=== PATIENT | male | born 1945 | race Caucasian/White ===

== ENCOUNTER 2023-04-23 08:56 | Outpatient (OUT) | payer OTHER, SELFPAY ==
--- NOTE | 2023-04-23 09:57 | CA_ITS ---
[facility] Test Date: 2023-05-08 Pat Name: Basil Mac Department: Room: - Gender: Male Director Of Clinical Applications: : 1945 Requested By: DEE YAP Order Number: [id number] Reading MD: DEE YAP Interpretive Statements Predominant rhythm is sinus with average rate of 62 bpm Tachycardia - max rate of 127 bpm - longest episode of 10min 37sec with rates between 115-127 bpm Bradycardia (42% total) - min rate of 44 bpm - longest episode of 1h 18min 10sec with rates between 48-56 bpm Ventricular ectopy - 49 PVC Patient triggered events: none Impression: Predominant rhythm is sinus with average rate of 62 bpm Fastest rate of 127 bpm and slowest rate of 44 bpm No atrial fibrillation No blocks or pauses Electronically Signed On 05-10-2023 11:52:25 EST by DEE YAP
--- NOTE | 2023-04-23 09:57 | CA_ITS ---
Patient Name: PRUDENCIO PATRICK MR#: [id number] : 1945 Exam Date: 04/23/2023 Ordering Doctor: DR Jose Smith D.O. ECHOCARDIOGRAM REPORT PROCEDURE: CA ECHO DOPPLER COMPLETE INDICATIONS: Syncope, Hypertension, Murmur COMPARISON: None. DESCRIPTION: COMPLETE ECHOCARDIOGRAM Real-time transthoracic echocardiography with 2D, M-mode, spectral and color flow Doppler performed. QUALITY: Technical quality was adequate. LEFT VENTRICLE: Normal chamber size. Thickened septal wall. LV EF: Global left ventricular systolic function is normal; visually estimated ejection fraction is 55 to 60%. Difficult to assess segmental wall motion abnormalities; no obvious abnormalities seen. DIASTOLIC: Normal diastolic function. ATRIAL SEPTUM: Visually appears intact. LEFT ATRIUM: Normal chamber size. RIGHT ATRIUM: Normal chamber size. RIGHT VENTRICLE: Normal chamber size. Normal right ventricular systolic function. TRICUSPID VALVE: Normal mobility and thickness. No stenosis with trivial regurgitation. MITRAL VALVE: Normal mobility and thickness. No evidence of mitral valve stenosis. There is no mitral annular calcification. Trivial mitral regurgitation. AORTIC VALVE: Normal trileaflet appearance. Thickened aortic valve. Normal leaflet mobility. No evidence of aortic valve stenosis. No aortic regurgitation. AORTIC ROOT: Normal diameter and appearance. PULMONIC VALVE: Not well visualized. No stenosis. No regurgitation. PERICARDIUM: No evidence of pericardial effusion. IVC: Collapses with inspirations. CONCLUSION: 1. Global left ventricular systolic function is normal; visually estimated ejection fraction is 55 to 60% 2. The right ventricle is normal in size and systolic function 3. Normal diastolic function 4. No significant valvular abnormalities Adult Echocardiography Procedure Report Left Ventricle LVEDD (3.7 - 5.6 cm): 4.20 cm LVESD (2.2 - 4.0 cm): 2.59 cm LVIVS thickness (0.6 - 1.2 cm): 1.20 cm LVPW thickness (0.5 - 1.0 cm): 0.99 cm e': 0.10 m/s E - e': 5.22 LVOT Max Gradient: 4.28 mm[Hg] LVOT Area (cm2): 1.03 m/s Peak Velocity (LVOT): 1.03 m/s Left Atrium LA Volume Index (2D A2C): 25.43 ml/m2 Left Atrium Systolic Dimension: 4.22 cm Mitral Valve MV E to A Ratio: 0.75 Mitral Valve A-Wave Peak Velocity: 0.68 m/s Mitral Valve E-Wave Peak Velocity: 0.51 m/s Right Ventricle Aorta Aortic Valve Peak Velocity(Antegrade Flow): 1.24 m/s Peak Gradient(Antegrade Flow): 6.14 mm[Hg] Tricuspid Valve Pulmonic Valve Peak Velocity: 0.91 m/s Peak Gradient: 3.43 mm[Hg], 3.27 mm[Hg] Right Atrium Right Atrium Systolic Pressure: 46.41 ml, 46.41 ml Dictated by: Jose Porter M.D. on 04/23/2023 at 14:30 Approved by: Jose Porter M.D. on 04/23/2023 at 14:33
== END 2023-04-23 08:57 | disposition home or self-care (01) ==
LOC: CARD 08:56
PROVIDERS: PCP Internal Medicine; Visit Provider Internal Medicine
DX: R55 Syncope and collapse (principal); I10 Essential (primary) hypertension; R01.1 Cardiac murmur, unspecified
CPT/HCPCS: 93242; 93306

== ENCOUNTER 2023-08-07 12:05 | Outpatient (OUT) | payer OTHER, SELFPAY ==
--- OUTSIDE RECORDS SUMMARY | 2023-08-07 12:16 | XMS_ITS | CCD ---
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 Name Role Phone Jose Smith DO Primary Care Provider JOSE SMITH Primary Care Physician [phone] Christophe MCLAUGHLIN Attending Unavailable MCLAUGHLIN, Christophe Stoddard Attending Unavailable Jose Smith Unavailable MCLAUGHLIN ., DR SAEED Attending Unavailable BALL, DR PRICE Primary Care Unavailable MCLAUGHLIN ., DR SAEED Admitting Unavailable MCLAUGHLIN ., DR SAEED Consulting Unavailable BALL, DR PRICE Admitting Unavailable BALL, DR PRICE Primary Care Unavailable BALL, DR PRICE Consulting Unavailable FRACISCO, DR PRICE Attending Unavailable Fracisco SILVER Jose Kevin Primary Care Provider ABHYANKAR, MAYCOL Referring Unavailable BALL, JOSE E Primary Care Unavailable ABHYANKAR, MAYCOL Referring Unavailable BALL, JOSE E Primary Care Unavailable WISAM LONG Attending Unavailable ABHYANKAR, MAYCOL Referring Unavailable FRACISCO, JOSE E Primary Care Unavailable ABHYANKAR, MAYCOL Attending Unavailable ABHYANKAR, MAYCOL Referring Unavailable BALL, JOSE E Primary Care Unavailable ABHYANKAR, MAYCOL Referring Unavailable BALL, JOSE E Primary Care Unavailable ABHYANKAR, MAYCOL Referring Unavailable BALL, JOSE E Primary Care Unavailable ABHYANKAR, MAYCOL Referring Unavailable BALL, JOSE E Primary Care Unavailable ABHYANKAR, MAYCOL Referring Unavailable BALL, JOSE E Primary Care Unavailable ABHYANKAR, MAYCOL Referring Unavailable BALL, JOSE E Primary Care Unavailable WISAM LONG Attending Unavailable ABHYANKAR, MAYCOL Referring Unavailable BALL, JOSE E Primary Care Unavailable ABHYANKAR, MAYCOL Referring Unavailable ABHYANKAR, MAYCOL Attending Unavailable BALL, JOSE E Primary Care Unavailable ABHYANKAR, MAYCOL Referring Unavailable BALL, JOSE E Primary Care Unavailable ABHYANKAR, MAYCOL Referring Unavailable ABHYANKAR, MAYCOL Attending Unavailable JOSE SMITH Primary Care Unavailable MAYCOL NOVAK Referring Unavailable JOSE SMITH Primary Care Unavailable Unavailable Primary Care Provider UnavailJose Morales MD Primary Care Provider NAKUL GARCIA Attending Unavailable Allergies Allergy Classification Reported Allergen(s) Allergy Type Date of Onset Reaction(s) Facility (20 sources) Clindamycin; Translations: [CLINDAMYCIN] Drug Allergy 5 Anaphylaxis [facility] (13 sources) Penicillins; Translations: [PENICILLINS] Drug Allergy 2 Hives [facility] (15 sources) Penicillins Drug Allergy 2 [facility] (12 sources) Penicillin; Translations: [penicillin] Drug Allergy Mild (qualifier value) [facility] (1 source) Penicillins Drug allergy (disorder) 5 [facility] (5 sources) Penicillin G Drug Allergy 3 Unknown [facility] Other (5 sources) Penicillin V Drug Allergy 3 Unknown [facility] Other (1 source) patient allergy list reviewed by nurse or physicia Propensity to adverse reactions 8 Comment:Done [facility] Other (2 sources) Penicillins Drug Allergy 2 [facility] Medications Current Medications Medication Drug Class(es) Dates Sig (Normalized) Sig (Original) Acyclovir (20 sources) Herpesvirus Nucleoside Analog DNA Polymerase Inhibitor, Herpes Simplex Virus Nucleoside Analog DNA Polymerase Inhibitor, Herpes Zoster Virus Nucleoside Analog DNA Polymerase Inhibitor Start: 08-03-2019 acyclovir 800 mg, Refills(s) 0 Start Date: 08/03/19 Status: Ordered take 1 tablet by mouth in the mo rning acyclovir (Zovirax) 800 MG tablet Take 800 mg by mouth in the morning and 800 mg in the evening. 0 Active Comment on above: Take 800 mg by mouth twice daily. amLODIPine 5 mg oral tablet (20 sources) Dihydropyridine Calcium Channel Chris Start: 0 take 5 mg by mouth once daily amlodipine 5 mg, Oral, Daily, Refills(s) 0 Start Date: 08/03/19 Status: Ordered take 1 tablet by mouth twice nii ly amLODIPine Besylate 5 MG 1 tablet Orally twice daily for 90 days Active Comment on above: Take 5 mg by mouth o nce daily. Take 5 mg by mouth t wice daily. Aspirin (13 sources) Platelet Aggregation Inhibitor, Nonsteroidal Anti-inflammatory Drug Aspirin 81 Active atorvastatin 10 mg oral tablet (20 sources) HMG-CoA Reductase Inhibitor Start: 06-06-20 23 take 1 tablet by mouth in the morning atorvastatin (Lipitor) 10 MG tablet Take 10 mg by mouth in the morning. 0 06/06/2023 Active Start: 08-10-2013 take 1 tablet by megha th once daily ATORVASTATIN 10 mg tablet Take 10 mg by mouth once daily. 0 08/10/2013 Active Comment on above: Take 10 mg by mouth once daily. citalopram 10 mg oral tablet (20 sources) Serotonin Reuptake Inhibitor take 1 tablet by mouth in the morning citalopram (CeleXA) 10 MG tablet Take 10 mg by mouth in the morning. 0 Active Comment on above: Take 10 mg by mouth once daily. finasteride 5 mg oral tablet (20 sources) 5-alpha Reductase Inhibitor Start: 022 take 1 tablet by mouth once daily finasteride 5 mg Tab 5 mg = 1 tab(s), Oral, Daily, # 90 tab(s), Refills(s) 3, Pharmacy: [facility] [id number], 183, cm, 08/05/21 9:11:00 EST, Height/Length Dosing, 119, kg, 08/05/21 9:11:00 EST, Weight Dosing Start Date: 08/27/21 Status: Ordered Comment on above: Take 5 mg by mouth o nce daily. hydroCHLOROthiazide 12.5 mg / losartan potassium 50 mg oral tablet (10 sources) Thiazide Diuretic, Angiotensin 2 Receptor Chris Start: 023 losartan-hydroCHLO ROthiazide (Hyzaar) 50-12.5 MG tablet Refill(s) 0 0 08/08/2022 Active Start: 10-14-2021 End: 12-26-2021 losartan-hydroCHLOROthiazide (HYZAAR) 50-12.5 mg per tablet hydroxyurea 500 mg oral capsule (20 sources) Antimetabolite Start: 05-09-2023 take 1 capsule by mouth once daily hydroxyurea (HYDREA) 500 mg capsule take 1 capsule by mouth once daily 90 capsule 1 05/09/2023 Active Start: 08-08-2022 End: 05-09-2023 take 1 capsule by mouth once daily hydroxyurea (HYDREA) 500 mg capsule TAKE 1 CAPSULE BY MOUTH ONCE DAILY 90 capsule 1 11/11/2022 05/09/2023 Discontinued Start: 02-14-2022 End: 05-19-2022 hydroxyurea 500 mg Cap Refil ls(s) 0 Start Date: 08/08/22 Status: Ordered Start: 10-27-2021 End: 01-20-2022 take 1 capsule by mouth once daily hydroxyurea (HYDREA) 500 mg capsule Take 1 capsule by mouth once daily. 30 capsule 3 01/20/2022 Active Comment on above: Take 1 capsule by mo uth once daily. TAKE 1 CAPSULE BY MO UTH ONCE DAILY triamcinolone acetonide 0.25 mg/ml topical cream (8 sources) Corticosteroid Start: 09-12-2022 Triamcinolone Acetonide 0.025 % 1 application Externally twice daily as needed for 30 days Aug, Active Start: 09-12-2022 Triamcinolone Acetonide 0.025 % 1 application Externally twice daily as needed for 30 days Aug, Active Completed/Discontinued Medications Medication Drug Class(es) Dates Sig (Normalized) Sig (Original) doxycycline hyclate 100 mg oral capsule (20 sources) Tetracycline-clas s Drug Start: 06-19-2022 take 1 capsule by mouth twice daily as needed Doxycycline Hyclate 100 MG 1 capsule Orally twice daily for 7 days Jun, Not-Taking/PRN 150 ml glucose 50 mg/ml injection (1 source) Start: 11-14-2021 End: 11-14-2021 dextrose 5% in water iv infusion Start: 11-14-2021 End: 11-14-2021 dextrose 5% in water iv infu lanre hydroCHLOROthiazide 25 mg oral tablet (20 sources) Thiazide Diuretic take 1 tablet by mouth once daily hydrochlorothiazide 25 mg tablet Take 25 mg by mouth once daily. 0 Active Comment on above: Take 25 mg by mouth once daily. losartan potassium 50 mg oral tablet (20 sources) Angiotensin 2 Receptor Chris Start: 2021 take 1 tablet by mouth once daily losartan (COZAAR) 50 mg tablet Take 50 mg by mouth once daily. 0 12/12/2021 Active take 1 tablet by mouth twice nii ly Losartan Potassium 50 MG 1 tablet Orally twice daily Active Comment on above: Take 50 mg by mouth once daily. 1000 ml sodium chloride 9 mg/ml injection (1 source) Start: 11-14-2021 End: 11-14-2021 NaCl 0.9% 1,000 mL iv bolus Start: 11-14-2021 End: 11-14-2021 NaCl 0.9% 1,000 mL iv bolus Problems Active Problems Problem Classification Problem Date Documented Da te Episodic/Chronic Allergic reactions (9 sources) Flexural eczema; Translations: [Flexural eczema] Chronic Blindness and vision defects (1 source) Blindness AND/OR vision impairment level 08-03-2019 Chronic Cardiac dysrhythmias (1 source) Bradycardia, unspecified Episodic Chronic kidney disease (11 sources) Chronic kidney disease stage 3A ; Translations: [Stage 3a chronic kidney disease] Onset: 01-15-2023 Chronic Chronic ulcer of skin (2 sources) Chronic ulcer of skin; Translations: [Non-pressure chronic ulcer of skin of other sites with unspecified severity] Onset: 03-26-2015 Chronic Disorders of lipid metabolism (20 sources) Pure hypercholesterolemi a; Translations: [Pure hypercholesterolemi a, unspecified] Onset: 07-21-2014 Chronic Essential hypertension (20 sources) Hypertensive disorder; Translations: [Essential (primary) hypertension] 05-31-2012 Chronic Genitourinary symptoms and ill-defined conditions (2 sources) Blood in urine; Translations: [Nocturia] 08-03-2019 Episodic Heart valve disorders (1 source) Cardiac murmur, unspecified Episodic Hyperplasia of prostate (20 sources) Lower urinary tract symptoms due to benign prostatic hypertrophy; Translations: [Benign prostatic hyperplasia with lower urinary tract symptoms] Onset: 06-15-1959 Chronic Immunizations and screening for infectious disease (2 sources) Vaccination given; Translations: [Encounter for immunization] Episodic Inflammatory conditions of male genital organs (1 source) Prostatitis 08-03-2019 Episodic Malaise and fatigue (4 sources) Malaise; Translations: [Other malaise] Onset: 08-09-2015 Episodic Mood disorders (7 sources) Depressive disorder; 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] Onset: 03-26-2015 08-03-2019 Chronic Mycoses (2 sources) Onychomycosis; Translations: [Tinea unguium] 07-30-2023 Episodic Neoplasms of unspecified nature or uncertain behavior (20 sources) Monoclonal gammopathy of uncertain significance; Translations: [Monoclonal gammopathy] Onset: 06-15-1959 Chronic Neoplasms of unspecified nature or uncertain behavior (2 sources) Neoplasm of uncertain behavior of skin; Translations: [Neoplasm of uncertain behavior of skin] 07-30-2023 Episodic Nutritional deficiencies (2 sources) Deficiency of macronutrients; Translations: [Unspecified protein-calorie malnutrition] Onset: 11-02-2014 Chronic Osteoarthritis (20 sources) Osteoarthritis; Translations: [Unspecified osteoarthritis, unspecified site] 05-31-2012 Chronic Other aftercare (1 source) 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 middle 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 Episodic Other aftercare (2 sources) Long-term current use of drug therapy; Translations: [Other middle 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] Episodic Other connective tissue disease (1 source) Trigger finger, left middle finger Episodic Other connective tissue disease (2 sources) Pain in right foot; Translations: [Pain in right foot] 07-30-2023 Episodic Other connective tissue disease (2 sources) Pain of toes of bilateral feet; Translations: [Pain in right toe(s)] 07-30-2023 Episodic Other gastrointestinal disorders (15 sources) Ileostomy present; Translations: [Ileostomy status] Chronic Other hematologic conditions (14 sources) Erythrocytosis; Translations: [Secondary polycythemia] Episodic Other hematologic conditions (2 sources) Secondary polycythemia; Translations: [Secondary polycythemia] Episodic Other injuries and conditions due to external causes (2 sources) History of fall; Translations: [History of falling] Episodic Other nutritional; endocrine; and metabolic disorders (15 sources) Obesity; Translations: [Obesity, unspecified] Chronic Other nutritional; endocrine; and metabolic disorders (4 sources) Obese class I; Translations: [Body mass index (BMI) 33.0-33.9, adult] Onset: 06-15-1959 Chronic Other nutritional; endocrine; and metabolic disorders (2 sources) Simple obesity ; Translations: [Other obesity due to excess calories] Onset: 06-15-1959 Chronic Other nutritional; endocrine; and metabolic disorders (3 sources) Morbid obesity; Translations: [Morbid (severe) obesity due to excess calories] Onset: 06-15-1959 04-09-2023 Chronic Other nutritional; endocrine; and metabolic disorders (2 sources) Obese class II; Translations: [Body mass index 35.0-35.9, adult] Onset: 06-15-1959 Chronic Other nutritional; endocrine; and metabolic disorders (3 sources) Severe obesity; Translations: [Morbid (severe) obesity due to excess calories] Chronic Other nutritional; endocrine; and metabolic disorders (3 sources) Body mass index 30+ - obesity; Translations: [Body mass index (BMI) 35.0-35.9, adult] Chronic Other nutritional; endocrine; and metabolic disorders (1 source) Morbid (severe) obesity due to excess calories Chronic Other nutritional; endocrine; and metabolic disorders (1 source) Body mass index (BMI) 35.0-35.9, adult Chronic Other screening for suspected conditions (not mental disorders or infectious disease) (6 sources) Raised prostate specific antigen; Translations: [Elevated prostate specific antigen [PSA]] Onset: 07-28-2022 Episodic Other skin disorders (16 sources) Sebaceous cyst; Translations: [Sebaceous cyst] Episodic Residual codes; unclassified (1 source) Family history of cancer; Translations: [Family history of malignant neoplasm of prostate] Onset: 08-08-2022 Episodic Residual codes; unclassified (1 source) Family history of prostate cancer 08-05-2021 Episodic Residual codes; unclassified (1 source) Family history of malignant neoplasm of prostate; Translations: [FAMILY HX MALIG NEOPLASM PROSTATE] Onset: 08-01-2022 Episodic Skin and subcutaneous tissue infections (3 sources) Local infection of the skin and subcutaneous tissue, unspecified Episodic Substance-related disorders (13 sources) Tobacco user; Translations: [Nicotine dependence, cigarettes, in remission] Chronic Syncope (16 sources) Syncope and collapse; Translations: [Syncope and collapse] Episodic Viral infection (17 sources) Herpesviral vesicular dermatitis; Translations: [Herpesviral vesicular dermatitis] Onset: 10-03-2013 07-30-2023 Episodic Past or Other Problems Problem Classification Problem Date Documented Date Episodic/Chronic Allergic reactions (2 sources) Contact dermatitis due to plants; Translations: [Contact dermatitis and other eczema due to plants (except food)] Onset: 03-16-2014 Episodic Bacterial infection; unspecified site (2 sources) Bacterial infectious disease; Translations: [Bacterial infection, unspecified, in conditions classified elsewhere and of unspecified site] Onset: 09-07-2015 Episodic Chronic kidney disease (2 sources) Chronic kidney disease Disorders of teeth and jaw (2 sources) Localized slight aggressive periodontitis; Translations: [Aggressive periodontitis, localized] Onset: 09-07-2015 Episodic Intestinal infection (6 sources) Infectious colitis, enteritis and gastroenteritis; Translations: [Infectious gastroenteritis and colitis, unspecified] Onset: 11-02-2014 Episodic Residual codes; unclassified (2 sources) Postoperative state; Translations: [Other postprocedural status] Onset: 08-12-2016 Episodic Residual codes; unclassified (2 sources) Requires influenza virus vaccination; Translations: [Need for prophylactic vaccination and inoculation, Influenza] Onset: 02-21-2019 Episodic Screening and history of mental health and substance abuse codes (2 sources) History of tobacco use; Translations: [Personal history of tobacco use, presenting hazards to health] Onset: 05-11-2017 Episodic Unclassified (2 sources) Long-term current use of drug therapy; Translations: [Long-term (current) use of other medications] Onset: 08-12-2016 Unclassified (2 sources) Non-healing surgical wound; Translations: [Non-healing surgical wound] Onset: 11-02-2014 Results Test Name Value Interpretation Reference Range Facility B2 Microglob SerPl-mCncon Nlmv-3-Urjkxnpqvtiz n [Mass/Vol] 2.5 ug/mL Normal <3.1 [facility] Comment on above: Order Comment: Speci men Type: BLOOD SPECIMEN Ordering Facility: [facility] Address: [address] [place] [address] Result Comment: Beta -2 Microglobulin test is performed using the [employer] immunoturbidimetric method. Results obtained with different methods or kits cannot be used interchangeably. Performed By: #### 3 084-1, 2777-1, 2532-0, 04316-7 #### [facility] CLIA [id number] [address] [place] [address] 67190 CBC W Auto Differential pane l (Bld)on 07-02-2023 Basophils (Bld) [#/Vol] 0.04 10*3/uL Normal <0.11 [facility] Comment on above: Order Comment: Speci men Type: BLOOD SPECIMEN Ordering Facility: [facility] Address: [address] [place] [address] Performed By: #### 3 084-1, 7-1, 0, #### [facility] CLIA [id number] [address] [place] [address] 94155 Basophils/100 WBC (Bld) 0.9 % Normal [facility] Comment on above: Order Comment: Speci men Type: BLOOD SPECIMEN Ordering Facility: [facility] Address: [address] [place] [address] Performed By: #### 3 084-1, 2777-1, 2531-0, #### [facility] CLIA [id number] [address] [place] [address] 63516 Differential cell count method Nom (Bld) Auto Normal [facility] Comment on above: Order Comment: Speci men Type: BLOOD SPECIMEN Ordering Facility: [facility] Address: [address] [place] [address] Performed By: #### 3 084-1, 2776-06, 0, #### [facility] CLIA [id number] [address] [place] [address] 97168 Eosinophils (Bld) [#/Vol] 0.14 10*3/uL Normal <0.46 [facility] Comment on above: Order Comment: Speci men Type: BLOOD SPECIMEN Ordering Facility: [facility] Address: [address] [place] [address] Performed By: #### 3 084-1, 27712-13, 0, #### [facility] CLIA [id number] [address] [place] [address] 90529 Eosinophils/100 WBC (Bld) 3.1 % Normal [facility] Comment on above: Order Comment: Speci men Type: BLOOD SPECIMEN Ordering Facility: [facility] Address: [address] [place] [address] Performed By: #### 3 084-1, 2777-1, 2532-0, 22289-0 #### [facility] CLIA [id number] [address] [place] [address] 45977 Erythrocyte distribution width (RBC) [Ratio] 13.6 % Normal 11.5-15.0 [facility] Comment on above: Order Comment: Speci men Type: BLOOD SPECIMEN Ordering Facility: [facility] Address: [address] [place] [id number] Performed By: #### 3 084-1, 2777-1, 2532-0, 02242-0 #### [facility] CLIA [id number] [address] [place] [address] 10735 Hematocrit (Bld) [Volume fraction] 47.2 % Normal 39.0-51.0 [facility] Comment on above: Order Comment: Speci men Type: BLOOD SPECIMEN Ordering Facility: [facility] Address: [address] [place] [id number] Performed By: #### 3 084-1, 2777-1, 2532-0, 28328-4 #### [facility] CLIA [id number] [address] [place] [address] 49509 Hemoglobin (Bld) [Mass/Vol] 16.1 g/dL Normal 13.0-17.0 [facility] Comment on above: Order Comment: Speci men Type: BLOOD SPECIMEN Ordering Facility: [facility] Address: [address] [place] [id number] Performed By: #### 3 084-1, 2777-1, 2532-0, 28777-5 #### [facility] CLIA [id number] [address] [place] [address] 69019 Immature granulocytes (Bld) [#/Vol] 10*3/uL Normal <0.10 [facility] Comment on above: Order Comment: Speci men Type: BLOOD SPECIMEN Ordering Facility: [facility] Address: [address] [place] [address] Performed By: #### 3 084-1, 2777-1, 2531-0, #### [facility] CLIA [id number] [address] [place] [address] 11713 Immature granulocytes/100 WBC (Bld) 0.2 % Normal [facility] Comment on above: Order Comment: Speci men Type: BLOOD SPECIMEN Ordering Facility: [facility] Address: [address] [place] [address] Performed By: #### 3 084-1, 2777-1, 2531-0, #### [facility] CLIA [id number] [address] [place] [address] 22455 Lymphocytes (Bld) [#/Vol] 0.83 10*3/uL Low 1.00-4.00 [facility] Comment on above: Order Comment: Speci men Type: BLOOD SPECIMEN Ordering Facility: [facility] Address: [address] [place] [address] Performed By: #### 3 084-1, 27712-13, 0, #### [facility] CLIA [id number] [address] [place] [address] 39506 Lymphocytes/100 WBC (Bld) 18.3 % Normal [facility] Comment on above: Order Comment: Speci men Type: BLOOD SPECIMEN Ordering Facility: [facility] Address: [address] [place] [address] Performed By: #### 3 084-1, 2771, 0, #### [facility] CLIA [id number] [address] [place] [address] 36659 MCH (RBC) [Entitic mass] 35.5 pg High 26.0-34.0 [facility] Comment on above: Order Comment: Speci men Type: BLOOD SPECIMEN Ordering Facility: [facility] Address: [address] [place] [address] Performed By: #### 3 084-1, 2777-1, 2531-0, 03609-8 #### [facility] CLIA [id number] [address] [place] [address] MCHC (RBC) [Mass/Vol] 34.1 g/dL Normal 30.5-36.0 [facility] Comment on above: Order Comment: Speci men Type: BLOOD SPECIMEN Ordering Facility: [facility] Address: [address] [place] [address] Performed By: #### 3 084-1, 2777-1, 2531-0, 23459-9 #### [facility] CLIA [id number] [address] [place] [address] MCV (RBC) [Entitic vol] 104.0 fL High 80.0-100.0 [facility] Comment on above: Order Comment: Speci men Type: BLOOD SPECIMEN Ordering Facility: [facility] Address: [address] [place] [address] Performed By: #### 3 084-1, 2777-1, 2531-0, 85081-3 #### [facility] CLIA [id number] [address] [place] [address] 10822 Monocytes (Bld) [#/Vol] 0.47 10*3/uL Normal <0.87 [facility] Comment on above: Order Comment: Speci men Type: BLOOD SPECIMEN Ordering Facility: [facility] Address: [address] [place] [address] Performed By: #### 3 084-1, 2777-1, 2531-0, #### [facility] CLIA [id number] [address] [place] [address] Monocytes/100 WBC (Bld) 10.4 % Normal [facility] Comment on above: Order Comment: Speci men Type: BLOOD SPECIMEN Ordering Facility: [facility] Address: [address] [place] [address] Performed By: #### 3 084-1, 2777-1, 2531-0, 15937-2 #### [facility] CLIA [id number] [address] [place] [address] Neutrophils (Bld) [#/Vol] 3.04 10*3/uL Normal 1.45-7.50 [facility] Comment on above: Order Comment: Speci men Type: BLOOD SPECIMEN Ordering Facility: [facility] Address: [address] [place] [address] Performed By: #### 3 084-1, 2777-1, 2532-0, 93614-0 #### [facility] CLIA [id number] [address] [place] [address] 54117 Neutrophils/100 WBC (Bld) 67.1 % Normal [facility] Comment on above: Order Comment: Speci men Type: BLOOD SPECIMEN Ordering Facility: [facility] Address: [address] [place] [address] Performed By: #### 3 084-1, 2777-1, 2532-0, 58313-9 #### [facility] CLIA [id number] [address] [place] [address] 99450 Nucleated RBC (Bld) [#/Vol] 10*3/uL Normal <0.01 [facility] Comment on above: Order Comment: Speci men Type: BLOOD SPECIMEN [facility] [facility] Address: [address] [place] [address] Performed By: #### 3 084-1, 2777-1, 2532-0, 02825-6 #### [facility] CLIA [id number] [address] [place] [address] 29890 Nucleated RBC/100 WBC (Bld) [Ratio] 0.0 /100 WBC Normal [facility] Comment on above: Order Comment: Speci men Type: BLOOD SPECIMEN Ordering Facility: [facility] Address: [address] [place] [address] Performed By: #### 3 084-1, 2777-1, 2532-0, 88715-8 #### [facility] CLIA [id number] [address] [place] [address] 85697 Platelet mean volume (Bld) [Entitic vol] 10.4 fL Normal 9.0-12.7 [facility] Comment on above: Order Comment: Speci men Type: BLOOD SPECIMEN Ordering Facility: [facility] Address: [address] [place], [place] [address] Performed By: #### 3 084-1, 2777-1, 2532-0, 93607-0 #### [facility] CLIA [id number] [address] [place] [address] 24494 Platelets (Bld) [#/Vol] 158 10*3/uL Normal 150-400 [facility] Comment on above: Order Comment: Speci men Type: BLOOD SPECIMEN Ordering Facility: [facility] Address: [address] [place] [address] Performed By: #### 3 084-1, 2777-1, 2532-0, 28059-5 #### [facility] CLIA [id number] [address] [place] [address] 95531 RBC (Bld) [#/Vol] 4.54 10*6/uL Normal 4.20-6.00 [facility] Comment on above: Order Comment: Speci men Type: BLOOD SPECIMEN Ordering Facility: [facility] Address: [address] [place], [place] [address] Performed By: #### 3 084-1, 2777-1, 2-0, 26534-6 #### [facility] CLIA [id number] [address] [place] [address] 67952 WBC (Bld) [#/Vol] 4.53 10*3/uL Normal 3.70-11.00 [facility] Comment on above: Order Comment: Speci men Type: BLOOD SPECIMEN Ordering Facility: [facility] Address: [address] [place] [address] Performed By: #### 3 084-1, 2777-1, 2532-0, 66210-7 #### [facility] CLIA [id number] [address] [place] [address] 31109 CNOVSPon 07-02-2023 CNOVSP Visit (SP) Office ([place]) PRUDENCIO PATRICK ([id number]) 1945 M Date Time Provider Department 07/02/23 9:00 AM WISAM LONG During your visit today, we recorded the following information about you: Temperature Pulse Respiration Blood pressure 97.1 degrees 62/minute 18/minute 153/71 Weight Height 113.7 kg 1.803 m Wisam Long APRN.GROUP WORKER 07/03/2023 10:13 AM Signed NAME: Prudencio Patrick CLINIC NO.: [id number] DATE OF SERVICE: July 02, 2023 (Mahesh) Some elements in this clinic note that are critical to medical decision making have been carefully reviewed and included from a prior clinic note dated: April 09, 2023. (Dr. Novak) Referring Provider: Dr. 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 His M protein levels have been stable over the last 13+ years, and his risk of progression remains very low. However, he is more notably polycythemic and so we ordered a MPN workup for PRV which came back positive. Now improving with hydrea. - labs for M-spike pending. PLAN: Phlebotomy for hematocrit > 47. At this time patient wishes to not have any further phlebotomies. Continue baby ASA. Continue Hydrea 500 mg daily. Follow up in 12 weeks labs same day. Possible phlebotomy. - HPI: CASE HISTORY: 01/15/2023 - H/H 15.3/45.3 WBC 4.73, PLTs 155 04/17/2022 - H/H 16.3/47.9 - phlebotomy 500 ml 02/20/2022 - H/H 16.5/48.7 - phlebotomy 250 ml x 3 weeks in a row 11/28/2021 Hydrea started 500 mg 11/14/2021 - phlebotomy caused severe hypotensive episode - possibly due to fasting/dehydration 10/18/2021 - Jak2+ PRV diagnosed 2006 - IgA [place] and IgM lambda biclonal M-spike Updated Visit, July 02, 2023: Prudencio Patrick returns for scheduled follow-up. At this point in time patient clearly states that he does not want any further phlebotomies. With past phlebotomies his blood pressures dropped. He ended up having to go through a full cardiac workup which was negative. Today he is feeling good. He denies any signs of stroke like symptoms or blood clots. He denies any bleeding or abnormal bruising. He remains on Hydrea 500 mg daily which she is tolerating well. Since his last visit there has been no significant medical changes. Updated Visit, April 09, 2023: Doing well overall. Just meets criteria for phlebotomy. Martha accompanies him as usual. Updated Visit, January 15, 2023: Doing well and is back with Martha. Labs reviewed and no need for phlebotomy today. Updated Visit, October 17, 2022: Prudencio Patrick returns for follow-up and possible phlebotomy. Since his last visit there has been no significant medical changes. He remains on Hydrea 500 mg daily and is tolerating it well without any side effects. He denies bleeding and abnormal bruising. No signs of blood clots. No cough, shortness of breath, chest pain or other pulmonary complaints. No leg pain. No lower extremity edema. He denies fevers, chills, night sweats and signs/symptoms of infection. Updated Visit, August 07, 2022: Doing well and here with his Martha. He has been doing well and hasn't need a phlebotomy for 16 weeks - now he does. Updated Visit, June 12, 2022: Rafa returns with his Martha and labs are stable. Hgb is at 15.4 and he'd like to defer phlebotomy today. I think that is reasonable. He feels good and has no issues with hydrea. Will see if he needs additional phlebotomy if Hgb >16 next visit - then we can estimate a pattern for planning visits and phlebotomies on a routine basis. Updated Visit, April 17, 2022: Prudencio Patrick returns for follow-up. He remains on Hydrea 500 mg once daily and is tolerating it well. He states that he is doing well. There has been no significant medical changes since his last visit. He denies shortness of breath, chest pain and leg pain. He follows with his PCP, Dr. Smith, who has been changing his blood pressure medications. Patient states the first time he had a phlebotomy his blood pressure dropped. The second time he had a phlebotomy he had no problems. He denies bleeding and abnormal bruising. He offers no new complaints today. No new issues, problems or concerns. Updated Visit, December 26, 2021: Is doing well labs are improved. BP meds adjusted. No need for for phlebotomy today. Will monitor platelets levels. Updated Visit, November 28, 2021: Didn't tolerate phlebotomy due to hypotension but he's on amlodipine, HCTZ 25 in addition to Hyzaar (100/25). Will hold phlebotomy for now and reconsider once his flid status and BP meds are clarified. It's possible that he had a vagal reaction in additi (more content not included)... Normal [facility] Calcium.ionized [Moles/Vol]o n 07-02-2023 Calcium.ionized (Bld) [Mass/Vol] 1.30 mmol/L Normal 1.08-1.30 [facility] Comment on above: Order Comment: Rene witt Type: BLOOD SPECIMEN Ordering Facility: [facility] Address: [address] [place] [address]58 Performed By: #### 3 084-1, 2777-1, 2532-0, 44644-6 #### [facility] CLIA [id number] [address] [place] [address] 73753 Calcium.ionized adjusted to pH 7.4 (Bld) [Moles/Vol] 1.27 mmol/L Normal 1.08-1.30 [facility] Comment on above: Order Comment: Speci men Type: BLOOD SPECIMEN Ordering Facility: [facility] Address: [address] [place] [address] Performed By: #### 3 084-1, 2777-1, 2531-0, 95246-0 #### [facility] CLIA [id number] [address] [place] [address] 73314 Comprehensive metabolic 2000 panelon 07-02-2023 Albumin [Mass/Vol] 4.2 g/dL Normal 3.9-4.9 [facility] Comment on above: Order Comment: Speci men Type: BLOOD SPECIMEN Ordering Facility: [facility] Address: [address] [place] [id number] Performed By: #### 3 084-1, 2777-1, 2531-0, 64371-5 #### [facility] CLIA [id number] [address] [place] [address] 66233 ALP [Catalytic activity/Vol] 103 U/L Normal 38-113 [facility] Comment on above: Order Comment: Speci men Type: BLOOD SPECIMEN Ordering Facility: [facility] Address: [address] [place] [address] Performed By: #### 3 084-1, 2777-1, 2531-0, 03136-5 #### [facility] CLIA [id number] [address] [place] [address] 19468 ALT [Catalytic activity/Vol] 24 U/L Normal 10-54 [facility] Comment on above: Order Comment: Speci men Type: BLOOD SPECIMEN Ordering Facility: [facility] Address: [address] [place] [address] Performed By: #### 3 084-1, 2777-1, 2531-0, 83566-1 #### [facility] CLIA [id number] [address] [place] [address] 46795 Anion gap [Moles/Vol] 10 mmol/L Normal 9-18 [facility] Comment on above: Order Comment: Speci men Type: BLOOD SPECIMEN Ordering Facility: [facility] Address: [address] [place] [address] Performed By: #### 3 084-1, 2777-1, 2532-0, 05351-0 #### [facility] CLIA [id number] [address] [place] [address] 07486 AST [Catalytic activity/Vol] 25 U/L Normal 14-40 [facility] Comment on above: Order Comment: Speci men Type: BLOOD SPECIMEN Ordering Facility: [facility] Address: [address] [id number] Performed By: #### 3 084-1, 2777-1, 2532-0, 71681-8 #### [facility] CLIA [id number] [address] [place] [address] 52576 Bilirubin [Mass/Vol] 0.5 mg/dL Normal 0.2-1.3 [facility] Comment on above: Order Comment: Speci men Type: BLOOD SPECIMEN Ordering Facility: [facility] Address: [address] [place] [address] Performed By: #### 3 084-1, 2777-1, 2532-0, 17928-4 #### [facility] CLIA [id number] [address] [place] [address] 68780 Calcium [Mass/Vol] 9.9 mg/dL Normal 8.5-10.2 [facility] Comment on above: Order Comment: Speci men Type: BLOOD SPECIMEN Ordering Facility: [facility] Address: [address] [id number] Performed By: #### 3 084-1, 2777-1, 2532-0, 72333-8 #### [facility] CLIA [id number] [address] [place] [address] 96280 Chloride [Moles/Vol] 106 mmol/L High 97-105 [facility] Comment on above: Order Comment: Speci men Type: BLOOD SPECIMEN Ordering Facility: [facility] Address: [address] [place] [address] Performed By: #### 3 084-1, 2777-1, 2532-0, 04131-3 #### [facility] CLIA [id number] [address] [place] [address] CO2 [Moles/Vol] 24 mmol/L Normal 22-30 [facility] Comment on above: Order Comment: Speci men Type: BLOOD SPECIMEN Ordering Facility: [facility] Address: [address] [place] [address] Performed By: #### 3 084-1, 277-1, 0, #### [facility] CLIA [id number] [address] [place] [address] 40428 Creatinine [Mass/Vol] 1.10 mg/dL Normal 0.73-1.22 [facility] Comment on above: Order Comment: Speci men Type: BLOOD SPECIMEN Ordering Facility: [facility] Address: [address] [place] [address] Performed By: #### 3 084-1, 27712-13, 0, #### [facility] CLIA [id number] [address] [place] [address] 35258 Creatinine and Glomerular filtration rate.predicted panel (S/P/Bld) 69 mL/min/1.73m??? Normal >=60 [facility] Comment on above: Order Comment: Jose Rauli men Type: BLOOD SPECIMEN Ordering Facility: [facility] Address: [address] [place] [address] Result Comment: Tawanna mated Glomerular Filtration Rate (eGFR) is calculated using the 2020 CKD-EPI creatinine equation. This equation utilizes serum creatinine, sex, and age as parameters. The creatinine assay has traceable calibration to isotope dilution-mass spectrometry. Refer to KDIGO guidelines for clinical interpretation. In patients with unstable renal function, e.g. those with acute kidney injury, the eGFR may not accurately reflect actual GFR. Performed By: #### 3 084-1, 277-1, 0, #### [facility] CLIA [id number] [address] [place] [address] 32643 Glucose [Mass/Vol] 106 mg/dL High 74-99 [facility] Comment on above: Order Comment: Rene witt Type: BLOOD SPECIMEN Ordering Facility: [facility] Address: [address] [place] [address] Result Comment: The [place] [employer] (ADA) provides guidance for cutoff values for fasting glucose and random glucose. The ADA defines fasting as no caloric intake for at least 8 hours. Fasting plasma glucose results between 100 to 125 mg/dL indicate increased risk for diabetes (prediabetes). Fasting plasma glucose results greater than or equal to 126 mg/dL meet the criteria for diagnosis of diabetes. In the absence of unequivocal hyperglycemia, results should be confirmed by repeat testing. In a patient with classic symptoms of hyperglycemia or hyperglycemic crisis, random plasma glucose results greater than or equal to 200 mg/dL meet the criteria for diagnosis of diabetes. Reference: Standards of Medical Care in Diabetes 2016, [place] [employer]. Diabetes Care. 2016.39(Suppl 1). Performed By: #### 3 084-1, 2777-1, 2532-0, 69560-2 #### [facility] CLIA [id number] [address] [place] [address] 58414 Potassium [Moles/Vol] 4.5 mmol/L Normal 3.7-5.1 [facility] Comment on above: Order Comment: Rene witt Type: BLOOD SPECIMEN Ordering Facility: [facility] Address: [address] [place] [address] Performed By: #### 3 084-1, 2777-1, 2532-0, 56407-1 #### [facility] CLIA [id number] [address] [place] [address] 77819 Protein [Mass/Vol] 7.7 g/dL Normal 6.3-8.0 [facility] Comment on above: Order Comment: Rene witt Type: BLOOD SPECIMEN Ordering Facility: [facility] Address: [address] [place], [place] [address] Performed By: #### 3 084-1, 2777-1, 2532-0, 97274-0 #### [facility] CLIA [id number] [address] [place] [address] 10916 Sodium [Moles/Vol] 140 mmol/L Normal 136-144 [facility] Comment on above: Order Comment: Speci men Type: BLOOD SPECIMEN Ordering Facility: [facility] Address: [address] [place] [address] Performed By: #### 3 084-1, 2777-1, 2532-0, 40727-4 #### [facility] CLIA [id number] [address] [place], [place] [phone] Urea nitrogen [Mass/Vol] 22 mg/dL Normal 9-24 [facility] Comment on above: Order Comment: Speci men Type: BLOOD SPECIMEN Ordering Facility: [facility] Address: [address] [place] [address] Performed By: #### 3 084-1, 2777-1, 2531-0, 75114-7 #### [facility] CLIA [id number] [address] [place], [place] [address] IMMUNOFIXATION SCREEN, SERUM on 07-02-2023 INTERPRETATION (MPA) Two sets of atypical restricted bands are present in the specimen, one in the IgA and kappa lanes, and the other in the IgM and lambda lanes. 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 Normal [facility] Comment on above: Order Comment: Speci men Type: BLOOD SPECIMEN Ordering Facility: [facility] Address: [address] [place] [address] Performed By: #### 3 084-1, 2777-1, 2531-0, 05359-6 #### [facility] CLIA [id number] [address] [place] [address] 51819 MPA RESULT M protein is present. Abnormal No M p rotein is identified. [facility] Comment on above: Order Comment: Speci men Type: BLOOD SPECIMEN Ordering Facility: [facility] Address: [address] [place] [address] Performed By: #### 3 084-1, 2777-1, 2532-0, 64172-7 #### [facility] CLIA [id number] [address] [place] [address] 75734 STAFF REVIEW ([facility]) Reviewed by Rosalva Alicia M.D. Normal [facility] Comment on above: Order Comment: Speci men Type: BLOOD SPECIMEN Ordering Facility: [facility] Address: [address] [place] [address] Performed By: #### 3 084-1, 2777-1, 2532-0, 78212-7 #### [facility] CLIA [id number] [address] [place] [address] 39070 IMMUNOGLOBULINS GAMon 2023 IgA [Mass/Vol] 568 mg/dL High 70-400 [facility] Comment on above: Order Comment: Speci men Type: BLOOD SPECIMEN Ordering Facility: [facility] Address: [address] [place] [address] Performed By: #### 3 084-1, 2777-1, 2532-0, 91731-3 #### [facility] CLIA [id number] [address] [place] [address] 72131 IgG [Mass/Vol] 789 mg/dL Normal 700-1600 [facility] Comment on above: Order Comment: Speci men Type: BLOOD SPECIMEN Ordering Facility: [facility] Address: [address] [place] [address] Performed By: #### 3 084-1, 2777-1, 2532-0, 44404-9 #### [facility] CLIA [id number] [address] [place] [address] 68965 IgM [Mass/Vol] 860 mg/dL High 40-230 [facility] Comment on above: Order Comment: Speci men Type: BLOOD SPECIMEN Ordering Facility: [facility] Address: [address] [place] [address] Performed By: #### 3 084-1, 2777-1, 2532-0, 35180-5 #### [facility] CLIA [id number] [address] [place] [address] 99049 KAPPA/BURT,FREE,SERon 2023 Immunoglobulin light chains.kappa.free (S) [Mass/Vol] 30.8 mg/L High 3.3-19.4 [facility] Comment on above: Order Comment: Speci men Type: BLOOD SPECIMEN Ordering Facility: [facility] Address: [address] [place] [address] Result Comment: Rare ly, increased serum free light chains levels may not be detected or accurately quantified due to prozone phenomenon or in high viscosity samples using this immunoturbidimetric assay. Correlation with other laboratory results and clinical findings is recommended. The [place] Free Light Chain was performed using the Binding Site Optilite immunoturbidimetric method. Result obtained with different assay methods or kits cannot be used interchangeably. Performed By: #### 3 084-1, 2777-1, 2532-0, 87955-1 #### [facility] CLIA [id number] [address] [place] [address] 86218 Immunoglobulin light chains.kappa/Immuno globulin light chains.lambda (S) [Mass ratio] 0.70 Normal 0.26-1.65 [facility] Comment on above: Order Comment: Rene witt Type: BLOOD SPECIMEN Ordering Facility: [facility] Address: [address] [place] [address] Performed By: #### 3 084-1, 2777-1, 2532-0, 30954-1 #### [facility] CLIA [id number] [address] [place] [address] 04704 Immunoglobulin light chains.lambda.free [Mass/Vol] 43.7 mg/L High 5.7-26.3 [facility] Comment on above: Order Comment: Rene eduar Type: BLOOD SPECIMEN Ordering Facility: [facility] Address: [address] [place] [address] Result Comment: Rare ly, increased serum free light chains levels may not be detected or accurately quantified due to prozone phenomenon or in high viscosity samples using this immunoturbidimetric assay. Correlation with other laboratory results and clinical findings is recommended. The Lambda Free Light Chain was performed using the Binding Site Optilite immunoturbidimetric method. Result obtained with different assay methods or kits cannot be used interchangeably. Performed By: #### 3 084-1, 2777-1, 2531-0, #### [facility] CLIA [id number] [address] [place] [address] 91533 LDH SerPl-cCncon 07-02-2023 LDH [Catalytic activity/Vol] 178 U/L Normal 135-225 [facility] Comment on above: Order Comment: Speci men Type: BLOOD SPECIMEN Ordering Facility: [facility] Address: [address] [place] [address] Result Comment: Hemo lysis present. The origin of the hemolysis, in vitro versus an in vivo hemolytic process, cannot be distinguished via this assay alone. In vitro hemolysis may lead to non-physiological (spurious) elevation in lactate dehydrogenase (LDH) results. The result should be interpreted in context of the clinical setting and other test results. Suggest reorder as clinically indicated. Performed By: #### 3 084-1, 2777-1, 2531-0, #### [facility] CLIA [id number] [address] [place] [address] 07823 PROTEIN ELECTROPHORESIS SERU M (P)on 07-02-2023 Albumin [Mass/Vol] 4.05 g/dL Normal 3.43-5.41 [facility] Comment on above: Order Comment: Speci men Type: BLOOD SPECIMEN Ordering Facility: [facility] Address: [address] [place] [id number] Performed By: #### 3 084-1, 2777-1, 2531-0, 45092-9 #### [facility] CLIA [id number] [address] [place] [address] 05900 Alpha 1 globulin Elph [Mass/Vol] 0.29 g/dL Normal 0.18-0.43 [facility] Comment on above: Order Comment: Speci men Type: BLOOD SPECIMEN Ordering Facility: [facility] Address: [address] [place] [address] Performed By: #### 3 084-1, 2777-1, 2531-0, 26063-5 #### [facility] CLIA [id number] [address] [place] [address] 43977 Alpha 2 globulin Elph [Mass/Vol] 0.67 g/dL Normal 0.42-0.98 [facility] Comment on above: Order Comment: Speci men Type: BLOOD SPECIMEN Ordering Facility: [facility] Address: [address] [place] [address] Performed By: #### 3 084-1, 2777-1, 2531-0, 81875-6 #### [facility] CLIA [id number] [address] [place] [address] 80593 Beta globulin Elph [Mass/Vol] 0.98 g/dL Normal 0.61-1.17 [facility] Comment on above: Order Comment: Speci men Type: BLOOD SPECIMEN Ordering Facility: [facility] Address: [address] [place] [address] Performed By: #### 3 084-1, 2777-1, 2531-0, 52058-9 #### [facility] CLIA [id number] [address] [place] [address] 03508 Gamma globulin Elph [Mass/Vol] 1.52 g/dL High 0.53-1.51 [facility] Comment on above: Order Comment: Speci men Type: BLOOD SPECIMEN Ordering Facility: [facility] Address: [address] [place] [address] Performed By: #### 3 084-1, 2777-1, 2531-0, 24925-2 #### [facility] CLIA [id number] [address] [place] [address] 14593 INTERPRETATION COMMENT FOR PROTEIN ELECTROPHORESIS See separate immunofixation report for characterization of monoclonal gammopathy. Normal [facility] Comment on above: Order Comment: Speci men Type: BLOOD SPECIMEN Ordering Facility: [facility] Address: [address] [place] [address] Performed By: #### 3 084-1, 2777-1, 2-0, 32915-4 #### [facility] CLIA [id number] [address] [place] [address] M SPIKE CONCENTRATION 2 0.42 g/dL High <=0.00 [facility] Comment on above: Order Comment: Speci men Type: BLOOD SPECIMEN Ordering Facility: [facility] Address: [address] [place] [address] Performed By: #### 3 084-1, 2777-1, 2532-0, 31332-2 #### [facility] CLIA [id number] [address] [place] [address] 09151 M-PROTEIN LOCATION Gamma Fraction 1 Normal [facility] Comment on above: Order Comment: Speci men Type: BLOOD SPECIMEN Ordering Facility: [facility] Address: [address] [place] [address] Performed By: #### 3 084-1, 2777-1, 2-0, 74220-6 #### [facility] CLIA [id number] [address] [place] [address] 35450 M-PROTEIN LOCATION 2 Gamma Fraction 2 Normal [facility] Comment on above: Order Comment: Speci men Type: BLOOD SPECIMEN Ordering Facility: [facility] Address: [address] [place] [address] Performed By: #### 3 084-1, 2777-1, 2531-0, 29770-3 #### [facility] CLIA [id number] [address] [place] [address] 20806 Protein Fractions [Interp] An M protein is identified on protein electrophoresis. Abnormal No definitive M protein is identified on protein electrophoresi s. [facility] Comment on above: Order Comment: Speci men Type: BLOOD SPECIMEN Ordering Facility: [facility] Address: [address] [place], [place] [address] Performed By: #### 3 084-1, 2777-1, 2532-0, 57241-8 #### [facility] CLIA [id number] [address] [place] [address] 94439 Protein.monoclonal Elph [Mass/Vol] 0.36 g/dL High <=0.00 [facility] Comment on above: Order Comment: Speci men Type: BLOOD SPECIMEN Ordering Facility: [facility] Address: [address] [place] [address] Performed By: #### 3 084-1, 2777-1, 0, #### [facility] CLIA [id number] [address] [place] [address] 15780 SPE STAFF REVIEW Reviewed by Rosalva Alicia M.D. [facility] Comment on above: Order Comment: Speci men Type: BLOOD SPECIMEN Ordering Facility: [facility] Address: [address] [place] [address] Performed By: #### 3 084-1, 277-1, 0, #### [facility] CLIA [id number] [address] [place] [address] 80954 Phosphate SerPl-mCncon 07-02 Phosphate [Mass/Vol] 3.6 mg/dL Normal 2.7-4.8 [facility] Comment on above: Order Comment: Speci men Type: BLOOD SPECIMEN Ordering Facility: [facility] Address: [address] [place] [address] Performed By: #### 3 084-1, 2771, 0, #### [facility] CLIA [id number] [address] [place] [address] 07584 Prot SerPl-mCncon 07-02-2023 Protein [Mass/Vol] 7.5 g/dL Normal 6.3-8.0 [facility] Comment on above: Order Comment: Speci men Type: BLOOD SPECIMEN Ordering Facility: [facility] Address: [address] [place] [address] Performed By: #### 3 084-1, 27771, 0, #### [facility] CLIA [id number] [address] [place] [address] 82105 Urate SerPl-mCncon Urate [Mass/Vol] 6.0 mg/dL Normal 4.0-8.1 [facility] Comment on above: Order Comment: Speci men Type: BLOOD SPECIMEN Ordering Facility: [facility] Address: [place] [address] Performed By: #### 3 084-1, 2777-1, 2531-0, #### [facility] CLIA [id number] [address] [place] [address] 97669 B2 Microglob SerPl-mCncon Qvib-0-Jfempnyvcask n [Mass/Vol] 2.6 ug/mL Normal <3.1 [facility] Comment on above: Order Comment: Speci men Type: BLOOD SPECIMEN Ordering Facility: [facility] Address: [place] [address] Result Comment: Beta -2 Microglobulin test is performed using the [employer] immunoturbidimetric method. Results obtained with different methods or kits cannot be used interchangeably. Performed By: #### 3 084-1, 277-1, 2531-0, #### [facility] CLIA [id number] [address] [place] [address] 17386 CBC W Auto Differential pane l (Bld)on 04-09-2023 Basophils (Bld) [#/Vol] 0.03 10*3/uL Normal <0.11 [facility] Comment on above: Order Comment: Speci men Type: BLOOD SPECIMEN Ordering Facility: [facility] Address: [address] [place] [address] Performed By: #### 3 084-1, 2777-1, 2531-0, #### [facility] CLIA [id number] [address] [place] [address] 29026 Basophils/100 WBC (Bld) 0.7 % Normal [facility] Comment on above: Order Comment: Speci men Type: BLOOD SPECIMEN Ordering Facility: [facility] Address: [place] [address] Performed By: #### 3 084-1, 2777-1, 2531-0, #### [facility] CLIA [id number] [address] [place] [address] 70185 Differential cell count method Nom (Bld) Auto Normal [facility] Comment on above: Order Comment: Speci men Type: BLOOD SPECIMEN Ordering Facility: [facility] Address: [address] [place] [address] Performed By: #### 3 084-1, 277-, 2531-0, #### [facility] CLIA [id number] [address] [place] [address] 44278 Eosinophils (Bld) [#/Vol] 0.10 10*3/uL Normal <0.46 [facility] Comment on above: Order Comment: Speci men Type: BLOOD SPECIMEN Ordering Facility: [facility] Address: [address] [place] [address] Performed By: #### 3 084-1, 2776-06, 0, #### [facility] CLIA [id number] [address] [place] [address] 34852 Eosinophils/100 WBC (Bld) 2.2 % Normal [facility] Comment on above: Order Comment: Speci men Type: BLOOD SPECIMEN Ordering Facility: [facility] Address: [address] [place] [address] Performed By: #### 3 084-1, 27712-13, 0, #### [facility] CLIA [id number] [address] [place] [address] 22163 Erythrocyte distribution width (RBC) [Ratio] 13.8 % Normal 11.5-15.0 [facility] Comment on above: Order Comment: Speci men Type: BLOOD SPECIMEN Ordering Facility: [facility] Address: [address] [place] [address] Performed By: #### 3 084-1, 277-, 2531-0, 23649-0 #### [facility] CLIA [id number] [address] [place] [address] 34803 Hematocrit (Bld) [Volume fraction] 47.4 % Normal 39.0-51.0 [facility] Comment on above: Order Comment: Speci men Type: BLOOD SPECIMEN Ordering Facility: [facility] Address: [address] [place] [id number] Performed By: #### 3 084-1, 2777-1, 2532-0, 89027-1 #### [facility] CLIA [id number] [address] [place] [address] 16692 Hemoglobin (Bld) [Mass/Vol] 15.8 g/dL Normal 13.0-17.0 [facility] Comment on above: Order Comment: Speci men Type: BLOOD SPECIMEN Ordering Facility: [facility] Address: [address] [place] [address] Performed By: #### 3 084-1, 2777-1, 2532-0, 78041-6 #### [facility] CLIA [id number] [address] [place] [address] 51885 Immature granulocytes (Bld) [#/Vol] 10*3/uL Normal <0.10 [facility] Comment on above: Order Comment: Speci men Type: BLOOD SPECIMEN Ordering Facility: [facility] Address: [address] [place] [address] Performed By: #### 3 084-1, 2777-1, 2532-0, 08565-9 #### [facility] CLIA [id number] [address] [place] [address] 85919 Immature granulocytes/100 WBC (Bld) 0.4 % Normal [facility] Comment on above: Order Comment: Speci men Type: BLOOD SPECIMEN Ordering Facility: [facility] Address: [address] [place] [address] Performed By: #### 3 084-1, 2777-1, 2532-0, 30057-5 #### [facility] CLIA [id number] [address] [place] [address] 34165 Lymphocytes (Bld) [#/Vol] 0.79 10*3/uL Low 1.00-4.00 [facility] Comment on above: Order Comment: Speci men Type: BLOOD SPECIMEN Ordering Facility: [facility] Address: [address] [place] [id number] Performed By: #### 3 084-1, 2777-1, 2531-0, #### [facility] CLIA [id number] [address] [place] [address] 81036 Lymphocytes/100 WBC (Bld) 17.2 % Normal [facility] Comment on above: Order Comment: Speci men Type: BLOOD SPECIMEN Ordering Facility: [facility] Address: [address] [place] [address] Performed By: #### 3 084-1, 2776-06, 0, #### [facility] CLIA [id number] [address] [place] [address] 10073 MCH (RBC) [Entitic mass] 34.7 pg High 26.0-34.0 [facility] Comment on above: Order Comment: Speci men Type: BLOOD SPECIMEN Ordering Facility: [facility] Address: [address] [place] [address] Performed By: #### 3 084-1, 2776-06, 0, #### [facility] CLIA [id number] [address] [place] [address] 94005 MCHC (RBC) [Mass/Vol] 33.3 g/dL Normal 30.5-36.0 [facility] Comment on above: Order Comment: Speci men Type: BLOOD SPECIMEN Ordering Facility: [facility] Address: [address] [place] [address] Performed By: #### 3 084-1, 2776-06, 0, #### [facility] CLIA [id number] [address] [place] [address] 12634 MCV (RBC) [Entitic vol] 104.2 fL High 80.0-100.0 [facility] Comment on above: Order Comment: Speci men Type: BLOOD SPECIMEN Ordering Facility: [facility] Address: [address] [place] [address] Performed By: #### 3 084-1, 2777-1, 2531-0, #### [facility] CLIA [id number] [address] [place] [address] 94544 Monocytes (Bld) [#/Vol] 0.34 10*3/uL Normal <0.87 [facility] Comment on above: Order Comment: Speci men Type: BLOOD SPECIMEN Ordering Facility: [facility] Address: [address] [place] [address] Performed By: #### 3 084-1, 27771, 2531-0, #### [facility] CLIA [id number] [address] [place] [address] 60175 Monocytes/100 WBC (Bld) 7.4 % Normal [facility] Comment on above: Order Comment: Speci men Type: BLOOD SPECIMEN Ordering Facility: [facility] Address: [address] [place] [address] Performed By: #### 3 084-1, 2771, 0, #### [facility] CLIA [id number] [address] [place] [address] 85894 Neutrophils (Bld) [#/Vol] 3.31 10*3/uL Normal 1.45-7.50 [facility] Comment on above: Order Comment: Speci men Type: BLOOD SPECIMEN Ordering Facility: [facility] Address: [address] [place] [id number] Performed By: #### 3 084-1, 2771, 0, #### [facility] CLIA [id number] [address] [place] [address] 87892 Neutrophils/100 WBC (Bld) 72.1 % Normal [facility] Comment on above: Order Comment: Speci men Type: BLOOD SPECIMEN Ordering Facility: [facility] Address: [address] [place] [id number] Performed By: #### 3 084-1, 2777-1, 2532-0, 68147-6 #### [facility] CLIA [id number] [address] [place] [address] 50850 Nucleated RBC (Bld) [#/Vol] 10*3/uL Normal <0.01 [facility] Comment on above: Order Comment: Speci men Type: BLOOD SPECIMEN Ordering Facility: [facility] Address: [address] [place] [id number] Performed By: #### 3 084-1, 2777-1, 2532-0, 47153-6 #### [facility] CLIA [id number] [address] [place] [address] 37679 Nucleated RBC/100 WBC (Bld) [Ratio] 0.0 /100 WBC Normal [facility] Comment on above: Order Comment: Speci men Type: BLOOD SPECIMEN Ordering Facility: [facility] Address: [address] [place] [id number] Performed By: #### 3 084-1, 2777-1, 2532-0, 98071-8 #### [facility] CLIA [id number] [address] [place] [address] 76044 Platelet mean volume (Bld) [Entitic vol] 10.3 fL Normal 9.0-12.7 [facility] Comment on above: Order Comment: Speci men Type: BLOOD SPECIMEN Ordering Facility: [facility] Address: [address] [place] [place] [id number] Performed By: #### 3 084-1, 2777-1, 2532-0, 64830-3 #### [facility] CLIA [id number] [address] [place] [address] 60719 Platelets (Bld) [#/Vol] 162 10*3/uL Normal 150-400 [facility] Comment on above: Order Comment: Speci men Type: BLOOD SPECIMEN Ordering Facility: [facility] Address: [address] [place] [address] Performed By: #### 3 084-1, 2777-1, 2532-0, 06755-3 #### [facility] CLIA [id number] [address] [place] [address] 60909 RBC (Bld) [#/Vol] 4.55 10*6/uL Normal 4.20-6.00 [facility] Comment on above: Order Comment: Speci men Type: BLOOD SPECIMEN Ordering Facility: [facility] Address: [address] [place] [phone] Performed By: #### 3 084-1, 2777-1, 2532-0, 90409-3 #### [facility] CLIA [id number] [address] [place] [address] 40846 WBC (Bld) [#/Vol] 4.59 10*3/uL Normal 3.70-11.00 [facility] Comment on above: Order Comment: Speci men Type: BLOOD SPECIMEN Ordering Facility: [facility] Address: [address] [place] [phone] Performed By: #### 3 084-1, 2777-1, 2532-0, 98323-2 #### [facility] IA [id number] [address] [place] [address] 30749 CNOVSPon 04-09-2023 CNOVSP Visit (SP) Office ([place]) PRUDENCIO PATRICK ([id number]) 1945 M Date Time Provider Department 04/09/23 9:00 AM MAYCOL NOVAK During your visit today, we recorded the following information about you: Temperature Pulse Respiration Blood pressure 97.5 degrees 60/minute 18/minute 166/88 Weight Height 111.9 kg 1.803 m Maycol Novak MD 04/09/2023 9:28 AM Signed NAME: Prudencio Patrick CLINIC NO.: [id number] DATE OF SERVICE: April 09, 2023 ([facility]) Some elements in this clinic note that are critical to medical decision making have been carefully reviewed and included from a prior clinic note dated: January 15, 2023 ([facility]) Referring Provider: Dr. 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 His M protein levels have been stable over the last 13+ years, and his risk of progression remains very low. However, he is more notably polycythemic and so we ordered a MPN workup for PRV which came back positive. Now improving with hydrea. - labs for M-spike pending. PLAN: Today - phlebotomy for hematocrit > 47. Continue baby ASA. Continue Hydrea 500 mg daily. Follow up in 12 weeks labs same day. Possible phlebotomy. Orders for labs entered in 12 weeks x 1 April 09, 2023 - HPI: CASE HISTORY: 01/15/2023 - H/H 15.3/45.3 WBC 4.73, PLTs 155 04/17/2022 - H/H 16.3/47.9 - phlebotomy 500 ml 02/20/2022 - H/H 16.5/48.7 - phlebotomy 250 ml x 3 weeks in a row 11/28/2021 Hydrea started 500 mg 11/14/2021 - phlebotomy caused severe hypotensive episode - possibly due to fasting/dehydration 10/18/2021 - Jak2+ PRV diagnosed 2006 - IgA [place] and IgM lambda biclonal M-spike Updated Visit, April 09, 2023: Doing well overall. Just meets criteria for phlebotomy. Martha accompanies him as usual. Updated Visit, January 15, 2023: Doing well and is back with Martha. Labs reviewed and no need for phlebotomy today. Updated Visit, October 17, 2022: Prudencio Patrick returns for follow-up and possible phlebotomy. Since his last visit there has been no significant medical changes. He remains on Hydrea 500 mg daily and is tolerating it well without any side effects. He denies bleeding and abnormal bruising. No signs of blood clots. No cough, shortness of breath, chest pain or other pulmonary complaints. No leg pain. No lower extremity edema. He denies fevers, chills, night sweats and signs/symptoms of infection. Updated Visit, August 07, 2022: Doing well and here with his Martha. He has been doing well and hasn't need a phlebotomy for 16 weeks - now he does. Updated Visit, June 12, 2022: Rafa returns with his Martha and labs are stable. Hgb is at 15.4 and he'd like to defer phlebotomy today. I think that is reasonable. He feels good and has no issues with hydrea. Will see if he needs additional phlebotomy if Hgb >16 next visit - then we can estimate a pattern for planning visits and phlebotomies on a routine basis. Updated Visit, April 17, 2022: Prudencio Patrick returns for follow-up. He remains on Hydrea 500 mg once daily and is tolerating it well. He states that he is doing well. There has been no significant medical changes since his last visit. He denies shortness of breath, chest pain and leg pain. He follows with his PCP, Dr. Smith, who has been changing his blood pressure medications. Patient states the first time he had a phlebotomy his blood pressure dropped. The second time he had a phlebotomy he had no problems. He denies bleeding and abnormal bruising. He offers no new complaints today. No new issues, problems or concerns. Updated Visit, December 26, 2021: Is doing well labs are improved. BP meds adjusted. No need for for phlebotomy today. Will monitor platelets levels. Updated Visit, November 28, 2021: Didn't tolerate phlebotomy due to hypotension but he's on amlodipine, HCTZ 25 in addition to Hyzaar (100/25). Will hold phlebotomy for now and reconsider once his flid status and BP meds are clarified. It's possible that he had a vagal reaction in addition. I discussed his situation with Dr. Smith today and he will clarify meds for him. 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 Updated Visit, October 18, 2021: Noted to have polycythemia today and has lost weight since last being seen - also has increased total protein. Kidney function remains stable. 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 No evidence of sleep apnea. Updated Visit, October 18, 2020: This is a 75 year old (more content not included)... Normal [facility] Calcium.ionized [Moles/Vol]o n 04-09-2023 Calcium.ionized (Bld) [Mass/Vol] 1.22 mmol/L Normal 1.08-1.30 [facility] Comment on above: Order Comment: Rene witt Type: BLOOD SPECIMEN Ordering Facility: [facility] Address: [address] [place] [address] Performed By: #### 3 084-1, 2777-1, 2532-0, 44146-2 #### [facility] CLIA [id number] [address] [place], [place] [id number] Calcium.ionized adjusted to pH 7.4 (Bld) [Moles/Vol] 1.27 mmol/L Normal 1.08-1.30 [facility] Comment on above: Order Comment: Rene witt Type: BLOOD SPECIMEN Ordering Facility: [facility] Address: [address] [place] [address] Performed By: #### 3 084-1, 2777-1, 2532-0, 17704-5 #### [facility] CLIA [id number] [address] [place] [address] 95790 Comprehensive metabolic 2000 panelon 04-09-2023 Albumin [Mass/Vol] 4.5 g/dL Normal 3.9-4.9 [facility] Comment on above: Order Comment: Rene witt Type: BLOOD SPECIMEN Ordering Facility: [facility] Address: [address] [place] [address] Performed By: #### 2 885-2, 2132-02, 2284-01 #### [facility] CLIA [id number] [address] [place] [address] [place] ALP [Catalytic activity/Vol] 98 U/L Normal 38-113 [facility] Comment on above: Order Comment: Speci men Type: BLOOD SPECIMEN Ordering Facility: [facility] Address: [address] [place] [address] Performed By: #### 2 885-2, 2132-02, 2284-01 #### [facility] CLIA [id number] [address] [place] [address] [place] ALT [Catalytic activity/Vol] 24 U/L Normal 10-54 [facility] Comment on above: Order Comment: Speci men Type: BLOOD SPECIMEN Ordering Facility: [facility] Address: [address] [place] [address] Performed By: #### 2 885-2, 2132-02, 2284-01 #### [facility] CLIA [id number] [address] [place] [address] [place] Anion gap [Moles/Vol] 8 mmol/L Low 9-18 [facility] Comment on above: Order Comment: Speci men Type: BLOOD SPECIMEN Ordering Facility: [facility] Address: [address] [place] [address] Performed By: #### 2 885-2, 2132-02, 2284-01 #### [facility] CLIA [id number] [address] [place] [id number] [place] AST [Catalytic activity/Vol] 24 U/L Normal 14-40 [facility] Comment on above: Order Comment: Speci men Type: BLOOD SPECIMEN Ordering Facility: [facility] Address: [address] [place] [address] Performed By: #### 2 885-2, 2132-02, 2284-01 #### [facility] CLIA [id number] [address] [address] [place] Bilirubin [Mass/Vol] 0.7 mg/dL Normal 0.2-1.3 [facility] Comment on above: Order Comment: Speci men Type: BLOOD SPECIMEN Ordering Facility: [facility] Address: [address] [place] [address] Performed By: #### 2 885-2, 2132-02, 2284-01 #### [facility] CLIA [id number] [address] [place] [address] [place] Calcium [Mass/Vol] 9.2 mg/dL Normal 8.5-10.2 [facility] Comment on above: Order Comment: Speci men Type: BLOOD SPECIMEN Ordering Facility: [facility] Address: [address] [place] [address] Performed By: #### 2 885-2, 2132-02, 2284-01 #### [facility] CLIA [id number] [address] [place] [address] [place] Chloride [Moles/Vol] 104 mmol/L Normal 97-105 [facility] Comment on above: Order Comment: Speci men Type: BLOOD SPECIMEN Ordering Facility: [facility] Address: [address] [place] [address] Performed By: #### 2 885-2, 2132-02, 2284-01 #### [facility] CLIA [id number] [address] [place] [id number] [place] CO2 [Moles/Vol] 24 mmol/L Normal 22-30 [facility] Comment on above: Order Comment: Speci men Type: BLOOD SPECIMEN Ordering Facility: [facility] Address: [address] [place] [address] Performed By: #### 2 885-2, 2132-02, 2284-01 #### [facility] CLIA [id number] [address] [address] [place] Creatinine [Mass/Vol] 1.13 mg/dL Normal 0.73-1.22 [facility] Comment on above: Order Comment: Rene witt Type: BLOOD SPECIMEN Ordering Facility: [facility] Address: [address] [place] [address] Performed By: #### 2 885-2, 2132-02, 2284-01 #### [facility] CLIA [id number] [address] [place] [address] [facility] Creatinine and Glomerular filtration rate.predicted panel (S/P/Bld) 67 mL/min/1.73m??? Normal >=60 [facility] Comment on above: Order Comment: Rene witt Type: BLOOD SPECIMEN Ordering Facility: [facility] Address: [address] [place] [address] Result Comment: Tawanna mated Glomerular Filtration Rate (eGFR) is calculated using the 2020 CKD-EPI creatinine equation. This equation utilizes serum creatinine, sex, and age as parameters. The creatinine assay has traceable calibration to isotope dilution-mass spectrometry. Refer to KDIGO guidelines for clinical interpretation. In patients with unstable renal function, e.g. those with acute kidney injury, the eGFR may not accurately reflect actual GFR. Performed By: #### 2 885-2, 2132-02, 2284-01 #### [facility] CLIA [id number] [facility] [place] [address] [place] Glucose [Mass/Vol] 116 mg/dL High 74-99 [facility] Comment on above: Order Comment: Rene witt Type: BLOOD SPECIMEN Ordering Facility: [facility] Address: [address] [place] [address] Result Comment: The [place] Diabetes [employer] (ADA) provides guidance for cutoff values for fasting glucose and random glucose. The ADA defines fasting as no caloric intake for at least 8 hours. Fasting plasma glucose results between 100 to 125 mg/dL indicate increased risk for diabetes (prediabetes). Fasting plasma glucose results greater than or equal to 126 mg/dL meet the criteria for diagnosis of diabetes. In the absence of unequivocal hyperglycemia, results should be confirmed by repeat testing. In a patient with classic symptoms of hyperglycemia or hyperglycemic crisis, random plasma glucose results greater than or equal to 200 mg/dL meet the criteria for diagnosis of diabetes. Reference: Standards of Medical Care in Diabetes 2016, [place] [employer]. Diabetes Care. 2016.39(Suppl 1). Performed By: #### 2 885-2, 2132-02, 2284-01 #### [facility] CLIA [id number] [address] [place] [address] [place] Potassium [Moles/Vol] 3.6 mmol/L Low 3.7-5.1 [facility] Comment on above: Order Comment: Speci men Type: BLOOD SPECIMEN Ordering Facility: [facility] Address: [address] [place] [address] Performed By: #### 2 885-2, 2132-02, 2284-01 #### [facility] CLIA [id number] [address] [place] [address] [place] Protein [Mass/Vol] 7.8 g/dL Normal 6.3-8.0 [facility] Comment on above: Order Comment: Speci men Type: BLOOD SPECIMEN Ordering Facility: [facility] Address: [address] [place] [address] Performed By: #### 2 885-2, 2132-02, 2284-01 #### [facility] CLIA [id number] [address] [place] [id number] [place] Sodium [Moles/Vol] 136 mmol/L Normal 136-144 [facility] Comment on above: Order Comment: Speci men Type: BLOOD SPECIMEN Ordering Facility: [facility] Address: [address] [place] [address] Performed By: #### 2 885-2, 2132-02, 2284-01 #### [facility] CLIA [id number] [address] [address] [place] Urea nitrogen [Mass/Vol] 19 mg/dL Normal 9-24 [facility] Comment on above: Order Comment: Speci men Type: BLOOD SPECIMEN Ordering Facility: [facility] Address: [address] [place] [address] Performed By: #### 2 885-2, 2132-9, 2284-8 #### [facility] CLIA [id number] [address] [facility] [id number] [place] [address] [place] [id number] 04-09-2023 ECG01 Ventricular Rate : 4 0 BPM Atrial Rate : 40 BPM P-R Interval : 212 ms QRS Duration : 150 ms Q-T Interval : 534 ms QTC Calculation(Bazett) : 435 ms Calculated P [place] : 43 degrees Calculated R [place] : -64 degrees Calculated T [place] : -38 degrees MARKED SINUS BRADYCARDIA WITH 1ST DEGREE AV BLOCK LEFT AXIS DEVIATION COMPLETE RIGHT BUNDLE BRANCH BLOCK ABNORMAL ECG Confirmed by MD LADD HEBA ([id number]) on 04/20/2023 9:21:41 AM NAME : PRUDENCIO PATRICK PID : [id number] : 1945 Gender : Male Race : ORD : Procedure Date : Apr 09 2023 11:05:47 Edit Date : Apr 20 2023 09:21:43 Diagnosis: MARKED SINUS BRADYCARDIA WITH 1ST DEGREE AV BLOCK LEFT AXIS DEVIATION COMPLETE RIGHT BUNDLE BRANCH BLOCK ABNORMAL ECG Confirmed by MD LADD HEBA ([id number]) on 04/20/2023 9:21:41 AM Test Reason : Location : 539 : [facility] [place] Overread By : MD LADD HEBA Edited By : MD LADD HEBA Referred By : MAYCOL NOVAK Acquired by : Tex BRODERICK [facility] ECG01 Ventricular Rate : 4 6 BPM Atrial Rate : 46 BPM P-R Interval : 200 ms QRS Duration : 152 ms Q-T Interval : 508 ms QTC Calculation(Bazett) : 444 ms Calculated P [place] : 53 degrees Calculated R [place] : -64 degrees Calculated T [place] : -38 degrees SINUS BRADYCARDIA WITH SINUS ARRHYTHMIA LEFT AXIS DEVIATION COMPLETE RIGHT BUNDLE BRANCH BLOCK ABNORMAL ECG Confirmed by MD LADD HEBA ([id number]) on 04/20/2023 9:21:30 AM NAME : PRUDENCIO PATRICK PID : [id number] : 1945 Gender : Male Race : ORD : Procedure Date : Apr 09 2023 10:33:50 Edit Date : Apr 20 2023 09:21:32 Diagnosis: SINUS BRADYCARDIA WITH SINUS ARRHYTHMIA LEFT AXIS DEVIATION COMPLETE RIGHT BUNDLE BRANCH BLOCK ABNORMAL ECG Confirmed by MD LADD HEBA ([id number]) on 04/20/2023 9:21:30 AM Test Reason : Location : 539 : [facility] [place] Overread By : MD LADD HEBA Edited By : MD LADD HEBA Referred By : MAYCOL NOVAK Acquired by : , Normal [facility] Ferritin SerPl-mCncon 2022 Ferritin [Mass/Vol] 95.4 ng/mL Normal 30.3-565.7 [facility] Comment on above: Order Comment: Rene witt Type: BLOOD SPECIMEN Ordering Facility: [facility] Address: [address] [place] [address] Performed By: #### 3 084-1, 2777-1, 2532-0, 62722-4 #### [facility] CLIA [id number] [address] [place] [address] Folate SerPl-mCncon 04-09-20 Folate [Mass/Vol] ng/mL Normal >4.7 [facility] Comment on above: Order Comment: Rene witt Type: BLOOD SPECIMEN Ordering Facility: [facility] Address: [address] [place] [address] Result Comment: A re sult of > 20 ng/mL is not necessarily indicative of a pathologic or treatable condition: it reflects a limitation of the test methodology. Assay reference range: 4.8 to 24.2 ng/mL. Suitable for detection of folate deficiency. Reference: Folate III (Folate III) [package insert V 1.0 Danish]. [facility], [place], [place]: April 2015. Performed By: #### 2 885-2, 2132-9, 2284-8 #### [facility] CLIA [id number] [address] [facility] [place] [address] [place] IMMUNOFIXATION SCREEN, SERUM on 04-09-2023 INTERPRETATION (MPA) Two sets of atypical restricted bands are present in the specimen, one in the IgA and kappa lanes, and the other in the IgM and lambda lanes. 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 Normal [facility] Comment on above: Order Comment: Speci men Type: BLOOD SPECIMEN Ordering Facility: [facility] Address: [address] [place] [address] Performed By: #### 3 084-1, 2777-1, 2532-0, 58778-6 #### [facility] CLIA [id number] [address] [place] [address]30[address] MPA RESULT M protein is present. Abnormal No M p rotein is identified. [facility] Comment on above: Order Comment: Speci men Type: BLOOD SPECIMEN Ordering Facility: [facility] Address: [address] [place] [address] Performed By: #### 3 084-1, 2777-1, 2532-0, 85344-6 #### [facility] CLIA [id number] [address] [place] [address]1941 STAFF REVIEW (MPA) Reviewed by Rosalva Alicia M.D. Normal [facility] Comment on above: Order Comment: Speci men Type: BLOOD SPECIMEN Ordering Facility: [facility] Address: [address] [place] [address] Performed By: #### 3 084-1, 2777-1, 2532-0, 26034-0 #### [facility] CLIA [id number] [address] [place] [address] 19501 IMMUNOGLOBULINS GAMon 2022 IgA [Mass/Vol] 547 mg/dL High 70-400 [facility] Comment on above: Order Comment: Speci men Type: BLOOD SPECIMEN Ordering Facility: [facility] Address: [address] [place] [address] Performed By: #### 3 084-1, 2777-1, 2532-0, 81564-2 #### [facility] CLIA [id number] [address] [place] [address] 05993 IgG [Mass/Vol] 768 mg/dL Normal 700-1600 [facility] Comment on above: Order Comment: Speci men Type: BLOOD SPECIMEN Ordering Facility: [facility] Address: [address] [place] [address] Performed By: #### 3 084-1, 2777-1, 2531-0, 54274-1 #### [facility] CLIA [id number] [address] [place] [address] 12401 IgM [Mass/Vol] 791 mg/dL High 40-230 [facility] Comment on above: Order Comment: Speci men Type: BLOOD SPECIMEN Ordering Facility: [facility] Address: [address] [place] [address] Performed By: #### 3 084-1, 2777-1, 2531-0, 86010-7 #### [facility] CLIA [id number] [address] [place] [address] Iron and Iron binding capaci ty panelon 04-09-2023 Iron [Mass/Vol] 189 ug/dL High 41-186 [facility] Comment on above: Order Comment: Speci men Type: BLOOD SPECIMEN Ordering Facility: [facility] Address: [address] [place] [address] Performed By: #### 3 084-1, 2777-1, 2531-0, 11818-9 #### [facility] CLIA [id number] [address] [place] [address] 07923 Iron binding capacity [Mass/Vol] 479 ug/dL High 232-386 [facility] Comment on above: Order Comment: Speci men Type: BLOOD SPECIMEN Ordering Facility: [facility] Address: [address] [place] [address] Performed By: #### 3 084-1, 2777-1, 2531-0, 14347-8 #### [facility] CLIA [id number] [address] [place] [address] 01550 Iron/TIBC [Molar ratio] 39.5 % Normal 15.0-57.0 [facility] Comment on above: Order Comment: Speci men Type: BLOOD SPECIMEN Ordering Facility: [facility] Address: [address] [place] [id number] Performed By: #### 3 084-1, 2777-1, 2531-0, #### [facility] CLIA [id number] [address] [place] [address] 50711 KAPPA/BURT,FREE,SERon 2022 Immunoglobulin light chains.kappa.free (S) [Mass/Vol] 28.4 mg/L High 3.3-19.4 [facility] Comment on above: Order Comment: Speci men Type: BLOOD SPECIMEN Ordering Facility: [facility] Address: [address] [place] [address] Result Comment: Rare ly, increased serum free light chains levels may not be detected or accurately quantified due to prozone phenomenon or in high viscosity samples using this immunoturbidimetric assay. Correlation with other laboratory results and clinical findings is recommended. The [place] Free Light Chain was performed using the Binding Site Optilite immunoturbidimetric method. Result obtained with different assay methods or kits cannot be used interchangeably. Performed By: #### 3 084-1, 2777-1, 2531-0, #### [facility] CLIA [id number] [address] [place] [address]372 Immunoglobulin light chains.kappa/Immuno globulin light chains.lambda (S) [Mass ratio] 0.44 Normal 0.26-1.65 [facility] Comment on above: Order Comment: Speci men Type: BLOOD SPECIMEN Ordering Facility: [facility] Address: [address] [place] [address] Performed By: #### 3 084-1, 2777-1, 2531-0, #### [facility] CLIA [id number] [address] [place] [address] 60022 Immunoglobulin light chains.lambda.free [Mass/Vol] 64.1 mg/L High 5.7-26.3 [facility] Comment on above: Order Comment: Speci men Type: BLOOD SPECIMEN Ordering Facility: [facility] Address: [address] [place] [id number] Result Comment: Rare ly, increased serum free light chains levels may not be detected or accurately quantified due to prozone phenomenon or in high viscosity samples using this immunoturbidimetric assay. Correlation with other laboratory results and clinical findings is recommended. The Lambda Free Light Chain was performed using the Binding Site Optilite immunoturbidimetric method. Result obtained with different assay methods or kits cannot be used interchangeably. Performed By: #### 3 084-1, 2777-1, 2532-0, 36686-5 #### [facility] CLIA [id number] [address] [place] [address] 32174 LDH SerPl-cCncon 04-09-2023 LDH [Catalytic activity/Vol] 169 U/L Normal 135-225 [facility] Comment on above: Order Comment: Speci men Type: BLOOD SPECIMEN Ordering Facility: [facility] Address: [address] [place] [address] Performed By: #### 2 885-2, 2132-9, 2284-8 #### [facility] CLIA [id number] [address] [facility] [id number] [place] [address] [place] PROTEIN ELECTROPHORESIS SERU M (P)on 04-09-2023 Albumin [Mass/Vol] 4.00 g/dL Normal 3.43-5.41 [facility] Comment on above: Order Comment: Speci men Type: BLOOD SPECIMEN Ordering Facility: [facility] Address: [address] [place] [address] Performed By: #### 3 084-1, 2777-1, 2532-0, 32699-0 #### [facility] CLIA [id number] [address] [place] [address] 53528 Alpha 1 globulin Elph [Mass/Vol] 0.27 g/dL Normal 0.18-0.43 [facility] Comment on above: Order Comment: Speci men Type: BLOOD SPECIMEN Ordering Facility: [facility] Address: [address] [place] [address] Performed By: #### 3 084-1, 2777-1, 2-0, 38755-5 #### [facility] CLIA [id number] [address] [place] [address] 77212 Alpha 2 globulin Elph [Mass/Vol] 0.57 g/dL Normal 0.42-0.98 [facility] Comment on above: Order Comment: Speci men Type: BLOOD SPECIMEN Ordering Facility: [facility] Address: [address] [place] [id number] Performed By: #### 3 084-1, 2777-1, 2532-0, 19412-3 #### [facility] CLIA [id number] [address] [place] [address] 60952 Beta globulin Elph [Mass/Vol] 0.91 g/dL Normal 0.61-1.17 [facility] Comment on above: Order Comment: Speci men Type: BLOOD SPECIMEN Ordering Facility: [facility] Address: [address] [place] [id number] Performed By: #### 3 084-1, 2777-1, 2531-0, 07471-2 #### [facility] CLIA [id number] [address] [place] [address] 36287 Gamma globulin Elph [Mass/Vol] 1.45 g/dL Normal 0.53-1.51 [facility] Comment on above: Order Comment: Speci men Type: BLOOD SPECIMEN Ordering Facility: [facility] Address: [address] [place] [address] Performed By: #### 3 084-1, 2777-1, 2-0, 60700-7 #### [facility] CLIA [id number] [address] [place] [address] 77806 INTERPRETATION COMMENT FOR PROTEIN ELECTROPHORESIS See separate immunofixation report for characterization of monoclonal gammopathy. Normal [facility] Comment on above: Order Comment: Speci men Type: BLOOD SPECIMEN Ordering Facility: [facility] Address: [address] [place] [address] Performed By: #### 3 084-1, 2777-1, 2532-0, 32668-5 #### [facility] CLIA [id number] [address] [place] [address] M SPIKE CONCENTRATION 2 0.49 g/dL High <=0.00 [facility] Comment on above: Order Comment: Speci men Type: BLOOD SPECIMEN Ordering Facility: [facility] Address: [address] [place] [address] Performed By: #### 3 084-1, 2777-1, 2532-0, 48566-2 #### [facility] CLIA [id number] [address] [place] [address] M-PROTEIN LOCATION Gamma Fraction 1 Normal [facility] Comment on above: Order Comment: Speci men Type: BLOOD SPECIMEN Ordering Facility: [facility] Address: [address] [place] [address] Performed By: #### 3 084-1, 2777-1, 2532-0, 18274-7 #### [facility] CLIA [id number] [address] [place] [address] 26767 M-PROTEIN LOCATION 2 Gamma Fraction 2 Normal [facility] Comment on above: Order Comment: Speci men Type: BLOOD SPECIMEN Ordering Facility: [facility] Address: [address] [place] [address] Performed By: #### 3 084-1, 2777-1, 2532-0, 25252-4 #### [facility] CLIA [id number] [address] [place] [address] 35173 Protein Fractions [Interp] An M protein is identified on protein electrophoresis. Abnormal No definitive M protein is identified on protein electrophoresi s. [facility] Comment on above: Order Comment: Speci men Type: BLOOD SPECIMEN Ordering Facility: [facility] Address: [address] [place] [address] Performed By: #### 3 084-1, 2777-1, 2532-0, 35733-6 #### [facility] CLIA [id number] [address] [place] [address] 30589 Protein.monoclonal Elph [Mass/Vol] 0.34 g/dL High <=0.00 [facility] Comment on above: Order Comment: Speci men Type: BLOOD SPECIMEN Ordering Facility: [facility] Address: [address] [place] [address] Performed By: #### 3 084-1, 2777-1, 2532-0, 03308-4 #### [facility] CLIA [id number] [address] [place] [address] 66486 SPE STAFF REVIEW Reviewed by Rosalva Alicia M.D. Normal [facility] Comment on above: Order Comment: Speci men Type: BLOOD SPECIMEN Ordering Facility: [facility] Address: [address] [place] [address] Performed By: #### 3 084-1, 2777-1, 2532-0, 25702-1 #### [facility] CLIA [id number] [address] [place] [address] 42646 Phosphate SerPl-mCncon 04-09 Phosphate [Mass/Vol] 3.2 mg/dL Normal 2.7-4.8 [facility] Comment on above: Order Comment: Speci men Type: BLOOD SPECIMEN Ordering Facility: [facility] Address: [address] [place] [address] Performed By: #### 2 885-2, 2131-9, 8 #### [facility] CLIA [id number] [address] [place] [address] [place] Prot SerPl-mCncon 04-09-2023 Protein [Mass/Vol] 7.2 g/dL Normal 6.3-8.0 [facility] Comment on above: Order Comment: Speci men Type: BLOOD SPECIMEN Ordering Facility: [facility] Address: [address] [place] [address] Performed By: #### 2 885-2, 2131-9, 8 #### [facility] CLIA [id number] [address] [place] [address] [place] [facility] Urate [Mass/Vol] 5.4 mg/dL Normal 4.0-8.1 [facility] Comment on above: Order Comment: Speci men Type: BLOOD SPECIMEN Ordering Facility: [facility] Address: [address] [place] [address] Performed By: #### 2 885-2, 2132-02, 2284-01 #### [facility] CLIA [id number] [address] [place] [id number] [place] Vit B12 SerPl-mCncon 023 Cobalamin (Vitamin B12) [Mass/Vol] 850 pg/mL Normal 232-1245 [facility] Comment on above: Order Comment: Speci men Type: BLOOD SPECIMEN Ordering Facility: [facility] Address: [address] [place] [address] Performed By: #### 2 885-2, 2132-02, 2284-01 #### [facility] CLIA [id number] [address] [place], [place] [address] [place] CBC W Auto Differential pane l (Bld)on 01-15-2023 Basophils (Bld) [#/Vol] 0.03 10*3/uL Normal <0.11 [facility] Comment on above: Order Comment: Speci men Type: BLOOD SPECIMEN Ordering Facility: [facility] Address: [address] [place] [address] Performed By: #### 3 084-1, 2777-1, 2532-0, 53047-4 #### [facility] CLIA [id number] [address] [place] [address] 56100 Basophils/100 WBC (Bld) 0.6 % Normal [facility] Comment on above: Order Comment: Speci men Type: BLOOD SPECIMEN Ordering Facility: [facility] Address: [address] [place] [address] Performed By: #### 3 084-1, 2777-1, 2532-0, 10090-6 #### [facility] CLIA [id number] [address] [place] [address] Differential cell count method Nom (Bld) Auto Normal [facility] Comment on above: Order Comment: Speci men Type: BLOOD SPECIMEN Ordering Facility: [facility] Address: [address] [place] [address] Performed By: #### 3 084-1, 2777-1, 2531-0, #### [facility] CLIA [id number] [address] [place] [address] 62886 Eosinophils (Bld) [#/Vol] 0.13 10*3/uL Normal <0.46 [facility] Comment on above: Order Comment: Speci men Type: BLOOD SPECIMEN Ordering Facility: [facility] Address: [address] [place] [address] Performed By: #### 3 084-1, 2776-06, 2531-0, #### [facility] CLIA [id number] [address] [place] [address] 59516 Eosinophils/100 WBC (Bld) 2.7 % Normal [facility] Comment on above: Order Comment: Speci men Type: BLOOD SPECIMEN Ordering Facility: [facility] Address: [address] [place] [address] Performed By: #### 3 084-1, 2777-1, 0, #### [facility] CLIA [id number] [address] [place] [address] 18623 Erythrocyte distribution width (RBC) [Ratio] 13.6 % Normal 11.5-15.0 [facility] Comment on above: Order Comment: Speci men Type: BLOOD SPECIMEN Ordering Facility: [facility] Address: [address] [place] [address] Performed By: #### 3 084-1, 2777-1, 2531-0, 93554-1 #### [facility] CLIA [id number] [address] [place] [address] 34364 Hematocrit (Bld) [Volume fraction] 45.3 % Normal 39.0-51.0 [facility] Comment on above: Order Comment: Speci men Type: BLOOD SPECIMEN Ordering Facility: [facility] Address: [address] [place] [address] Performed By: #### 3 084-1, 2777-1, 2532-0, 54255-7 #### [facility] CLIA [id number] [address] [place] [address] 35502 Hemoglobin (Bld) [Mass/Vol] 15.3 g/dL Normal 13.0-17.0 [facility] Comment on above: Order Comment: Speci men Type: BLOOD SPECIMEN Ordering Facility: [facility] Address: [address] [place] [address] Performed By: #### 3 084-1, 2777-1, 2532-0, 44003-6 #### [facility] CLIA [id number] [address] [place] [address] 74380 Immature granulocytes (Bld) [#/Vol] 10*3/uL Normal <0.10 [facility] Comment on above: Order Comment: Speci men Type: BLOOD SPECIMEN Ordering Facility: [facility] Address: [address] [place] [address] Performed By: #### 3 084-1, 2777-1, 2532-0, 58038-6 #### [facility] CLIA [id number] [address] [place] [address] 18591 Immature granulocytes/100 WBC (Bld) 0.4 % Normal [facility] Comment on above: Order Comment: Speci men Type: BLOOD SPECIMEN Ordering Facility: [facility] Address: [address] [place] [address] Performed By: #### 3 084-1, 2777-1, 2532-0, 42211-6 #### [facility] CLIA [id number] [address] [place] [address] 61087 Lymphocytes (Bld) [#/Vol] 0.87 10*3/uL Low 1.00-4.00 [facility] Comment on above: Order Comment: Speci men Type: BLOOD SPECIMEN Ordering Facility: [facility] Address: [address] [place] [address] Performed By: #### 3 084-1, 2777-1, 0, #### [facility] CLIA [id number] [address] [place] [address] 87849 Lymphocytes/100 WBC (Bld) 18.4 % Normal [facility] Comment on above: Order Comment: Speci men Type: BLOOD SPECIMEN Ordering Facility: [facility] Address: [address] [place] [address] Performed By: #### 3 084-1, 2771, 0, #### [facility] CLIA [id number] [address] [place] [address] 33312 MCH (RBC) [Entitic mass] 35.3 pg High 26.0-34.0 [facility] Comment on above: Order Comment: Speci men Type: BLOOD SPECIMEN Ordering Facility: [facility] Address: [address] [place] [address] Performed By: #### 3 084-1, 27712-13, 0, #### [facility] CLIA [id number] [address] [place] [address] 67067 MCHC (RBC) [Mass/Vol] 33.8 g/dL Normal 30.5-36.0 [facility] Comment on above: Order Comment: Speci men Type: BLOOD SPECIMEN Ordering Facility: [facility] Address: [address] [place] [address] Performed By: #### 3 084-1, 2776-06, 0, #### [facility] CLIA [id number] [address] [place] [address] 84447 MCV (RBC) [Entitic vol] 104.4 fL High 80.0-100.0 [facility] Comment on above: Order Comment: Speci men Type: BLOOD SPECIMEN Ordering Facility: [facility] Address: [address] [place] [address] Performed By: #### 3 084-1, 2777-1, 2531-0, 95227-0 #### [facility] CLIA [id number] [address] [place] [address] 20445 Monocytes (Bld) [#/Vol] 0.46 10*3/uL Normal <0.87 [facility] Comment on above: Order Comment: Speci men Type: BLOOD SPECIMEN Ordering Facility: [facility] Address: [address] [place] [address] Performed By: #### 3 084-1, 2777-1, 2531-0, #### [facility] CLIA [id number] [address] [place] [address] 77305 Monocytes/100 WBC (Bld) 9.7 % Normal [facility] Comment on above: Order Comment: Speci men Type: BLOOD SPECIMEN Ordering Facility: [facility] Address: [address] [place] [address] Performed By: #### 3 084-1, 2777-1, 2531-0, #### [facility] CLIA [id number] [address] [place] [address] 31196 Neutrophils (Bld) [#/Vol] 3.23 10*3/uL Normal 1.45-7.50 [facility] Comment on above: Order Comment: Speci men Type: BLOOD SPECIMEN Ordering Facility: [facility] Address: [address] [place] [address] Performed By: #### 3 084-1, 2777-1, 2531-0, 26818-6 #### [facility] CLIA [id number] [address] [place] [address] 33941 Neutrophils/100 WBC (Bld) 68.2 % Normal [facility] Comment on above: Order Comment: Speci men Type: BLOOD SPECIMEN Ordering Facility: [facility] Address: [address] [place] [address] Performed By: #### 3 084-1, 2777-1, 2532-0, 98619-8 #### [facility] CLIA [id number] [address] [place] [address] 83195 Nucleated RBC (Bld) [#/Vol] 10*3/uL Normal <0.01 [facility] Comment on above: Order Comment: Speci men Type: BLOOD SPECIMEN Ordering Facility: [facility] Address: [address] [place] [address] Performed By: #### 3 084-1, 2777-1, 2532-0, 47187-2 #### [facility] CLIA [id number] [address] [place] [address] 91423 Nucleated RBC/100 WBC (Bld) [Ratio] 0.0 /100 WBC Normal [facility] Comment on above: Order Comment: Speci men Type: BLOOD SPECIMEN Ordering Facility: [facility] Address: [address] [place] [address] Performed By: #### 3 084-1, 2777-1, 2532-0, 71646-8 #### [facility] CLIA [id number] [address] [place] [address] 46623 Platelet mean volume (Bld) [Entitic vol] 10.4 fL Normal 9.0-12.7 [facility] Comment on above: Order Comment: Speci men Type: BLOOD SPECIMEN Ordering Facility: [facility] Address: [address] [place] [id number] Performed By: #### 3 084-1, 2777-1, 2532-0, 53006-5 #### [facility] CLIA [id number] [address] [place] [address] 95863 Platelets (Bld) [#/Vol] 155 10*3/uL Normal 150-400 [facility] Comment on above: Order Comment: Speci men Type: BLOOD SPECIMEN Ordering Facility: [facility] Address: [address] [place] [address] Performed By: #### 3 084-1, 2777-1, 2532-0, 25688-3 #### [facility] CLIA [id number] [address] [place] [address] 06009 RBC (Bld) [#/Vol] 4.34 10*6/uL Normal 4.20-6.00 [facility] Comment on above: Order Comment: Speci men Type: BLOOD SPECIMEN Ordering Facility: [facility] Address: [address] [place], [place] [address] Performed By: #### 3 084-1, 2777-1, 2532-0, 27927-6 #### [facility] CLIA [id number] [address] [place] [address] 64470 WBC (Bld) [#/Vol] 4.74 10*3/uL Normal 3.70-11.00 [facility] Comment on above: Order Comment: Speci men Type: BLOOD SPECIMEN Ordering Facility: [facility] Address: [address] [place] [address] Performed By: #### 3 084-1, 2777-1, 2532-0, 42877-6 #### [facility] [place] [id number] [address] [place] [address] 96249 CNOVSPon 01-15-2023 CNOVSP Visit (SP) Office ([place]) PRUDENCIO PATRICK ([id number]) 1945 M Date Time Provider Department 01/15/23 8:45 AM MAYCOL NOVAK During your visit today, we recorded the following information about you: Temperature Pulse Respiration Blood pressure 97.1 degrees 58/minute 18/minute 165/79 Weight Height 113.2 kg 1.803 m Maycol Novak MD 01/15/2023 8:56 AM Signed NAME: Prudencio Patrick CLINIC NO.: [id number] DATE OF SERVICE: January 15, 2023 (Dipak) Some elements in this clinic note that are critical to medical decision making have been carefully reviewed and included from a prior clinic note dated: October 17, 2022 (Mahesh) Referring Provider: Dr. 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 His M protein levels have been stable over the last 13+ years, and his risk of progression remains very low. However, he is more notably polycythemic and so we ordered a MPN workup for PRV which came back positive. Now improving with hydrea. PLAN: Plan for phlebotomy for hematocrit > 47. Continue baby ASA. Continue Hydrea 500 mg daily. Follow up in 12 weeks labs same day. Possible phlebotomy. - HPI: CASE HISTORY: 01/15/2023 - H/H 15.3/45.3 WBC 4.73, PLTs 155 04/17/2022 - H/H 16.3/47.9 - phlebotomy 500 ml 02/20/2022 - H/H 16.5/48.7 - phlebotomy 250 ml x 3 weeks in a row 11/28/2021 Hydrea started 500 mg 11/14/2021 - phlebotomy caused severe hypotensive episode - possibly due to fasting/dehydration 10/18/2021 - Jak2+ PRV diagnosed 2006 - IgA [place] and IgM lambda biclonal M-spike Updated Visit, January 15, 2023: Doing well and is back with Martha. Labs reviewed and no need for phlebotomy today. Updated Visit, October 17, 2022: Prudencio Patrick returns for follow-up and possible phlebotomy. Since his last visit there has been no significant medical changes. He remains on Hydrea 500 mg daily and is tolerating it well without any side effects. He denies bleeding and abnormal bruising. No signs of blood clots. No cough, shortness of breath, chest pain or other pulmonary complaints. No leg pain. No lower extremity edema. He denies fevers, chills, night sweats and signs/symptoms of infection. Updated Visit, August 07, 2022: Doing well and here with his Martha. He has been doing well and hasn't need a phlebotomy for 16 weeks - now he does. Updated Visit, June 12, 2022: Rafa returns with his Martha and labs are stable. Hgb is at 15.4 and he'd like to defer phlebotomy today. I think that is reasonable. He feels good and has no issues with hydrea. Will see if he needs additional phlebotomy if Hgb >16 next visit - then we can estimate a pattern for planning visits and phlebotomies on a routine basis. Updated Visit, April 17, 2022: Prudencio Patrick returns for follow-up. He remains on Hydrea 500 mg once daily and is tolerating it well. He states that he is doing well. There has been no significant medical changes since his last visit. He denies shortness of breath, chest pain and leg pain. He follows with his PCP, Dr. Smith, who has been changing his blood pressure medications. Patient states the first time he had a phlebotomy his blood pressure dropped. The second time he had a phlebotomy he had no problems. He denies bleeding and abnormal bruising. He offers no new complaints today. No new issues, problems or concerns. Updated Visit, December 26, 2021: Is doing well labs are improved. BP meds adjusted. No need for for phlebotomy today. Will monitor platelets levels. Updated Visit, November 28, 2021: Didn't tolerate phlebotomy due to hypotension but he's on amlodipine, HCTZ 25 in addition to Hyzaar (100/25). Will hold phlebotomy for now and reconsider once his flid status and BP meds are clarified. It's possible that he had a vagal reaction in addition. I discussed his situation with Dr. Smith today and he will clarify meds for him. Updated Visit, October 25, 2021: Telephone 12 mins Discussed findings of Clemente 2 Mutation - c/w Polycythemia - [id number] mut + B-asa Phlebotomy Consider hydrea for high risk disease. Updated Visit, October 18, 2021: Noted to have polycythemia today and has lost weight since last being seen - also has increased total protein. Kidney function remains stable. 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 No evidence of sleep apnea. 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 Has been in observation and followed by Dr. Murphy. He had a bone marrow biopsy in September [address] Cardenas which showed a <5% (more content not included)... Normal [facility] Comprehensive metabolic 2000 panelon 01-15-2023 Albumin [Mass/Vol] 4.2 g/dL Normal 3.9-4.9 [facility] Comment on above: Order Comment: Rene witt Type: BLOOD SPECIMEN Ordering Facility: [facility] Address: [address] [place] [address] Performed By: #### 2 885-2, 2132-02, 2284-01 #### [facility] CLIA [id number] [address] [place] [address] [place] ALP [Catalytic activity/Vol] 101 U/L Normal 38-113 [facility] Comment on above: Order Comment: Rene witt Type: BLOOD SPECIMEN Ordering Facility: [facility] Address: [address] [place] [address] Performed By: #### 2 885-2, 2132-02, 2284-01 #### [facility] CLIA [id number] [address] [place] [id number] [place] ALT [Catalytic activity/Vol] 22 U/L Normal 10-54 [facility] Comment on above: Order Comment: Rene witt Type: BLOOD SPECIMEN Ordering Facility: [facility] Address: [address] [place] [address] Performed By: #### 2 885-2, 2132-02, 2284-01 #### [facility] CLIA [id number] [address] [place] [address] [place] Anion gap [Moles/Vol] 9 mmol/L Normal 9-18 [facility] Comment on above: Order Comment: Speci men Type: BLOOD SPECIMEN Ordering Facility: [facility] Address: [address] [place] [address] Performed By: #### 2 885-2, 2132-02, 2284-01 #### [facility] CLIA [id number] [address] [place] [address] [place] AST [Catalytic activity/Vol] 23 U/L Normal 14-40 [facility] Comment on above: Order Comment: Speci men Type: BLOOD SPECIMEN Ordering Facility: [facility] Address: [address] [place] [address] Performed By: #### 2 885-2, 2132-02, 2284-01 #### [facility] CLIA [id number] [address] [place] [address] [place] Bilirubin [Mass/Vol] 0.7 mg/dL Normal 0.2-1.3 [facility] Comment on above: Order Comment: Speci men Type: BLOOD SPECIMEN Ordering Facility: [facility] Address: [address] [place] [address] Performed By: #### 2 885-2, 2132-02, 2284-01 #### [facility] CLIA [id number] [facility] [place] [address] [place] Calcium [Mass/Vol] 9.7 mg/dL Normal 8.5-10.2 [facility] Comment on above: Order Comment: Speci men Type: BLOOD SPECIMEN Ordering Facility: [facility] Address: [address] [place] [address] Performed By: #### 2 885-2, 2132-02, 2284-01 #### [facility] CLIA [id number] [address] [place] [address] [place] Chloride [Moles/Vol] 105 mmol/L Normal 97-105 [facility] Comment on above: Order Comment: Speci men Type: BLOOD SPECIMEN Ordering Facility: [facility] Address: [address] [place] [address] Performed By: #### 2 885-2, 2132-02, 2284-01 #### [facility] CLIA [id number] [address] [place] [id number] [place] CO2 [Moles/Vol] 27 mmol/L Normal 22-30 [facility] Comment on above: Order Comment: Speci men Type: BLOOD SPECIMEN Ordering Facility: [facility] Address: [address] [place] [address] Performed By: #### 2 885-2, 2132-02, 2284-01 #### [facility] CLIA [id number] [facility] [place] [address] [place] Creatinine [Mass/Vol] 1.14 mg/dL Normal 0.73-1.22 [facility] Comment on above: Order Comment: Speci men Type: BLOOD SPECIMEN Ordering Facility: [facility] Address: [address] [place] [address] Performed By: #### 2 885-2, 2132-02, 2284-01 #### [facility] CLIA [id number] [address] [place] [address] [place] ESTIMATED GLOMERULAR FILTRATION RATE 66 mL/min/1.73m??? Normal >=60 [facility] Comment on above: Order Comment: Speci men Type: BLOOD SPECIMEN Ordering Facility: [facility] Address: [address] [place], [place] [address] Result Comment: Tawanna mated Glomerular Filtration Rate (eGFR) is calculated using the 2020 CKD-EPI creatinine equation. This equation utilizes serum creatinine, sex, and age as parameters. The creatinine assay has traceable calibration to isotope dilution-mass spectrometry. Refer to KDIGO guidelines for clinical interpretation. In patients with unstable renal function, e.g. those with acute kidney injury, the eGFR may not accurately reflect actual GFR. Performed By: #### 2 885-2, 2132-02, 2284-01 #### [facility] CLIA [id number] [address] [address] [place] Glucose [Mass/Vol] 101 mg/dL High 74-99 [facility] Comment on above: Order Comment: Rene witt Type: BLOOD SPECIMEN Ordering Facility: [facility] Address: [address] [place] [address] Result Comment: The [place] [employer] (ADA) provides guidance for cutoff values for fasting glucose and random glucose. The ADA defines fasting as no caloric intake for at least 8 hours. Fasting plasma glucose results between 100 to 125 mg/dL indicate increased risk for diabetes (prediabetes). Fasting plasma glucose results greater than or equal to 126 mg/dL meet the criteria for diagnosis of diabetes. In the absence of unequivocal hyperglycemia, results should be confirmed by repeat testing. In a patient with classic symptoms of hyperglycemia or hyperglycemic crisis, random plasma glucose results greater than or equal to 200 mg/dL meet the criteria for diagnosis of diabetes. Reference: Standards of Medical Care in Diabetes 2016, [place] [employer]. Diabetes Care. 2016.39(Suppl 1). Performed By: #### 2 885-2, 2132-02, 2284-01 #### [facility] CLIA [id number] [address] [place] [address] [place] Potassium [Moles/Vol] 3.9 mmol/L Normal 3.7-5.1 [facility] Comment on above: Order Comment: Rene witt Type: BLOOD SPECIMEN Ordering Facility: [facility] Address: [address] [place] [address] Performed By: #### 2 885-2, 2132-02, 2284-01 #### [facility] CLIA [id number] [address] [address] [place] Protein [Mass/Vol] 7.4 g/dL Normal 6.3-8.0 [facility] Comment on above: Order Comment: Rene witt Type: BLOOD SPECIMEN Ordering Facility: [facility] Address: [address] [place] [address] Performed By: #### 2 885-2, 2132-02, 2284-01 #### [facility] CLIA [id number] [address] [place], [place] [address] [place] Sodium [Moles/Vol] 141 mmol/L Normal 136-144 [facility] Comment on above: Order Comment: Speci men Type: BLOOD SPECIMEN Ordering Facility: [facility] Address: [address] [place] [id number] Performed By: #### 2 885-2, 2132-02, 2284-01 #### [facility] CLIA [id number] [address] [place] [address] [place] Urea nitrogen [Mass/Vol] 18 mg/dL Normal 9-24 [facility] Comment on above: Order Comment: Speci men Type: BLOOD SPECIMEN Ordering Facility: [facility] Address: [address] [place] [address] Performed By: #### 2 885-2, 2132-02, 2284-01 #### [facility] CLIA [id number] [address] [place] [address] [place] CBC W Auto Differential pane l (Bld)on 10-17-2022 Basophils (Bld) [#/Vol] 0.03 10*3/uL Normal <0.11 [facility] Comment on above: Order Comment: Speci men Type: BLOOD SPECIMEN Ordering Facility: [facility] Address: [address] [place] [place] [id number] Performed By: #### 3 084-1, 2777-1, 2532-0, 09386-7 #### [facility] CLIA [id number] [address] [place] [address] 97584 Basophils/100 WBC (Bld) 0.6 % Normal [facility] Comment on above: Order Comment: Speci men Type: BLOOD SPECIMEN Ordering Facility: [facility] Address: [address] [place] [address] Performed By: #### 3 084-1, 2777-1, 2531-0, #### [facility] CLIA [id number] [address] [place] [address] 15903 Differential cell count method Nom (Bld) Auto Normal [facility] Comment on above: Order Comment: Speci men Type: BLOOD SPECIMEN Ordering Facility: [facility] Address: [address] [place] [address] Performed By: #### 3 084-1, 2777-1, 2531-0, #### [facility] CLIA [id number] [address] [place] [address] 03566 Eosinophils (Bld) [#/Vol] 0.14 10*3/uL Normal <0.46 [facility] Comment on above: Order Comment: Speci men Type: BLOOD SPECIMEN Ordering Facility: [facility] Address: [address] [place] [address] Performed By: #### 3 084-1, 2771, 2531-0, #### [facility] CLIA [id number] [address] [place] [address] 92559 Eosinophils/100 WBC (Bld) 2.9 % Normal [facility] Comment on above: Order Comment: Speci men Type: BLOOD SPECIMEN Ordering Facility: [facility] Address: [address] [place] [address] Performed By: #### 3 084-1, 2771, 0, #### [facility] CLIA [id number] [address] [place] [address] 09803 Erythrocyte distribution width (RBC) [Ratio] 14.3 % Normal 11.5-15.0 [facility] Comment on above: Order Comment: Speci men Type: BLOOD SPECIMEN Ordering Facility: [facility] Address: [address] [place] [address] Performed By: #### 3 084-1, 2777-1, 2531-0, 70523-4 #### [facility] CLIA [id number] [address] [place] [address] 20090 Hematocrit (Bld) [Volume fraction] 46.2 % Normal 39.0-51.0 [facility] Comment on above: Order Comment: Speci men Type: BLOOD SPECIMEN Ordering Facility: [facility] Address: [address] [place] [id number] Performed By: #### 3 084-1, 2777-1, 2532-0, 96860-1 #### [facility] CLIA [id number] [address] [place] [address] 93787 Hemoglobin (Bld) [Mass/Vol] 15.7 g/dL Normal 13.0-17.0 [facility] Comment on above: Order Comment: Speci men Type: BLOOD SPECIMEN Ordering Facility: [facility] Address: [address] [place] [address] Performed By: #### 3 084-1, 2777-1, 2531-0, 36011-3 #### [facility] CLIA [id number] [address] [place] [address] 96102 Immature granulocytes (Bld) [#/Vol] 10*3/uL Normal <0.10 [facility] Comment on above: Order Comment: Speci men Type: BLOOD SPECIMEN Ordering Facility: [facility] Address: [address] [place] [address] Performed By: #### 3 084-1, 2777-1, 253-0, 24798-8 #### [facility] CLIA [id number] [address] [place] [address] 04756 Immature granulocytes/100 WBC (Bld) 0.2 % Normal [facility] Comment on above: Order Comment: Speci men Type: BLOOD SPECIMEN Ordering Facility: [facility] Address: [address] [place] [address] Performed By: #### 3 084-1, 2777-1, 2532-0, 37062-8 #### [facility] CLIA [id number] [address] [place] [address] 35540 Lymphocytes (Bld) [#/Vol] 0.87 10*3/uL Low 1.00-4.00 [facility] Comment on above: Order Comment: Speci men Type: BLOOD SPECIMEN Ordering Facility: [facility] Address: [address] [place] [address] Performed By: #### 3 084-1, 2777-1, 2531-0, 47155-2 #### [facility] CLIA [id number] [address] [place] [address] 76990 Lymphocytes/100 WBC (Bld) 18.0 % Normal [facility] Comment on above: Order Comment: Speci men Type: BLOOD SPECIMEN Ordering Facility: [facility] Address: [address] [place] [address] Performed By: #### 3 084-1, 2777-1, 2531-0, 55343-9 #### [facility] CLIA [id number] [address] [place] [address] 53652 MCH (RBC) [Entitic mass] 35.2 pg High 26.0-34.0 [facility] Comment on above: Order Comment: Speci men Type: BLOOD SPECIMEN Ordering Facility: [facility] Address: [address] [place] [address] Performed By: #### 3 084-1, 2777-1, 2531-0, 65288-8 #### [facility] CLIA [id number] [address] [place] [address] 75257 MCHC (RBC) [Mass/Vol] 34.0 g/dL Normal 30.5-36.0 [facility] Comment on above: Order Comment: Speci men Type: BLOOD SPECIMEN Ordering Facility: [facility] Address: [address] [place] [address] Performed By: #### 3 084-1, 2777-1, 2531-0, 97094-8 #### [facility] CLIA [id number] [address] [place] [address] 88686 MCV (RBC) [Entitic vol] 103.6 fL High 80.0-100.0 [facility] Comment on above: Order Comment: Speci men Type: BLOOD SPECIMEN Ordering Facility: [facility] Address: [address] [place] [address] Performed By: #### 3 084-1, 2777-1, 2531-0, #### [facility] CLIA [id number] [address] [place] [address] 90734 Monocytes (Bld) [#/Vol] 0.47 10*3/uL Normal <0.87 [facility] Comment on above: Order Comment: Speci men Type: BLOOD SPECIMEN Ordering Facility: [facility] Address: [address] [place] [address] Performed By: #### 3 084-1, 2771, 0, #### [facility] CLIA [id number] [address] [place] [address] 76204 Monocytes/100 WBC (Bld) 9.7 % Normal [facility] Comment on above: Order Comment: Speci men Type: BLOOD SPECIMEN Ordering Facility: [facility] Address: [address] [place] [address] Performed By: #### 3 084-1, 2771, 0, #### [facility] CLIA [id number] [address] [place] [address] 06920 Neutrophils (Bld) [#/Vol] 3.31 10*3/uL Normal 1.45-7.50 [facility] Comment on above: Order Comment: Speci men Type: BLOOD SPECIMEN Ordering Facility: [facility] Address: [address] [place] [address] Performed By: #### 3 084-1, 2771, 0, #### [facility] CLIA [id number] [address] [place] [address] 27993 Neutrophils/100 WBC (Bld) 68.6 % Normal [facility] Comment on above: Order Comment: Speci men Type: BLOOD SPECIMEN Ordering Facility: [facility] Address: [address] [place] [address] Performed By: #### 3 084-1, 2777-1, 2531-0, #### [facility] CLIA [id number] [address] [place] [address] 01474 Nucleated RBC (Bld) [#/Vol] 10*3/uL Normal <0.01 [facility] Comment on above: Order Comment: Speci men Type: BLOOD SPECIMEN Ordering Facility: [facility] Address: [address] [id number] Performed By: #### 3 084-1, 2777-1, 2531-0, #### [facility] CLIA [id number] [address] [place] [address] 88828 Nucleated RBC/100 WBC (Bld) [Ratio] 0.0 /100 WBC Normal [facility] Comment on above: Order Comment: Speci men Type: BLOOD SPECIMEN Ordering Facility: [facility] Address: [address] [id number] Performed By: #### 3 084-1, 2777-1, 2531-0, #### [facility] CLIA [id number] [address] [place] [address] 27695 Platelet mean volume (Bld) [Entitic vol] 10.1 fL Normal 9.0-12.7 [facility] Comment on above: Order Comment: Speci men Type: BLOOD SPECIMEN Ordering Facility: [facility] Address: [address] [place] [address] Performed By: #### 3 084-1, 2777-1, 2531-0, 01624-9 #### [facility] CLIA [id number] [address] [place] [address] 98457 Platelets (Bld) [#/Vol] 169 10*3/uL Normal 150-400 [facility] Comment on above: Order Comment: Speci men Type: BLOOD SPECIMEN Ordering Facility: [facility] Address: [address] [place] [address] Performed By: #### 3 084-1, 2777-1, 2532-0, 00932-1 #### [facility] CLIA [id number] [address] [place] [address] 00349 RBC (Bld) [#/Vol] 4.46 10*6/uL Normal 4.20-6.00 [facility] Comment on above: Order Comment: Speci men Type: BLOOD SPECIMEN Ordering Facility: [facility] Address: [address] [place] [address] Performed By: #### 3 084-1, 2777-1, 2532-0, 32965-6 #### [facility] CLIA [id number] [address] [place] [address] 76141 WBC (Bld) [#/Vol] 4.83 10*3/uL Normal 3.70-11.00 [facility] Comment on above: Order Comment: Speci men Type: BLOOD SPECIMEN Ordering Facility: [facility] Address: [address] [place], [place] [address] Performed By: #### 3 084-1, 2777-1, 2532-0, 30569-7 #### [facility] CLIA [id number] [address] [place] [address] 93594 CNOVSPon 10-17-2022 CNOVS Visit (SP) Office ([place]) PRUDENCIO PATRICK ([id number]) 1945 M Date Time Provider Department 10/17/22 9:00 AM WISAM LONG During your visit today, we recorded the following information about you: Temperature Pulse Respiration Blood pressure 97.8 degrees 62/minute 16/minute 163/82 Weight Height 112 kg 1.803 m Wisam Long APRN.GROUP WORKER 10/17/2022 1:28 PM Signed NAME: Prudencio Patrick CLINIC NO.: [id number] DATE OF SERVICE: October 17, 2022 (Mahesh) Some elements in this clinic note that are critical to medical decision making have been carefully reviewed and included from a prior clinic note dated: August 07, 2022. (Dr. Novak) Referring Provider: Dr. 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 His M protein levels have been stable over the last 13+ years, and his risk of progression remains very low. However, he is more notably polycythemic and so we ordered a MPN workup for PRV which came back positive. Now improving with hydrea. PLAN: Plan for phlebotomy for hematocrit > 47. Continue baby ASA. Continue Hydrea 500 mg daily. Follow up in 12 weeks labs same day. Possible phlebotomy. - HPI: CASE HISTORY: 04/17/2022 - H/H 16.3/47.9 - phlebotomy 500 ml 02/20/2022 - H/H 16.5/48.7 - phlebotomy 250 ml x 3 weeks in a row 11/28/2021 Hydrea started 500 mg 11/14/2021 - phlebotomy caused severe hypotensive episode - possibly due to fasting/dehydration 10/18/2021 - Jak2+ PRV diagnosed 2006 - IgA [place] and IgM lambda biclonal M-spike Updated Visit, October 17, 2022: Prudencio Patrick returns for follow-up and possible phlebotomy. Since his last visit there has been no significant medical changes. He remains on Hydrea 500 mg daily and is tolerating it well without any side effects. He denies bleeding and abnormal bruising. No signs of blood clots. No cough, shortness of breath, chest pain or other pulmonary complaints. No leg pain. No lower extremity edema. He denies fevers, chills, night sweats and signs/symptoms of infection. Updated Visit, August 07, 2022: Doing well and here with his Martha. He has been doing well and hasn't need a phlebotomy for 16 weeks - now he does. Updated Visit, June 12, 2022: Rafa returns with his Martha and labs are stable. Hgb is at 15.4 and he'd like to defer phlebotomy today. I think that is reasonable. He feels good and has no issues with hydrea. Will see if he needs additional phlebotomy if Hgb >16 next visit - then we can estimate a pattern for planning visits and phlebotomies on a routine basis. Updated Visit, April 17, 2022: Prudencio Patrick returns for follow-up. He remains on Hydrea 500 mg once daily and is tolerating it well. He states that he is doing well. There has been no significant medical changes since his last visit. He denies shortness of breath, chest pain and leg pain. He follows with his PCP, Dr. Smith, who has been changing his blood pressure medications. Patient states the first time he had a phlebotomy his blood pressure dropped. The second time he had a phlebotomy he had no problems. He denies bleeding and abnormal bruising. He offers no new complaints today. No new issues, problems or concerns. Updated Visit, December 26, 2021: Is doing well labs are improved. BP meds adjusted. No need for for phlebotomy today. Will monitor platelets levels. Updated Visit, November 28, 2021: Didn't tolerate phlebotomy due to hypotension but he's on amlodipine, HCTZ 25 in addition to Hyzaar (100/25). Will hold phlebotomy for now and reconsider once his flid status and BP meds are clarified. It's possible that he had a vagal reaction in addition. I discussed his situation with Dr. Smith today and he will clarify meds for him. 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 Updated Visit, October 18, 2021: Noted to have polycythemia today and has lost weight since last being seen - also has increased total protein. Kidney function remains stable. 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 No evidence of sleep apnea. 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 Has been in observation and followed by Dr. Murphy. He had a bone marrow biopsy in September [address] Cardenas which showed a <5% lambda monoclonal plasma cells. The patient has been in observation since that time. He denies new complaints at this time. Past History: Osteoarthr (more content not included)... Normal [facility] Comprehensive metabolic 2000 panelon 10-17-2022 Albumin [Mass/Vol] 4.2 g/dL Normal 3.9-4.9 [facility] Comment on above: Order Comment: Speci eduar Type: BLOOD SPECIMEN Ordering Facility: [facility] Address: [address] [place] [address] Performed By: #### 3 084-1, 2777-1, 2532-0, 66421-7 #### [facility] CLIA [id number] [address] [place] [address] 24224 ALP [Catalytic activity/Vol] 101 U/L Normal 38-113 [facility] Comment on above: Order Comment: Rene witt Type: BLOOD SPECIMEN Ordering Facility: [facility] Address: [address] [place] [address] Performed By: #### 3 084-1, 2777-1, 2532-0, 24143-7 #### [facility] CLIA [id number] [address] [place] [address] 18137 ALT [Catalytic activity/Vol] 23 U/L Normal 10-54 [facility] Comment on above: Order Comment: Jose Rauli eduar Type: BLOOD SPECIMEN Ordering Facility: [facility] Address: [address] [place] [address] Performed By: #### 3 084-1, 2777-1, 2532-0, 42805-5 #### [facility] CLIA [id number] [address] [place] [address] 33450 Anion gap [Moles/Vol] 9 mmol/L Normal 9-18 [facility] Comment on above: Order Comment: Speci men Type: BLOOD SPECIMEN Ordering Facility: [facility] Address: [address] [place] [address] Performed By: #### 3 084-1, 2777-1, 2531-0, #### [facility] CLIA [id number] [address] [place] [address] 23874 AST [Catalytic activity/Vol] 24 U/L Normal 14-40 [facility] Comment on above: Order Comment: Speci men Type: BLOOD SPECIMEN Ordering Facility: [facility] Address: [address] [place] [address] Performed By: #### 3 084-1, 2777-1, 2531-0, #### [facility] CLIA [id number] [address] [place] [address] 07852 Bilirubin [Mass/Vol] 0.7 mg/dL Normal 0.2-1.3 [facility] Comment on above: Order Comment: Speci men Type: BLOOD SPECIMEN Ordering Facility: [facility] Address: [address] [place] [address] Performed By: #### 3 084-1, 2777-1, 0, #### [facility] CLIA [id number] [address] [place] [address] 04108 Calcium [Mass/Vol] 9.9 mg/dL Normal 8.5-10.2 [facility] Comment on above: Order Comment: Speci men Type: BLOOD SPECIMEN Ordering Facility: [facility] Address: [address] [place] [address] Performed By: #### 3 084-1, 277-1, 0, #### [facility] CLIA [id number] [address] [place] [address] 35919 Chloride [Moles/Vol] 102 mmol/L Normal 97-105 [facility] Comment on above: Order Comment: Speci men Type: BLOOD SPECIMEN Ordering Facility: [facility] Address: [address] [id number] Performed By: #### 3 084-1, 2777-1, 2531-0, #### [facility] CLIA [id number] [address] [place] [address] 68372 CO2 [Moles/Vol] 26 mmol/L Normal 22-30 [facility] Comment on above: Order Comment: Speci men Type: BLOOD SPECIMEN Ordering Facility: [facility] Address: [address] [place] [phone] Performed By: #### 3 084-1, 2777-1, 2531-0, #### [facility] CLIA [id number] [address] [place] [address] 49216 Creatinine [Mass/Vol] 1.26 mg/dL High 0.73-1.22 [facility] Comment on above: Order Comment: Speci men Type: BLOOD SPECIMEN Ordering Facility: [facility] Address: [address] [place], [place] [address] Performed By: #### 3 084-1, 2777-1, 2531-0, #### [facility] CLIA [id number] [address] [place], [place] [id number] ESTIMATED GLOMERULAR FILTRATION RATE 59 mL/min/1.73m??? Low >=60 [facility] Comment on above: Order Comment: Speci men Type: BLOOD SPECIMEN Ordering Facility: [facility] Address: [address] [place], [place] [address] Result Comment: Tawanna mated Glomerular Filtration Rate (eGFR) is calculated using the 2020 CKD-EPI creatinine equation. This equation utilizes serum creatinine, sex, and age as parameters. The creatinine assay has traceable calibration to isotope dilution-mass spectrometry. Refer to KDIGO guidelines for clinical interpretation. In patients with unstable renal function, e.g. those with acute kidney injury, the eGFR may not accurately reflect actual GFR. Performed By: #### 3 084-1, 2777-1, 2532-0, 95252-6 #### [facility] CLIA [id number] [address] [place] [address] Glucose [Mass/Vol] 107 mg/dL High 74-99 [facility] Comment on above: Order Comment: Speci eduar Type: BLOOD SPECIMEN Ordering Facility: [facility] Address: [address] [place] [address] 39849 Result Comment: The [place] [employer] (ADA) provides guidance for cutoff values for fasting glucose and random glucose. The ADA defines fasting as no caloric intake for at least 8 hours. Fasting plasma glucose results between 100 to 125 mg/dL indicate increased risk for diabetes (prediabetes). Fasting plasma glucose results greater than or equal to 126 mg/dL meet the criteria for diagnosis of diabetes. In the absence of unequivocal hyperglycemia, results should be confirmed by repeat testing. In a patient with classic symptoms of hyperglycemia or hyperglycemic crisis, random plasma glucose results greater than or equal to 200 mg/dL meet the criteria for diagnosis of diabetes. Reference: Standards of Medical Care in Diabetes 2016, [place] [employer]. Diabetes Care. 2016.39(Suppl 1). Performed By: #### 3 084-1, 2777-1, 2531-0, 46737-2 #### [facility] CLIA [id number] [address] [place] [address] Potassium [Moles/Vol] 3.9 mmol/L Normal 3.7-5.1 [facility] Comment on above: Order Comment: Rene witt Type: BLOOD SPECIMEN Ordering Facility: [facility] Address: [address] [place] [address] 26622 Performed By: #### 3 084-1, 2777-1, 2532-0, 27751-2 #### [facility] CLIA [id number] [address] [place] [address] Protein [Mass/Vol] 7.7 g/dL Normal 6.3-8.0 [facility] Comment on above: Order Comment: Rene witt Type: BLOOD SPECIMEN Ordering Facility: [facility] Address: [address] [place] [address]27 Performed By: #### 3 084-1, 2777-1, 2532-0, 83641-4 #### [facility] CLIA [id number] [address] [place] [address] Sodium [Moles/Vol] 137 mmol/L Normal 136-144 [facility] Comment on above: Order Comment: Speci men Type: BLOOD SPECIMEN Ordering Facility: [facility] Address: [address] [place] [address] Performed By: #### 3 084-1, 2777-1, 2531-0, #### [facility] CLIA [id number] [address] [place] [address] Urea nitrogen [Mass/Vol] 18 mg/dL Normal 9-24 [facility] Comment on above: Order Comment: Speci men Type: BLOOD SPECIMEN Ordering Facility: [facility] Address: [address] [place] [address] Performed By: #### 3 084-1, 2777-1, 2531-0, #### [facility] CLIA [id number] [address] [place], [place] [address] LDH SerPl-cCncon 10-17-2022 LDH [Catalytic activity/Vol] 173 U/L Normal 135-225 [facility] Comment on above: Order Comment: Speci men Type: BLOOD SPECIMEN Ordering Facility: [facility] Address: [address] [place] [address] Result Comment: Hemo lysis present. The origin of the hemolysis, in vitro versus an in vivo hemolytic process, cannot be distinguished via this assay alone. In vitro hemolysis may lead to non-physiological (spurious) elevation in lactate dehydrogenase (LDH) results. The result should be interpreted in context of the clinical setting and other test results. Suggest reorder as clinically indicated. Performed By: #### 3 084-1, 2777-1, 2531-0, #### [facility] CLIA [id number] [address] [place] [address] 92086 LIPID PROFILEon 09-25-2022 CHOL-HDL RATIO NORM SEE BELOW Normal [facility] Comment on above: Result Comment: 3.3 - 4.4 LOW RISK 4.4 - 7.1 AVERAGE RISK 7.1 - 11.0 MODERATE RISK >11.0 HIGH RISK Performed By: #### B MP, ALT, LIPID #### [facility] [address] [address] [address] Deandre Turner Cholesterol [Mass/Vol] 146 mg/dL Normal <=200 [facility] Comment on above: Performed By: #### B MP, ALT, LIPID #### [facility] [address] [address] [address] Deandre Turner Cholesterol in HDL [Mass/Vol] 56 mg/dL Normal 40-60 [facility] Comment on above: Performed By: #### B MP, ALT, LIPID #### [facility] [address] [address] [address] Deandre Turner Cholesterol in LDL [Mass/Vol] 72.2 mg/dL Normal [facility] Comment on above: Performed By: #### B MP, ALT, LIPID #### [facility] [address] [address] [address] Deandre Turner Cholesterol.total/C holesterol in HDL [Mass ratio] 2.6 {ratio} Normal [facility] Comment on above: Performed By: #### B MP, ALT, LIPID #### [facility] [address] [address] [address] Deandre Turner HDL NORMAL > or = 60 mg/dl - LO W CARDIOVASCULAR RISK <40 mg/dl - HIGH CARDIOVASCULAR RISK Normal [facility] Comment on above: Performed By: #### B MP, ALT, LIPID #### [facility] [address] [address] [address] Deandre Turner LDL CALC NORMAL SEE BELOW Normal [facility] Comment on above: Result Comment: <100 mg/dl OPTIMAL 100 - 129 mg/dl NEAR OR ABOVE OPTIMAL 130 - 159 mg/dl BORDERLINE HIGH 160 - 189 mg/dl HIGH >190 mg/dl VERY HIGH Performed By: #### B MP, ALT, LIPID #### [facility] [address] [address] [address] Deandre Turner Triglyceride [Mass/Vol] 89 mg/dL Normal <=150 [facility] Comment on above: Performed By: #### B MP, ALT, LIPID #### [facility] [address] [address] [address] Deandre Turner VLDL CALC 17.8 mg/dL Normal [facility] Comment on above: Performed By: #### B MP, ALT, LIPID #### [facility] [address] [place] [address] Dr. Deandre Turner PROF CHEM 8 (BAS METB)on Anion gap [Moles/Vol] 9.6 mmol/L Normal [facility] Comment on above: Performed By: #### B MP, ALT, LIPID #### [facility] [address] [place] [address] Dr. Deandre Turner Calcium [Mass/Vol] 9.6 mg/dL Normal 8.5-10.1 [facility] Comment on above: Performed By: #### B MP, ALT, LIPID #### [facility] [address] [place] [address] Dr. Deandre Turner Chloride [Moles/Vol] 105 mmol/L Normal 98-107 [facility] Comment on above: Performed By: #### B MP, ALT, LIPID #### [facility] [address] [place] [address] Dr. Deandre Turner CO2 [Moles/Vol] 28.7 mmol/L Normal 21.0-32.0 [facility] Comment on above: Performed By: #### B MP, ALT, LIPID #### [facility] [address] [place] [address] Dr. Deandre Turner Creatinine [Mass/Vol] 1.26 mg/dL Normal 0.70-1.30 [facility] Comment on above: Performed By: #### B MP, ALT, LIPID #### [facility] [address] [place] [address] Dr. Deandre Turner EGFR-AF CAMEROONIAN >60 Normal >=60 [facility] Comment on above: Performed By: #### B MP, ALT, LIPID #### [facility] [address] [place] [address] Dr. Deandre Turner EGFR-NON AF CAMEROONIAN 55 mL/min/1.73m2 Critically low >=60 [facility] Comment on above: Performed By: #### B MP, ALT, LIPID #### [facility] [address] [address] [address] Deandre Turner Glucose [Mass/Vol] 102 mg/dL Normal 74-106 [facility] Comment on above: Performed By: #### B MP, ALT, LIPID #### [facility] [address] [address] [address] eDandre Turner Potassium [Moles/Vol] 4.3 mmol/L Normal 3.5-5.1 [facility] Comment on above: Performed By: #### B MP, ALT, LIPID #### [facility] [address] [place] [address] Dr. Deandre Turner Sodium [Moles/Vol] 139 mmol/L Normal 136-145 [facility] Comment on above: Performed By: #### B MP, ALT, LIPID #### [facility] [address] [place] [address] Dr. Deandre Turner Urea nitrogen [Mass/Vol] 20.0 mg/dL Critically high 7.0-18.0 [facility] Comment on above: Performed By: #### B MP, ALT, LIPID #### [facility] [address] [place] [address] Dr. Deandre Turner Urea nitrogen/Creatinine [Mass ratio] 15.9 mg/mg Normal [facility] Comment on above: Performed By: #### B MP, ALT, LIPID #### [facility] [address] [place] [address] Dr. Deandre Turner SGPTon 09-25-2022 ALT [Catalytic activity/Vol] 33 U/L Normal 16-63 [facility] Comment on above: Performed By: #### B MP, ALT, LIPID #### [facility] [address] [place] [address] Dr. Deandre Turner CBC W Auto Differential pane l (Bld)on 08-18-2022 Basophils (Bld) [#/Vol] 0.04 10*3/uL Normal <0.11 [facility] Comment on above: Order Comment: Speci men Type: BLOOD SPECIMEN Ordering Facility: [facility] Address: [address] [place] [address] Performed By: #### 2 885-2, 2132-02, 2284-01 #### [facility] CLIA [id number] [address] [place] [address] [place] Basophils/100 WBC (Bld) 0.8 % Normal [facility] Comment on above: Order Comment: Speci men Type: BLOOD SPECIMEN Ordering Facility: [facility] Address: [address] [place] [address] Performed By: #### 2 885-2, 2132-02, 2284-01 #### [facility] CLIA [id number] [address] [place] [address] [place] Differential cell count method Nom (Bld) Auto Normal [facility] Comment on above: Order Comment: Speci men Type: BLOOD SPECIMEN Ordering Facility: [facility] Address: [address] [place] [address] Performed By: #### 2 885-2, 2132-02, 2284-01 #### [facility] CLIA [id number] [address] [place] [address] [place] Eosinophils (Bld) [#/Vol] 0.15 10*3/uL Normal <0.46 [facility] Comment on above: Order Comment: Speci men Type: BLOOD SPECIMEN Ordering Facility: [facility] Address: [address] [place] [address] Performed By: #### 2 885-2, 2132-02, 2284-01 #### [facility] CLIA [id number] [address] [place] [address] [place] Eosinophils/100 WBC (Bld) 2.8 % Normal [facility] Comment on above: Order Comment: Speci men Type: BLOOD SPECIMEN Ordering Facility: [facility] Address: [address] [place] [address] Performed By: #### 2 885-2, 9, 8 #### [facility] CLIA [id number] [address] [place] [address] [place] Erythrocyte distribution width (RBC) [Ratio] 14.6 % Normal 11.5-15.0 [facility] Comment on above: Order Comment: Speci men Type: BLOOD SPECIMEN Ordering Facility: [facility] Address: [address] [place] [address] Performed By: #### 2 885-2, 9, 2284-01 #### [facility] CLIA [id number] [address] [place] [address] [place] Hematocrit (Bld) [Volume fraction] 44.1 % Normal 39.0-51.0 [facility] Comment on above: Order Comment: Speci men Type: BLOOD SPECIMEN Ordering Facility: [facility] Address: [address] [place] [address] Performed By: #### 2 885-2, 9, 2284-01 #### [facility] CLIA [id number] [address] [place] [address] [place] Hemoglobin (Bld) [Mass/Vol] 15.1 g/dL Normal 13.0-17.0 [facility] Comment on above: Order Comment: Speci men Type: BLOOD SPECIMEN Ordering Facility: [facility] Address: [address] [place] [address] Performed By: #### 2 885-2, 9, 2284-01 #### [facility] CLIA [id number] [address] [place] [address] [place] Immature granulocytes (Bld) [#/Vol] 0.03 10*3/uL Normal <0.10 [facility] Comment on above: Order Comment: Speci men Type: BLOOD SPECIMEN Ordering Facility: [facility] Address: [address] [place] [address] Performed By: #### 2 885-2, 2132-02, 2284-01 #### [facility] CLIA [id number] [address] [place] [address] [place] Immature granulocytes/100 WBC (Bld) 0.6 % Normal [facility] Comment on above: Order Comment: Speci men Type: BLOOD SPECIMEN Ordering Facility: [facility] Address: [address] [place] [address] Performed By: #### 2 885-2, 2132-02, 2284-01 #### [facility] CLIA [id number] [address] [place] [address] [place] Lymphocytes (Bld) [#/Vol] 0.70 10*3/uL Low 1.00-4.00 [facility] Comment on above: Order Comment: Speci men Type: BLOOD SPECIMEN Ordering Facility: [facility] Address: [address] [place] [address] Performed By: #### 2 885-2, 2132-02, 2284-01 #### [facility] CLIA [id number] [address] [place] [address] [place] Lymphocytes/100 WBC (Bld) 13.2 % Normal [facility] Comment on above: Order Comment: Speci men Type: BLOOD SPECIMEN Ordering Facility: [facility] Address: [address] [place] [address] Performed By: #### 2 885-2, 2132-02, 2284-01 #### [facility] CLIA [id number] [address] [place], [place] [address] [place] MCH (RBC) [Entitic mass] 35.5 pg High 26.0-34.0 [facility] Comment on above: Order Comment: Speci men Type: BLOOD SPECIMEN Ordering Facility: [facility] Address: [address] [place] [address] Performed By: #### 2 885-2, 2132-02, 2284-01 #### [facility] CLIA [id number] [address] [address] [place] MCHC (RBC) [Mass/Vol] 34.2 g/dL Normal 30.5-36.0 [facility] Comment on above: Order Comment: Speci men Type: BLOOD SPECIMEN Ordering Facility: [facility] Address: [address] [place] [address] Performed By: #### 2 885-2, 2132-02, 2284-01 #### [facility] CLIA [id number] [address] [address] [place] MCV (RBC) [Entitic vol] 103.8 fL High 80.0-100.0 [facility] Comment on above: Order Comment: Speci men Type: BLOOD SPECIMEN Ordering Facility: [facility] Address: [address] [place] [address] Performed By: #### 2 885-2, 2132-02, 2284-01 #### [facility] CLIA [id number] [address] [address] [place] Monocytes (Bld) [#/Vol] 0.45 10*3/uL Normal <0.87 [facility] Comment on above: Order Comment: Speci men Type: BLOOD SPECIMEN Ordering Facility: [facility] Address: [address] [place] [address] Performed By: #### 2 885-2, 2132-02, 2284-01 #### [facility] CLIA [id number] [address] [address] [place] Monocytes/100 WBC (Bld) 8.5 % Normal [facility] Comment on above: Order Comment: Speci men Type: BLOOD SPECIMEN Ordering Facility: [facility] Address: [address] [place] [address] Performed By: #### 2 885-2, 2132-02, 2284-01 #### [facility] CLIA [id number] [address] [place] [address] [place] Neutrophils (Bld) [#/Vol] 3.95 10*3/uL Normal 1.45-7.50 [facility] Comment on above: Order Comment: Speci men Type: BLOOD SPECIMEN Ordering Facility: [facility] Address: [address] [place] [address] Performed By: #### 2 885-2, 2132-02, 2284-01 #### [facility] CLIA [id number] [address] [place] [address] [place] Neutrophils/100 WBC (Bld) 74.1 % Normal [facility] Comment on above: Order Comment: Speci men Type: BLOOD SPECIMEN Ordering Facility: [facility] Address: [address] [place] [address] Performed By: #### 2 885-2, 2132-02, 2284-01 #### [facility] CLIA [id number] [address] [place] [address] [place] Nucleated RBC (Bld) [#/Vol] 10*3/uL Normal <0.01 [facility] Comment on above: Order Comment: Speci men Type: BLOOD SPECIMEN Ordering Facility: [facility] Address: [address] [place] [address] Performed By: #### 2 885-2, 2132-02, 2284-01 #### [facility] CLIA [id number] [address] [place] [address] [place] Nucleated RBC/100 WBC (Bld) [Ratio] 0.0 /100 WBC Normal [facility] Comment on above: Order Comment: Speci men Type: BLOOD SPECIMEN Ordering Facility: [facility] Address: [address] [place] [address] Performed By: #### 2 885-2, 2132-02, 2284-01 #### [facility] CLIA [id number] [address] [place] [address] [place] Platelet mean volume (Bld) [Entitic vol] 10.6 fL Normal 9.0-12.7 [facility] Comment on above: Order Comment: Speci men Type: BLOOD SPECIMEN Ordering Facility: [facility] Address: [address] [place] [address] Performed By: #### 2 885-2, 9, 8 #### [facility] CLIA [id number] [address] [place] [address] [place] Platelets (Bld) [#/Vol] 149 10*3/uL Low 150-400 [facility] Comment on above: Order Comment: Speci men Type: BLOOD SPECIMEN Ordering Facility: [facility] Address: [address] [place] [address] Performed By: #### 2 885-2, 9, 8 #### [facility] CLIA [id number] [address] [place] [address] [place] RBC (Bld) [#/Vol] 4.25 10*6/uL Normal 4.20-6.00 [facility] Comment on above: Order Comment: Speci men Type: BLOOD SPECIMEN Ordering Facility: [facility] Address: [address] [place] [address] Performed By: #### 2 885-2, 9, 8 #### [facility] CLIA [id number] [address] [place] [address] [place] WBC (Bld) [#/Vol] 5.32 10*3/uL Normal 3.70-11.00 [facility] Comment on above: Order Comment: Speci men Type: BLOOD SPECIMEN Ordering Facility: [facility] Address: [address] [place] [address] Performed By: #### 2 885-2, 2131-9, 8 #### [facility] CLIA [id number] [address] [place], [place] [address] [place] Ambulatory Visit Summaryon 0 08-08-2022 Ambulatory Visit Summary PRUDENCIO PATRICK :1945 Visit Date:08/08/2022 Ambulatory Visit Instructions Your Diagnosis BPH with urinary obstruction Elevated PSA Family history of prostate cancer Tests Performed Urnls Dip Stick Auto w/o Microscopy POC [address] Your Care Team Attending Physician - Christophe MCLAUGHLIN MD Primary Care Physician - JOSE SMITH DO This Is Your Medications List finasteride (finasteride 5 mg Tab) Contact prescribing physician if questions or concerns acyclovir amlodipine atorvastatin hydrochlorothiazide-los gerardo (hydrochlorothiazide-lo sartan 12.5 mg-50 mg Tab) hydroxyurea (hydroxyurea 500 mg Cap) Procedures Performed Colonoscopy. Discharge Vitals Heart Rate (Peripheral) 76 Blood Pressure 134/79 Height 183 cm Height 72 in Weight 119 kg Weight 261.8 lb BMI 35.53 What to do next Scheduled Follow-Up Appointments Thursday 8:45 AM EST With: BARBRA BAILON, Christophe Stoddard Where: [facility] Patient Educationon 08-08-19 23 Patient Education Oncology Prostate Cancer Screening The prostate is a walnut-sized gland that is located below the bladder and in front of the rectum in males. The function of the prostate (prostate gland) is to add fluid to semen during ejaculation. Prostate cancer is the second most common type of cancer in men. A screening test for cancer is a test that is done before cancer symptoms start. Screening can help to identify cancer at an early stage, when the cancer can be treated more easily. The recommended prostate cancer screening test is a blood test called the prostate-specific antigen (PSA) test. PSA is a protein that is made in the prostate. As you age, your prostate naturally produces more PSA. Abnormally high PSA levels may be caused by: ? Prostate cancer. ? An enlarged prostate that is not caused by cancer (benign prostatic hyperplasia, BPH). This condition is very common in older men. ? A prostate gland infection (prostatitis). ? Medicines to assist with hair growth, such as finasteride. Depending on the PSA results, you may need more tests, such as: ? A physical exam to check the size of your prostate gland. ? Blood and imaging tests. ? A procedure to remove tissue samples from your prostate gland for testing (biopsy). Who should have screening? Screening recommendations vary based on age. ? If you are younger than age 40, screening is not recommended. ? If you are age 40?54 and you have no risk factors, screening is not recommended. ? If you are younger than age 55, ask your health care provider if you need screening if you have one of these risk factors: ? Being of -[place] descent. ? Having a family history of prostate cancer. ? If you are age 55?69, talk with your health care provider about your need for screening and how often screening should be done. ? If you are older than age 70, screening is not recommended. This is because the risks that screening can cause are greater than the benefits that it may provide (risks outweigh the benefits). If you are at high risk for prostate cancer, your health care provider may recommend that you have screenings more often or start screening at a younger age. You may be at high risk if you: ? Are older than age 55. ? Are -[place]. ? Have a father, brother, or uncle who has been diagnosed with prostate cancer. The risk may be higher if your family member's cancer occurred at an early age. What are the benefits of screening? There is a small chance that screening may lower your risk of dying from prostate cancer. The chance is small because prostate cancer is typically a slow-growing cancer, and most men with prostate cancer from a different cause. What are the risks of screening? The main risk of prostate cancer screening is diagnosing and treating prostate cancer that would never have caused any symptoms or problems (overdiagnosis and overtreatment). PSA screening cannot tell you if your PSA is high due to cancer or a different cause. A prostate biopsy is the only procedure to diagnose prostate cancer. Even the results of a biopsy may not tell you if your cancer needs to be treated. Slow-growing prostate cancer may not need any treatment other than monitoring, so diagnosing and treating it may cause unnecessary stress or other side effects. A prostate biopsy may also cause: ? Infection or fever. ? A false negative. This is a result that shows that you do not have prostate cancer when you actually do have prostate cancer. Questions to ask your health care provider ? When should I start prostate cancer screening? ? What is my risk for prostate cancer? ? How often do I need screening? ? What type of screening tests do I need? ? How do I get my test results? ? What do my results mean? ? Do I need treatment? Contact a health care provider if: ? You have difficulty urinating. ? You have pain when you urinate or ejaculate. ? You have blood in your urine or semen. ? You have pain in your back or in the area of your prostate. ? You have trouble getting or maintaining an erection (erectile dysfunction, ED). Summary ? Prostate cancer is a common type of cancer in men. The prostate (prostate gland) is located below the bladder and in front of the rectum. This gland adds fluid to semen during ejaculation. ? Prostate cancer screening may identify cancer at an early stage, when the cancer can be treated more easily. ? The prostate-specific antigen (PSA) test is the recommended screening test for prostate cancer. ? Discuss the risks and benefits of prostate cancer screening with your health care provider. If you are age 70 or older, screening is likely to lead to more risks than benefits (risks outweigh the benefits). This information is not intended to replace advice given to you by your health care provider. Make sure you discuss any questions you have with your health care provider. Document Released: 03/12/2018 Document R (more content not included)... Normal [facility] Urology Office/Clinic Noteon 08-08-2022 Urology Office/Clinic Note Chief Complaint One year PSA HPI Staff 1 year PSA. Due to elevated PSA and family history of prostate cancer. Currently taking Finasteride 5mg. PSA done on 07-28-2022 = PSA 2.06 Patient states urination is well and stream is good. Patient states he only gets up one time during the night to urinate. History of Present Illness Tests reviewed: reviewed UA & PSA. I have reviewed the previous health record information and history for this patient from Dr. Mclaughlin. I have reviewed and verified the staff HPI to be accurate for this encounter. There have been no associated fever, chills, flank pain, or blood in the urine. Denies any urinary infections since last encounter. Review of Systems ROS - Provider Constitutional: denies weight loss, denies hot flashes. Eyes: denies eye problems. Gastrointestinal: denies nausea, denies vomiting. Cardiovascular: denies chest pain or angina. Integumentary: no dryness Musculoskeletal: denies musculoskeletal symptoms. ENMT: denies otolaryngeal symptoms. Respiratory: no shortness of breath. Heme/Lymph: denies easy bleeding tendency, denies easy bruising tendency. Psychiatric: no confusion, no anxiety. Genitourinary: denies dysuria, denies hematuria, denies discharge, denies urinary frequency, denies urinary hesitancy, denies nocturia, denies incontinence, denies genital sores, denies decreased libido, and denies erectile dysfunction. Physical Exam Vitals & Measurements HR: 76(Peripheral) BP: 134/79 HT: 72 in HT: 183 cm WT: 119 kg WT: 261.8 lb BMI: 35.53 General Appearance: alert, no distress, well nourished, well developed male. Genitourinary: normal scrotum, normal testes, normal urethra, normal epididymis, normal vas deferens/spermatic cord. Flank Pain: none. Bladder: nonpalpable. Prostate: normal prostate, estimated weight 35 gms, no hard nodule observed. Assessment/Plan 1. BPH with urinary obstruction (N40.1: Benign prostatic hyperplasia with lower urinary tract symptoms) Patient continues Finasteride 5mg daily. UA today shows trace KATIA. Mentioned to pt. that his UA is showing a possible low-grade subclinical infection. Denies symptoms of infection at this time. Shares that he was recently prescribed an abx by primary care, but did not notice a change in urination when taking the medication, unsure of the name. Pt. states he gets up once during the night and he feels he is fully emptying. No issues w/ stream. Pt. to continue medication and to call for refills when needed. 2. Elevated PSA (R97.20: Elevated prostate specific antigen [PSA]) PSA: 07/30/20 - 3.04 = 6.0 07/29/21 - 2.49 = 4.98 07/28/22 - 2.06 = 4.1 S/p neg bx 2001. PSA continues to fluctuate. JOSE today 35gms, clinically benign. Will continue to closely monitor. Follow up in 1 year w/ PSA. All questions/concerns were discussed. Pt. to call the office if heencounters any issues prior. Pt. acknowledges understanding. 3. Family history of prostate cancer (Z80.42: Family history of malignant neoplasm of prostate) Grandfather. Follow-up With When Contact Information BARBRA BAILON, Christophe Stoddard, [address] [place] [address]- Additional Instructions: 1 year w/ PSA Patient Education Prostate Cancer Screening I, Carmyn Wood, personally scribed for Dr. Mclaughlin on 08/08/2022 09:01:55. . Documentation recorded by the scribe, Camryn Wood, accurately reflects the services(s) I performed and decisions made by me. Authenticated by Dr. Mclaughlin on 08/08/2022 09:04:14. Problem List/Past Medical History Ongoing Blindness BPH with urinary obstruction Depression Elevated PSA Family history of prostate cancer Hematuria Hypertension Prostatitis Historical No qualifying data Procedure/Surgical History Colonoscopy. Medications acyclovir, 800 mg amlodipine, 5 mg, Oral, Daily atorvastatin, 10 mg, Oral, Daily finasteride 5 mg Tab, 5 mg= 1 tab(s), Oral, Daily, 3 refills hydrochlorothiazide-los gerardo 12.5 mg-50 mg Tab hydroxyurea 500 mg Cap Allergies penicillin (Mild) Social History Alcohol - Low Risk, 08/08/2019 Tobacco Former smoker, quit more than 30 days ago Tobacco Use:., 08/08/2022 Former smoker, quit more than 30 days ago Tobacco Use:., 08/06/2020 Family History Hypertension: Father. Immunizations Vaccine Date Status influenza virus vaccine, inactivated 02/21/2021 Recorded SARS-CoV-2 (COVID-19) Ad26 vaccine 08/30/2020 Recorded SARS-CoV-2 (COVID-19) Ad26 vaccine 07/25/2020 Recorded influenza virus vaccine, live, trivalent 03/21/2019 Recorded Lab Results Ambulatory Point of Care Results Bilirubin Urine Dipstick: Negative (08/08/22 08:24:00) Blood Urine Dipstick: Trace-intact (08/08/22 08:24:00) Glucose Urine Dipstick: Negative (08/08/22 08:24:00) Ketones Urine Dipstick: Negative (08/08/22 08:24:00) Leukocytes Urine Dipstick: Trace (08/08/22 08:24:00) Nitrite Uri (more content not included)... Normal [facility] Comment on above: Result Comment: Elec tronically Signed By: Christophe MCLAUGHLIN MD\.br\Date and Time Signed: 08/08/22 09:04 EST\.br\Electronically Co-Signed By: Camryn Wood.br\Date and Time Co-Signed: 08/08/22 09:02 EST CBC W Auto Differential pane l (Bld)on 08-07-2022 Basophils (Bld) [#/Vol] 0.03 10*3/uL Normal <0.11 [facility] Comment on above: Order Comment: Speci men Type: BLOOD SPECIMEN Ordering Facility: [facility] Address: [address] [place] [address] Performed By: #### 2 885-2, 2132-02, 2284-01 #### [facility] CLIA [id number] [address] [place] [address] [place] Basophils/100 WBC (Bld) 0.7 % Normal [facility] Comment on above: Order Comment: Speci men Type: BLOOD SPECIMEN Ordering Facility: [facility] Address: [address] [place] [address] Performed By: #### 2 885-2, 2132-02, 2284-01 #### [facility] CLIA [id number] [address] [place] [address] [place] Differential cell count method Nom (Bld) Auto Normal [facility] Comment on above: Order Comment: Speci men Type: BLOOD SPECIMEN Ordering Facility: [facility] Address: [address] [place] [address] Performed By: #### 2 885-2, 2132-02, 2284-01 #### [facility] CLIA [id number] [address] [place] [address] [place] Eosinophils (Bld) [#/Vol] 0.10 10*3/uL Normal <0.46 [facility] Comment on above: Order Comment: Speci men Type: BLOOD SPECIMEN Ordering Facility: [facility] Address: [address] [place] [address] Performed By: #### 2 885-2, 2132-02, 2284-01 #### [facility] CLIA [id number] [address] [place] [address] [place] Eosinophils/100 WBC (Bld) 2.2 % Normal [facility] Comment on above: Order Comment: Speci men Type: BLOOD SPECIMEN Ordering Facility: [facility] Address: [address] [place] [address] Performed By: #### 2 885-2, 2132-02, 2284-01 #### [facility] CLIA [id number] [address] [place] [address] [place] Erythrocyte distribution width (RBC) [Ratio] 14.4 % Normal 11.5-15.0 [facility] Comment on above: Order Comment: Speci men Type: BLOOD SPECIMEN Ordering Facility: [facility] Address: [address] [place] [address] Performed By: #### 2 885-2, 2132-02, 2284-01 #### [facility] CLIA [id number] [address] [place] [address] [place] Hematocrit (Bld) [Volume fraction] 47.6 % Normal 39.0-51.0 [facility] Comment on above: Order Comment: Speci men Type: BLOOD SPECIMEN Ordering Facility: [facility] Address: [address] [place] [address] Performed By: #### 2 885-2, 2132-02, 2284-01 #### [facility] CLIA [id number] [address] [place] [address] [place] Hemoglobin (Bld) [Mass/Vol] 16.4 g/dL Normal 13.0-17.0 [facility] Comment on above: Order Comment: Speci men Type: BLOOD SPECIMEN Ordering Facility: [facility] Address: [address] [place] [address] Performed By: #### 2 885-2, 2132-02, 2284-01 #### [facility] CLIA [id number] [address] [place] [address] [place] Immature granulocytes (Bld) [#/Vol] 10*3/uL Normal <0.10 [facility] Comment on above: Order Comment: Speci men Type: BLOOD SPECIMEN Ordering Facility: [facility] Address: [address] [place] [address] Performed By: #### 2 885-2, 2132-02, 2284-01 #### [facility] CLIA [id number] [address] [place] [address] [place] Immature granulocytes/100 WBC (Bld) 0.2 % Normal [facility] Comment on above: Order Comment: Speci men Type: BLOOD SPECIMEN Ordering Facility: [facility] Address: [address] [place] [address] Performed By: #### 2 885-2, 2132-02, 2284-01 #### [facility] CLIA [id number] [address] [place] [address] [place] Lymphocytes (Bld) [#/Vol] 0.77 10*3/uL Low 1.00-4.00 [facility] Comment on above: Order Comment: Speci men Type: BLOOD SPECIMEN Ordering Facility: [facility] Address: [address] [place] [address] Performed By: #### 2 885-2, 2132-02, 2284-01 #### [facility] CLIA [id number] [address] [place] [address] [place] Lymphocytes/100 WBC (Bld) 17.3 % Normal [facility] Comment on above: Order Comment: Speci men Type: BLOOD SPECIMEN Ordering Facility: [facility] Address: [address] [place] [address] Performed By: #### 2 885-2, 2132-02, 2284-01 #### [facility] CLIA [id number] [address] [place] [address] [place] MCH (RBC) [Entitic mass] 35.2 pg High 26.0-34.0 [facility] Comment on above: Order Comment: Speci men Type: BLOOD SPECIMEN Ordering Facility: [facility] Address: [address] [place] [address] Performed By: #### 2 885-2, 2132-02, 2284-01 #### [facility] CLIA [id number] [address] [place] [address] [place] MCHC (RBC) [Mass/Vol] 34.5 g/dL Normal 30.5-36.0 [facility] Comment on above: Order Comment: Speci men Type: BLOOD SPECIMEN Ordering Facility: [facility] Address: [address] [place] [address] Performed By: #### 2 885-2, 2132-02, 2284-01 #### [facility] CLIA [id number] [address] [place] [address] [place] MCV (RBC) [Entitic vol] 102.1 fL High 80.0-100.0 [facility] Comment on above: Order Comment: Speci men Type: BLOOD SPECIMEN Ordering Facility: [facility] Address: [address] [place] [address] Performed By: #### 2 885-2, 2132-02, 2284-01 #### [facility] CLIA [id number] [address] [place] [address] [place] Monocytes (Bld) [#/Vol] 0.34 10*3/uL Normal <0.87 [facility] Comment on above: Order Comment: Speci men Type: BLOOD SPECIMEN Ordering Facility: [facility] Address: [address] [place] [address] Performed By: #### 2 885-2, 2132-02, 2284-01 #### [facility] CLIA [id number] [address] [address] [place] Monocytes/100 WBC (Bld) 7.6 % Normal [facility] Comment on above: Order Comment: Speci men Type: BLOOD SPECIMEN Ordering Facility: [facility] Address: [address] [place] [address] Performed By: #### 2 885-2, 2132-02, 2284-01 #### [facility] CLIA [id number] [address] [place] [address] [place] Neutrophils (Bld) [#/Vol] 3.21 10*3/uL Normal 1.45-7.50 [facility] Comment on above: Order Comment: Speci men Type: BLOOD SPECIMEN Ordering Facility: [facility] Address: [address] [place] [address] Performed By: #### 2 885-2, 2132-02, 2284-01 #### [facility] CLIA [id number] [address] [place] [address] [place] Neutrophils/100 WBC (Bld) 72.0 % Normal [facility] Comment on above: Order Comment: Speci men Type: BLOOD SPECIMEN Ordering Facility: [facility] Address: [address] [place] [address] Performed By: #### 2 885-2, 2132-02, 2284-01 #### [facility] CLIA [id number] [address] [place] [id number] [place] Nucleated RBC (Bld) [#/Vol] 10*3/uL Normal <0.01 [facility] Comment on above: Order Comment: Speci men Type: BLOOD SPECIMEN Ordering Facility: [facility] Address: [address] [place] [address] Performed By: #### 2 885-2, 2132-02, 2284-01 #### [facility] CLIA [id number] [address] [address] [place] Nucleated RBC/100 WBC (Bld) [Ratio] 0.0 /100 WBC Normal [facility] Comment on above: Order Comment: Speci men Type: BLOOD SPECIMEN Ordering Facility: [facility] Address: [address] [place] [address] Performed By: #### 2 885-2, 2132-02, 2284-01 #### [facility] CLIA [id number] [address] [place] [id number] [place] Platelet mean volume (Bld) [Entitic vol] 9.9 fL Normal 9.0-12.7 [facility] Comment on above: Order Comment: Speci men Type: BLOOD SPECIMEN Ordering Facility: [facility] Address: [address] [place] [address] Performed By: #### 2 885-2, 2132-02, 2284-01 #### [facility] CLIA [id number] [address] [place] [id number] [place] Platelets (Bld) [#/Vol] 163 10*3/uL Normal 150-400 [facility] Comment on above: Order Comment: Speci men Type: BLOOD SPECIMEN Ordering Facility: [facility] Address: [address] [place] [address] Performed By: #### 2 885-2, 2132-02, 2284-01 #### [facility] CLIA [id number] [address] [address] [place] RBC (Bld) [#/Vol] 4.66 10*6/uL Normal 4.20-6.00 [facility] Comment on above: Order Comment: Speci men Type: BLOOD SPECIMEN Ordering Facility: [facility] Address: [address] [place] [address] Performed By: #### 2 885-2, 2132-02, 2284-01 #### [facility] CLIA [id number] [address] [place] [id number] [place] WBC (Bld) [#/Vol] 4.46 10*3/uL Normal 3.70-11.00 [facility] Comment on above: Order Comment: Speci men Type: BLOOD SPECIMEN Ordering Facility: [facility] Address: [address] [place] [address] Performed By: #### 2 885-2, 2132-9, 2284-8 #### [facility] CLIA [id number] [address] [place], [place] [address] [place] CNOVSPon 08-07-2022 CNOVSP Visit (SP) Office ([place]) PRUDENCIO PATRICK ([id number]) 1945 M Date Time Provider Department 08/07/22 8:30 AM MAYCOL NOVAK During your visit today, we recorded the following information about you: Temperature Pulse Respiration Blood pressure 97.5 degrees 66/minute 16/minute 169/83 Weight Height 112.9 kg 1.803 m Maycol Novak MD 08/07/2022 8:38 AM Signed NAME: Prudencio Patrick CLINIC NO.: [id number] DATE OF SERVICE: August 07, 2022 (Dipak) Some elements in this clinic note that are critical to medical decision making have been carefully reviewed and included from a prior clinic note dated: June 12, 2022 ([place]ipak) Referring Provider: Dr. 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 His M protein levels have been stable over the last 13+ years, and his risk of progression remains very low. However, he is more notably polycythemic and so we ordered a MPN workup for PRV which came back positive. Now improving with hydrea. PLAN: Phlebotomy today - 500 CC Continue baby ASA. Continue Hydrea 500 mg daily. Follow up in 12 weeks labs same day. Possible phlebotomy. - HPI: CASE HISTORY: 04/17/2022 - H/H 16.3/47.9 - phlebotomy 500 ml 02/20/2022 - H/H 16.5/48.7 - phlebotomy 250 ml x 3 weeks in a row 11/28/2021 Hydrea started 500 mg 11/14/2021 - phlebotomy caused severe hypotensive episode - possibly due to fasting/dehydration 10/18/2021 - Jak2+ PRV diagnosed 2006 - IgA [place] and IgM lambda biclonal M-spike Updated Visit, August 07, 2022: Doing well and here with his Martha. He has been doing well and hasn't need a phlebotomy for 16 weeks - now he does. Updated Visit, June 12, 2022: Rafa returns with his Martha and labs are stable. Hgb is at 15.4 and he'd like to defer phlebotomy today. I think that is reasonable. He feels good and has no issues with hydrea. Will see if he needs additional phlebotomy if Hgb >16 next visit - then we can estimate a pattern for planning visits and phlebotomies on a routine basis. Updated Visit, April 17, 2022: Prudencio Patrick returns for follow-up. He remains on Hydrea 500 mg once daily and is tolerating it well. He states that he is doing well. There has been no significant medical changes since his last visit. He denies shortness of breath, chest pain and leg pain. He follows with his PCP, Dr. Smith, who has been changing his blood pressure medications. Patient states the first time he had a phlebotomy his blood pressure dropped. The second time he had a phlebotomy he had no problems. He denies bleeding and abnormal bruising. He offers no new complaints today. No new issues, problems or concerns. Updated Visit, December 26, 2021: Is doing well labs are improved. BP meds adjusted. No need for for phlebotomy today. Will monitor platelets levels. Updated Visit, November 28, 2021: Didn't tolerate phlebotomy due to hypotension but he's on amlodipine, HCTZ 25 in addition to Hyzaar (100/25). Will hold phlebotomy for now and reconsider once his flid status and BP meds are clarified. It's possible that he had a vagal reaction in addition. I discussed his situation with Dr. Smith today and he will clarify meds for him. Updated Visit, October 25, 2021: Telephone 12 mins Discussed findings of Clemente 2 Mutation - c/w Polycythemia - [id number] mut + B-asa Phlebotomy Consider hydrea for high risk disease. Updated Visit, October 18, 2021: Noted to have polycythemia today and has lost weight since last being seen - also has increased total protein. Kidney function remains stable. 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 No evidence of sleep apnea. 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 Has been in observation and followed by Dr. Murphy. He had a bone marrow biopsy in September [address] Cardenas which showed a <5% lambda monoclonal plasma cells. The patient has been in observation since that time. He denies new complaints at this time. 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 - REVIEW OF SYSTEMS Per HPI and otherwise negative by full review of organ systems. - ECOG PERFORMANCE STATUS: 0 PHYSICAL EXAMINATION: Vitals: BP 169/83 Pulse 66 Temp (Src) 97 (more content not included)... Normal [facility] CNPNon 08-07-2022 CNPN Telephone ([place]) PRUDENCIO PATRICK ([id number]) 1945 M Date Time Provider Department 08/07/22 ORESTES KHOURY During your visit today, we recorded the following information about you: Orestes Khoury RN 08/07/2022 10:41 AM Signed Patient was unable to give more than 100 ml blood today and after attempting again following fluids (without success) pt decided he wanted to go home. Pt/spouse question if he needs to come in sooner for his next phleb since we were unsuccessful this visit. Please advise. FLORENCE Vyas 08/07/2022 1:21 PM Signed Call placed to patient. He preferred to go on 08/18. Patient has been scheduled for lab and phleb this day. Yi Leonardo [12:22 PM] Orestes Khoury just said he wants Rafa Patrick, our phlebotomy pt, to return in 1-2 weeks to attempt the phleb again. There is a telephone encounter about this...Thank you Allergies As of Date: 08/07/2022 Noted Allergy Reaction CLINDAMYCIN 01/01/2015 10 - Anaphylaxis PENICILLINS 05/31/2012 4 - Hives Date Reviewed: 08/07/2022 Reviewed by: Viki Barry Ma - Fully Assessed Reason for Visit: Appointment [186] Prescriptions as of 08/07/2022 - hydroxyurea (HYDREA) 500 mg capsule TAKE 1 CAPSULE BY MOUTH ONCE DAILY - losartan (COZAAR) 50 mg tablet Take 50 mg by mouth once daily. - citalopram hydrobromide (CELEXA) 10 mg tablet Take 10 mg by mouth once daily. - acyclovir (ZOVIRAX) 800 mg tablet Take 800 mg by mouth twice daily. - ATORVASTATIN 10 mg tablet Take 10 mg by mouth once daily. - amLODIPine 5 mg tablet Take 5 mg by mouth twice daily. - hydrochlorothiazide 25 mg tablet Take 25 mg by mouth once daily. - finasteride (PROSCAR) 5 mg tablet Take 5 mg by mouth once daily. 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 Comment on above: Order Comment: Speci men Type: BLOOD SPECIMEN Ordering Facility: [facility] Address: [address] [id number] Performed By: #### 3 084-1, 2777-1, 2532-0, 39935-6 #### [facility] CLIA [id number] [address] [place] [address] ALP [Catalytic activity/Vol] 99 U/L Normal 38-113 [facility] Comment on above: Order Comment: Speci men Type: BLOOD SPECIMEN Ordering Facility: [facility] Address: [address] [place] [address] Performed By: #### 3 084-1, 2777-1, 2532-0, 61282-3 #### [facility] CLIA [id number] [address] [place] [address] ALT [Catalytic activity/Vol] 23 U/L Normal 10-54 [facility] Comment on above: Order Comment: Speci men Type: BLOOD SPECIMEN Ordering Facility: [facility] Address: [address] [place] [id number] Performed By: #### 3 084-1, 2777-1, 2532-0, 81655-3 #### [facility] CLIA [id number] [address] [place] [address] Anion gap [Moles/Vol] 11 mmol/L Normal 9-18 [facility] Comment on above: Order Comment: Speci men Type: BLOOD SPECIMEN Ordering Facility: [facility] Address: [address] [place] [address] Performed By: #### 3 084-1, 2777-1, 2531-0, 49470-2 #### [facility] CLIA [id number] [address] [place] [address] AST [Catalytic activity/Vol] 25 U/L Normal 14-40 [facility] Comment on above: Order Comment: Speci men Type: BLOOD SPECIMEN Ordering Facility: [facility] Address: [address] [place] [address] Performed By: #### 3 084-1, 2777-1, 2532-0, 17214-9 #### [facility] CLIA [id number] [address] [place] [address] Bilirubin [Mass/Vol] 0.7 mg/dL Normal 0.2-1.3 [facility] Comment on above: Order Comment: Speci men Type: BLOOD SPECIMEN Ordering Facility: [facility] Address: [address] [place] [address] Performed By: #### 3 084-1, 2777-1, 2532-0, 76632-6 #### [facility] CLIA [id number] [address] [place] [address] Calcium [Mass/Vol] 10.2 mg/dL Normal 8.5-10.2 [facility] Comment on above: Order Comment: Speci men Type: BLOOD SPECIMEN Ordering Facility: [facility] Address: [address] [place] [address] Performed By: #### 3 084-1, 2777-1, 2531-0, 37961-1 #### [facility] CLIA [id number] [address] [place] [address] Chloride [Moles/Vol] 101 mmol/L Normal 97-105 [facility] Comment on above: Order Comment: Speci men Type: BLOOD SPECIMEN Ordering Facility: [facility] Address: [address] [place] [id number] Performed By: #### 3 084-1, 2777-1, 2531-0, 81679-7 #### [facility] CLIA [id number] [address] [place] [address]462 CO2 [Moles/Vol] 27 mmol/L Normal 22-30 [facility] Comment on above: Order Comment: Speci men Type: BLOOD SPECIMEN Ordering Facility: [facility] Address: [address] [place] [address] Performed By: #### 3 084-1, 2777-1, 2531-0, 48577-8 #### [facility] CLIA [id number] [address] [place] [address] Creatinine [Mass/Vol] 1.01 mg/dL Normal 0.73-1.22 [facility] Comment on above: Order Comment: Speci men Type: BLOOD SPECIMEN Ordering Facility: [facility] Address: [address] [id number] Performed By: #### 3 084-1, 2777-1, 2531-0, 48280-0 #### [facility] CLIA [id number] [address] [place] [address] ESTIMATED GLOMERULAR FILTRATION RATE 77 mL/min/1.73m??? Normal >=60 [facility] Comment on above: Order Comment: Speci men Type: BLOOD SPECIMEN Ordering Facility: [facility] Address: [address] [place], [place] [address] Result Comment: Tawanna mated Glomerular Filtration Rate (eGFR) is calculated using the 2020 CKD-EPI creatinine equation. This equation utilizes serum creatinine, sex, and age as parameters. The creatinine assay has traceable calibration to isotope dilution-mass spectrometry. Refer to KDIGO guidelines for clinical interpretation. In patients with unstable renal function, e.g. those with acute kidney injury, the eGFR may not accurately reflect actual GFR. Performed By: #### 3 084-1, 2777-1, 2532-0, 33779-0 #### [facility] CLIA [id number] [address] [place] [address] Glucose [Mass/Vol] 121 mg/dL High 74-99 [facility] Comment on above: Order Comment: Rene witt Type: BLOOD SPECIMEN Ordering Facility: [facility] Address: [address] [place] [address] Result Comment: The [place] [employer] (ADA) provides guidance for cutoff values for fasting glucose and random glucose. The ADA defines fasting as no caloric intake for at least 8 hours. Fasting plasma glucose results between 100 to 125 mg/dL indicate increased risk for diabetes (prediabetes). Fasting plasma glucose results greater than or equal to 126 mg/dL meet the criteria for diagnosis of diabetes. In the absence of unequivocal hyperglycemia, results should be confirmed by repeat testing. In a patient with classic symptoms of hyperglycemia or hyperglycemic crisis, random plasma glucose results greater than or equal to 200 mg/dL meet the criteria for diagnosis of diabetes. Reference: Standards of Medical Care in Diabetes 2016, [place] [employer]. Diabetes Care. 2016.39(Suppl 1). Performed By: #### 3 084-1, 2777-1, 2531-0, 52949-5 #### [facility] CLIA [id number] [address] [place] [address] Potassium [Moles/Vol] 3.8 mmol/L Normal 3.7-5.1 [facility] Comment on above: Order Comment: Rene witt Type: BLOOD SPECIMEN Ordering Facility: [facility] Address: [address] [id number] Performed By: #### 3 084-1, 2777-1, 2532-0, #### [facility] CLIA [id number] [address] [place] [address]308 Protein [Mass/Vol] 7.7 g/dL Normal 6.3-8.0 [facility] Comment on above: Order Comment: Speci men Type: BLOOD SPECIMEN Ordering Facility: [facility] Address: [address] [place] [address] Performed By: #### 3 084-1, 2777-1, 0, #### [facility] CLIA [id number] [address] [place] [address] Sodium [Moles/Vol] 139 mmol/L Normal 136-144 [facility] Comment on above: Order Comment: Speci men Type: BLOOD SPECIMEN Ordering Facility: [facility] Address: [address] [place] [address] Performed By: #### 3 084-1, 2777-1, 0, #### [facility] CLIA [id number] [address] [place] [address]20[address] Urea nitrogen [Mass/Vol] 13 mg/dL Normal 9-24 [facility] Comment on above: Order Comment: Speci men Type: BLOOD SPECIMEN Ordering Facility: [facility] Address: [address] [place] [address] Performed By: #### 3 084-1, 2777-1, 0, #### [facility] CLIA [id number] [address] [place] [address] Lab Reportson 07-29-2022 Lab Reports [id number] D:127 Normal [facility] CBC W Auto Differential pane l (Bld)on 02-27-2022 Abs Immature Gran <0.10 k/uL [facility] Basophils (Bld) [#/Vol] 0.03 10*3/uL <0.11 k/uL [facility] Basophils/100 WBC (Bld) 0.6 % [facility] Differential cell count method Nom (Bld) Auto [facility] Eosinophils (Bld) [#/Vol] 0.20 10*3/uL <0.46 k/uL [facility] Eosinophils/100 WBC (Bld) 4.0 % [facility] Erythrocyte distribution width (RBC) [Ratio] 15.6 % High 11.5 - 15.0 % [facility] Hematocrit (Bld) [Volume fraction] 44.9 % 39.0 - 51.0 % [facility] Hemoglobin (Bld) [Mass/Vol] 15.0 g/dL 13.0 - 17.0 g/dL [facility] Immature Gran % 0.2 % [facility] Lymphocytes (Bld) [#/Vol] 0.87 10*3/uL Low 1.00 - 4.00 k/uL [facility] Lymphocytes/100 WBC (Bld) 17.4 % [facility] MCH (RBC) [Entitic mass] 33.9 pg 26.0 - 34.0 pg [facility] MCHC (RBC) [Mass/Vol] 33.4 g/dL 30.5 - 36.0 g/dL [facility] MCV (RBC) [Entitic vol] 101.6 fL High 80.0 - 100.0 fL [facility] Monocytes (Bld) [#/Vol] 0.39 10*3/uL <0.87 k/uL [facility] Monocytes/100 WBC (Bld) 7.8 % [facility] Neutrophils (Bld) [#/Vol] 3.49 10*3/uL 1.45 - 7.50 k/uL [facility] Neutrophils/100 WBC (Bld) 70.0 % [facility] Nucleated RBC (Bld) [#/Vol] <0.01 k/uL [facility] Nucleated RBC/100 WBC (Bld) [Ratio] 0.0 /100 WBC [facility] Platelet mean volume (Bld) [Entitic vol] 10.7 fL 9.0 - 12.7 fL [facility] Platelets (Bld) [#/Vol] 159 10*3/uL 150 - 400 k/uL [facility] RBC (Bld) [#/Vol] 4.42 10*6/uL 4.20 - 6.0 0 m/uL [facility] WBC (Bld) [#/Vol] 4.99 10*3/uL 3.70 - 11. 00 k/uL [facility] CBC W Auto Differential pane l (Bld)on 11-14-2021 Abs Immature Gran <0.03 <0.10 k/uL [facility] Basophils (Bld) [#/Vol] 0.04 10*3/uL <0.11 k/uL [facility] Basophils/100 WBC (Bld) 0.7 % [facility] Differential cell count method Nom (Bld) Auto [facility] Eosinophils (Bld) [#/Vol] 0.16 10*3/uL <0.46 k/uL [facility] Eosinophils/100 WBC (Bld) 3.0 % [facility] Erythrocyte distribution width (RBC) [Ratio] 14.2 % 11.5 - 15.0 % [facility] Hematocrit (Bld) [Volume fraction] 49.5 % 39.0 - 51.0 % [facility] Hemoglobin (Bld) [Mass/Vol] 16.4 g/dL 13.0 - 17.0 g/dL [facility] Immature Gran % 0.2 % [facility] Lymphocytes (Bld) [#/Vol] 0.93 10*3/uL Low 1.00 - 4.00 k/uL [facility] Lymphocytes/100 WBC (Bld) 17.3 % [facility] MCH (RBC) [Entitic mass] 32.0 pg 26.0 - 34.0 pg [facility] MCHC (RBC) [Mass/Vol] 33.1 g/dL 30.5 - 36.0 g/dL [facility] MCV (RBC) [Entitic vol] 96.5 fL 80.0 - 100.0 fL [facility] Monocytes (Bld) [#/Vol] 0.65 10*3/uL <0.87 k/uL [facility] Monocytes/100 WBC (Bld) 12.1 % [facility] [facility] Neut[facility] (Bld) [#/Vol] 3.58 10*3/uL 1.45 - 7.50 k/uL [facility] Neutrophils/100 WBC (Bld) 66.7 % [facility] Nucleated RBC (Bld) [#/Vol] 10*3/uL <0.01 k/uL [facility] Nucleated RBC/100 WBC (Bld) [Ratio] 0.0 /100 WBC [facility] Platelet mean volume (Bld) [Entitic vol] 11.1 fL 9.0 - 12.7 fL [facility] Platelets (Bld) [#/Vol] 158 10*3/uL 150 - 400 k/uL [facility] RBC (Bld) [#/Vol] 5.13 10*6/uL 4.20 - 6.0 0 m/uL [facility] WBC (Bld) [#/Vol] 5.37 10*3/uL 3.70 - 11. 00 k/uL [facility] Vital Signs Date Time Vital Sign Value Performing Clinician Facility 07-30-2023 10:08-0500 Body height 182.9 cm Nakul Garcia DPM Work Phone: [facility] 07-30-2023 10:08-0500 Body mass index (BMI) [Ratio] 33.91 kg/m2 Nakul Garcia DPM Work Phone: [facility] 07-30-2023 10:08-0500 Body weight 113.4 kg Nakul Garcia DPM Work Phone: [facility] 07-30-2023 10:08-0500 Diastolic blood pressure 80 mm[Hg] Nakul Garcia DPM Work Phone: [facility] 07-30-2023 10:08-0500 Heart rate 88 /min Nakul Garcia DPM Work Phone: [facility] 07-30-2023 10:08-0500 Systolic blood pressure 130 mm[Hg] Nakul Garcia DPM Work Phone: [facility] 04-10-2023 14:45-0400 Body height 177.8 cm Jose Qwaya Other [facility] Other 04-10-2023 14:45-0400 Body mass index (BMI) [Ratio] 35.72 kg/m2 Jose Ball Other [facility] Other 04-10-2023 14:45-0400 Body weight 112.95 kg Ojse Ball Other [facility] Other 04-10-2023 14:45-0400 Diastolic blood pressure 79 mm[Hg] Jose Ball Other [facility] Other 04-10-2023 14:45-0400 Systolic blood pressure 147 mm[Hg] Jose Ball Other [facility] Other 03-17-2023 09:00-0400 Body height 177.8 cm Jose Ball Other [facility] Other 03-17-2023 09:00-0400 Body mass index (BMI) [Ratio] 35.01 kg/m2 Jose Ball Other [facility] Other 03-17-2023 09:00-0400 Body weight 110.68 kg Jose Ball Other [facility] Other 03-17-2023 09:00-0400 Diastolic blood pressure 90 mm[Hg] Jose Ball Other [facility] Other 03-17-2023 09:00-0400 Respiratory rate 12 /min Jose Ball Other [facility] Other 03-17-2023 09:00-0400 Systolic blood pressure 157 mm[Hg] Jose Ball Other [facility] Other 01-15-2023 08:19-0400 Body height 180.3 cm Maycol Novak MD Work Phone: [facility] 01-15-2023 08:19-0400 Body temperature 97.11 [degF] Maycol Novak MD Work Phone: [facility] 01-15-2023 08:19-0400 Body weight 113.22 kg Maycol Novak MD Work Phone: [facility] 01-15-2023 08:19-0400 Diastolic blood pressure 79 mm[Hg] Maycol Novak MD Work Phone: [facility] 01-15-2023 08:19-0400 Heart rate 58 /min Maycol Novak MD Work Phone: [facility] 01-15-2023 08:19-0400 Respiratory rate 18 /min Maycol Novak MD Work Phone: [facility] 01-15-2023 08:19-0400 SaO2% (BldA) [Mass fraction] 97 % Maycol Novak MD Work Phone: [facility] 01-15-2023 08:19-0400 Systolic blood pressure 165 mm[Hg] Maycol Novak MD Work Phone: [facility] 10-17-2022 08:47-0400 Body height 180.3 cm Wisam Long APRN.GROUP WORKER Work Phone: [facility] 10-17-2022 08:47-0400 Body temperature 97.81 [degF] Wisam Long APRN.GROUP WORKER Work Phone: [facility] 10-17-2022 08:47-0400 Body weight 112.04 kg Wisam Long APRN.GROUP WORKER Work Phone: [facility] 10-17-2022 08:47-0400 Diastolic blood pressure 82 mm[Hg] Wisam Long APRN.GROUP WORKER Work Phone: [facility] 10-17-2022 08:47-0400 Heart rate 62 /min Wisam Long APRN.GROUP WORKER Work Phone: [facility] 10-17-2022 08:47-0400 Respiratory rate 16 /min Wisam Long APRN.GROUP WORKER Work Phone: [facility] 10-17-2022 08:47-0400 SaO2% (BldA) [Mass fraction] 95 % Wisam Long APRN.GROUP WORKER Work Phone: [facility] 10-17-2022 08:47-0400 Systolic blood pressure 163 mm[Hg] Wisam Long APRN.CNP Work Phone: [facility] 09-12-2022 10:00-0400 Body height 177.8 cm Ojse Ball Other [facility] Other 09-12-2022 10:00-0400 Body mass index (BMI) [Ratio] 35.52 kg/m2 Jose Ball Other [facility] Other 09-12-2022 10:00-0400 Body weight 112.31 kg Jose Ball Other [facility] Other 09-12-2022 10:00-0400 Diastolic blood pressure 84 mm[Hg] Jose Ball Other [facility] Other 09-12-2022 10:00-0400 Respiratory rate 12 /min Jose Ball Other [facility] Other 09-12-2022 10:00-0400 Systolic blood pressure 132 mm[Hg] Jose Ball Other [facility] [employer] Other 08-08-2022 08:46-0500 Blood Pressure Location Christophe MCLAUGHLIN [facility] 08-08-2022 08:46-0500 Diastolic blood pressure 79 mm[Hg] Christophe MCLAUGHLIN [facility] 08-08-2022 08:46-0500 Heart rate 76 /min Christophe MCLAUGHLIN [facility] 08-08-2022 08:46-0500 Systolic blood pressure 134 mm[Hg] Christophe MCLAUGHLIN [facility] 08-07-2022 10:30-0500 Diastolic blood pressure 67 mm[Hg] Chair [place] Work Phone: [facility] 08-07-2022 10:30-0500 Heart rate 45 /min Chair Beverley Work Phone: [facility] 08-07-2022 10:30-0500 Respiratory rate 18 /min Chair Beverley Work Phone: [facility] 08-07-2022 10:30-0500 SaO2% (BldA) [Mass fraction] 97 % Chair Beverley Work Phone: [facility] 08-07-2022 10:30-0500 Systolic blood pressure 105 mm[Hg] Chair Beverley Work Phone: [facility] 08-07-2022 09:00-0500 Body temperature 97.39 [degF] Chair Beverley Work Phone: [facility] 08-07-2022 08:20-0500 Body height 180.3 cm Maycol Novak MD Work Phone: [facility] 08-07-2022 08:20-0500 Body temperature 97.5 [degF] Maycol Novak MD Work Phone: [facility] 08-07-2022 08:20-0500 Body weight 112.86 kg Maycol Novak MD Work Phone: [facility] 08-07-2022 08:20-0500 Diastolic blood pressure 83 mm[Hg] Maycol Novak MD Work Phone: [facility] 08-07-2022 08:20-0500 Heart rate 66 /min Maycol Novak MD Work Phone: [facility] 08-07-2022 08:20-0500 Respiratory rate 16 /min Maycol Novak MD Work Phone: [facility] 08-07-2022 08:20-0500 SaO2% (BldA) [Mass fraction] 97 % Maycol Novak MD Work Phone: [facility] 08-07-2022 08:20-0500 Systolic blood pressure 169 mm[Hg] Maycol Novak MD Work Phone: [facility] 07-24-2022 10:30-0500 Body height 177.8 cm Jose Ball Other [facility] Other 07-24-2022 10:30-0500 Body mass index (BMI) [Ratio] 35.35 kg/m2 Jose Ball Other [facility] Other 07-24-2022 10:30-0500 Body weight 111.77 kg Jose Ball Other [facility] Other 07-24-2022 10:30-0500 Diastolic blood pressure 82 mm[Hg] Jose Ball Other [facility] Other 07-24-2022 10:30-0500 Respiratory rate 12 /min Jose Ball Other [facility] Other 07-24-2022 10:30-0500 Systolic blood pressure 128 mm[Hg] Jose Ball Other [facility] Other 07-03-2022 10:30-0500 Body height 177.8 cm Jose Ball Other [facility] Other 07-03-2022 10:30-0500 Body mass index (BMI) [Ratio] 35.12 kg/m2 Jose Ball Other [facility] Other 07-03-2022 10:30-0500 Body weight 111.04 kg Jose Ball Other [facility] Other 01-19-2023 10:30-0500 Diastolic blood pressure 80 mm[Hg] Ojse Ball Other [facility] Other 07-03-2022 10:30-0500 Respiratory rate 12 /min Jose Ball Other [facility] Other 07-03-2022 10:30-0500 Systolic blood pressure 122 mm[Hg] Jose Ball Other [facility] Other 06-19-2022 14:30-0500 Body height 177.8 cm Jose Ball Other [facility] Other 06-19-2022 14:30-0500 Body mass index (BMI) [Ratio] 35.84 kg/m2 Jose Ball Other [facility] Other 06-19-2022 14:30-0500 Body weight 113.31 kg Jose Ball Other [facility] Other 06-19-2022 14:30-0500 Diastolic blood pressure 80 mm[Hg] Jose Ball Other [facility] Other 06-19-2022 14:30-0500 Respiratory rate 12 /min Jose Ball Other [facility] [facility] Other 06-19-2022 14:30-0500 Systolic blood pressure 130 mm[Hg] Jose Ball Other [facility] Other 04-17-2022 10:14-0400 Body temperature 97.81 [degF] Chair Centre Work Phone: [facility] 04-17-2022 10:14-0400 Diastolic blood pressure 81 mm[Hg] Chair [place] Work Phone: [facility] 04-17-2022 10:14-0400 Heart rate 54 /min Chair Centre Work Phone: [facility] 04-17-2022 10:14-0400 Respiratory rate 16 /min Chair Centre Work Phone: [facility] 04-17-2022 10:14-0400 Systolic blood pressure 133 mm[Hg] Chair Centre Work Phone: [facility] 04-17-2022 08:51-0400 Diastolic blood pressure 90 mm[Hg] Wisam Long APRN.GROUP WORKER Work Phone: [facility] 04-17-2022 08:51-0400 Systolic blood pressure 168 mm[Hg] Wisam Long APRN.GROUP WORKER Work Phone: [facility] 04-17-2022 08:50-0400 Body height 180.3 cm Wisam Long APRN.GROUP WORKER Work Phone: [facility] 04-17-2022 08:50-0400 Body temperature 97.7 [degF] Wisam Long APRN.GROUP WORKER Work Phone: [facility] 04-17-2022 08:50-0400 Body weight 112.76 kg Wisam Long APRN.GROUP WORKER Work Phone: [facility] 04-17-2022 08:50-0400 Heart rate 55 /min Wisam Long APRN.GROUP WORKER Work Phone: [facility] 04-17-2022 08:50-0400 Respiratory rate 18 /min Wisam Long APRN.GROUP WORKER Work Phone: [facility] 04-17-2022 08:50-0400 SaO2% (BldA) [Mass fraction] 99 % Wisam Long APRN.GROUP WORKER Work Phone: [facility] 02-20-2022 09:34-0400 Diastolic blood pressure 81 mm[Hg] Chair Centre Work Phone: [facility] 02-20-2022 09:34-0400 Heart rate 70 /min Chair [place] Work Phone: [facility] 02-20-2022 09:34-0400 Respiratory rate 18 /min Chair Beverley Work Phone: [facility] 02-20-2022 09:34-0400 Systolic blood pressure 134 mm[Hg] Chair Beverley Work Phone: [facility] 02-20-2022 08:19-0400 Diastolic blood pressure 81 mm[Hg] Maycol Novak MD Work Phone: [facility] 02-20-2022 08:19-0400 Heart rate 59 /min Maycol Novak MD Work Phone: [facility] 02-20-2022 08:19-0400 Systolic blood pressure 179 mm[Hg] Maycol Novak MD Work Phone: [facility] 02-20-2022 08:15-0400 Body height 180.3 cm Maycol Novak MD Work Phone: [facility] 02-20-2022 08:15-0400 Body temperature 97.59 [degF] Maycol Novak MD Work Phone: [facility] 02-20-2022 08:15-0400 Body weight 113.58 kg Maycol Novak MD Work Phone: [facility] 02-20-2022 08:15-0400 Respiratory rate 16 /min Maycol Novak MD Work Phone: [facility] 02-20-2022 08:15-0400 SaO2% (BldA) [Mass fraction] 97 % Maycol Novak MD Work Phone: [facility] 12-26-2021 08:21-0400 Diastolic blood pressure 87 mm[Hg] Maycol Novak MD Work Phone: [facility] 12-26-2021 08:21-0400 Systolic blood pressure 161 mm[Hg] Mayclo Novak MD Work Phone: [facility] 12-26-2021 08:16-0400 Body height 180.3 cm Maycol Novak MD Work Phone: [facility] 12-26-2021 08:16-0400 Body temperature 97.5 [degF] Maycol Novak MD Work Phone: [facility] 12-26-2021 08:16-0400 Body weight 113.67 kg Maycol Novak MD Work Phone: [facility] 12-26-2021 08:16-0400 Heart rate 65 /min Maycol Novak MD Work Phone: [facility] 12-26-2021 08:16-0400 Respiratory rate 16 /min Maycol Novak MD Work Phone: [facility] 12-26-2021 08:16-0400 SaO2% (BldA) [Mass fraction] 98 % Maycol Novak MD Work Phone: [facility] 11-28-2021 08:36-0400 Body height 180.3 cm Maycol Novak MD Work Phone: [facility] 11-28-2021 08:36-0400 Body temperature 97.7 [degF] Maycol Novak MD Work Phone: [facility] 11-28-2021 08:36-0400 Body weight 111.4 kg Maycol Novak MD Work Phone: [facility] 11-28-2021 08:36-0400 Diastolic blood pressure 76 mm[Hg] Maycol Novak MD Work Phone: [facility] 11-28-2021 08:36-0400 Heart rate 57 /min Maycol Novak MD Work Phone: [facility] 11-28-2021 08:36-0400 Respiratory rate 18 /min Maycol Novak MD Work Phone: [facility] 11-28-2021 08:36-0400 SaO2% (BldA) [Mass fraction] 97 % Maycol Novak MD Work Phone: [facility] 11-28-2021 08:36-0400 Systolic blood pressure 148 mm[Hg] Maycol Novak MD Work Phone: [facility] 11-14-2021 08:27-0400 Body temperature 97.39 [degF] Chair Centre Work Phone: [facility] 11-14-2021 08:27-0400 Diastolic blood pressure 75 mm[Hg] Chair Beverley Work Phone: [facility] 11-14-2021 08:27-0400 Heart rate 56 /min Chair Centre Work Phone: [facility] 11-14-2021 08:27-0400 Respiratory rate 16 /min Chair Centre Work Phone: [facility] 11-14-2021 08:27-0400 SaO2% (BldA) [Mass fraction] 98 % Chair Centre Work Phone: [facility] 11-14-2021 08:27-0400 Systolic blood pressure 123 mm[Hg] Chair Beverley Work Phone: [facility] 10-18-2021 08:19-0400 Body height 180.3 cm Maycol Novak MD Work Phone: [facility] 10-18-2021 08:19-0400 Body temperature 96.91 [degF] Maycol Novak MD Work Phone: [facility] 10-18-2021 08:19-0400 Body weight 111.4 kg Maycol Novak MD Work Phone: [facility] 10-18-2021 08:19-0400 Diastolic blood pressure 85 mm[Hg] Maycol Novak MD Work Phone: [facility] 10-18-2021 08:19-0400 Heart rate 61 /min Maycol Novak MD Work Phone: [facility] 10-18-2021 08:19-0400 Respiratory rate 16 /min Maycol Novak MD Work Phone: [facility] 10-18-2021 08:19-0400 SaO2% (BldA) [Mass fraction] 98 % Maycol Novak MD Work Phone: [facility] 10-18-2021 08:19-0400 Systolic blood pressure 159 mm[Hg] Maycol Novak MD Work Phone: [facility] Encounters Encounter Date Encounter Type Care Provider Facility Start: 08-10-2023 ambulatory Christophe Bradyi ty:DINORA Almanzar Start: 07-30-2023 Chart abstracting Nakul hollingsworth DPM Work Phone: [facility] Start: 07-30-2023 End: 07-30-2023 ambulatory NAKUL GARCIA Not Available Start: 07-30-2023 End: 07-30-2023 Office outpatient new 30 minutes Nakul Garcia DPM Work Phone: [facility] Comment on above: Neoplasm of uncertai n behavior of skin (Primary Dx); Verruca plantaris; Foot pain, right; Onychomycosis; Toe pain, bilateral Start: 07-13-2023 End: 07-13-2023 ambulatory Jose Smith Other [facility] Other Start: 07-13-2023 Telephone encounter Jose NUGENT [facility] Start: 07-02-2023 End: 07-02-2023 ambulatory MAYCOL ABPAUL Facility:[facility] Start: 05-08-2023 Refill Maycol stoddard MD Work Phone: Hematology/Oncology Comment on above: Refill Request Start: 04-23-2023 End: 04-23-2023 ambulatory Jose Smith Other [facility] Other Start: 04-23-2023 Telephone encounter Jose Ball FP [facility] Start: 04-10-2023 End: 04-10-2023 ambulatory Jose Smith Other [facility] Other Start: 04-10-2023 Office outpatient vi sit [address] [facility] Start: 04-09-2023 End: 04-09-2023 ambulatory MAYCOL ABHYANKAR Facility:[facility] Start: 03-17-2023 End: 03-17-2023 ambulatory Jose Smith Other [facility] Other Start: 03-17-2023 Office outpatient vi sit [address] [facility] Start: 02-02-2023 End: 02-02-2023 ambulatory Jose Smith Other [facility] Other Start: 02-02-2023 Telephone encounter Jose NUGENT [facility] Start: 01-15-2023 End: 01-15-2023 ambulatory MAYCOL ABHYANKAR Facility:[facility] Start: 01-15-2023 End: 01-15-2023 Office outpatient visit 15 minutes Maycol Novak MD Work Phone: Hematology/Oncology Comment on above: PRV (polycythemia ru bra vera) (HCC) (Primary Dx); MGUS (monoclonal gammopathy of unknown significance); Stage 3a chronic kidney disease (HCC) Start: 10-17-2022 End: 10-17-2022 ambulatory Wisam Long APRN.CNP Work Phone: Hematology/Oncology Comment on above: PRV (polycythemia ru bra vera) (HCC) (Primary Dx); MGUS (monoclonal gammopathy of unknown significance); Stage 3a chronic kidney disease (HCC) Start: 10-17-2022 End: 10-17-2022 Patient encounter procedure Wisam Long APRN.CNP Work Phone: [facility] Start: 09-25-2022 Telephone encounter Jose NUGENT [facility] Start: 09-25-2022 End: 09-26-[address] JOSE SMITH [facility] Other Start: 09-12-2022 End: 09-12-2022 ambulatory Jose Smith Other [facility] Other Start: 09-12-2022 Patient encounter procedure Jose Smith [facility] Start: 08-18-2022 End: 08-18-2022 ambulatory MAYCOL NOVAK Facility:[facility] Start: 08-08-2022 End: 08-09-2022 ambulatory Christophe MCLAUGHLIN Facility:[facility] Start: 08-08-2022 End: 08-08-2022 Patient encounter procedure Christophe MCLAUGHLIN [facility] Start: 08-07-2022 Telephone encounter Orestes Khoury RN H ematology/Oncology Comment on above: Appointment Start: 08-07-2022 End: 08-07-2022 ambulatory MAYCOL JACLYNJAMAL Facility:[facility] Start: 08-07-2022 End: 08-07-2022 ambulatory Chair Maxi Hilton Work Phone: Hematology/Oncology Comment on above: PRV (polycythemia ru bra vera) (HCC) (Primary Dx) Start: 08-07-2022 End: 08-07-2022 Office outpatient visit 15 minutes Maycol Novak MD Work Phone: Hematology/Oncology Comment on above: PRV (polycythemia ru bra vera) (HCC) (Primary Dx) Start: 07-28-2022 End: 07-29-[address] CHRISTOPHE MCLAUGHLIN . Facility: Start: 07-24-2022 End: 07-24-2022 ambulatory Jose Smith Other [facility] Other Start: 07-24-2022 Office outpatient vi sit [address] [facility] Start: 07-03-2022 End: 07-03-2022 ambulatory Jose Smith Other [facility] Other Start: 07-03-2022 Office outpatient vi sit [address] [facility] Start: 06-27-2022 End: 06-27-2022 ambulatory Jose Smith Other [facility] Other Start: 06-27-2022 Telephone encounter Jose Smith FP [facility] Start: 06-19-2022 End: 06-19-2022 ambulatory Jose Smith Other [facility] Other Start: 06-19-2022 Office outpatient vi sit [address] [facility] Start: 05-17-2022 Refill Maycol stoddard MD Work Phone: Hematology/Oncology Comment on above: Refill Request Start: 04-17-2022 End: 04-17-2022 ambulatory Chair 21 [place] Work Phone: Hematology/Oncology Comment on above: PRV (polycythemia ru bra vera) (HCC) (Primary Dx) PRV (polycythemia ru bra vera) (HCC) (Primary Dx); MGUS (monoclonal gammopathy of unknown significance) Start: 04-17-2022 End: 04-17-2022 Patient encounter procedure Wisam Long APRN.CNP Work Phone: [facility] Start: 02-28-2022 Telephone encounter Neetu Ochoa Hematology/Oncology Comment on above: Lab Orders Start: 02-27-2022 End: 02-27-2022 ambulatory Chair 21 [place] Work Phone: Hematology/Oncology Comment on above: PRV (polycythemia ru bra vera) (HCC) (Primary Dx) Start: 02-20-2022 End: 02-20-2022 ambulatory Maycol Novak MD Work Phone: Hematology/Oncology Comment on above: PRV (polycythemia ru bra vera) (HCC) (Primary Dx); MGUS (monoclonal gammopathy of unknown significance) PRV (polycythemia ru bra vera) (HCC) (Primary Dx) Start: 02-20-2022 End: 02-20-2022 Patient encounter procedure Maycol Novak MD Work Phone: [facility] Start: 01-20-2022 Refill [facility] Work Phone: [facility] Comment on above: Refill Request Start: 12-26-2021 End: 12-26-2021 ambulatory Maycol Novak MD Work Phone: Hematology/Oncology Comment on above: PRV (polycythemia ru bra vera) (HCC) (Primary Dx); MGUS (monoclonal gammopathy of unknown significance) Start: 12-26-2021 End: 12-26-2021 Patient encounter procedure Maycol Novak MD Work Phone: [facility] Start: 11-28-2021 End: 11-28-2021 ambulatory Maycol Novak MD Work Phone: Hematology/Oncology Comment on above: PRV (polycythemia ru bra vera) (HCC) (Primary Dx); MGUS (monoclonal gammopathy of unknown significance) Start: 11-28-2021 End: 11-28-2021 Patient encounter procedure Maycol Novak MD Work Phone: [facility] Start: 11-22-2021 Telephone encounter Maycol daigle MD Work Phone: Hematology/Oncology Comment on above: Lab Orders Start: 11-14-2021 End: 11-14-2021 ambulatory Chair 21 [place] Work Phone: Hematology/Oncology Comment on above: PRV (polycythemia ru bra vera) (HCC) (Primary Dx) Start: 10-28-2021 Telephone encounter Maycol daigle MD Work Phone: [facility] Comment on above: Future Appointment Start: 10-25-2021 End: 10-25-2021 ambulatory Maycol Novak MD Work Phone: Hematology/Oncology Comment on above: PRV (polycythemia ru bra vera) (HCC) Start: 10-25-2021 End: 10-25-2021 Telemedicine consultation with patient Maycol Novak MD Work Phone: [facility] Start: 10-18-2021 End: 10-18-2021 ambulatory Maycol Novak MD Work Phone: Hematology/Oncology Comment on above: MGUS (monoclonal marlene mopathy of unknown significance) (Primary Dx); Polycythemia Start: 10-18-2021 End: 10-18-2021 Patient encounter procedure Maycol Novak MD Work Phone: [facility] Start: 10-10-2021 Telephone encounter Maycol daigle MD Work Phone: Hematology/Oncology Comment on above: Lab Orders Start: 09-09-2021 Adult health examination Jason Smith Other [employer] Other Procedures Date Procedure Procedure Detail Performing Clinician Start: 07-28-[address] ALEYDA MCLAUGHLIN . Comment on above: Performed By: #### P SAD #### [facility] [address] [place] [address] Dr. Deandre Turner Start: 01-18-2018 Adult depression scr eening assessment Maycol Novak MD Work Phone: Start: 05-19-2016 Viral screening Frantz feliciano Smith Other Start: 02-07-2016 Attention to ileostomy Jose Smith Other Start: 08-09-2015 Screening for malign ant neoplasm of colon Jose Smith Other Colonoscopy Christophe MCLAUGHLIN Depression screening Basiliaami n Fracisco Other Depression screening Basiliaami n Fracisco Other Plan of Treatment Date Care Activity Detail Author Start: 04-09-2026 Diabetes Screening Diabetes Screenin [facility] Start: 01-15-2026 DIABETES SCREEN DIABETES SCREEN [facility] Start: 10-17-2025 DIABETES SCREEN DIABETES SCREEN [facility] Start: 08-07-2025 DIABETES SCREEN DIABETES SCREEN [facility] Start: 02-20-2025 DIABETES SCREEN DIABETES SCREEN [facility] Start: 12-26-2024 DIABETES SCREEN DIABETES SCREEN [facility] Start: 11-28-2024 DIABETES SCREEN DIABETES SCREEN [facility] Start: 10-18-2024 DIABETES SCREEN DIABETES SCREEN [facility] Start: 04-09-2024 Serum Creatinine Serum Creatinine [facility] Start: 01-16-2024 SERUM CREATININE SERUM CREATININE [facility] Start: 10-08-2023 End: 10-08-2023 Patient encounter procedure 10/08/2023 10:40 AM EDT Procedure Visit [facility] [address] [place] [address] Nakul Garcia, JUAN ANTONIOM [address] [address] [facility] Start: 07-30-2023 End: 07-30-2023 Patient encounter procedure 07/30/2023 10:00 AM EST Office Visit [facility] [address] [place] [address] Nakul Garcia DPSandra [address] [address] [facility] Start: 04-09-2023 End: 01-16-2024 [id number] [Mass/volume] in Serum or Plasma B2 MICROGLOBULIN B Lab Routine PRV (polycythemia rubra vera) ([facility]) MGUS (monoclonal gammopathy of unknown significance) Expected: 04/09/2023 (Approximate), Expires: 01/16/2024 [facility] Work Phone: Comment on above: Expected: 04/09/2023 (Approximate), Expires: 01/16/2024 Start: 04-09-2023 End: 01-16-2024 Calcium.ionized [Moles/volume] in Blood CALCIUM IONIZED BLOOD Lab Routine PRV (polycythemia rubra vera) ([facility]) MGUS (monoclonal gammopathy of unknown significance) Expected: 04/09/2023 (Approximate), Expires: 01/16/2024 [facility] Work Phone: Comment on above: Expected: 04/09/2023 (Approximate), Expires: 01/16/2024 Start: 04-09-2023 End: 01-16-2024 CBC W Auto Differential panel - Blood CBC + DIFF Lab Routine PRV (polycythemia rubra vera) ([facility]) MGUS (monoclonal gammopathy of unknown significance) Expected: 04/09/2023 (Approximate), Expires: 01/16/2024 [facility] Work Phone: Comment on above: Expected: 04/09/2023 (Approximate), Expires: 01/16/2024 Start: 04-09-2023 End: 01-16-2024 Cobalamin (Vitamin B12) [Mass/volume] in Serum or Plasma VITAMIN B12 BLOOD Lab Routine PRV (polycythemia rubra vera) (HCC) MGUS (monoclonal gammopathy of unknown significance) Expected: 04/09/2023 (Approximate), Expires: 01/16/2024 [facility] Work Phone: Comment on above: Expected: 04/09/2023 (Approximate), Expires: 01/16/2024 Start: 04-09-2023 End: 01-16-2024 Comprehensive metabolic 2000 panel - Serum or Plasma COMP METABOLIC PANEL Lab Routine PRV (polycythemia rubra vera) (HCC) MGUS (monoclonal gammopathy of unknown significance) Expected: 04/09/2023 (Approximate), Expires: 01/16/2024 [facility] Work Phone: Comment on above: Expected: 04/09/2023 (Approximate), Expires: 01/16/2024 Start: 04-09-2023 End: 01-16-2024 Ferritin [Mass/volume] in Serum or Plasma FERRITIN BLD Lab Routine PRV (polycythemia rubra vera) (HCC) MGUS (monoclonal gammopathy of unknown significance) Expected: 04/09/2023 (Approximate), Expires: 01/16/2024 [facility] Work Phone: Comment on above: Expected: 04/09/2023 (Approximate), Expires: 01/16/2024 Start: 04-09-2023 End: 01-16-2024 Folate [Mass/volume] in Serum or Plasma FOLATE SERUM Lab Routine PRV (polycythemia rubra vera) (HCC) MGUS (monoclonal gammopathy of unknown significance) Expected: 04/09/2023 (Approximate), Expires: 01/16/2024 [facility] Work Phone: Comment on above: Expected: 04/09/2023 (Approximate), Expires: 01/16/2024 Start: 04-09-2023 End: 01-16-2024 Iron and Iron binding capacity panel - Serum or Plasma IRON + TIBC Lab Routine PRV (polycythemia rubra vera) (HCC) MGUS (monoclonal gammopathy of unknown significance) Expected: 04/09/2023 (Approximate), Expires: 01/16/2024 [facility] Work Phone: Comment on above: Expected: 04/09/2023 (Approximate), Expires: 01/16/2024 Start: 04-09-2023 End: 01-16-2024 Lactate dehydrogenase [Enzymatic activity/volume] in Serum or Plasma LD LACTATE DEHYDRO Lab Routine PRV (polycythemia rubra vera) (HCC) MGUS (monoclonal gammopathy of unknown significance) Expected: 04/09/2023 (Approximate), Expires: 01/16/2024 [facility] Work Phone: Comment on above: Expected: 04/09/2023 (Approximate), Expires: 01/16/2024 Start: 04-09-2023 End: 01-16-2024 MONOCLONAL PROTEIN, SERUM (BLOOD) MONOCLONAL PROTEIN, SERUM (BLOOD) Lab Routine PRV (polycythemia rubra vera) (HCC) MGUS (monoclonal gammopathy of unknown significance) Expected: 04/09/2023 (Approximate), Expires: 01/16/2024 [facility] Work Phone: Comment on above: Expected: 04/09/2023 (Approximate), Expires: 01/16/2024 Start: 04-09-2023 End: 01-16-2024 Phosphate [Mass/volume] in Serum or Plasma PHOSPHORUS INORGANIC Lab Routine PRV (polycythemia rubra vera) (HCC) MGUS (monoclonal gammopathy of unknown significance) Expected: 04/09/2023 (Approximate), Expires: 01/16/2024 [facility] Work Phone: Comment on above: Expected: 04/09/2023 (Approximate), Expires: 01/16/2024 Start: 04-09-2023 End: 01-16-2024 PROTEIN ELECTROPHORESIS SERUM W/INTERP PROTEIN ELECTROPHORESIS SERUM W/INTERP Lab Routine PRV (polycythemia rubra vera) ([facility]) MGUS (monoclonal gammopathy of unknown significance) Expected: 04/09/2023 (Approximate), Expires: 01/16/2024 [facility] Work Phone: Comment on above: Expected: 04/09/2023 (Approximate), Expires: 01/16/2024 Start: 04-09-2023 End: 01-16-2024 Urate [Mass/volume] in Serum or Plasma URIC ACID BLOOD Lab Routine PRV (polycythemia rubra vera) ([facility]) MGUS (monoclonal gammopathy of unknown significance) Expected: 04/09/2023 (Approximate), Expires: 01/16/2024 [facility] Work Phone: Comment on above: Expected: 04/09/2023 (Approximate), Expires: 01/16/2024 Start: 02-13-2023 Influenza vaccination [facility] Start: 01-09-2023 End: 03-11-2023 CBC W Auto Differential panel - Blood CBC + DIFF Lab Routine PRV (polycythemia rubra vera) ([facility]) MGUS (monoclonal gammopathy of unknown significance) Expected: 01/09/2023, Expires: 03/11/2023 [facility] Work Phone: Comment on above: Expected: 01/09/2023 , Expires: 03/11/2023 Start: 01-09-2023 End: 03-11-2023 Comprehensive metabolic 2000 panel - Serum or Plasma COMP METABOLIC PANEL Lab Routine PRV (polycythemia rubra vera) ([facility]) MGUS (monoclonal gammopathy of unknown significance) Expected: 01/09/2023, Expires: 03/11/2023 [facility] Work Phone: Comment on above: Expected: 01/09/2023 , Expires: 03/11/2023 Start: 10-30-2022 End: 08-07-2023 CBC W Auto Differential panel - Blood CBC + DIFF Lab Routine PRV (polycythemia rubra vera) (HCC) Expected: 10/30/2022 (Approximate), Expires: 08/07/2023 [facility] Work Phone: Comment on above: Expected: 10/30/2022 (Approximate), Expires: 08/07/2023 Start: 10-30-2022 End: 08-07-2023 Comprehensive metabolic 2000 panel - Serum or Plasma COMP METABOLIC PANEL Lab Routine PRV (polycythemia rubra vera) ([facility]) Expected: 10/30/2022 (Approximate), Expires: 08/07/2023 [facility] Work Phone: Comment on above: Expected: 10/30/2022 (Approximate), Expires: 08/07/2023 Start: 10-30-2022 End: 08-07-2023 Lactate dehydrogenase [Enzymatic activity/volume] in Serum or Plasma LD LACTATE DEHYDRO Lab Routine PRV (polycythemia rubra vera) ([facility]) Expected: 10/30/2022 (Approximate), Expires: 08/07/2023 [facility] Work Phone: Comment on above: Expected: 10/30/2022 (Approximate), Expires: 08/07/2023 Start: 08-10-2022 DIABETES SCREEN DIABETES SCREEN [facility] Start: 07-27-2022 COVID-19 VACCINE (6 - Pfizer series) COVID-19 VACCINE (6 - Pfizer series) [facility] Start: 06-15-2022 ADVANCE DIRECTIVE DISCUSSION ADVANCE DIRECTIVE DISCUSSION [facility] Start: 06-15-2022 DEPRESSION ASSESSMENT DEPRESSION ASS ESSMENT [facility] Start: 04-18-2022 End: 06-18-2022 CBC W Auto Differential panel - Blood CBC + DIFF Lab Routine PRV (polycythemia rubra vera) ([facility]) MGUS (monoclonal gammopathy of unknown significance) Expected: 04/18/2022, Expires: 06/18/2022 [facility] Work Phone: Comment on above: Expected: 04/18/2022 , Expires: 06/18/2022 Start: 04-18-2022 End: 06-18-2022 Comprehensive metabolic 2000 panel - Serum or Plasma COMP METABOLIC PANEL Lab Routine PRV (polycythemia rubra vera) (HCC) MGUS (monoclonal gammopathy of unknown significance) Expected: 04/18/2022, Expires: 06/18/2022 [facility] Work Phone: Comment on above: Expected: 04/18/2022 , Expires: 06/18/2022 Start: 04-18-2022 End: 06-18-2022 MONOCLONAL PROTEIN, SERUM (BLOOD) MONOCLONAL PROTEIN, SERUM (BLOOD) Lab Routine PRV (polycythemia rubra vera) (HCC) MGUS (monoclonal gammopathy of unknown significance) Expected: 04/18/2022, Expires: 06/18/2022 [facility] Work Phone: Comment on above: Expected: 04/18/2022 , Expires: 06/18/2022 Start: 04-18-2022 End: 06-18-2022 PROT ELECT SERUM WITH YULIYA AND INTERP PROT ELECT SERUM WITH YULIYA AND INTERP Lab Routine PRV (polycythemia rubra vera) (HCC) MGUS (monoclonal gammopathy of unknown significance) Expected: 04/18/2022, Expires: 06/18/2022 [facility] Work Phone: Comment on above: Expected: 04/18/2022 , Expires: 06/18/2022 Start: 02-20-2022 End: 12-26-2022 CBC W Auto Differential panel - Blood CBC + DIFF Lab Routine PRV (polycythemia rubra vera) (HCC) MGUS (monoclonal gammopathy of unknown significance) Expected: 02/20/2022 (Approximate), Expires: 12/26/2022 [facility] Work Phone: Comment on above: Expected: 02/20/2022 (Approximate), Expires: 12/26/2022 Start: 02-20-2022 End: 12-26-2022 Comprehensive metabolic 2000 panel - Serum or Plasma COMP METABOLIC PANEL Lab Routine PRV (polycythemia rubra vera) (HCC) MGUS (monoclonal gammopathy of unknown significance) Expected: 02/20/2022 (Approximate), Expires: 12/26/2022 [facility] Work Phone: Comment on above: Expected: 02/20/2022 (Approximate), Expires: 12/26/2022 Start: 02-13-2022 Influenza vaccination [facility] Start: 12-26-2021 End: 11-28-2022 CBC W Auto Differential panel - Blood CBC + DIFF Lab Routine PRV (polycythemia rubra vera) (HCC) MGUS (monoclonal gammopathy of unknown significance) Expected: 12/26/2021 (Approximate), Expires: 11/28/2022 [facility] Work Phone: Comment on above: Expected: 12/26/2021 (Approximate), Expires: 11/28/2022 Start: 12-26-2021 End: 11-28-2022 Comprehensive metabolic 2000 panel - Serum or Plasma COMP METABOLIC PANEL Lab Routine PRV (polycythemia rubra vera) (HCC) MGUS (monoclonal gammopathy of unknown significance) Expected: 12/26/2021 (Approximate), Expires: 11/28/2022 [facility] Work Phone: Comment on above: Expected: 12/26/2021 (Approximate), Expires: 11/28/2022 Start: 11-25-2021 End: 11-25-2022 [id number] [Mass/volume] in Serum or Plasma B2 MICROGLOBULIN B Lab Routine PRV (polycythemia rubra vera) (HCC) MGUS (monoclonal gammopathy of unknown significance) Expected: 11/25/2021, Expires: 11/25/2022 [facility] Work Phone: Comment on above: Expected: 11/25/2021 , Expires: 11/25/2022 Start: 11-25-2021 End: 11-25-2022 Calcium.ionized [Moles/volume] in Blood CALCIUM IONIZED BLOOD Lab Routine PRV (polycythemia rubra vera) (HCC) MGUS (monoclonal gammopathy of unknown significance) Expected: 11/25/2021, Expires: 11/25/2022 [facility] Work Phone: Comment on above: Expected: 11/25/2021 , Expires: 11/25/2022 Start: 11-25-2021 End: 11-25-2022 CBC W Auto Differential panel - Blood CBC + DIFF Lab Routine PRV (polycythemia rubra vera) (HCC) MGUS (monoclonal gammopathy of unknown significance) Expected: 11/25/2021, Expires: 11/25/2022 [facility] Work Phone: Comment on above: Expected: 11/25/2021 , Expires: 11/25/2022 Start: 11-25-2021 End: 11-25-2022 Comprehensive metabolic 2000 panel - Serum or Plasma COMP METABOLIC PANEL Lab Routine PRV (polycythemia rubra vera) (HCC) MGUS (monoclonal gammopathy of unknown significance) Expected: 11/25/2021, Expires: 11/25/2022 [facility] Work Phone: Comment on above: Expected: 11/25/2021 , Expires: 11/25/2022 Start: 11-25-2021 End: 01-25-2022 KAPPA/BURT,FREE,SER KAPPA/BURT,FREE,SER Lab Routine PRV (polycythemia rubra vera) (HCC) MGUS (monoclonal gammopathy of unknown significance) Expected: 11/25/2021, Expires: 01/25/2022 [facility] Work Phone: Comment on above: Expected: 11/25/2021 , Expires: 01/25/2022 Start: 11-25-2021 End: 11-25-2022 Lactate dehydrogenase [Enzymatic activity/volume] in Serum or Plasma [facility] Work Phone: Comment on above: Expected: 11/25/2021 , Expires: 11/25/2022 Expected: 11/25/2021 , Expires: 01/25/2022 Start: 11-25-2021 End: 06-13-2023 MONOCLONAL PROTEIN, SERUM (BLOOD) MONOCLONAL PROTEIN, SERUM (BLOOD) Lab Routine PRV (polycythemia rubra vera) (HCC) MGUS (monoclonal gammopathy of unknown significance) Expected: 11/25/2021, Expires: 11/25/2022 [facility] Work Phone: Comment on above: Expected: 11/25/2021 , Expires: 11/25/2022 Start: 11-25-2021 End: 11-25-2022 Phosphate [Mass/volume] in Serum or Plasma PHOSPHORUS INORGANIC Lab Routine PRV (polycythemia rubra vera) ([facility]) MGUS (monoclonal gammopathy of unknown significance) Expected: 11/25/2021, Expires: 11/25/2022 [facility] Work Phone: Comment on above: Expected: 11/25/2021 , Expires: 11/25/2022 Start: 11-25-2021 End: 11-25-2022 PROTEIN ELECTROPHORESIS SERUM W/INTERP PROTEIN ELECTROPHORESIS SERUM W/INTERP Lab Routine PRV (polycythemia rubra vera) ([facility]) MGUS (monoclonal gammopathy of unknown significance) Expected: 11/25/2021, Expires: 11/25/2022 [facility] Work Phone: Comment on above: Expected: 11/25/2021 , Expires: 11/25/2022 Start: 11-25-2021 End: 11-25-2022 Urate [Mass/volume] in Serum or Plasma URIC ACID BLOOD Lab Routine PRV (polycythemia rubra vera) ([facility]) MGUS (monoclonal gammopathy of unknown significance) Expected: 11/25/2021, Expires: 11/25/2022 [facility] Work Phone: Comment on above: Expected: 11/25/2021 , Expires: 11/25/2022 Start: 10-18-2021 End: 12-18-2021 Erythropoietin (EPO) [Units/volume] in Serum or Plasma [facility] Work Phone: Comment on above: Expected: 10/18/2021 , Expires: 12/18/2021 Start: 10-18-2021 End: 12-18-2021 JAK2 gene targeted mutation analysis in Blood or Tissue by Molecular genetics method [facility] Work Phone: Comment on above: Expected: 10/18/2021 , Expires: 12/18/2021 Start: 10-10-2021 End: 12-10-2021 CBC W Auto Differential panel - Blood CBC + DIFF Lab Routine MGUS (monoclonal gammopathy of unknown significance) Expected: 10/10/2021, Expires: 12/10/2021 [facility] Work Phone: Comment on above: Expected: 10/10/2021 , Expires: 12/10/2021 Start: 10-10-2021 End: 12-10-2021 Comprehensive metabolic 2000 panel - Serum or Plasma COMP METABOLIC PANEL Lab Routine MGUS (monoclonal gammopathy of unknown significance) Expected: 10/10/2021, Expires: 12/10/2021 [facility] Work Phone: Comment on above: Expected: 10/10/2021 , Expires: 12/10/2021 Start: 10-10-2021 End: 12-10-2021 KAPPA/BURT,FREE,SER KAPPA/BURT,FREE,SER Lab Routine MGUS (monoclonal gammopathy of unknown significance) Expected: 10/10/2021, Expires: 12/10/2021 [facility] Work Phone: Comment on above: Expected: 10/10/2021 , Expires: 12/10/2021 Start: 10-10-2021 End: 12-10-2021 MONOCLONAL PROTEIN, SERUM (BLOOD) MONOCLONAL PROTEIN, SERUM (BLOOD) Lab Routine MGUS (monoclonal gammopathy of unknown significance) Expected: 10/10/2021, Expires: 12/10/2021 [facility] Work Phone: Comment on above: Expected: 10/10/2021 , Expires: 12/10/2021 Start: 10-10-2021 End: 12-10-2021 PROTEIN ELECTROPHORESIS SERUM W/INTERP PROTEIN ELECTROPHORESIS SERUM W/INTERP Lab Routine MGUS (monoclonal gammopathy of unknown significance) Expected: 10/10/2021, Expires: 12/10/2021 [facility] Work Phone: Comment on above: Expected: 10/10/2021 , Expires: 12/10/2021 Start: 06-15-2021 ADVANCE DIRECTIVE DISCUSSION ADVANCE DIRECTIVE DISCUSSION [facility] Start: 06-15-2021 DEPRESSION ASSESSMENT DEPRESSION ASS ESSMENT [facility] Start: 01-06-2021 COVID-19 VACCINE (3 - Booster for Pfizer series) COVID-19 VACCINE (3 - Booster for Pfizer series) [facility] Start: 01-18-2019 Adult depression screening assessment DEPRESSION SCREENING [facility] Start: 03-28-2014 Urine microalbumin profile DTaP,Tdap,Td Vaccine (1 - Tdap) [facility] Start: 2010 Pneumococcal Vaccine : 65+ Years (1 of 1 - PCV) Pneumococcal Vaccine: 65+ Years (1 of 1 - PCV) [facility] Start: 2010 PNEUMOCOCCAL: 65+ (1 - PCV) PNEUMOCOCCAL: 65+ (1 - PCV) [facility] Start: 2010 PNEUMOVAX AGE 65 AND OVER WITH 5YR LOOKBACK (#1) PNEUMOVAX AGE 65 AND OVER WITH 5YR LOOKBACK (#1) [facility] Start: 2005 RSV Vaccine (1 - 1-d ose 60+ series) RSV Vaccine (1 - 1-dose 60+ series) [facility] Start: 08-29-1995 SHINGRIX VACCINE (1 of 2) CAMILO GRIX VACCINE (1 of 2) [facility] Start: 1964 SHINGRIX VACCINE (1 of 2) CAMILO GRIX VACCINE (1 of 2) [facility] Start: 1964 Urine microalbumin profile DTAP,TDAP,TD (1 - Tdap) [facility] Start: 08-29-1963 ANNUAL PCP TEAM LABORATORY PHLEBOTOMIST [place] DISEASE VISIT ANNUAL PCP TEAM CHRONIC DISEASE VISIT [facility] Start: 08-29-1963 BP CONTROLLED (<130/80) BP CONTROLLE D (<130/80) [facility] Start: 08-29-1963 HEPATITIS C SCREENING HEPATITIS C SC SOWMYA [facility] Start: [birth year]29-1951 PNEUMOCOCCAL: 65+ (1 - PCV) PNEUMOCOCCAL: 65+ (1 - PCV) [facility] End: 02-28-2023 CBC W Auto Differential panel - Blood CBC + DIFF Lab Routine PRV (polycythemia rubra vera) (HCC) Once per week for 10 Occurrences starting 02/28/2022 until 02/28/2023 [facility] Work Phone: Comment on above: Once per week for 10 Occurrences starting 02/28/2022 until 02/28/2023 [facility] Immunizations Immunization Date Immunization Notes Care Provider Fa [facility] 03-17-2023 influenza, high dose seasonal, preservative-free Jose Smith Other [employer] Other 03-17-2023 influenza virus vaccine, unspecified formulation Nakul Garcia DPM Work Phone: [facility] 03-26-2022 COVID-19 booster vaccine, age 12+ yr, bivalent (PFIZER-BIONTECH) Maycol Novak MD Work Phone: [facility] 03-26-2022 COVID-19 Vaccine Pfi zer - Documentation Purposes Only Jose Smith Other [employer] Other 03-14-2022 influenza (aIIV4) vaccine, age 65+ yr, quadrivalent, PF (FLUAD QUADRIVALENT) Chair Hilton Work Phone: [facility] 03-14-2022 influenza virus vaccine, split virus (incl. purified surface antigen) Jose Smith Other [employer] Other 03-14-2022 influenza, high dose seasonal, preservative-free Jose Smith Other [employer] Other 03-18-2021 COVID-19 vaccine, ag e 12+ yr (PFIZER-BIONTECH - PURPLE TOP) Maycol Novak MD Work Phone: [facility] 03-12-2021 influenza virus vaccine, split virus (incl. purified surface antigen) Jose Smith Other [employer] Other 02-21-2021 influenza nasal, unspecified formulation Maycol Novak MD Work Phone: [facility] 02-21-2021 influenza virus vaccine, unspecified formulation Christophe MCLAUGHLIN [facility] 08-30-2020 COVID-19 vaccine (ED) Maycol Novak MD Work Phone: [facility] 08-09-2020 COVID-19 vaccine, ag e 12+ yr (PFIZER-BIONTECH - PURPLE TOP) Maycol Novak MD Work Phone: [facility] 07-25-2020 COVID-19 vaccine (ED) Maycol Novak MD Work Phone: [facility] 07-18-2020 COVID-19 vaccine, ag e 12+ yr (PFIZER-BIONTECH - PURPLE TOP) Maycol Novak MD Work Phone: [facility] 03-16-2020 influenza virus vaccine, split virus (incl. purified surface antigen) Jose Smith Other [employer] Other 03-21-2019 influenza virus vaccine, live, attenuated, for intranasal use Maycol Novak MD Work Phone: [facility] 02-21-2019 influenza virus vaccine, split virus (incl. purified surface antigen) Jose Smith Other [employer] Other 02-21-2019 Seasonal trivalent influenza vaccine, adjuvanted, preservative free Maycol Novak MD Work Phone: [facility] 03-22-2018 influenza virus vaccine, split virus (incl. purified surface antigen) Jose Smith Other [employer] Other 03-22-2018 Seasonal trivalent influenza vaccine, adjuvanted, preservative free Maycol Novak MD Work Phone: [facility] 04-23-2017 influenza virus vaccine, split virus (incl. purified surface antigen) Jose Smith Other [facility] [employer] Other 04-23-2017 influenza, high dose seasonal, preservative-free Maycol Novak MD Work Phone: [facility] 03-21-2016 influenza virus vaccine, split virus (incl. purified surface antigen) Jose Smith Other [facility] [employer] Other 03-21-2016 influenza, high dose seasonal, preservative-free Maycol Novak MD Work Phone: [facility] 03-26-2015 influenza virus vaccine, split virus (incl. purified surface antigen) Jose Smith Other [employer] Other 03-26-2015 pneumococcal conjuga te vaccine, 13 valent Jose Smith Other [employer] Other 03-27-2014 tetanus and diphther ia toxoids, adsorbed, preservative free, for adult use (5 Lf of tetanus toxoid and 2 Lf of diphtheria toxoid) Jose Smith Other [employer] Other 03-18-2013 tetanus and diphther ia toxoids, adsorbed, preservative free, for adult use (5 Lf of tetanus toxoid and 2 Lf of diphtheria toxoid) Jose Smith Other [employer] Other 02-18-2012 tetanus and diphther ia toxoids, adsorbed, preservative free, for adult use (5 Lf of tetanus toxoid and 2 Lf of diphtheria toxoid) Jose Smith Other [employer] Other 01-14-2012 pneumococcal polysaccharide vaccine, 23 valent Jose Smith Other [employer] Other Payers Date Payer Category Payer Unknown [id number] 2020 Private Health Insurance [employer] A ETNA MEDICARE SUPPLEMENT [id number] 2020-Present [phone] [address] [address] [place] [address] Indemnity [id number] 2020 Private Health Insurance [employer] A ETNA MEDICARE SUPPLEMENT [id number] 2020-Present [phone] [address] [address] [place] [address] Indemnity [id number] 2011 Medicare MEDICARE MEDICAR E A AND B [id number] 2011-Present [phone] [address] [address] [place] [address] Medicare [id number] 2011 Medicare [id number] 1945 Unknown [id number] 1945 Unknown [id number] 1945 Unknown [id number] .[id number] 1945 Unknown [id number] .[id number] 1945 Unknown [id number] Medicare [id number] Unknown [facility] [employer] [facility] [id number] Effective for all dates [address] [place] [id number] Social History Date Type Detail Facility Start: 05-31-2012 End: 04-17-2022 Tobacco smoking status NHIS Ex-smoker [facility] End: 05-31-1980 History of tobacco use Current smoker [facility] End: 05-31-1980 History of tobacco use Cigarette Smoker [facility] Start: 05-31-2012 End: 04-17-2022 Tobacco use and exposure Smokeless tobacco non-user [facility] Start: 10-18-2020 End: 07-30-2023 Alcohol intake Not Asked [facility] Start: 1945 Sex Assigned At Not on file [facility] Start: 10-08-2021 End: 04-17-2022 Exposure to SARS-CoV-2 (event) Not sure [facility] Start: 10-15-2021 End: 10-25-2021 Exposure to SARS-CoV-2 (event) Unable to assess [facility] History of tobacco use Passive smoker [facility] Start: 04-17-2022 End: 04-09-2023 Alcohol intake Ex-drinker (finding) [facility] Start: 01-18-2018 End: 01-15-2023 Sex Assigned At [facility] Start: 01-18-2018 End: 01-15-2023 History of Social function [facility] Adult Depression Screening Assessment 0 [facility] Start: 07-30-2023 Tobacco smoking stat us MSIS Tobacco smoking consumption unknown [facility] Functional Status Date Assessment Result Facility 08-08-2022 Functional Status N/A [facility] Clinical Notes 10-10-2021 to 07-30-2023 Nakul Garcia, JONY - 07/30/2023 10:00 AM EST Note Date & Type Note Facility 07-30-2023 History of Presen t illness Narrative Patient: Prudencio Patrick : 1945 PCP: Jose Smith MD SUBJECTIVE This is a 77 y.o. male that presents today with a CC of elongated, thick nails. Pt states nails have been elongated and thick for many years and cause pain with ambulation in shoegear. Pt has tried previous treatment with minimal relief. Pt presents today for nail care and treatment. Patient also has complaints of right great toe lesion that has been present for the past 3 years and states treatment the past by other pier master and states pain is achy at times with prolonged standing and presents today for possible treatment Allergies: Allergies Allergen Reactions Clindamycin Anaphylaxis Penicillins Hives Other Reaction(s): Mild Past Medical History: History reviewed. No pertinent past medical history. Medications: Current Outpatient Medications: acyclovir (Zovirax) 800 MG tablet, Take 800 mg by mouth in the morning and 800 mg in the evening., Disp: , Rfl: amLODIPine (Norvasc) 5 MG tablet, Take 5 mg by mouth in the morning and 5 mg before bedtime., Disp: , Rfl: atorvastatin (Lipitor) 10 MG tablet, Take 10 mg by mouth in the morning., Disp: , Rfl: citalopram (CeleXA) 10 MG tablet, Take 10 mg by mouth in the morning., Disp: , Rfl: finasteride (Proscar) 5 MG tablet, Take 5 mg by mouth in the morning., Disp: , Rfl: hydroxyurea (Hydrea) 500 MG capsule, Take 500 mg by mouth Daily., Disp: , Rfl: losartan-hydroCHLOROthiazide (Hyzaar) 50-12.5 MG tablet, Refill(s) 0, Disp: , Rfl: Social History: Social History Socioeconomic History Marital status: Spouse name: Not on file Number of children: Not on file Years of education: Not on file Highest education level: Not on file Occupational History Not on file Tobacco Use Smoking status: Unknown Smokeless tobacco: Not on file Vaping Use Vaping Use: Unknown Substance and Sexual Activity Alcohol use: Defer Drug use: Defer Sexual activity: Defer Other Topics Concern Not on file Social History Narrative Not on file Social Determinants of Health Financial Resource Strain: Not on file Food Insecurity: Not on file Transportation Needs: Not on file Physical Activity: Not on file Stress: Not on file Social Connections: Not on file Intimate Partner Violence: Not on file Housing Stability: Not on file ROS: Gastrointestinal: denies abdominal pain, ulcers, or changes in appetite or bowel habits Musculoskeletal: Positive generalized arthritis to joints and denies loss of strength. Cardiovascular: denies CP, palpitations, irregular rhythms OBJECTIVE LE EXAM: DERM: Elongated thick yellow crumbly nails digits 1 through 10. Positive hair growth b/l feet. Distal right plantar hallux region has a 0.8 cm x 1.0 cm round nummular lesion VASC: Positive palpable pedal pulses bilaterally NEURO: Gross sensation intact to bilateral feet ORTHO: Positive pain on palpation to nails 1 through 10 Minimal pain on palpation of right great toe lesion ASSESSMENT 1. Neoplasm of uncertain behavior of skin 2. Verruca plantaris 3. Foot pain, right 4. Onychomycosis 5. Toe pain, bilateral PLAN Discussed proper foot care with patient today. Debride nails in length and thickness digits 1 through 10 Discussed condition in detail with patient today and discussed conservative treatments and possible excisional biopsy of lesion in the future for pathological diagnosis of specimen. Patient may take [id number] NSAID p.r.n. for pain Application of salinocaine acid medication to lesion/lesions located at right foot Informed pt of risks and benefits of procedure including high reoccurence rate, infection, pain and consent given. Application of DSD post procedure. Nakul Garcia DPM documented in this encounter [facility] 07-13-2023 Evaluation note Encounter Date Diagnosis Assessment Notes Jun, Primary hypertension (ICD-10 - I10) [employer] Other 01-18-2024 NoteHNO ID: [id number] Author: WISAM LONG APRN.GROUP WORKER Service: ? Author Type: Nurse Practitioner Type: Progress Notes Filed: 07/03/2023 10:13 Note Text: NAME: Prudencio Patrick CLINIC NO.: [id number] DATE OF SERVICE: July 02, 2023 (Mahesh) Some elements in this clinic note that are critical to medical decision making have been carefully reviewed and included from a prior clinic note dated: April 09, 2023. (Dr. Novak) Referring Provider: Dr. 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 His M protein levels have been stable over the last 13+ years, and his risk of progression remains very low. However, he is more notably polycythemic and so we ordered a MPN workup for PRV which came back positive. Now improving with hydrea. - labs for M-spike pending. PLAN: Phlebotomy for hematocrit > 47. At this time patient wishes to not have any further phlebotomies. Continue baby ASA. Continue Hydrea 500 mg daily. Follow up in 12 weeks labs same day. Possible phlebotomy. HPI: CASE HISTORY: 01/15/2023 - H/H 15.3/45.3 WBC 4.73, PLTs 155 04/17/2022 - H/H 16.3/47.9 - phlebotomy 500 ml 02/20/2022 - H/H 16.5/48.7 - phlebotomy 250 ml x 3 weeks in a row 11/28/2021 Hydrea started 500 mg 11/14/2021 - phlebotomy caused severe hypotensive episode - possibly due to fasting/dehydration 10/18/2021 - Jak2+ PRV diagnosed 2006 - IgA [place] and IgM lambda biclonal M-spike Updated Visit, July 02, 2023: Prudencio Patrick returns for scheduled follow-up. At this point in time patient clearly states that he does not want any further phlebotomies. With past phlebotomies his blood pressures dropped. He ended up having to go through a full cardiac workup which was negative. Today he is feeling good. He denies any signs of stroke like symptoms or blood clots. He denies any bleeding or abnormal bruising. He remains on Hydrea 500 mg daily which she is tolerating well. Since his last visit there has been no significant medical changes. Updated Visit, April 09, 2023: Doing well overall. Just meets criteria for phlebotomy. Martha accompanies him as usual. Updated Visit, January 15, 2023: Doing well and is back with Martha. Labs reviewed and no need for phlebotomy today. Updated Visit, October 17, 2022: Prudencio Patrick returns for follow-up and possible phlebotomy. Since his last visit there has been no significant medical changes. He remains on Hydrea 500 mg daily and is tolerating it well without any side effects. He denies bleeding and abnormal bruising. No signs of blood clots. No cough, shortness of breath, chest pain or other pulmonary complaints. No leg pain. No lower extremity edema. He denies fevers, chills, night sweats and signs/symptoms of infection. Updated Visit, August 07, 2022: Doing well and here with his Martha. He has been doing well and hasn't need a phlebotomy for 16 weeks - now he does. Updated Visit, June 12, 2022: Rafa returns with his Martha and labs are stable. Hgb is at 15.4 and he'd like to defer phlebotomy today. I think that is reasonable. He feels good and has no issues with hydrea. Will see if he needs additional phlebotomy if Hgb >16 next visit - then we can estimate a pattern for planning visits and phlebotomies on a routine basis. Updated Visit, April 17, 2022: Prudencio Patrick returns for follow-up. He remains on Hydrea 500 mg once daily and is tolerating it well. He states that he is doing well. There has been no significant medical changes since his last visit. He denies shortness of breath, chest pain and leg pain. He follows with his PCP, Dr. Smith, who has been changing his blood pressure medications. Patient states the first time he had a phlebotomy his blood pressure dropped. The second time he had a phlebotomy he had no problems. He denies bleeding and abnormal bruising. He offers no new complaints today. No new issues, problems or concerns. Updated Visit, December 26, 2021: Is doing well labs are improved. BP meds adjusted. No need for for phlebotomy today. Will monitor platelets levels. Updated Visit, November 28, 2021: Didn't tolerate phlebotomy due to hypotension but he's on amlodipine, HCTZ 25 in addition to Hyzaar (100/25). Will hold phlebotomy for now and reconsider once his flid status and BP meds are clarified. It's possible that he had a vagal reaction in addition. I discussed his situation with Dr. Smith today and he will clarify meds for him. Updated Visit, October 25, 2021: Telephone 12 mins Discussed findings of Clemente 2 Mutation - c/w Polycythemia - [id number] mut + B-asa Phlebotomy Consider hydrea for high risk disease. Updated Visit, October 18, 2021: Noted to have (more content not included)...[facility]10-27-2023 Evaluation note* Encounter Date Diagnosis Assessment Notes Treatment Notes Treatment Clinical Notes Mar, Vasovagal syncope (ICD-10 - R55) He has experienced 3 separate episodes w/ one resulting in complete LOC. - 2 occurred while having phlebotomy performed for PCV - 1 occurred after having large skin cancer removed from his nose During the episodes of near syncope, he c/o diaphoresis and weakness. He was instructed to push fluids, avoid skipping meals and assume the sitting or supine position when experiencing symptoms. Mar, Primary hypertension (ICD-10 - I10) This patient is instructed to consume a healthy, low-fat, low-salt diet. They are also encouraged to continue exercise to achieve/maintain a normal BMI. Mar, Bradycardia (ICD-10 - R00.1) Secondary to vagal stimulation. Resolved spontaneously. RBBB of unknown duration of existence. 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 They are also educated on the associated risks of NSAIDs and PPI use with kidney disease. They were instructed on adequate fluid balance and to avoid dehydration. Mar, Polycythemia vera (ICD-10 - D45) f/u Oncology Aware that phlebotomy may trigger a vagal response and take precautions - sit or lie supine during phlebotomy - push fluids and rest after completion and avoid sudden change in position Mar, Hypercholesteremia (ICD-10 - E78.00) Instructed on diet and exercise with continued statin therapy.Discussed the beneficial effects of lowering cholesterol in reducing the risk for cerebrovascular and cardiovascular disease. Mar, Morbid (severe) obes ity due to excess calories (ICD-10 - E66.01) This patient has been instructed on a low-fat, high-fiber diet. They are instructed to reduce calories, portion sizes and snacks. It is recommended that they exercise for 30 minutes, 3-5 times weekly. Mar, Body mass index [BMI ] 35.0-35.9, adult (ICD-10 - Z68.35) Mar, Murmur (ICD-10 - R01.1) Echo cardiogram to determine if responsible for lightheadedness. r/o [employer] Other 10-26-2023 NoteHNO ID: [id number] Author: Shanice Alvarez, FLOR[place] Service: ? Author Type: Registered Nurse Type: Progress Notes Filed: 04/09/2023 2:05 PM Note Text: EKG's faxed to Dr. Smith's office. GA spoke with Dr. Smith and he is agreeable to see pt tomorrow for abnormal EKG. Pt notified and will call for appt time. Shanice Alvarez RN[facility]23 NoteHNO ID: [id number] Author: Marion Soriano RN Service: ? Author Type: Registered Nurse Type: Progress Notes Filed: 04/09/2023 2:05 PM Note Text: 1000-phlebotomy completed with 450 mls of blood removed. 1006-pt's rang emergency khan d/t pt c/o starting to get lightheaded. 1009-NS started running wide open. Pt noted to be pale and diaphoretic but responsive. Pt placed flat. HR 43 manual BP was 68/unheard. 1012-Dr. Begum at chairside to assess pt. NS continues. Pt remains pale but answers questions appropriately and talking. 1022-EKG completed per Dr. Begum's order. Shows sinus bradycardia and R BBB. Per Dr. Begum this will be repeated in 30 mins after pt recovers. 1025-HR 44 BP 94/60. Pt noted to have color back in his face and diaphoresis resolved. 1035- HR 44 BP 101/57 Pox 98% on RA Pt reports feeling much better. NS continues. 1045- HR 50 BP 107/64 Repeat EKG completed and reviewed with Dr. Novak. Pt does not currently follow a copra sampler. Pt's PCP Dr. Smith was updated via phone by Dr. Begum and was in agreement to see pt tomorrow. Pt given copies of his EKG. 1120-HR 44 BP 117/74 Pt feels back to baseline and ready for discharge.[facility]10-26-2023 NoteHNO ID: [id number] Author: Maycol Novak MD Service: ? Author Type: Physician Type: Progress Notes Filed: 04/09/2023 9:28 AM Note Text: NAME: Prudencio Patrick [facility] NO.: [id number] DATE OF SERVICE: April 09, 2023 (Dipak) Some elements in this clinic note that are critical to medical decision making have been carefully reviewed and included from a prior clinic note dated: January 15, 2023 (Dipak) Referring Provider: Dr. 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 His M protein levels have been stable over the last 13+ years, and his risk of progression remains very low. However, he is more notably polycythemic and so we ordered a MPN workup for PRV which came back positive. Now improving with hydrea. - labs for M-spike pending. PLAN: Today - phlebotomy for hematocrit > 47. Continue baby ASA. Continue Hydrea 500 mg daily. Follow up in 12 weeks labs same day. Possible phlebotomy. Orders for labs entered in 12 weeks x 1 April 09, 2023 HPI: CASE HISTORY: 01/15/2023 - H/H 15.3/45.3 WBC 4.73, PLTs 155 04/17/2022 - H/H 16.3/47.9 - phlebotomy 500 ml 02/20/2022 - H/H 16.5/48.7 - phlebotomy 250 ml x 3 weeks in a row 11/28/2021 Hydrea started 500 mg 11/14/2021 - phlebotomy caused severe hypotensive episode - possibly due to fasting/dehydration 10/18/2021 - Jak2+ PRV diagnosed 2006 - IgA [place] and IgM lambda biclonal M-spike Updated Visit, April 09, 2023: Doing well overall. Just meets criteria for phlebotomy. Martha accompanies him as usual. Updated Visit, January 15, 2023: Doing well and is back with Martha. Labs reviewed and no need for phlebotomy today. Updated Visit, October 17, 2022: Prudencio Patrick returns for follow-up and possible phlebotomy. Since his last visit there has been no significant medical changes. He remains on Hydrea 500 mg daily and is tolerating it well without any side effects. He denies bleeding and abnormal bruising. No signs of blood clots. No cough, shortness of breath, chest pain or other pulmonary complaints. No leg pain. No lower extremity edema. He denies fevers, chills, night sweats and signs/symptoms of infection. Updated Visit, August 07, 2022: Doing well and here with his Martha. He has been doing well and hasn't need a phlebotomy for 16 weeks - now he does. Updated Visit, June 12, 2022: Rafa returns with his Martha and labs are stable. Hgb is at 15.4 and he'd like to defer phlebotomy today. I think that is reasonable. He feels good and has no issues with hydrea. Will see if he needs additional phlebotomy if Hgb >16 next visit - then we can estimate a pattern for planning visits and phlebotomies on a routine basis. Updated Visit, April 17, 2022: Prudencio Patrick returns for follow-up. He remains on Hydrea 500 mg once daily and is tolerating it well. He states that he is doing well. There has been no significant medical changes since his last visit. He denies shortness of breath, chest pain and leg pain. He follows with his PCP, Dr. Smith, who has been changing his blood pressure medications. Patient states the first time he had a phlebotomy his blood pressure dropped. The second time he had a phlebotomy he had no problems. He denies bleeding and abnormal bruising. He offers no new complaints today. No new issues, problems or concerns. Updated Visit, December 26, 2021: Is doing well labs are improved. BP meds adjusted. No need for for phlebotomy today. Will monitor platelets levels. Updated Visit, November 28, 2021: Didn't tolerate phlebotomy due to hypotension but he's on amlodipine, HCTZ 25 in addition to Hyzaar (100/25). Will hold phlebotomy for now and reconsider once his flid status and BP meds are clarified. It's possible that he had a vagal reaction in addition. I discussed his situation with Dr. Smith today and he will clarify meds for him. Updated Visit, October 25, 2021: Telephone 12 mins Discussed findings of Clemente 2 Mutation - c/w Polycythemia - [id number] mut + B-asa Phlebotomy Consider hydrea for high risk disease. Updated Visit, October 18, 2021: Noted to have polycythemia today and has lost weight since last being seen - also has increased total protein. Kidney function remains stable. 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 No evidence of sleep apnea. 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 Has been in observation and followed by Dr. Murphy. He had a bone marrow biopsy in September [address] Cardenas which showed a <5% lambda monoclonal plasma cells. The patient has been in observation since that time. H (more content not included)...[facility]10-03-2023 Evaluation note* Encounter Date Diagnosis Assessment Notes Treatment Notes Treatment Clinical Notes Mar, Hypertension (ICD-10 - I10) This patient is instructed to consume a healthy, low-fat, low-salt diet. They are also encouraged to continue exercise to achieve/maintain a normal BMI. Patient is instructed on home BP measurements: - rest for 5 minutes w/o talking- positioned w/ feet on floor and arm supported- average best 2/3 readings w/ goal < 135/85 _update office in couple weeks Mar, Polycythemia vera (ICD-10 - D45) Stable w/ treatment Not requiring phlebotomy every visit. f/u Hematology for serial H/H Mar, Hypercholesteremia (ICD-10 - E78.00) Instructed on diet and exercise with continued statin therapy.Discussed the beneficial effects of lowering cholesterol in reducing the risk for cerebrovascular and cardiovascular disease. 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 Mar, Trigger middle finge r of left hand (ICD-10 - M65.332) Instructed to wear extension splint during sleep. He extends upon awakening then is good the rest of the day. - no treatment necessary at this time Refer to Ortho if symptoms worsen Mar, Benign prostatic hyperplasia with lower urinary tract symptoms (ICD-10 - N40.1) Symptoms tolerable, no change in treatment. Mar, Nocturia (ICD-10 - R35.1) [employer] Other 08-21-2023 Evaluation note* Encounter Date Diagnosis Assessment Notes Treatment Notes Treatment Clinical Notes Jan, Hypertension (ICD-10 - I10) [employer] Other 08-03-2023 NoteHNO ID: [id number] Author: Maycol Novak MD Service: ? Author Type: Physician Type: Progress Notes Filed: 01/15/2023 8:56 AM Note Text: NAME: Prudencio Patrick CLINIC NO.: [id number] DATE OF SERVICE: January 15, 2023 (Dipak) Some elements in this clinic note that are critical to medical decision making have been carefully reviewed and included from a prior clinic note dated: October 17, 2022 (Mahesh) Referring Provider: Dr. 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 His M protein levels have been stable over the last 13+ years, and his risk of progression remains very low. However, he is more notably polycythemic and so we ordered a MPN workup for PRV which came back positive. Now improving with hydrea. PLAN: Plan for phlebotomy for hematocrit > 47. Continue baby ASA. Continue Hydrea 500 mg daily. Follow up in 12 weeks labs same day. Possible phlebotomy. HPI: CASE HISTORY: 01/15/2023 - H/H 15.3/45.3 WBC 4.73, PLTs 155 04/17/2022 - H/H 16.3/47.9 - phlebotomy 500 ml 02/20/2022 - H/H 16.5/48.7 - phlebotomy 250 ml x 3 weeks in a row 11/28/2021 Hydrea started 500 mg 11/14/2021 - phlebotomy caused severe hypotensive episode - possibly due to fasting/dehydration 10/18/2021 - Jak2+ PRV diagnosed 2006 - IgA [place] and IgM lambda biclonal M-spike Updated Visit, January 15, 2023: Doing well and is back with Martha. Labs reviewed and no need for phlebotomy today. Updated Visit, October 17, 2022: Prudencio Patrick returns for follow-up and possible phlebotomy. Since his last visit there has been no significant medical changes. He remains on Hydrea 500 mg daily and is tolerating it well without any side effects. He denies bleeding and abnormal bruising. No signs of blood clots. No cough, shortness of breath, chest pain or other pulmonary complaints. No leg pain. No lower extremity edema. He denies fevers, chills, night sweats and signs/symptoms of infection. Updated Visit, August 07, 2022: Doing well and here with his Martha. He has been doing well and hasn't need a phlebotomy for 16 weeks - now he does. Updated Visit, June 12, 2022: Rafa returns with his Martha and labs are stable. Hgb is at 15.4 and he'd like to defer phlebotomy today. I think that is reasonable. He feels good and has no issues with hydrea. Will see if he needs additional phlebotomy if Hgb >16 next visit - then we can estimate a pattern for planning visits and phlebotomies on a routine basis. Updated Visit, April 17, 2022: Prudencio Patrick returns for follow-up. He remains on Hydrea 500 mg once daily and is tolerating it well. He states that he is doing well. There has been no significant medical changes since his last visit. He denies shortness of breath, chest pain and leg pain. He follows with his PCP, Dr. Smith, who has been changing his blood pressure medications. Patient states the first time he had a phlebotomy his blood pressure dropped. The second time he had a phlebotomy he had no problems. He denies bleeding and abnormal bruising. He offers no new complaints today. No new issues, problems or concerns. Updated Visit, December 26, 2021: Is doing well labs are improved. BP meds adjusted. No need for for phlebotomy today. Will monitor platelets levels. Updated Visit, November 28, 2021: Didn't tolerate phlebotomy due to hypotension but he's on amlodipine, HCTZ 25 in addition to Hyzaar (100/25). Will hold phlebotomy for now and reconsider once his flid status and BP meds are clarified. It's possible that he had a vagal reaction in addition. I discussed his situation with Dr. Smith today and he will clarify meds for him. Updated Visit, October 25, 2021: Telephone 12 mins Discussed findings of Clemente 2 Mutation - c/w Polycythemia - [id number] mut + B-asa Phlebotomy Consider hydrea for high risk disease. Updated Visit, October 18, 2021: Noted to have polycythemia today and has lost weight since last being seen - also has increased total protein. Kidney function remains stable. 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 No evidence of sleep apnea. 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 Has been in observation and followed by Dr. Murphy. He had a bone marrow biopsy in September [address] Cardenas which showed a <5% lambda monoclonal plasma cells. The patient has been in observation since that time. He denies new complaints at this time. 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 (more content not included)...[facility]08-03-2023 Instructions * Patient Instructions* Maycol Novak MD - 01/15/2023 8:53 AM EDT Plan for phlebotomy for hematocrit > 47. Continue baby ASA. Continue Hydrea 500 mg daily. Follow up in 12 weeks labs same day. Possible phlebotomy. [facility] History of Present illness Narrative* Maycol Novak MD - 01/15/2023 8:46 AM EDT Images from the original note were not included. NAME: Prudencio Patrick [facility] NO.: [id number] DATE OF SERVICE: January 15, 2023 (Dipak) Some elements in this clinic note that are critical to medical decision making have been carefully reviewed and included from a prior clinic note dated: October 17, 2022 (Mahesh) Referring Provider: Dr. 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 His M protein levels have been stable over the last 13+ years, and his risk of progression remainsvery low. However, he is more notably polycythemic and so we ordered a MPN workup for PRV which came back positive. Now improving with hydrea. PLAN: Plan for phlebotomy for hematocrit > 47. Continue baby ASA. Continue Hydrea 500 mg daily. Follow up in 12 weeks labs same day. Possible phlebotomy. HPI: CASE HISTORY: 01/15/2023 - H/H 15.3/45.3 WBC 4.73, PLTs 155 04/17/2022 - H/H 16.3/47.9 - phlebotomy 500 ml 02/20/2022 - H/H 16.5/48.7 - phlebotomy 250 ml x 3 weeks in a row 11/28/2021 Hydrea started 500 mg 11/14/2021 - phlebotomy caused severe hypotensive episode - possibly due to fasting/dehydration 10/18/2021 - Jak2+ PRV diagnosed 2006 - IgA [place] and IgM lambda biclonal M-spike Updated Visit, January 15, 2023: Doing well and is back with Martha. Labs reviewed and no need for phlebotomy today. Updated Visit, October 17, 2022: Prudencio Patrick returns for follow-up and possible phlebotomy. Since his last visit there has been no significant medical changes. He remains on Hydrea 500 mg daily and is tolerating it well without any side effects. He denies bleeding and abnormal bruising. No signs of blood clots. No cough, shortness of breath, chest pain or other pulmonary complaints. No leg pain. No lower extremity edema. He denies fevers, chills, night sweats and signs/symptoms of infection. Updated Visit, August 07, 2022: Doing well and here with his Martha. He has been doing well and hasn't need a phlebotomy for 16weeks - now he does. Updated Visit, June 12, 2022: Rafa returns with his Martha and labs are stable. Hgb is at 15.4 and he'd like to defer phlebotomy today. I think that is reasonable. He feels good and has no issues with hydrea. Will see if he needs additional phlebotomy if Hgb >16 next visit - then we can estimate a pattern for planning visits and phlebotomies on a routine basis. Updated Visit, April 17, 2022: Prudencio Patrick returns for follow-up. He remains on Hydrea 500 mg once daily and is tolerating it well. He states that he is doing well. There has been no significant medical changes since his last visit. He denies shortness of breath, chest pain and leg pain. He follows with his PCP, Dr. Smith, who has been changing his blood pressure medications. Patient states the first time he had a phlebotomy his blood pressure dropped. The second time he had a phlebotomy he had no problems. He denies bleeding and abnormal bruising. He offers no new complaints today. No new issues, problems or concerns. Updated Visit, December 26, 2021: Is doing well labs are improved. BP meds adjusted. No need for for phlebotomy today. Will monitor platelets levels. Updated Visit, November 28, 2021: Didn't tolerate phlebotomy due to hypotension but he's on amlodipine, HCTZ 25 in addition to Hyzaar(100/25). Will hold phlebotomy for now and reconsider once his flid status and BP meds are clarified. It's possible that he had a vagal reaction in addition. I discussed his situation with Dr. Smith today and he will clarify meds for him. Updated Visit, October 25, 2021: Telephone 12 mins Discussed findings of Clemente 2 Mutation - c/w Polycythemia - [id number] mut + B-asa Phlebotomy Consider hydrea for high risk disease. Updated Visit, October 18, 2021: Noted to have polycythemia today and has lost weight since last being seen - also has increased total protein. Kidney function remains stable. 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 No evidence of sleep apnea. 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 Has been in observation and followed by Dr. Murphy. He had a bone marrow biopsy in September [address] Cardenas which showed a <5% lambda monoclonal plasma cells. The patient has been in observation since that time. He denies new complaints at this time. 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 REVIEW OF SYSTEMS Per HPI and otherwise negative by full review of organ systems. ECOG PERFORMANCE STATUS: 0 PHYSICAL EXAMINATION: Vitals: BP 165/79 Pulse 58 Temp (Src) 97.1 (Temporal) Resp 18 Ht 5' 10.984 (1.80m) Wt 249 lb 9.6 oz (113.2kg) SpO2 97% BMI 34.83 kg/(m^2). Body surface area is 2.38 meters squared. Exam limited to gross visualization where appropriate. Gen.: This is an age-appropriate patient in no acute distress. Head: Appears atraumatic with no visible lesions. Eyes: Pupils equally round and reactive to light, extraocular muscles are intact. Neck: Supple. Respiratory: Appears to be respiring comfortably. Neurologic: Nonfocal to gross visualization. Alert and oriented 3. Psychiatric: No evidence of inappropriate anxiety or depression. Skin: Visible areas of skin without rash, lesions, wounds or petechiae. ALLERGIES: ALLERGIES Allergen Reactions Clindamycin Anaphylaxis Penicillins Hives MEDICATIONS: hydroxyurea (HYDREA) 500 mg capsule TAKE 1 CAPSULE BY MOUTH ONCE DAILY losartan (COZAAR) 50 mg tablet Take 50 mg by mouth once daily. citalopram hydrobromide (CELEXA) 10 mg tablet Take 10 mg by mouth once daily. acyclovir (ZOVIRAX) 800 mg tablet Take 800 mg by mouth twice daily. ATORVASTATIN 10 mg tablet Take 10 mg by mouth once daily. amLODIPine 5 mg tablet Take 5 mg by mouth twice daily. hydrochlorothiazide 25 mg tablet Take 25 mg by mouth once daily. finasteride (PROSCAR) 5 mg tablet Take 5 mg by mouth once daily. LABORATORY VALUES: WBC (k/uL) Date Value 01/15/2023 4.74 RBC (m/uL) Date Value 01/15/2023 4.34 Hemoglobin (g/dL) Date Value 01/15/2023 15.3 Hematocrit (%) Date Value 01/15/2023 45.3 MCV (fL) Date Value 01/15/2023 104.4 (H) MCH (pg) Date Value 01/15/2023 35.3 (H) MCHC (g/dL) Date Value 01/15/2023 33.8 RDW-CV (%) Date Value 01/15/2023 13.6 Platelet Count (k/uL) Date Value 01/15/2023 155 MPV (fL) Date Value 01/15/2023 10.4 Glucose (mg/dL) Date Value 01/15/2023 101 (H) BUN (mg/dL) Date Value 01/15/2023 18 Creatinine (mg/dL) Date Value 01/15/2023 1.14 Sodium (mmol/L) Date Value 01/15/2023 141 Potassium (mmol/L) Date Value 01/15/2023 3.9 Chloride (mmol/L) Date Value 01/15/2023 105 CO2 (mmol/L) Date Value 01/15/2023 27 Protein, Total (g/dL) Date Value 01/15/2023 7.4 Albumin (g/dL) Date Value 01/15/2023 4.2 Calcium, Total (mg/dL) Date Value 01/15/2023 9.7 Alkaline Phosphatase (U/L) Date Value 01/15/2023 101 Bilirubin, Total (mg/dL) Date Value 01/15/2023 0.7 AST (U/L) Date Value 01/15/2023 23 ALT (U/L) Date Value 01/15/2023 22 DIAGNOSIS: (D45) PRV (polycythemia rubra vera) ([facility]) (primary encounter diagnosis) Plan: IRON + TIBC, FERRITIN BLD, VITAMIN B12 BLOOD, FOLATE SERUM, B2 MICROGLOBULIN B, CBC + DIFF, COMP METABOLIC PANEL, LD LACTATE DEHYDRO, PHOSPHORUS INORGANIC, PROTEIN ELECTROPHORESIS SERUM W/INTERP, MONOCLONAL PROTEIN, SERUM (BLOOD), URIC ACID BLOOD, CALCIUM IONIZED BLOOD (D47.2) MGUS (monoclonal gammopathy of unknown significance) Plan: IRON + TIBC, FERRITIN BLD, VITAMIN B12 BLOOD, FOLATE SERUM, B2 MICROGLOBULIN B, CBC + DIFF, COMP METABOLIC PANEL, LD LACTATE DEHYDRO, PHOSPHORUS INORGANIC, PROTEIN ELECTROPHORESIS SERUM W/INTERP, MONOCLONAL PROTEIN, SERUM (BLOOD), URIC ACID BLOOD, CALCIUM IONIZED BLOOD PAST MEDICAL HISTORY Diagnosis Date Hypertension MGUS (monoclonal gammopathy of unknown significance) Osteoarthritis PRV (polycythemia rubra vera) ([facility]) 10/25/2021 History reviewed. No pertinent surgical history. Social History Tobacco Use Smoking status: Former Types: Cigarettes Quit date: 05/31/1980 Years since quittin.6 Passive exposure: Past Smokeless tobacco: Never Substance Use Topics Alcohol use: Not Currently Drug use: Never History reviewed. No pertinent family history. I spent a total of 20 minutes on the date of the service which included preparing to see the patient, [id number] patient care, completing clinical documentation, performing a medically appropriate examination, counseling and educating the patient/family/caregiver, ordering medications, tests, or p rocedures, and independently interpreting results (not separately reported). Maycol Novak MD, CPE Hematology and Oncology Services Provided at: [place], [place] CC: Dr. Jose Smith [address] [facility] [id number] documented in this [facility] NoteHNO ID: [id number] Author: Wisam Long APRN.GROUP WORKER Service: ? Author Type: Nurse Practitioner Type: Progress Notes Filed: 10/17/2022 1:28 PM Note Text: NAME: Prudencio Patrick [facility] NO.: [id number] DATE OF SERVICE: October 17, 2022 (Mahesh) Some elements in this clinic note that are critical to medical decision making have been carefully reviewed and included from a prior clinic note dated: August 07, 2022. (Dr. Novak) Referring Provider: Dr. 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 His M protein levels have been stable over the last 13+ years, and his risk of progression remains very low. However, he is more notably polycythemic and so we ordered a MPN workup for PRV which came back positive. Now improving with hydrea. PLAN: Plan for phlebotomy for hematocrit > 47. Continue baby ASA. Continue Hydrea 500 mg daily. Follow up in 12 weeks labs same day. Possible phlebotomy. HPI: CASE HISTORY: 04/17/2022 - H/H 16.3/47.9 - phlebotomy 500 ml 02/20/2022 - H/H 16.5/48.7 - phlebotomy 250 ml x 3 weeks in a row 11/28/2021 Hydrea started 500 mg 11/14/2021 - phlebotomy caused severe hypotensive episode - possibly due to fasting/dehydration 10/18/2021 - Jak2+ PRV diagnosed 2006 - IgA [place] and IgM lambda biclonal M-spike Updated Visit, October 17, 2022: Prudencio Patrick returns for follow-up and possible phlebotomy. Since his last visit there has been no significant medical changes. He remains on Hydrea 500 mg daily and is tolerating it well without any side effects. He denies bleeding and abnormal bruising. No signs of blood clots. No cough, shortness of breath, chest pain or other pulmonary complaints. No leg pain. No lower extremity edema. He denies fevers, chills, night sweats and signs/symptoms of infection. Updated Visit, August 07, 2022: Doing well and here with his Martha. He has been doing well and hasn't need a phlebotomy for 16 weeks - now he does. Updated Visit, June 12, 2022: Rafa returns with his Martha and labs are stable. Hgb is at 15.4 and he'd like to defer phlebotomy today. I think that is reasonable. He feels good and has no issues with hydrea. Will see if he needs additional phlebotomy if Hgb >16 next visit - then we can estimate a pattern for planning visits and phlebotomies on a routine basis. Updated Visit, April 17, 2022: Prudencio Patrick returns for follow-up. He remains on Hydrea 500 mg once daily and is tolerating it well. He states that he is doing well. There has been no significant medical changes since his last visit. He denies shortness of breath, chest pain and leg pain. He follows with his PCP, Dr. Smith, who has been changing his blood pressure medications. Patient states the first time he had a phlebotomy his blood pressure dropped. The second time he had a phlebotomy he had no problems. He denies bleeding and abnormal bruising. He offers no new complaints today. No new issues, problems or concerns. Updated Visit, December 26, 2021: Is doing well labs are improved. BP meds adjusted. No need for for phlebotomy today. Will monitor platelets levels. Updated Visit, November 28, 2021: Didn't tolerate phlebotomy due to hypotension but he's on amlodipine, HCTZ 25 in addition to Hyzaar (100/25). Will hold phlebotomy for now and reconsider once his flid status and BP meds are clarified. It's possible that he had a vagal reaction in addition. I discussed his situation with Dr. Smith today and he will clarify meds for him. Updated Visit, October 25, 2021: Telephone 12 mins Discussed findings of Clemente 2 Mutation - c/w Polycythemia - [id number] mut + B-asa Phlebotomy Consider hydrea for high risk disease. Updated Visit, October 18, 2021: Noted to have polycythemia today and has lost weight since last being seen - also has increased total protein. Kidney function remains stable. 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 No evidence of sleep apnea. 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 Has been in observation and followed by Dr. Murphy. He had a bone marrow biopsy in September [address] Cardenas which showed a <5% lambda monoclonal plasma cells. The patient has been in observation since that time. He denies new complaints at this time. 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 REVIEW OF SYSTEMS Per HPI and otherwise negative by (more content not included)...[facility]05-[facility] History of Present illness Narrative* Wisam Long APRN.[facility] - 10/17/2022 8:48 AM EDT Images from the original note were not included. NAME: Prudencio Patrick [facility] NO.: [id number] DATE OF SERVICE: October 17, 2022 (Mahesh) Some elements in this clinic note that are critical to medical decision making have been carefully reviewed and included from a prior clinic note dated: August 07, 2022. (Dr. Novak) Referring Provider: Dr. 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 His M protein levels have been stable over the last 13+ years, and his risk of progression remainsvery low. However, he is more notably polycythemic and so we ordered a MPN workup for PRV which came back positive. Now improving with hydrea. PLAN: Plan for phlebotomy for hematocrit > 47. Continue baby ASA. Continue Hydrea 500 mg daily. Follow up in 12 weeks labs same day. Possible phlebotomy. HPI: CASE HISTORY: 04/17/2022 - H/H 16.3/47.9 - phlebotomy 500 ml 02/20/2022 - H/H 16.5/48.7 - phlebotomy 250 ml x 3 weeks in a row 11/28/2021 Hydrea started 500 mg 11/14/2021 - phlebotomy caused severe hypotensive episode - possibly due to fasting/dehydration 10/18/2021 - Jak2+ PRV diagnosed 2006 - IgA [place] and IgM lambda biclonal M-spike Updated Visit, October 17, 2022: Prudencio Patrick returns for follow-up and possible phlebotomy. Since his last visit there has been no significant medical changes. He remains on Hydrea 500 mg daily and is tolerating it well without any side effects. He denies bleeding and abnormal bruising. No signs of blood clots. No cough, shortness of breath, chest pain or other pulmonary complaints. No leg pain. No lower extremity edema. He denies fevers, chills, night sweats and signs/symptoms of infection. Updated Visit, August 07, 2022: Doing well and here with his Martha. He has been doing well and hasn't need a phlebotomy for 16weeks - now he does. Updated Visit, June 12, 2022: Rafa returns with his Martha and labs are stable. Hgb is at 15.4 and he'd like to defer phlebotomy today. I think that is reasonable. He feels good and has no issues with hydrea. Will see if he needs additional phlebotomy if Hgb >16 next visit - then we can estimate a pattern for planning visits and phlebotomies on a routine basis. Updated Visit, April 17, 2022: Prudencio Patrick returns for follow-up. He remains on Hydrea 500 mg once daily and is tolerating it well. He states that he is doing well. There has been no significant medical changes since his last visit. He denies shortness of breath, chest pain and leg pain. He follows with his PCP, Dr. Smith, who has been changing his blood pressure medications. Patient states the first time he had a phlebotomy his blood pressure dropped. The second time he had a phlebotomy he had no problems. He denies bleeding and abnormal bruising. He offers no new complaints today. No new issues, problems or concerns. Updated Visit, December 26, 2021: Is doing well labs are improved. BP meds adjusted. No need for for phlebotomy today. Will monitor platelets levels. Updated Visit, November 28, 2021: Didn't tolerate phlebotomy due to hypotension but he's on amlodipine, HCTZ 25 in addition to Hyzaar(100/25). Will hold phlebotomy for now and reconsider once his flid status and BP meds are clarified. It's possible that he had a vagal reaction in addition. I discussed his situation with Dr. Smith today and he will clarify meds for him. Updated Visit, October 25, 2021: Telephone 12 mins Discussed findings of Clemente 2 Mutation - c/w Polycythemia - [id number] mut + B-asa Phlebotomy Consider hydrea for high risk disease. Updated Visit, October 18, 2021: Noted to have polycythemia today and has lost weight since last being seen - also has increased total protein. Kidney function remains stable. 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 No evidence of sleep apnea. 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 Has been in observation and followed by Dr. Murphy. He had a bone marrow biopsy in September [address] Cardenas which showed a <5% lambda monoclonal plasma cells. The patient has been in observation since that time. He denies new complaints at this time. 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 REVIEW OF SYSTEMS Per HPI and otherwise negative by full review of organ systems. ECOG PERFORMANCE STATUS: 0 PHYSICAL EXAMINATION: Vitals: BP 163/82 Pulse 62 Temp (Src) 97.8 (Temporal) Resp 16 Ht 5' 10.984 (1.80m) Wt 247 lb (112.0kg) SpO2 95% BMI 34.46 kg/(m^2). Body surface area is 2.37 meters squared. Exam limited to gross visualization where appropriate due to COVID-19. Gen.: This is an age-appropriate patient in no acute distress. Head: Appears atraumatic with no visible lesions. Eyes: Pupils equally round and reactive to light, extraocular muscles are intact. Neck: Supple. Mouth: Masked. Respiratory: Appears to be respiring comfortably. Neurologic: Nonfocal to gross visualization. Alert and oriented 3. Psychiatric: No evidence of inappropriate anxiety or depression. Skin: Visible areas of skin without rash, lesions, wounds or petechiae. ALLERGIES: ALLERGIES Allergen Reactions Clindamycin Anaphylaxis Penicillins Hives MEDICATIONS: hydroxyurea (HYDREA) 500 mg capsule TAKE 1 CAPSULE BY MOUTH ONCE DAILY losartan (COZAAR) 50 mg tablet Take 50 mg by mouth once daily. citalopram hydrobromide (CELEXA) 10 mg tablet Take 10 mg by mouth once daily. acyclovir (ZOVIRAX) 800 mg tablet Take 800 mg by mouth twice daily. ATORVASTATIN 10 mg tablet Take 10 mg by mouth once daily. amLODIPine 5 mg tablet Take 5 mg by mouth twice daily. hydrochlorothiazide 25 mg tablet Take 25 mg by mouth once daily. finasteride (PROSCAR) 5 mg tablet Take 5 mg by mouth once daily. LABORATORY VALUES: Hemoglobin (g/dL) Date Value 10/17/2022 15.7 08/10/2019 16.7 Hematocrit (%) Date Value 10/17/2022 46.2 08/10/2019 48.9 WBC (k/uL) Date Value 10/17/2022 4.83 08/10/2019 4.76 Platelet Count (k/uL) Date Value 10/17/2022 169 08/10/2019 166 DIAGNOSIS: (D45) PRV (polycythemia rubra vera) ([facility]) (primary encounter diagnosis) (D47.2) MGUS (monoclonal gammopathy of unknown significance) PAST MEDICAL HISTORY Diagnosis Date Hypertension MGUS (monoclonal gammopathy of unknown significance) Osteoarthritis PRV (polycythemia rubra vera) ([facility]) 10/25/2021 No past surgical history on file. Social History Tobacco Use Smoking status: Former Types: Cigarettes Quit date: 05/31/1980 Years since quittin.4 Passive exposure: Past Smokeless tobacco: Never Substance Use Topics Alcohol use: Not Currently Drug use: Never No family history on file. Wisam Long APRN.[facility] Hematology and Oncology Services Provided at: [place], [place] CC: Dr. Jose Smith [address] [facility] [id number] I spent a total of 30 minutes on the date of the service which included preparing to see the patient, [id number] patient care, completing clinical documentation, obtaining and/or reviewing separately obtained history, performing a medically appropriate examination, counseling and educating the pat ient/family/caregiver, ordering medications, tests, or procedures, independently interpreting results (not separately reported), and communicating results to the patient/family/caregiver. documented in this [facility] Evaluation note* Encounter Date Diagnosis Assessment Notes Treatment Notes Treatment Clinical Notes Sep, Stage 3a chronic kidney disease (ICD-10 - N18.31) [employer] Other 03-31-2023 Evaluation note* Encounter Date Diagnosis Assessment Notes Treatment Notes Treatment Clinical Notes Aug, Medicare annual wellness visit, subsequent (ICD-10 - Z00.00) Personalized health advice was given to the beneficiary including a written plan for screenings discussed and provided. Advanced care planning reviewed and/or information given as requested. Additional counseling was provided here today in regards to, [ ]. The above visit was performed by [ ], under direct supervision of [ ]. Document reviewed and amended by provider signed below. Healthy diet and exercise. Reviewed age-appropriate preventive testing recommended. Aug, Hypertension (ICD-10 - I10) This patient is instructed to consume a healthy, low-fat, low-salt diet. They are also encouraged to continue exercise to achieve/maintain a normal BMI. Aug, Polycythemia vera (ICD-10 - D45) Dx 1-2 years ago Phlebotomy 2-3x and last time didn't require. Associated w/ lightheadedness. Continue Hydroxurea and f/u Hematology Aug, Hypercholesteremia (ICD-10 - E78.00) Diet and exercise with continued statin therapy. 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 The function of the prostate (prostate gland) is to add fluid to semen during ejaculation. Prostate cancer is the second most common type of cancer in men. A screening test for cancer is a test that is done before cancer symptoms start. Screening can helpto identify cancer at an early stage, when the cancer can be treated more easily. The recommended prostate cancer screening test is a blood test called the prostate-specific antigen (PSA) test. PSA is a protein that is made in the prostate. As you age, your prostate naturally produces more PSA. Abnormally high PSA levels may be caused by: Prostate cancer. An enlarged prostate that is not caused by cancer (benign prostatic hyperplasia, BPH). This condition is very common in older men. A prostate gland infection (prostatitis). Medicines to assist with hair growth, such as finasteride. Depending on the PSA results, you may need more tests, such as: A physical exam to check the size of your prostate gland. Blood and imaging tests. A procedure to remove tissue samples from your prostate gland for testing (biopsy). Who should have screening? Screening recommendations vary based on age. If you are younger than age 40, screening is not recommended. If you are age 40 54 and you have no risk factors, screening is not recommended. If you are younger than age 55, ask your health care provider if you need screening if you have oneof these risk factors: ?Being of -[place] descent. ?Having a family history of prostate cancer. If you are age 55 69, talk with your health care provider about your need for screening and how often screening should be done. If you are older than age 70, screening is not recommended. This is because the risks that screening can cause are greater than the benefits that it may provide (risks outweigh the benefits). If you are at high risk for prostate cancer, your health care provider may recommend that you have screenings more often or start screening at a younger age. You may be at high risk if you: Are older than age 55. Are -[place]. Have a father, brother, or uncle who has been diagnosed with prostate cancer. The risk may be higher if your family member's cancer occurred at an early age. What are the benefits of screening? There is a small chance that screening may lower your risk of dying from prostate cancer. The chance is small because prostate cancer is typically a slow-growing cancer, and most men with prostate cancer from a different cause. What are the risks of screening? The main risk of prostate cancer screening is diagnosing and treating prostate cancer that would never have caused any symptoms or problems (overdiagnosis and overtreatment). PSA screening cannot tell you if your PSA is high due to cancer or a different cause. A prostate biopsy is the only procedure to diagnose prostate cancer. Even the results of a biopsy may not tell you if your cancer needs mary jo treated. Slow-growing prostate cancer may not need any treatment other than monitoring, so diagnosing and treating it may cause unnecessary stress or other side effects. A prostate biopsy may also cause: Infection or fever. A false negative. This is a result that shows that you do not have prostate cancer when you actually do have prostate cancer. Questions to ask your health care provider When should I start prostate cancer screening? What is my risk for prostate cancer? How often do I need screening? What type of screening tests do I need? How do I get my test results? What do my results mean? Do I need treatment? Contact a health care provider if: You have difficulty urinating. You have pain when you urinate or ejaculate. You have blood in your urine or semen. You have pain in your back or in the area of your prostate. You have trouble getting or maintaining an erection (erectile dysfunction, ED). Summary Prostate cancer is a common type of cancer in men. The prostate (prostate gland) is located below the bladder and in front of the rectum. This gland adds fluid to semen during ejaculation. Prostate cancer screening may identify cancer at an early stage, when the cancer can be treated more easily. The prostate-specific antigen (PSA) test is the recommended screening test for prostate cancer. Discuss the risks and benefits of prostate cancer screening with your health care provider. If you are age 70 or older, screening is likely to lead to more risks than benefits (risks outweigh the benefits). This information is not intended to replace advice given to you by your health care provider. Make sure you discuss any questions you have with your health care provider. Document Released: 03/12/2018 Document Revised: 05/14/2018 Document Reviewed: 03/12/2018 [employer] Patient Education 2019 [employer]. Follow Up Care 08/05/2021 09:56:08 With:BARBRA BAILON, Christophe Stoddard, URL Address: [address] [place] [address] [place] [address]- When: Unknown [facility] [employer] 02-23-2023 Evaluation note* Encounter Date Diagnosis Assessment Notes Treatment Notes Treatment Clinical Notes Jul, Polycythemia rubra vera (ICD-10 - D45) [email or web address] Other 02-23-2023 Miscellaneous Notes* Telephone Encounter - Yi Leonardo - 08/07/2022 1:20 PM EST Call placed to patient. He preferred to go on 08/18. Patient has been scheduled for lab and phleb this day. Yi Leonardo [12:22 PM] Orestes Khoury just said he wants Rafa Patrick, our phlebotomy pt, to return in 1-2 weeks to attempt the phleb again. There is a telephone encounter about this...Thank you * Telephone Encounter - Orestes Khoury RN - 08/07/2022 10:38 AM EST Patient was unable to give more than 100 ml blood today and after attempting again following fluids(without success) pt decided he wanted to go home. Pt/spouse question if he needs to come in sooner for his next phleb since we were unsuccessful thisvisit. Please advise. Orestes Khoury RN documented in [facility] NoteHNO ID: [id number] Author: Carmen Oquendo RN Service: ? Author Type: Registered Nurse Type: Progress Notes Filed: 08/07/2022 11:34 AM Note Text: Phlebotomy started with at 20 gauge in pt's left antecubital at 0915, flow slow. Phlebotomy only successful in pulling 100cc of blood. IV removed intact, pt reports that he is feeling a little lightheaded at this time. Pt's feet placed up, and head leaned back. Blood pressure rechecked at this time and current pressure 81/52 @ 0920. Pt given cool rag for his head, offered oral fluids and patient declined. Rechecked on patient to see how he was feeling he stated not feeling much better blood pressure rechecked at this time, 64/48 @ 0930. Pt reclined back further and pillow placed under his legs. Sole Rougher notified Dr. Novak at this time instructed to start IV fluid bolus of 500cc. IV started in patients hand using a 22 gauge needle and fluids started. Pt offered oral fluids again and patient denied. Pt's vital obtained pt reports feeling better BP 95/58 @ 0945. Pt's symptoms recovered and patient requested that we attempt to perform the phlebotomy again vitals obtained @ 1005 BP 104/69. Second attempt at phlebotomy not successful. 20 gauge needle in left antecubital used for second attempt. Pt does not wish to try again, Dr Novak notified.[facility]02-23-2023 NoteHNO ID: [id number] Author: Maycol Novak MD Service: ? Author Type: Physician Type: Progress Notes Filed: 08/07/2022 8:38 AM Note Text: NAME: Prudencio Patrick [facility] NO.: [id number] DATE OF SERVICE: August 07, 2022 (Dipak) Some elements in this clinic note that are critical to medical decision making have been carefully reviewed and included from a prior clinic note dated: June 12, 2022 (Dipak) Referring Provider: Dr. 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 His M protein levels have been stable over the last 13+ years, and his risk of progression remains very low. However, he is more notably polycythemic and so we ordered a MPN workup for PRV which came back positive. Now improving with hydrea. PLAN: Phlebotomy today - 500 CC Continue baby ASA. Continue Hydrea 500 mg daily. Follow up in 12 weeks labs same day. Possible phlebotomy. HPI: CASE HISTORY: 04/17/2022 - H/H 16.3/47.9 - phlebotomy 500 ml 02/20/2022 - H/H 16.5/48.7 - phlebotomy 250 ml x 3 weeks in a row 11/28/2021 Hydrea started 500 mg 11/14/2021 - phlebotomy caused severe hypotensive episode - possibly due to fasting/dehydration 10/18/2021 - Jak2+ PRV diagnosed 2006 - IgA [place] and IgM lambda biclonal M-spike Updated Visit, August 07, 2022: Doing well and here with his Martha. He has been doing well and hasn't need a phlebotomy for 16 weeks - now he does. Updated Visit, June 12, 2022: Rafa returns with his Martha and labs are stable. Hgb is at 15.4 and he'd like to defer phlebotomy today. I think that is reasonable. He feels good and has no issues with hydrea. Will see if he needs additional phlebotomy if Hgb >16 next visit - then we can estimate a pattern for planning visits and phlebotomies on a routine basis. Updated Visit, April 17, 2022: Prudencio Patrick returns for follow-up. He remains on Hydrea 500 mg once daily and is tolerating it well. He states that he is doing well. There has been no significant medical changes since his last visit. He denies shortness of breath, chest pain and leg pain. He follows with his PCP, Dr. Smith, who has been changing his blood pressure medications. Patient states the first time he had a phlebotomy his blood pressure dropped. The second time he had a phlebotomy he had no problems. He denies bleeding and abnormal bruising. He offers no new complaints today. No new issues, problems or concerns. Updated Visit, December 26, 2021: Is doing well labs are improved. BP meds adjusted. No need for for phlebotomy today. Will monitor platelets levels. Updated Visit, November 28, 2021: Didn't tolerate phlebotomy due to hypotension but he's on amlodipine, HCTZ 25 in addition to Hyzaar (100/25). Will hold phlebotomy for now and reconsider once his flid status and BP meds are clarified. It's possible that he had a vagal reaction in addition. I discussed his situation with Dr. Smith today and he will clarify meds for him. Updated Visit, October 25, 2021: Telephone 12 mins Discussed findings of Clemente 2 Mutation - c/w Polycythemia - [id number] mut + B-asa Phlebotomy Consider hydrea for high risk disease. Updated Visit, October 18, 2021: Noted to have polycythemia today and has lost weight since last being seen - also has increased total protein. Kidney function remains stable. 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 No evidence of sleep apnea. 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 Has been in observation and followed by Dr. Murphy. He had a bone marrow biopsy in September [address] Cardenas which showed a <5% lambda monoclonal plasma cells. The patient has been in observation since that time. He denies new complaints at this time. 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 REVIEW OF SYSTEMS Per HPI and otherwise negative by full review of organ systems. ECOG PERFORMANCE STATUS: 0 PHYSICAL EXAMINATION: Vitals: BP 169/83 Pulse 66 Temp (Src) 97.5 (Temporal) Resp 16 Ht 5' 10.984 (1.80m) Wt 248 lb 12.8 oz (112.9kg) SpO2 97% BMI 34.72 kg/(m2). Body surface area is 2.38 meters squared. Exam limited to gross visualization where appropriate due to COVID-19. Gen.: This is an age-appropriate patient in no acute distress. Head: Appears atraum (more content not included)...[facility] 08-07-2022 History of Present illness Narrative* Carmen Oquendo RN - 08/07/2022 9:00 AM EST Phlebotomy started with at 20 gauge in pt's left antecubital at 0915, flow slow. Phlebotomy only successful in pulling 100cc of blood. IV removed intact, pt reports that he is feeling a little lightheaded at this time. Pt's feet placed up, and head leaned back. Blood pressure rechecked at this timeand current pressure 81/52 @ 0920. Pt given cool rag for his head, offered oral fluids and patient declined. Rechecked on patient to see how he was feeling he stated not feeling much better blood pressure rechecked at this time, 64/48 @ 0930. Pt reclined back further and pillow placed under his legs. Sole Rougher notified Dr. Novak at this time instructed to start IV fluid bolus of 500cc. IV started in patients hand using a 22 gauge needle and fluids started. Pt offered oral fluids again and patient denied. Pt's vital obtained pt reports feeling better BP 95/58 @ 0945. Pt's symptoms recovered and patient requested that we attempt to perform the phlebotomy again vitals obtained @ 1005 BP 104/69. Second attempt at phlebotomy not successful. 20 gauge needle in left antecubital used for second attempt. Pt does not wish to try again, Dr Novak notified. documented in this encounter[facility] Instructions* Patient Instructions* Maycol Novak MD - 08/07/2022 8:37 AM EST Phlebotomy today - 500 CC Continue baby ASA. Continue Hydrea 500 mg daily. Follow up in 12 weeks labs same day. Possible phlebotomy. documented in this encounterSub[facility] History of Present illness Narrative* Maycol Novak MD - 08/07/2022 8:30 AM EST Images from the original note were not included. NAME: Prudencio Patrick [facility] NO.: [id number] DATE OF SERVICE: August 07, 2022 (Dipak) Some elements in this clinic note that are critical to medical decision making have been carefully reviewed and included from a prior clinic note dated: June 12, 2022 (Dipak) Referring Provider: Dr. 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 His M protein levels have been stable over the last 13+ years, and his risk of progression remainsvery low. However, he is more notably polycythemic and so we ordered a MPN workup for PRV which came back positive. Now improving with hydrea. PLAN: Phlebotomy today - 500 CC Continue baby ASA. Continue Hydrea 500 mg daily. Follow up in 12 weeks labs same day. Possible phlebotomy. HPI: CASE HISTORY: 04/17/2022 - H/H 16.3/47.9 - phlebotomy 500 ml 02/20/2022 - H/H 16.5/48.7 - phlebotomy 250 ml x 3 weeks in a row 11/28/2021 Hydrea started 500 mg 11/14/2021 - phlebotomy caused severe hypotensive episode - possibly due to fasting/dehydration 10/18/2021 - Jak2+ PRV diagnosed 2006 - IgA [place] and IgM lambda biclonal M-spike Updated Visit, August 07, 2022: Doing well and here with his Martha. He has been doing well and hasn't need a phlebotomy for 16weeks - now he does. Updated Visit, June 12, 2022: Rafa returns with his Martha and labs are stable. Hgb is at 15.4 and he'd like to defer phlebotomy today. I think that is reasonable. He feels good and has no issues with hydrea. Will see if he needs additional phlebotomy if Hgb >16 next visit - then we can estimate a pattern for planning visits and phlebotomies on a routine basis. Updated Visit, April 17, 2022: Prudencio Patrick returns for follow-up. He remains on Hydrea 500 mg once daily and is tolerating it well. He states that he is doing well. There has been no significant medical changes since his last visit. He denies shortness of breath, chest pain and leg pain. He follows with his PCP, Dr. Smith, who has been changing his blood pressure medications. Patient states the first time he had a phlebotomy his blood pressure dropped. The second time he had a phlebotomy he had no problems. He denies bleeding and abnormal bruising. He offers no new complaints today. No new issues, problems or concerns. Updated Visit, December 26, 2021: Is doing well labs are improved. BP meds adjusted. No need for for phlebotomy today. Will monitor platelets levels. Updated Visit, November 28, 2021: Didn't tolerate phlebotomy due to hypotension but he's on amlodipine, HCTZ 25 in addition to Hyzaar(100/25). Will hold phlebotomy for now and reconsider once his flid status and BP meds are clarified. It's possible that he had a vagal reaction in addition. I discussed his situation with Dr. Smith today and he will clarify meds for him. Updated Visit, October 25, 2021: Telephone 12 mins Discussed findings of Clemente 2 Mutation - c/w Polycythemia - [id number] mut + B-asa Phlebotomy Consider hydrea for high risk disease. Updated Visit, October 18, 2021: Noted to have polycythemia today and has lost weight since last being seen - also has increased total protein. Kidney function remains stable. 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 No evidence of sleep apnea. 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 Has been in observation and followed by Dr. Murphy. He had a bone marrow biopsy in September [address] Cardenas which showed a <5% lambda monoclonal plasma cells. The patient has been in observation since that time. He denies new complaints at this time. 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 REVIEW OF SYSTEMS Per HPI and otherwise negative by full review of organ systems. ECOG PERFORMANCE STATUS: 0 PHYSICAL EXAMINATION: Vitals: BP 169/83 Pulse 66 Temp (Src) 97.5 (Temporal) Resp 16 Ht 5' 10.984 (1.80m) Wt 248 lb 12.8 oz (112.9kg) SpO2 97% BMI 34.72 kg/(m^2). Body surface area is 2.38 meters squared. Exam limited to gross visualization where appropriate due to COVID-19. Gen.: This is an age-appropriate patient in no acute distress. Head: Appears atraumatic with no visible lesions. Eyes: Pupils equally round and reactive to light, extraocular muscles are intact. Neck: Supple. Mouth: Masked. Respiratory: Appears to be respiring comfortably. Neurologic: Nonfocal to gross visualization. Alert and oriented 3. Psychiatric: No evidence of inappropriate anxiety or depression. Skin: Visible areas of skin without rash, lesions, wounds or petechiae. ALLERGIES: ALLERGIES Allergen Reactions Clindamycin Anaphylaxis Penicillins Hives MEDICATIONS: hydroxyurea (HYDREA) 500 mg capsule TAKE 1 CAPSULE BY MOUTH ONCE DAILY losartan (COZAAR) 50 mg tablet Take 50 mg by mouth once daily. citalopram hydrobromide (CELEXA) 10 mg tablet Take 10 mg by mouth once daily. acyclovir (ZOVIRAX) 800 mg tablet Take 800 mg by mouth twice daily. ATORVASTATIN 10 mg tablet Take 10 mg by mouth once daily. amLODIPine 5 mg tablet Take 5 mg by mouth twice daily. hydrochlorothiazide 25 mg tablet Take 25 mg by mouth once daily. finasteride (PROSCAR) 5 mg tablet Take 5 mg by mouth once daily. LABORATORY VALUES: WBC (k/uL) Date Value 08/07/2022 4.46 RBC (m/uL) Date Value 08/07/2022 4.66 Hemoglobin (g/dL) Date Value 08/07/2022 16.4 Hematocrit (%) Date Value 08/07/2022 47.6 MCV (fL) Date Value 08/07/2022 102.1 (H) MCH (pg) Date Value 08/07/2022 35.2 (H) MCHC (g/dL) Date Value 08/07/2022 34.5 RDW-CV (%) Date Value 08/07/2022 14.4 Platelet Count (k/uL) Date Value 08/07/2022 163 MPV (fL) Date Value 08/07/2022 9.9 Glucose (mg/dL) Date Value 08/07/2022 121 (H) BUN (mg/dL) Date Value 08/07/2022 13 Creatinine (mg/dL) Date Value 08/07/2022 1.01 Sodium (mmol/L) Date Value 08/07/2022 139 Potassium (mmol/L) Date Value 08/07/2022 3.8 Chloride (mmol/L) Date Value 08/07/2022 101 CO2 (mmol/L) Date Value 08/07/2022 27 Protein, Total (g/dL) Date Value 08/07/2022 7.7 Albumin (g/dL) Date Value 08/07/2022 4.5 Calcium, Total (mg/dL) Date Value 08/07/2022 10.2 Alkaline Phosphatase (U/L) Date Value 08/07/2022 99 Bilirubin, Total (mg/dL) Date Value 08/07/2022 0.7 AST (U/L) Date Value 08/07/2022 25 ALT (U/L) Date Value 08/07/2022 23 DIAGNOSIS: (D45) PRV (polycythemia rubra vera) (HCC) (primary encounter diagnosis) Plan: LD LACTATE DEHYDRO, CBC + DIFF, COMP METABOLIC PANEL PAST MEDICAL HISTORY Diagnosis Date Hypertension MGUS (monoclonal gammopathy of unknown significance) Osteoarthritis PRV (polycythemia rubra vera) (HCC) 10/25/2021 No past surgical history on file. Social History Tobacco Use Smoking status: Former Types: Cigarettes Quit date: 05/31/1980 Years since quittin.2 Passive exposure: Past Smokeless tobacco: Never Substance Use Topics Alcohol use: Not Currently Drug use: Never No family history on file. I spent a total of 20 minutes on the date of the service which included preparing to see the patient, [id number] patient care, completing clinical documentation, performing a medically appropriate examination, counseling and educating the patient/family/caregiver, ordering medications, tests, or p rocedures, and independently interpreting results (not separately reported). Maycol Novak MD, CPE Hematology and Oncology Services Provided at: [place], [place] CC: Dr. Jose Smith [id number] [facility] [id number] documented in this encounterSub[facility] Evaluation note* Encounter Date Diagnosis Assessment Notes Treatment Notes Treatment Clinical Notes Jul, Sebaceous cyst (ICD-10 - L72.3) Resolved, continue to monitor closely Jul, Hypertension (ICD-10 - I10) This patient is instructed to consume a healthy, low-fat, low-salt diet. They are also encouraged to continue exercise to achieve/maintain a normal BMI. Jul, Local infection of the skin and subcutaneous tissue, unspecified (ICD-10 - L08.9) Stop antibiotics and monitor site for recurrence [employer] Other 01-19-2023 Evaluation note* Encounter Date Diagnosis Assessment Notes Treatment Notes Treatment Clinical Notes Jun, Sebaceous cyst (ICD-10 - L72.3) Gently massage area as long as able to express fluid Jun, Hypertension (ICD-10 - I10) This patient is instructed to consume a healthy, low-fat, low-salt diet. They are also encouraged to continue exercise to achieve/maintain a normal BMI. Jun, Local infection of the skin and subcutaneous tissue, unspecified (ICD-10 - L08.9) Warm compresses and continue low dose Doryx. Call if area increases in size or tenderness. [employer] Other 01-05-2023 Evaluation note* Encounter Date Diagnosis Assessment Notes Treatment Notes Treatment Clinical Notes Jun, Sebaceous cyst (ICD-10 - L72.3) Gently massage to express fluid. Jun, Local infection of the skin and subcutaneous tissue, unspecified (ICD-10 - L08.9) Restart antibiotics and monitor for now. _update in week Jun, Hypertension (ICD-10 - I10) This patient is instructed to consume a healthy, low-fat, low-salt diet. They are also encouraged to continue exercise to achieve/maintain a normal BMI. Continue bid dosing of Amlodipine and Losartan, low salt diet and weight loss. 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 NAME: Prudencio Patrick CLINIC NO.: [id number] DATE OF SERVICE: April 17, 2022 (Mahesh) Some elements in this clinic note that are critical to medical decision making have been carefully reviewed and included from a prior clinic note dated: February 20, 2022. (Dr. Novak) Referring Provider: Dr. 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 His M protein levels have been stable over the last 13+ years, and his risk of progression remainsvery low. However, he is more notably polycythemic and so we ordered a MPN workup for PRV which came back positive. Now improving with hydrea. PLAN: 1. Phlebotomy 500 ml today. 2. Continue baby ASA. 3. Continue Hydrea 500 mg daily. 4. Follow up in 8 weeks labs same day. Possible phlebotomy. HPI: CASE HISTORY: 04/17/2022 - H/H 16.3/47.9 - phlebotomy 500 ml 02/20/2022 - H/H 16.5/48.7 - phlebotomy 250 ml x 3 weeks in a row 11/28/2021 Hydrea started 500 mg 11/14/2021 - phlebotomy caused severe hypotensive episode - possibly due to fasting/dehydration 10/18/2021 - Jak2+ PRV diagnosed 2006 - IgA [place] and IgM lambda biclonal M-spike Updated Visit, April 17, 2022: Prudencio Patrick returns for follow-up. He remains on Hydrea 500 mg once daily and is tolerating it well. He states that he is doing well. There has been no significant medical changes since his last visit. He denies shortness of breath, chest pain and leg pain. He follows with his PCP, Dr. Smith, who has been changing his blood pressure medications. Patient states the first time he had a phlebotomy his blood pressure dropped. The second time he had a phlebotomy he had no problems. He denies bleeding and abnormal bruising. He offers no new complaints today. No new issues, problems or concerns. Updated Visit, December 26, 2021: Is doing well labs are improved. BP meds adjusted. No need for for phlebotomy today. Will monitor platelets levels. Updated Visit, November 28, 2021: Didn't tolerate phlebotomy due to hypotension but he's on amlodipine, HCTZ 25 in addition to Hyzaar(100/25). Will hold phlebotomy for now and reconsider once his flid status and BP meds are clarified. It's possible that he had a vagal reaction in addition. I discussed his situation with Dr. Smith today and he will clarify meds for him. Updated Visit, October 25, 2021: Telephone 12 mins Discussed findings of Clemente 2 Mutation - c/w Polycythemia - [id number] mut + B-asa Phlebotomy Consider hydrea for high risk disease. Updated Visit, October 18, 2021: Noted to have polycythemia today and has lost weight since last being seen - also has increased total protein. Kidney function remains stable. 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 No evidence of sleep apnea. 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 Has been in observation and followed by Dr. Murphy. He had a bone marrow biopsy in September [address] Cardenas which showed a <5% lambda monoclonal plasma cells. The patient has been in observation since that time. He denies new complaints at this time. 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 RADIOGRAPHIC DATA: Reviewed on N/A 1. N/A PATHOLOGIC PROFILE/MOLECULAR DATA: Reviewed on N/A 1. N/A REVIEW OF SYSTEMS Per HPI and otherwise negative by full review of organ systems. ECOG PERFORMANCE STATUS: 0 PHYSICAL EXAMINATION: Vitals: BP 168/90[recheck Bp manuelly[ Pulse 55 Temp (Src) 97.7 (Temporal) Resp 18 Ht 5' 10.984 (1.80m) Wt 248 lb 9.6 oz (112.8kg) SpO2 99% BMI 34.69 kg/(m^2). Body surface area is 2.38 meters squared. Exam limited to gross visualization where appropriate due to COVID-19. Gen.: This is an age-appropriate patient in no acute distress. Head: Appears atraumatic with no visible lesions. Eyes: Pupils equally round and reactive to light, extraocular muscles are intact. Neck: Supple. Mouth: Masked. Respiratory: Appears to be respiring comfortably. Neurologic: Nonfocal to gross visualization. Alert and oriented 3. Psychiatric: No evidence of inappropriate anxiety or depression. Skin: Visible areas of skin without rash, lesions, wounds or petechiae. ALLERGIES: ALLERGIES Allergen Reactions Clindamycin Anaphylaxis Penicillins Hives MEDICATIONS: hydroxyurea (HYDREA) 500 mg capsule TAKE 1 CAPSULE BY MOUTH ONCE DAILY losartan (COZAAR) 50 mg tablet Take 50 mg by mouth once daily. citalopram hydrobromide (CELEXA) 10 mg tablet Take 10 mg by mouth once daily. acyclovir (ZOVIRAX) 800 mg tablet Take 800 mg by mouth twice daily. ATORVASTATIN 10 mg tablet Take 10 mg by mouth once daily. amLODIPine 5 mg tablet Take 5 mg by mouth twice daily. hydrochlorothiazide 25 mg tablet Take 25 mg by mouth once daily. finasteride (PROSCAR) 5 mg tablet Take 5 mg by mouth once daily. LABORATORY VALUES: Hemoglobin (g/dL) Date Value 04/17/2022 16.3 08/10/2019 16.7 Hematocrit (%) Date Value 04/17/2022 47.9 08/10/2019 48.9 WBC (k/uL) Date Value 04/17/2022 4.44 08/10/2019 4.76 Platelet Count (k/uL) Date Value 04/17/2022 165 08/10/2019 166 DIAGNOSIS: (D45) PRV (polycythemia rubra vera) ([facility]) (primary encounter diagnosis) (D47.2) MGUS (monoclonal gammopathy of unknown significance) PAST MEDICAL HISTORY Diagnosis Date Hypertension MGUS (monoclonal gammopathy of unknown significance) Osteoarthritis PRV (polycythemia rubra vera) ([facility]) 10/25/2021 No past surgical history on file. Social History Tobacco Use Smoking status: Former Types: Cigarettes Quit date: 05/31/1980 Years since quittin.9 Smokeless tobacco: Never No family history on file. Wisam Long APRN.[employer] [place], [place] CC: Dr. Jose Smith [facility] [place] [id number] documented in [facility] Miscellaneous Notes* Telephone Encounter - Neetu Avalos RN - 02/28/2022 7:50 AM EDT Pt is scheduled for labs and phlebotomy on 03/06. Please sign pended cbc to prevent delay in tx. Thank you, Neetu Avalos RN documented in this encounterSub[facility] History of Present illness Narrative* Shanice Alvarez RN - 02/27/2022 8:09 AM EDT Hct 44.9 today, does not meet phleb parameters. Pt notified and verbalizes understanding, states hefeels fine. Next appt reviewed with pt. Shanice Alvarez RN documented in this encounterSub[facility] Instructions* Patient Instructions* Maycol Novak MD - 02/20/2022 8:44 AM EDT 1. Phlebotomy today and weekly x 2 additional. 2. Continue B-ASA 3. Continue Hydrea 4. RTC in 8 weeks labs same day. 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 His M protein levels have been stable over the last 13+ years, and his risk of progression remainsvery low. However, he is more notably polycythemic and so I ordered a MPN workup for PRV which came back positive. Now improving with hydrea. PLAN: 1. Phlebotomy today and weekly x 2 additional. 2. Continue B-ASA 3. Continue Hydrea 4. RTC in 8 weeks labs same day. HPI: CASE HISTORY: 02/20/2022 - H/H 16.5/48.7 - phlebotomy 250 ml x 3 weeks in a row 11/28/2021 Hydrea started 500 mg 11/14/2021 - phlebotomy caused severe hypotensive episode - possibly due to fasting/dehydration 10/18/2021 - Jak2+ PRV diagnosed 2006 - IgA [place] and IgM lambda biclonal M-spike Updated Visit, December 26, 2021: Is doing well labs are improved. BP meds adjusted. No need for for phlebotomy today. Will monitor platelets levels. Updated Visit, November 28, 2021: Didn't tolerate phlebotomy due to hypotension but he's on amlodipine, HCTZ 25 in addition to Hyzaar(100/25). Will hold phlebotomy for now and reconsider once his flid status and BP meds are clarified. It's possible that he had a vagal reaction in addition. I discussed his situation with Dr. Smith today and he will clarify meds for him. Updated Visit, October 25, 2021: Telephone 12 mins Discussed findings of Clemente 2 Mutation - c/w Polycythemia - [id number] mut + B-asa Phlebotomy Consider hydrea for high risk disease. Updated Visit, October 18, 2021: Noted to have polycythemia today and has lost weight since last being seen - also has increased total protein. Kidney function remains stable. 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 No evidence of sleep apnea. 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 Has been in observation and followed by Dr. Murphy. He had a bone marrow biopsy in September [address] Cardenas which showed a <5% lambda monoclonal plasma cells. The patient has been in observation since that time. He denies new complaints at this time. 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 RADIOGRAPHIC DATA: Reviewed on N/A 1. N/A PATHOLOGIC PROFILE/MOLECULAR DATA: Reviewed on N/A 1. N/A REVIEW OF SYSTEMS Per HPI and otherwise negative by full review of organ systems. ECOG PERFORMANCE STATUS: 0 PHYSICAL EXAMINATION: Vitals: BP 179/81[recheck opposite arm[ Pulse 59 Temp (Src) 97.6 (Temporal) Resp 16 Ht 5' 10.984 (1.80m) Wt 250 lb 6.4 oz (113.6kg) SpO2 97% BMI 34.94 kg/(m^2). Body surface area is 2.39 meters squared. Exam limited to gross visualization where appropriate due to COVID-19. Gen.: This is an age-appropriate patient in no acute distress. Head: Appears atraumatic with no visible lesions. Eyes: Pupils equally round and reactive to light, extraocular muscles are intact. Neck: Supple. Mouth: Masked. Respiratory: Appears to be respiring comfortably. Neurologic: Nonfocal to gross visualization. Alert and oriented 3. Psychiatric: No evidence of inappropriate anxiety or depression. Skin: Visible areas of skin without rash, lesions, wounds or petechiae. ALLERGIES: ALLERGIES Allergen Reactions Clindamycin Anaphylaxis Penicillins Hives MEDICATIONS: hydroxyurea (HYDREA) 500 mg capsule TAKE 1 CAPSULE BY MOUTH ONCE DAILY losartan (COZAAR) 50 mg tablet Take 50 mg by mouth once daily. citalopram hydrobromide (CELEXA) 10 mg tablet Take 10 mg by mouth once daily. acyclovir (ZOVIRAX) 800 mg tablet Take 800 mg by mouth twice daily. ATORVASTATIN 10 mg tablet Take 10 mg by mouth once daily. amLODIPine 5 mg tablet Take 5 mg by mouth twice daily. hydrochlorothiazide 25 mg tablet Take 25 mg by mouth once daily. finasteride (PROSCAR) 5 mg tablet Take 5 mg by mouth once daily. LABORATORY VALUES: WBC (k/uL) Date Value 02/20/2022 5.31 RBC (m/uL) Date Value 02/20/2022 4.78 Hemoglobin (g/dL) Date Value 02/20/2022 16.5 Hematocrit (%) Date Value 02/20/2022 48.7 MCV (fL) Date Value 02/20/2022 101.9 (H) MCH (pg) Date Value 02/20/2022 34.5 (H) MCHC (g/dL) Date Value 02/20/2022 33.9 RDW-CV (%) Date Value 02/20/2022 15.8 (H) Platelet Count (k/uL) Date Value 02/20/2022 159 MPV (fL) Date Value 02/20/2022 10.6 Glucose (mg/dL) Date Value 12/26/2021 97 BUN (mg/dL) Date Value 12/26/2021 20 Creatinine (mg/dL) Date Value 12/26/2021 1.14 Sodium (mmol/L) Date Value 12/26/2021 143 Potassium (mmol/L) Date Value 12/26/2021 3.9 Chloride (mmol/L) Date Value 12/26/2021 107 (H) CO2 (mmol/L) Date Value 12/26/2021 26 Protein, Total (g/dL) Date Value 12/26/2021 6.9 Albumin (g/dL) Date Value 12/26/2021 3.9 Calcium, Total (mg/dL) Date Value 12/26/2021 9.4 Alkaline Phosphatase (U/L) Date Value 12/26/2021 73 Bilirubin, Total (mg/dL) Date Value 12/26/2021 0.5 AST (U/L) Date Value 12/26/2021 20 ALT (U/L) Date Value 12/26/2021 22 DIAGNOSIS: No diagnosis found. PAST MEDICAL HISTORY Diagnosis Date Hypertension MGUS (monoclonal gammopathy of unknown significance) Osteoarthritis PRV (polycythemia rubra vera) ([facility]) 10/25/2021 No past surgical history on file. Social History Tobacco Use Smoking status: Former Types: Cigarettes Quit date: 05/31/1980 Years since quittin.7 Smokeless tobacco: Never No family history on file. I spent a total of 25 minutes on the date of the service which included preparing to see the patient, [id number] patient care, completing clinical documentation, performing a medically appropriate examination, counseling and educating the patient/family/caregiver and ordering medications, tests, or procedures. Maycol Novak MD, CPE [place], [place] CC: Jose Smith, DO [address] [facility] [id number] documented in this encounterSub[facility]07-14-[facility] History of Present illness Narrative* Maycol Novak MD - 12/26/2021 8:43 AM EDT Images from the original note were not included. 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 His M protein levels have been stable over the last 13+ years, and his risk of progression remainsvery low. However, he is more notably polycythemic and so I ordered a MPN workup for PRV which came back positive. Now improving with hydrea. PLAN: 1. Phlebotomy on hold today until next visit 2. Continue B-ASA 3. Continue Hydrea 4. RTC in 8 weeks labs same day. 5. May need to clarify and adjust BP meds specifically in relation to HCTZ - Defer to Dr. Smith CURRENT TREATMENT: 1. Phlebotomy x 1 HPI: CASE HISTORY: 11/28/2021 Hydrea started 500 mg 11/14/2021 - phlebotomy caused severe hypotensive episode - possibly due to fasting/dehydration 10/18/2021 - Jak2+ PRV diagnosed 2006 - IgA [place] and IgM lambda biclonal M-spike Updated Visit, December 26, 2021: Is doing well labs are improved. BP meds adjusted. No need for for phlebotomy today. Will monitor platelets levels. Updated Visit, November 28, 2021: Didn't tolerate phlebotomy due to hypotension but he's on amlodipine, HCTZ 25 in addition to Hyzaar(100/25). Will hold phlebotomy for now and reconsider once his flid status and BP meds are clarified. It's possible that he had a vagal reaction in addition. I discussed his situation with Dr. Smith today and he will clarify meds for him. Updated Visit, October 25, 2021: Telephone 12 mins Discussed findings of Clemente 2 Mutation - c/w Polycythemia - [id number] mut + B-asa Phlebotomy Consider hydrea for high risk disease. Updated Visit, October 18, 2021: Noted to have polycythemia today and has lost weight since last being seen - also has increased total protein. Kidney function remains stable. 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 No evidence of sleep apnea. 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 Has been in observation and followed by Dr. Murphy. He had a bone marrow biopsy in September [address] Cardenas which showed a <5% lambda monoclonal plasma cells. The patient has been in observation since that time. He denies new complaints at this time. 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 RADIOGRAPHIC DATA: Reviewed on N/A 1. N/A PATHOLOGIC PROFILE/MOLECULAR DATA: Reviewed on N/A 1. N/A REVIEW OF SYSTEMS Per HPI and otherwise negative by full review of organ systems. ECOG PERFORMANCE STATUS: 0 PHYSICAL EXAMINATION: Vitals: BP 161/87[recheck[ Pulse 65 Temp (Src) 97.5 (Temporal) Resp 16 Ht 5' 10.984 (1.80m) Wt 250 lb 9.6 oz (113.7kg) SpO2 98% BMI 34.97 kg/(m^2). Body surface area is 2.39 meters squared. Exam limited to gross visualization where appropriate due to COVID-19. Gen.: This is an age-appropriate patient in no acute distress. Head: Appears atraumatic with no visible lesions. Eyes: Pupils equally round and reactive to light, extraocular muscles are intact. Neck: Supple. Mouth: Masked. Respiratory: Appears to be respiring comfortably. Neurologic: Nonfocal to gross visualization. Alert and oriented 3. Psychiatric: No evidence of inappropriate anxiety or depression. Skin: Visible areas of skin without rash, lesions, wounds or petechiae. ALLERGIES: ALLERGIES Allergen Reactions Clindamycin Anaphylaxis Penicillins Hives MEDICATIONS: losartan (COZAAR) 50 mg tablet Take 50 mg by mouth once daily. hydroxyurea (HYDREA) 500 mg capsule Take 1 capsule by mouth once daily. citalopram hydrobromide (CELEXA) 10 mg tablet Take 10 mg by mouth once daily. acyclovir (ZOVIRAX) 800 mg tablet Take 800 mg by mouth twice daily. ATORVASTATIN 10 mg tablet Take 10 mg by mouth once daily. amLODIPine 5 mg tablet Take 5 mg by mouth once daily. hydrochlorothiazide 25 mg tablet Take 25 mg by mouth once daily. finasteride (PROSCAR) 5 mg tablet Take 5 mg by mouth once daily. LABORATORY VALUES: WBC (k/uL) Date Value 12/26/2021 4.79 RBC (m/uL) Date Value 12/26/2021 4.68 Hemoglobin (g/dL) Date Value 12/26/2021 15.4 Hematocrit (%) Date Value 12/26/2021 45.9 MCV (fL) Date Value 12/26/2021 98.1 MCH (pg) Date Value 12/26/2021 32.9 MCHC (g/dL) Date Value 12/26/2021 33.6 RDW-CV (%) Date Value 12/26/2021 15.4 (H) Platelet Count (k/uL) Date Value 12/26/2021 159 MPV (fL) Date Value 12/26/2021 10.1 Glucose (mg/dL) Date Value 12/26/2021 97 BUN (mg/dL) Date Value 12/26/2021 20 Creatinine (mg/dL) Date Value 12/26/2021 1.14 Sodium (mmol/L) Date Value 12/26/2021 143 Potassium (mmol/L) Date Value 12/26/2021 3.9 Chloride (mmol/L) Date Value 12/26/2021 107 (H) CO2 (mmol/L) Date Value 12/26/2021 26 Protein, Total (g/dL) Date Value 12/26/2021 6.9 Albumin (g/dL) Date Value 12/26/2021 3.9 Calcium, Total (mg/dL) Date Value 12/26/2021 9.4 Alkaline Phosphatase (U/L) Date Value 12/26/2021 73 Bilirubin, Total (mg/dL) Date Value 12/26/2021 0.5 AST (U/L) Date Value 12/26/2021 20 ALT (U/L) Date Value 12/26/2021 22 DIAGNOSIS: (D45) PRV (polycythemia rubra vera) ([facility]) (primary encounter diagnosis) (D47.2) MGUS (monoclonal gammopathy of unknown significance) PAST MEDICAL HISTORY Diagnosis Date Hypertension MGUS (monoclonal gammopathy of unknown significance) Osteoarthritis PRV (polycythemia rubra vera) ([facility]) 10/25/2021 No past surgical history on file. Social History Tobacco Use Smoking status: Former Smoker Types: Cigarettes Quit date: 05/31/1980 Years since quittin.6 Smokeless tobacco: Never Used Substance Use Topics Alcohol use: Not on file Drug use: Not on file No family history on file. I spent a total of 25 minutes on the date of the service which included preparing to see the patient, [id number] patient care, completing clinical documentation, performing a medically appropriate examination, counseling and educating the patient/family/caregiver and ordering medications, tests, or procedures. Maycol Novak MD, CPE [place], [place] CC: Jose Smith, DO [address] [id number] documented in this encounterSuburban [facility]06-[facility] History of Present illness Narrative* Maycol Novak MD - 11/28/2021 8:41 AM EDT Images from the original note were not included. 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 His M protein levels have been stable over the last 13+ years, and his risk of progression remainsvery low. However, he is more notably polycythemic and so I ordered a MPN workup for PRV which came back positive. PLAN: 1. Phlebotomy x 1 on hold until next visit 2. Continue B-ASA 3. start Hydrea 4. RTC in 4 weeks 5. May need to clarify and adjust BP meds specifically in relation to HCTZ - Defer to Dr. Smith CURRENT TREATMENT: 1. Phlebotomy x 1 HPI: CASE HISTORY: 11/14/2021 - phlebotomy caused severe hypotensive episode - possibly due to fasting/dehydration 10/18/2021 - Jak2+ PRV diagnosed 2006 - IgA [place] and IgM lambda biclonal M-spike Updated Visit, November 28, 2021: Didn't tolerate phlebotomy due to hypotension but he's on amlodipine, HCTZ 25 in addition to Hyzaar(100/25). Will hold phlebotomy for now and reconsider once his flid status and BP meds are clarified. It's possible that he had a vagal reaction in addition. I discussed his situation with Dr. Smith today and he will clarify meds for him. Updated Visit, October 25, 2021: Telephone 12 mins Discussed findings of Clemente 2 Mutation - c/w Polycythemia - [id number] mut + B-asa Phlebotomy Consider hydrea for high risk disease. Updated Visit, October 18, 2021: Noted to have polycythemia today and has lost weight since last being seen - also has increased total protein. Kidney function remains stable. 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 No evidence of sleep apnea. 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 Has been in observation and followed by Dr. Murphy. He had a bone marrow biopsy in September [address] Cardenas which showed a <5% lambda monoclonal plasma cells. The patient has been in observation since that time. He denies new complaints at this time. 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 RADIOGRAPHIC DATA: Reviewed on N/A 1. N/A PATHOLOGIC PROFILE/MOLECULAR DATA: Reviewed on N/A 1. N/A REVIEW OF SYSTEMS Per HPI and otherwise negative by full review of organ systems. ECOG PERFORMANCE STATUS: 0 PHYSICAL EXAMINATION: Vitals: BP 148/76 Pulse 57 Temp (Src) 97.7 (Temporal) Resp 18 Ht 5' 10.984 (1.80m) Wt 245 lb 9.6 oz (111.4kg) SpO2 97% BMI 34.27 kg/(m^2). Body surface area is 2.36 meters squared. Exam limited to gross visualization where appropriate due to COVID-19. Gen.: This is an age-appropriate patient in no acute distress. Head: Appears atraumatic with no visible lesions. Eyes: Pupils equally round and reactive to light, extraocular muscles are intact. Neck: Supple. Mouth: Masked. Respiratory: Appears to be respiring comfortably. Neurologic: Nonfocal to gross visualization. Alert and oriented 3. Psychiatric: No evidence of inappropriate anxiety or depression. Skin: Visible areas of skin without rash, lesions, wounds or petechiae. ALLERGIES: ALLERGIES Allergen Reactions Clindamycin Anaphylaxis Penicillins Hives MEDICATIONS: hydroxyurea (HYDREA) 500 mg capsule Take 1 capsule by mouth once daily. losartan-hydroCHLOROthiazide (HYZAAR) 50-12.5 mg per tablet citalopram hydrobromide (CELEXA) 10 mg tablet Take 10 mg by mouth once daily. acyclovir (ZOVIRAX) 800 mg tablet Take 800 mg by mouth twice daily. ATORVASTATIN 10 mg tablet Take 10 mg by mouth once daily. amLODIPine 5 mg tablet Take 5 mg by mouth once daily. hydrochlorothiazide 25 mg tablet Take 25 mg by mouth once daily. finasteride (PROSCAR) 5 mg tablet Take 5 mg by mouth once daily. LABORATORY VALUES: WBC (k/uL) Date Value 11/28/2021 5.49 RBC (m/uL) Date Value 11/28/2021 5.01 Hemoglobin (g/dL) Date Value 11/28/2021 16.3 Hematocrit (%) Date Value 11/28/2021 48.7 MCV (fL) Date Value 11/28/2021 97.2 MCH (pg) Date Value 11/28/2021 32.5 MCHC (g/dL) Date Value 11/28/2021 33.5 RDW-CV (%) Date Value 11/28/2021 14.3 Platelet Count (k/uL) Date Value 11/28/2021 179 MPV (fL) Date Value 11/28/2021 10.5 Glucose (mg/dL) Date Value 11/28/2021 127 (H) BUN (mg/dL) Date Value 11/28/2021 19 Creatinine (mg/dL) Date Value 11/28/2021 1.26 (H) Sodium (mmol/L) Date Value 11/28/2021 143 Potassium (mmol/L) Date Value 11/28/2021 4.1 Chloride (mmol/L) Date Value 11/28/2021 103 CO2 (mmol/L) Date Value 11/28/2021 31 (H) Protein, Total (g/dL) Date Value 11/28/2021 8.0 Albumin (g/dL) Date Value 11/28/2021 4.6 Calcium, Total (mg/dL) Date Value 11/28/2021 10.7 (H) Alkaline Phosphatase (U/L) Date Value 11/28/2021 93 Bilirubin, Total (mg/dL) Date Value 11/28/2021 0.8 AST (U/L) Date Value 11/28/2021 25 ALT (U/L) Date Value 11/28/2021 25 DIAGNOSIS: (D45) PRV (polycythemia rubra vera) (HCC) (primary encounter diagnosis) Plan: CBC + DIFF, COMP METABOLIC PANEL (D47.2) MGUS (monoclonal gammopathy of unknown significance) Plan: CBC + DIFF, COMP METABOLIC PANEL PAST MEDICAL HISTORY Diagnosis Date Hypertension MGUS (monoclonal gammopathy of unknown significance) Osteoarthritis PRV (polycythemia rubra vera) ([facility]) 10/25/2021 History reviewed. No pertinent surgical history. Social History Tobacco Use Smoking status: Former Smoker Types: Cigarettes Quit date: 05/31/1980 Years since quittin.5 Smokeless tobacco: Never Used Substance Use Topics Alcohol use: Not on file Drug use: Not on file History reviewed. No pertinent family history. I spent a total of 35 minutes on the date of the service which included preparing to see the patient, [id number] patient care, completing clinical documentation, performing a medically appropriate examination, counseling and educating the patient/family/caregiver, ordering medications, tests, or p rocedures and communicating with other HCPs (not separately reported). Maycol Novak MD, CPE [facility] [place], [place] CC: Maycol Novak [address] [place] [address] [place] [address] Jose Smith, DO [address] [facility] [place] [address] documented in [facility] History of Present illness Narrative* Akanksha Grullon, [place] - 11/14/2021 9:49 AM EDT 0827 Patient accepted to the infusion room for phlebotomy today. Labs results reviewed. Procedure explained to patient and he is agreeable to proceed. His , Martha, is present. 0848 17G phlebotomy needle placed in left antecubital. Blood allowed to drain freely into collection bag. Patient is alert and oriented. 0858 500 mls of blood collected but patient is reporting feeling lightheaded. Alerted follow nursing staff to assist. Rhett Sheldon RN, Jared Alvarez RN, Amor Quinonez RN and Stanford Berkowitz RN arrive. Patient laid back, feet elevated. 0900 Patient is able to answer yes/no questions but struggles to stay conscious. remains present. Sandra Manzo PA-C informed of changes and comes to the treatment room. IV access established in right ventral arm per Jesica Quinonez RN. 2 failed attempts in right hand and right dorsal arm per this property underwriter. One failed attempt per Rebeca Sheldon RN left ventral arm. Phlebotomy needle dc'd for nonfunctioning status. VS pulse 46-POx 97%-unable to read or auscultate BP. Patient is pale and diaphoretic. Peripheral pulse are also not palpable. 0910 Dr. Levin has been notified and presents to the treatment room along with Sandra Manzo PA-C who has remained at chairside. No additional orders besides previous orders for IV NS at 999ml/hr and fingerstick BS check. FS 120. Patient arousable, answers orientation questions appropriately but closes eyes when done answering. Remians pale, clammy and diaphorectic. Still having trouble getting a BPor radial pulse reading. Brachial pulse is fleeting but can be felt. Dr. Levin listens to apical pulse and lungs. 0918 Per dynamap BP 54/32, possibly 70's over 40's with ausculation but is very faint. Patient is awake, alert and his color is pinking up. He is answering questions appropriately,ie how long they'vebeen , etc. Fluids continue to run. Patient remains awake and responsive. Remains in a supine position and this property underwriter remains at chairside. 0927 POx 99% RA-BP 80/44-pulse 50 via dynamap. Taking drinks of grape juice without problems. 0940 Patient reports discomfort at the IV site. Golf ball sized infiltration noted. Fluids stopped and IV discontinued. IV access in left dorsal arm obtained x 1 arrempt per Stanford Berkowitz RN. IV fluids restarted. BP 75/48-pulse 45- respirations 16-POx 97% RA. Patient alert and oriented. States he is feeling back to normal and is starting to joke around. 0955 BP 88/55-pulse 46--respirations 16-POx 98% RA. Head of recliner raised half way. Patient tolerated position change with no changes in mentation. Continues to take fluids. 1010 BP 92/51-pulse 43-respirations 16-POx 100% RA. Chair raised up to full seated position and patient states he feels good. 1027 BP 98/51-pulse 48-respirations 16-POX 98%. Color has returned to normal. Patient denies any complaints. Has eaten 2 granola bars and drank at least 240 mls of grape juice. Feet put down and standing BP 98/57- pulse of 79. Jared Alvarez RN informed of patient status improvements. 1033 Verbal order that as long as patient feels okay he can go home. Patient agrees that he feels well enough to be discharged and denies any complaints at this time. Has his follow up with Dr. Joshua already scheduled. Akanksha Grullon RN documented in this encounterSub[facility] Miscellaneous Notes* Telephone Encounter - Shaunna Rooney - 10/28/2021 1:03 PM EDT Patient has been 2 phlebotomy and lab 4 week follow up lab phlebotomy. * Telephone Encounter - Yi Leonardo - 10/28/2021 11:29 AM EDT Call placed to patient, no answer. Left message on voicemail to call back to schedule. Yi Leonardo Follow-up disposition: Return in about 4 weeks (around 11/22/2021). Check out comments: 1. Phlebotomy 1 unit every 2 weeks - start next week 2. Start B-ASA 3. start Hydrea after initial phlebotomy 4. RTC in 4 weeks documented in this encounterSub[facility] History of Present illness Narrative* Maycol Novak MD - 10/25/2021 3:40 PM EDT Images from the original note were not included. NAME: Prudencio Patrick [facility] NO.: [id number] DATE OF SERVICE: October 25, 2021 Referring Provider: Some elements in this clinic note that are critical to medical decision making have been carefully reviewed and included from a prior clinic note dated: October 18, 2020 Additional Clinicians involved in Prudencio Patrick's care: AMBULATORY TELEPHONE VISIT Prudencio Patrick has consented to this telephone encounter. 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 His M protein levels have been stable over the last 13+ years, and his risk of progression remainsvery low. However, he is more notably polycythemic and so I ordered a MPN workup for PRV which came back positive. PLAN: 1. Phlebotomy 1 unit every 2 weeks - start next week 2. Start B-ASA 3. start Hydrea after initial phlebotomy 4. RTC in 4 weeks CURRENT TREATMENT: 1. HPI: CASE HISTORY: 10/18/2021 - Jak2+ PRV diagnosed 2006 - IgA [place] and IgM lambda biclonal M-spike Updated Visit, October 25, 2021: Telephone 12 mins Discussed findings of Clemente 2 Mutation - c/w Polycythemia - [id number] mut + B-asa Phlebotomy Consider hydrea for high risk disease. Updated Visit, October 18, 2021: Noted to have polycythemia today and has lost weight since last being seen - also has increased total protein. Kidney function remains stable. 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 No evidence of sleep apnea. 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 Has been in observation and followed by Dr. Murphy. He had a bone marrow biopsy in September [address] Cardenas which showed a <5% lambda monoclonal plasma cells. The patient has been in observation since that time. He denies new complaints at this time. 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 RADIOGRAPHIC DATA: Reviewed on N/A 1. N/A PATHOLOGIC PROFILE/MOLECULAR DATA: Reviewed on N/A 1. N/A Data Reviewed: Most recent labs Total Time Spent: 12 minutes Maycol Novak MD, CPE Services Provided at: [facility], [place] & [place], [place] CC: Jose Smith documented in this encounterSub[facility] History of Present illness Narrative* Maycol Novak MD - 10/18/2021 9:15 AM EDT Images from the original note were not included. 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 His M protein levels have been stable over the last 13 years, and his risk of progression remains very low. More notably polycythemic. PLAN: 1. Call results next week - additional labs added today 2. Add on labs if possible for MPN workup otherwise will add next visit 3. In 3 month obtain labs 1 week ahead of return 4. RTC 1 week after labs in 3 months HPI: Updated Visit, October 18, 2021: Noted to have polycythemia today and has lost weight since last being seen - also has increased total protein. Kidney function remains stable. 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 No evidence of sleep apnea. 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 Has been in observation and followed by Dr. Murphy. He had a bone marrow biopsy in September [address] Cardenas which showed a <5% lambda monoclonal plasma cells. The patient has been in observation since that time. He denies new complaints at this time. 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 ROS is negative except that mentioned in HPI PHYSICAL EXAMINATION BP 159/85 Pulse 61 Temp 36.1 C (96.9 F) (Temporal) Resp 16 Ht 180.3 cm (5' 10.98 ) Wt 111.4 kg (245 lb 9.6 oz) SpO2 98% BMI 34.27 kg/m Exam limited to gross visualization where appropriate due to COVID-19. Gen.: This is an age-appropriate patient in no acute distress. Head: Appears atraumatic with no visible lesions. Eyes: Pupils equally round and reactive to light, extraocular muscles are intact. Neck: Supple. Mouth: Masked. Respiratory: Appears to be respiring comfortably. Neurologic: Nonfocal to gross visualization. Alert and oriented 3. Psychiatric: No evidence of inappropriate anxiety or depression. Skin: Visible areas of skin without rash, lesions, wounds or petechiae. Maycol Novak MD, CPE Services Provided at: [place], [place] & [place], [place] documented in this encounterLaura [place]ille [id number] Miscellaneous Notes* Telephone Encounter - Salina Manzo PA-C - 10/10/2021 9:30 AM EDT Orders placed Salina Manzo PA-C * Telephone Encounter - Kristen Berkowitz - 10/10/2021 9:18 AM EDT Patient coming in on Thursday10/18/21 for follow up with labs. Please add lab orders. Thanks, Kristen Berkowitz MA [facility] Future Appointments Appointment Date:08/10/2023 08:45:00 AM Scheduled Provider:Christophe MCLAUGHLIN MD Location:[facility] Appointment Type:URO Office Visit Diagnostic Tests Pending * PSA Total 06/15/23 [facility] evaluation note* Diagnosis MGUS (monoclonal gammopathy of unknown significance)- Primary Monoclonal paraproteinemia documented in this encounter [facility]* Diagnosis MGUS (monoclonal gammopathy of unknown significance)- Primary Monoclonal paraproteinemia Polycythemia Polycythemia vera documented in this encounter [facility]* Diagnosis PRV (polycythemia rubra vera) (HCC) Polycythemia vera documented in this encounter [facility] note* Diagnosis 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 documented in this encounter [facility] note* Diagnosis 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 MGUS (monoclonal gammopathy of unknown significance) Monoclonal paraproteinemia documented in this encounter [facility] note* Diagnosis 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 MGUS (monoclonal gammopathy of unknown significance) Monoclonal paraproteinemia [facility]* Diagnosis 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 MGUS (monoclonal gammopathy of unknown significance) Monoclonal paraproteinemia documented in this encounter [facility] note* Diagnosis 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 MGUS (monoclonal gammopathy of unknown significance) Monoclonal paraproteinemia documented in this encounter [facility] note* Diagnosis 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 documented in this encounter [facility] note* Diagnosis 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 documented in this encounter [facility] note* Diagnosis 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 documented in this encounter [facility] note* Diagnosis 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 documented in this encounter [facility] note* Diagnosis 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 documented in this encounter [facility] note* Diagnosis 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 documented in this encounter [facility] noteNo [email or web address] Other Evaluation note* Diagnosis 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 MGUS (monoclonal gammopathy of unknown significance) Monoclonal paraproteinemia Stage 3a chronic kidney disease (HCC) [facility]* Diagnosis 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 MGUS (monoclonal gammopathy of unknown significance) Monoclonal paraproteinemia Stage 3a chronic kidney disease (HCC) documented in this encounter [facility] note* Diagnosis Neoplasm of uncertain behavior of skin- Primary Verruca plantaris Plantar wart Foot pain, right Pain in soft tissues of limb Onychomycosis Dermatophytosis of nail Toe pain, bilateral [facility] - Reported* Type Description Date Medical History Hypercholesteremia Medical History Ileostomy in place Medical History Gammopathy, monoclonal Medical History Hypertension Medical History Polycythemia Medical History Atypical syncope Medical History 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 Medical History Herpesviral vesicular dermatitis Medical History Sebaceous cyst Medical History Depression screening Medical History Nicotine dependence, cigarettes, in remission Medical History Obesity Surgical History TRUS w/biopsy 2001, 2004 Surgical History bronchoscopy .2014 Surgical History subtotal colectomy with end ile ostomy Hospitalization History see surgical history [employer] Other [facility] Narrative - Reported* Type Description Date Medical History Hypercholesteremia Medical History Ileostomy in place Medical History Gammopathy, monoclonal Medical History Hypertension Medical History Polycythemia Medical History Atypical syncope Medical History 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 Medical History Herpesviral vesicular dermatitis Medical History Sebaceous cyst Medical History Depression screening Medical History Nicotine dependence, cigarettes, in remission Medical History Obesity Medical History Polycythemia vera Surgical History TRUS w/biopsy 2004 Surgical History bronchoscopy .2014 Surgical History subtotal colectomy with end ile ostomy .2014 Hospitalization History see surgical history [employer] Other history general Narrative - Reported* Type Description Date Medical History Hypercholesteremia Medical History Ileostomy in place Medical History Gammopathy, monoclonal Medical History Hypertension Medical History Polycythemia Medical History Atypical syncope Medical History 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 Medical History Herpesviral vesicular dermatitis Medical History Sebaceous cyst Medical History Depression screening Medical History Nicotine dependence, cigarettes, in remission Medical History Obesity Medical History Polycythemia vera Medical History Chronic kidney disease, stage 3 (moderate) Surgical History TRUS w/biopsy 2001, 2004 Surgical History bronchoscopy Surgical History subtotal colectomy with end ile ostomy 04.2015 Hospitalization History see surgical history [employer] Other Hospital course Narrative No data available for this section [facility] progress note No data available for this section [facility] Medications Administered Section Inactive Administered Medications - up to 3 most recent administrations Medication Order MAR Action Action Date Dose Rate Site dextrose 5% in water iv infusion 5-30 mL/hr, INTRAVENOUS, ONCE, 1 dose, On Kandice 11/14/21 at 1500 New Bag/Syringe/Bottle 11/14/2021 9:18 AM EDT 250 mL/hr 250 mL/hr NaCl 0.9% 1,000 mL iv bolus 1,000 mL, INTRAVENOUS, at 999 mL/hr, Administer over 1 Hours, ONCE, 1 dose, On Kandice 11/14/21 at 1500 Rate/Dose Change 11/14/2021 10:05 AM EDT 50 mL/hr Restarted 11/14/2021 9:45 AM EDT 999 mL/hr New Bag/Syringe/Bottle 11/14/2021 9:00 AM EDT 1,000 mL 9 99 mL/hr Inactive Administered Medications - up to 3 most recent administrations Medication Order MAR Action Action Date Dose Rate Site NaCl 0.9% 500 mL INTRAVENOUS, at 999 mL/hr, Administer over 0.5 Hours, ONCE, 1 dose, On [place]andice 08/07/22 at 1000 New Bag/Syringe/Bottle 08/07/2022 9:35 AM EST 999 mL/hr Summary Purpose Family History No Family History Records FoundNo Family History Records FoundNo Family History Records FoundNo Family History Records Found Advance Directives No Advanced Directives Records FoundNo Advanced Directives Records FoundNo Advanced Directives Records FoundNo Advanced Directives Records Found Additional Source Comments Source Comments (unrecognize d section and content) In the event this informatio n is protected by the Federal Confidentiality of Alcohol and Drug Abuse Patient Records regulations: The Federal rules restrict any use of the information to criminally investigate or prosecute any alcohol or drug abuse patient.[facility] the event this information is protected by the Federal Confidentiality of Alcohol and Drug Abuse Patient Records regulations: The Federal rules restrict any use of the information to criminally investigate or prosecute any alcohol or drug abuse patient.[facility] Hospital[facility] the event this information is protected by the Federal Confidentiality of Alcohol and Drug Abuse Patient Records regulations: The Federal rules restrict any use of the information to criminally investigate or prosecute any alcohol or drug abuse patient.[facility] Hospital[facility] the event this information is protected by the Federal Confidentiality of Alcohol and Drug Abuse Patient Records regulations: The Federal rules restrict any use of the information to criminally investigate or prosecute any alcohol or drug abuse patient.[facility] Hospital[facility] the event this information is protected by the Federal Confidentiality of Alcohol and Drug Abuse Patient Records regulations: The Federal rules restrict any use of the information to criminally investigate or prosecute any alcohol or drug abuse patient.[facility] Hospital[facility] the event this information is protected by the Federal Confidentiality of Alcohol and Drug Abuse Patient Records regulations: The Federal rules restrict any use of the information to criminally investigate or prosecute any alcohol or drug abuse patient.[facility] HospitalIn the event this information is protected by the Federal Confidentiality of Alcohol and Drug Abuse Patient Records regulations: The Federal rules restrict any use of the information to criminally investigate or prosecute any alcohol or drug abuse patient.[facility] Hospital[facility] the event this information is protected by the Federal Confidentiality of Alcohol and Drug Abuse Patient Records regulations: The Federal rules restrict any use of the information to criminally investigate or prosecute any alcohol or drug abuse patient.[facility] Hospital[facility] the event this information is protected by the Federal Confidentiality of Alcohol and Drug Abuse Patient Records regulations: The Federal rules restrict any use of the information to criminally investigate or prosecute any alcohol or drug abuse patient.[facility] Hospital[facility] the event this information is protected by the Federal Confidentiality of Alcohol and Drug Abuse Patient Records regulations: The Federal rules restrict any use of the information to criminally investigate or prosecute any alcohol or drug abuse patient.[facility] Hospital[facility] the event this information is protected by the Federal Confidentiality of Alcohol and Drug Abuse Patient Records regulations: The Federal rules restrict any use of the information to criminally investigate or prosecute any alcohol or drug abuse patient.[facility] HospitalIn the event this information is protected by the Federal Confidentiality of Alcohol and Drug Abuse Patient Records regulations: The Federal rules restrict any use of the information to criminally investigate or prosecute any alcohol or drug abuse patient.[facility] HospitalIn the event this information is protected by the Federal Confidentiality of Alcohol and Drug Abuse Patient Records regulations: The Federal rules restrict any use of the information to criminally investigate or prosecute any alcohol or drug abuse patient.[facility] the event this information is protected by the Federal Confidentiality of Alcohol and Drug Abuse Patient Records regulations: The Federal rules restrict any use of the information to criminally investigate or prosecute any alcohol or drug abuse patient.[facility] the event this information is protected by the Federal Confidentiality of Alcohol and Drug Abuse Patient Records regulations: The Federal rules restrict any use of the information to criminally investigate or prosecute any alcohol or drug abuse patient.[facility] the event this information is protected by the Federal Confidentiality of Alcohol and Drug Abuse Patient Records regulations: The Federal rules restrict any use of the information to criminally investigate or prosecute any alcohol or drug abuse patient.[facility] the event this information is protected by the Federal Confidentiality of Alcohol and Drug Abuse Patient Records regulations: The Federal rules restrict any use of the information to criminally investigate or prosecute any alcohol or drug abuse patient.[facility] HospitalIn the event this information is protected by the Federal Confidentiality of Alcohol and Drug Abuse Patient Records regulations: The Federal rules restrict any use of the information to criminally investigate or prosecute any alcohol or drug abuse patient.[facility] HospitalIn the event this information is protected by the Federal Confidentiality of Alcohol and Drug Abuse Patient Records regulations: The Federal rules restrict any use of the information to criminally investigate or prosecute any alcohol or drug abuse patient.[facility] HospitalIn the event this information is protected by the Federal Confidentiality of Alcohol and Drug Abuse Patient Records regulations: The Federal rules restrict any use of the information to criminally investigate or prosecute any alcohol or drug abuse patient.[facility] HospitalIn the event this information is protected by the Federal Confidentiality of Alcohol and Drug Abuse Patient Records regulations: The Federal rules restrict any use of the information to criminally investigate or prosecute any alcohol or drug abuse patient.[facility] HospitalIn the event this information is protected by the Federal Confidentiality of Alcohol and Drug Abuse Patient Records regulations: The Federal rules restrict any use of the information to criminally investigate or prosecute any alcohol or drug abuse patient.[facility] Reason for Visit (unrecogniz ed section and content) Reason Comments Lab Orders Reason Comments MGUS 1 year follow up Reason Comments Established Patient Reason Comments Future Appointment Reason Comments MGUS follow up prv Reason Comments PRV Reason Onset Date Comments Refill Request 01/20/2022 Reason Comments PRV Treatment visit Reason Comments Refill Request Reason Comments Appointment Reason Comments PRV (polycythemia rubra vera) ([facility]) 2 mo nth follow up Reason Comments PRV (polycythemia rubra vera) Reason Comments Toenail Care Non DM Nails Care Teams (unrecognized sec tion and content) [employer] Se[employer] Relationship Specialty Start Date End Date Jose Smith DO PCP - General Internal Medicine 02/09/12 [employer] Se[employer] Operator Relationship Specialty Start Date End Date Jose Smith DO PCP - General Internal Medicine 02/09/12 Felled Se[employer] Operator Relationship Specialty Start Date End Date Jose Smith, DO PCP - General Internal Medicine 02/09/12 Felled Se[employer] Operator Relationship Specialty Start Date End Date Jose Smith, DO PCP - General Internal Medicine 02/09/12 Felled Seam Operator Relationship Specialty Start Date End Date Jose Smith, DO PCP - General Internal Medicine 02/09/12 Felled Seam Operator Relationship Specialty Start Date End Date Jose Smith, DO PCP - General Internal Medicine 02/09/12 Felled Seam Operator Relationship Specialty Start Date End Date Jose Smith, DO PCP - General Internal Medicine 02/09/12 Felled Seam Operator Relationship Specialty Start Date End Date Jose Smith DO PCP - General Internal Medicine 02/09/12 Felled Seam Operator Relationship Specialty Start Date End Date Jose Smith, DO PCP - General Internal Medicine 02/09/12 Felled Seam Operator Relationship Specialty Start Date End Date Jose Smith, DO PCP - General Internal Medicine 02/09/12 Felled Seam Operator Relationship Specialty Start Date End Date Jose Smith, DO PCP - General Internal Medicine 02/09/12 Felled Seam Operator Relationship Specialty Start Date End Date Jose Smith DO PCP - General Internal Medicine 02/09/12 Felled Seam Operator Relationship Specialty Start Date End Date Jose Smith DO PCP - General Internal Medicine 02/09/12 Felled Seam Operator Relationship Specialty Start Date End Date Jose Smith MD [address] [facility] [place] [address] PCP - General Internal Medicine 07/30/23 (unrecognized sect ion and content) No Status Records FoundNo Status Records FoundNo Status Records FoundNo Status Records Found INFORMATION SOURCE (unrecogn ized section and content) DATE CREATED AUTHOR 08/09/2022 [facility] DATE CREATED AUTHOR AUTHOR'S ORGANIZ ATION 09/26/2022 [facility] DATE CREATED AUTHOR AUTHOR'S ORGANIZ ATION 07/06/2023 [facility] DATE CREATED AUTHOR AUTHOR'S ORGANIZ ATION 08/01/2023 [facility] FOR RECORDS PERTAINING TO PATIENTS WHO ARE OR HAVE BEEN ENROLLED IN A CHEMICAL DEPENDENCY/SUBSTANCEABUSE PROGRAM, SOME INFORMATION MAY BE OMITTED. This clinical summary was aggregated from multiple sources. Caution should be exercised in using it in the provision of clinical care. This summary normalizes information from multiple sources, and as a consequence, information in this document may materially change the coding, format and clinical context of patient data. In addition, data may be omitted in some cases. CLINICAL DECISIONS SHOULD BE BASED ON THE PRIMARY CLINICAL RECORDS. [employer] provides no warranty or guarantee of the accuracy or completeness of information in this document.
[2023-08-07 14:03] LABS: Prostate Specific Antigen Dx 2.72 ng/mL (<=4.00)
== END 2023-08-07 12:06 | disposition home or self-care (01) ==
LOC: LAB 12:06
PROVIDERS: PCP Internal Medicine; Visit Provider Urology
DX: R97.20 Elevated prostate specific antigen [PSA] (principal)
CPT/HCPCS: 36415; 84153

== ENCOUNTER 2023-09-18 10:01 | Outpatient (OUT) | payer OTHER, SELFPAY ==
[2023-09-18 10:13] LABS: Basophils Absolute Auto 0.1 10^3/uL (0.0-0.1); Basophils Percent Auto 0.9 % (0.2-2.0); Eosinophils Absolute Auto 0.2 10^3/uL (0.0-0.7); Eosinophils Percent Auto 2.9 % (0.9-7.0); Hematocrit 45.5 % (42.0-54.0); Hemoglobin 15.4 g/dL (14.0-18.0); Immature Granulocytes Abs Auto 0.01 10^3/uL (0.00-0.03); Immature Granulocytes Pct Auto 0.2 % (0.0-0.5); Lymphocytes Absolute Auto 0.9 10^3/uL (1.2-3.8); Lymphocytes Percent Auto 15.2 % (20.5-60.0); Mean Corpuscular HGB Conc 33.8 g/dL (29.9-35.2); Mean Corpuscular Hemoglobin 35.7 pg (25.9-34.0); Mean Corpuscular Volume 105.6 fL (80.0-94.0); Mean Platelet Volume 10.3 fL (9.5-13.5); Monocytes Absolute Auto 0.5 10^3/uL (0.3-0.8); Monocytes Percent Auto 8.8 % (1.7-12.0); Neutrophils Absolute Auto 4.2 10^3/uL (1.4-6.5); Platelet Count 164 10^3/uL (150-450); Red Blood Count 4.31 10^6/uL (4.70-6.10); Red Cell Distribution Width 13.8 % (11.0-15.0); White Blood Count 5.8 10^3/uL (4.0-11.0)
[2023-09-18 14:22] LABS: Alanine Aminotransferase 33 U/L (16-63); Albumin Globulin Ratio 0.8; Albumin Level 3.6 g/dL (3.4-5.0); Alkaline Phosphatase 99 U/L (46-116); Anion Gap 16.7; Aspartate Amino Transferase 21 U/L (15-37); BUN Creatinine Ratio 13.5; Bilirubin Total 0.9 mg/dL (0.2-1.0); Calcium 9.6 mg/dL (8.5-10.1); Carbon Dioxide 24.8 mmol/L (21.0-32.0); Chloride 103 mmol/L (98-107); Chol HDL Ratio 2.1; Cholesterol 146 mg/dL (<=200); Estimated GFR (African America >60 (>=60); Estimated GFR (Non-African Ame >60 (>=60); Globulin 4.3 g/dL; Glucose 95 mg/dL (74-106); HDL Cholesterol 68 mg/dL (40-60); Potassium 3.5 mmol/L (3.5-5.1); Sodium 141 mmol/L (136-145); Total Protein 7.9 g/dL (6.4-8.2); Triglycerides 94 mg/dL (<=150); VLDL CHOLESTEROL 18.8 mg/dL
== END 2023-09-18 10:02 | disposition home or self-care (01) ==
LOC: LAB 10:01
PROVIDERS: PCP Internal Medicine; Visit Provider Internal Medicine
DX: E78.00 Pure hypercholesterolemia, unspecified (principal); I10 Essential (primary) hypertension; D45 Polycythemia vera
CPT/HCPCS: 36415; 80053; 80061; 85025

== ENCOUNTER 2024-08-08 11:25 | Outpatient (OUT) | payer MEDICARE, SELFPAY ==
[2024-08-08 12:56] LABS: Prostate Specific Antigen Dx 2.64 ng/mL (<=4.00)
== END 2024-08-08 11:26 | disposition home or self-care (01) ==
LOC: LAB 11:27
PROVIDERS: PCP Internal Medicine; Visit Provider Urology
DX: R97.20 Elevated prostate specific antigen [PSA] (principal)
CPT/HCPCS: 36415; 84153

== ENCOUNTER 2024-08-25 08:57 | Outpatient (OUT) | payer MEDICARE, SELFPAY ==
--- NOTE | 2024-08-25 09:03 | US_ITS ---
The [address] [address] Patient Name: PRUDENCIO PATRICK MRN: [id number] date: 1945 Sex: M Assigned Patient Location: US Current Patient Location: US Accession/Order Number: [id number] Exam Date: 08/25/2024 09:54 Report Date: 08/25/2024 09:59 At the request of: CHRISTOPHE BELLE MD Procedure: US renal BI BILATERAL RENAL AND BLADDER ULTRASOUND CLINICAL HISTORY: Gross Hematuria COMPARISON: None Estimation of renal size is approximately 11.9 cm on the right and 10.6 cm on the left. An echogenic focus with twinkle artifact is visualized at the inferior pole on the right measuring 6 mm in size. Appearance suggests a stone. There is also a potential stone at the medullary portion of the mid to upper pole on the left which could measure almost 1 cm in size. No hydronephrosis is present. No renal mass lesions were imaged. There is no perinephric fluid. The urinary bladder is partially distended with a volume of 216 mL. There is a lobulated masslike structure protruding into the bladder trigone. It measures at least 4.6 x 4.2 x 3.8 cm. It may be enlarged prostate. US/US renal BI IMPRESSION: NO OBSTRUCTIVE UROPATHY. POSSIBLE BILATERAL NEPHROLITHIASIS. SUSPECTED ENLARGED PROSTATE PROTRUDING INTO THE BLADDER AT THE TRIGONE. CLINICAL CORRELATION IS , HOWEVER RECOMMENDED TO EXCLUDE THE POSSIBILITY OF OTHER BLADDER PATHOLOGY. Impression dictated by: Cierra Harkins M.D.08/25/2024 9:59 AM Dictation Location: [place] [address] Electronically authenticated by: [id number] Y Date: 08/25/2024 09:59
--- NOTE | 2024-08-25 09:03 | XR_ITS ---
The [address] [address] Patient Name: PRUDENCIO PATRICK MRN: [id number] date: 1945 Sex: M Assigned Patient Location: US Current Patient Location: US Accession/Order Number: [id number] Exam Date: 08/25/2024 09:59 Report Date: 08/25/2024 10:03 At the request of: CHRISTOPHE BELLE MD Procedure: XR abdomen 1V SINGLE VIEW ABDOMEN CLINICAL DATA: Gross hematuria. COMPARISON: None Supine views of the abdomen and pelvis were obtained. There is some small and large bowel air, without disproportionate distention. No prominent colonic stool is seen. There is a 5 mm calcification overlying the lower pole of the right kidney suggesting a stone. There is also question of a couple smaller calcified stones overlying the lower pole on the left. There are calcifications at the periphery of the lower pelvis on both sides which are probably phleboliths. No soft tissue masses are seen. Slight dextroscoliotic curvature and endplate spurring are seen at the spine. There are hemostasis clips at the lower central right and lateral left abdomen. XR/XR abdomen 1V IMPRESSION: SUSPECTED BILATERAL NEPHROLITHIASIS. Impression dictated by: Cierra Harkins M.D.08/25/2024 10:03 AM Dictation Location: [place] [address] Electronically authenticated by: [id number] Y Date: 08/25/2024 10:03
--- OUTSIDE RECORDS SUMMARY | 2024-08-25 09:17 | XMS_ITS | CCD ---
Author Organization [facility] Care Team Providers Care Assistant Dean Name Role Phone Jose Yap DO Primary Care Provider JOSE YAP Primary Care Physician [phone] Jose Yap Unavailable BELLE ., DR SAEED Attending Unavailable BALL, DR PRICE Primary Care Unavailable BELLE ., DR SAEED Admitting Unavailable BELLE ., DR SAEED Consulting Unavailable FRACISCO, DR PRICE Admitting Unavailable FRACISCO, DR PRICE Primary Care Unavailable BALL, DR PRICE Consulting Unavailable FRACISCO, DR PRICE Attending Unavailable Jose Yap DO Primary Care Provider Unavailable Primary Care Provider UnavailJose Morales MD Primary Care Provider Jose Yap DO Primary Care Provider NAKUL GUERRA Attending Unavailable NAKUL GUERRA Attending Unavailable NAKUL GUERRA Attending Unavailable NAKUL GUERRA Attending Unavailable NAKUL GUERRA Attending Unavailable NAKUL GUERRA Attending Unavailable NAKUL GUERRA Attending Unavailable NAKUL GUERRA Attending Unavailable SALINA RIVERA Attending Unavailable OJSE YAP Primary Care Unavailable ABHYANKAR, MAYCOL Referring Unavailable BALL, JOSE Kevin Primary Care Unavailable BALL, JOSE E Primary Care Unavailable ABHYANKAR, MAYCOL Attending Unavailable BALL, JOSE E Primary Care Unavailable ABHYANKAR, MAYCOL Referring Unavailable BALL, JOSE Kevin Primary Care Unavailable ABHYANKAR, MAYCOL Attending Unavailable ABHYANKAR, MAYCOL Referring Unavailable BALL, JOSE E Primary Care Unavailable BALL, JOSE E Primary Care Unavailable MANDIE BAIG Attending Unavailable ABHYANKAR, MAYCOL Referring Unavailable BALL, JOSE E Primary Care Unavailable ABHYANKAR, MAYCOL Attending Unavailable BALL, JOSE E Primary Care Unavailable ABHYANKAR, MAYCOL Referring Unavailable BALL, JOSE E Primary Care Unavailable ABHYANKAR, MAYCOL Referring Unavailable Christophe BELLE Attending Unavailable Christophe BELLE Attending Unavailable Christophe BELLE Admitting Unavailable Christophe BELLE Attending Unavailable Christophe BELLE Attending Unavailable Allergies Allergy Classification Reported Allergen(s) Allergy Type Date of Onset Reaction(s) Facility Lincosamides (antibiotic) (1 source) Clindamycin Drug Allergy 5 Anaphylaxis [facility] Penicillins (antibiotic) (1 source) Penicillins Drug Allergy 2 [facility] (20 sources) Clindamycin; Translations: [CLINDAMYCIN] Drug Allergy 5 Anaphylaxis [facility] (14 sources) Penicillins; Translations: [PENICILLINS] Drug Allergy 2 [facility] (20 sources) Penicillins Drug Allergy 2 [facility] (14 sources) Penicillin; Translations: [penicillin] Drug Allergy Mild (qualifier value) [facility] (1 source) Penicillins Drug allergy (disorder) [address] [facility] (5 sources) Penicillin G Drug Allergy 3 Unknown [facility] (5 sources) Penicillin V Drug Allergy 3 Unknown [facility] (1 source) patient allergy list reviewed by nurse or physicia Propensity to adverse reactions 8 Comment:Done [facility] Other (11 sources) Penicillins Drug Allergy 2 Hives, Unknown [facility] Medications Current Medications Medication Drug Class(es) Dates Sig (Normalized) Sig (Original) acyclovir 800 mg oral tablet (20 sources) Herpesvirus Nucleoside Analog DNA Polymerase Inhibitor, Herpes Simplex Virus Nucleoside Analog DNA Polymerase Inhibitor, Herpes Zoster Virus Nucleoside Analog DNA Polymerase Inhibitor Start: 09-14-2023 End: 05-20-2024 take 1 tablet by mouth twice daily Acyclovir 800 mg tablet Active 800 MG PO Twice daily 60 May 20, 2024 12:40pm Start: 08-03-2019 acyclovir 800 mg, Refills(s) 0 Start Date: 08/03/19 Status: Ordered Comment on above: Take 800 mg by mouth twice daily. amLODIPine 5 mg oral tablet (20 sources) Dihydropyridine Calcium Channel Chris Start: take 1 tablet by mouth twice daily Amlodipine 5 mg tablet Active 0 .ROUTE .COMPLEX 180 November 11, 2023 12:08pm TAKE 1 TABLET BY MOUTH TWICE A DAY FOR 90 DAYS Start: 09-14-2023 End: 11-11-2023 take 1 tablet by mouth twice daily Amlodipine 5 mg tablet Discontinued 5 MG PO Twice daily September 13, 2023 11:00pm November 11, 2023 12:08pm Start: 08-03-2019 take 5 mg by mouth once daily amlodipine 5 mg, Oral, Daily, Refills(s) 0 Start Date: 08/03/19 Status: Ordered Comment on above: Take 5 mg by mouth o nce daily. Take 5 mg by mouth t wice daily. aspirin 81 mg oral tablet (18 sources) Platelet Aggregation Inhibitor, Nonsteroidal Anti-inflammatory Drug Start: 08-15-2024 take 1 tablet by mouth once daily Adult Aspirin 81 mg oral tablet, chewable 81 mg = 1 tab(s), Chewed, Daily, Refills(s) 0 Start Date: 08/15/24 Status: Ordered Start: 09-14-2023 take 1 tablet by megha once daily Aspirin 81 mg tablet,delayed release (DR/EC) Active 81 MG PO Daily September 13, 2023 11:00pm Aspirin 81 Activ e atorvastatin 10 mg oral tablet (20 sources) HMG-CoA Reductase Inhibitor Start: 08-10-2013 take 1 tablet by mouth once daily ATORVASTATIN 10 mg tablet Take 10 mg by mouth once daily. 08/10/2013 Active Comment on above: Take 10 mg by mouth once daily. citalopram 10 mg oral tablet (20 sources) Serotonin Reuptake Inhibitor take 1 tablet by mouth once daily citalopram hydrobromide (CELEXA) 10 mg tablet Take 10 mg by mouth once daily. Active Comment on above: Take 10 mg by mouth once daily. cloNIDine hydrochloride 0.1 mg oral tablet (8 sources) Central alpha-2 Adrenergic Agonist Start: 08-15-2024 cloNIDine 0.1 mg tab 0.1 mg = 1 tab(s), Refills(s) 0 Start Date: 08/15/24 Status: Ordered Start: 06-07-2024 take 2 tablets by mo [facility] twice daily Clonidine Hcl 0.1 mg tablet Active 0.2 MG PO Twice daily 180 June 07, 2024 9:38am Start: 04-10-2024 End: 06-07-2024 take 1 tablet by mouth twice daily Clonidine Hcl 0.1 mg tablet Discontinued 0 .ROUTE .COMPLEX 180 April 10, 2024 6:29pm June 07, 2024 9:39am TAKE 1 TABLET BY MOUTH TWICE A DAY FOR 30 DAYS Start: 03-16-2024 End: 04-10-2024 take 1 tablet by mouth twice daily Clonidine Hcl 0.1 mg tablet Discontinued 0.1 MG PO Twice daily 60 March 17, 2024 3:07pm April 10, 2024 6:29pm finasteride 5 mg oral tablet (20 sources) 5-alpha Reductase Inhibitor Start: 08-27-2021 take 1 tablet by mouth once daily finasteride 5 mg Tab 5 mg = 1 tab(s), Oral, Daily, # 90 tab(s), Refills(s) 3, Pharmacy: [facility] [id number], 183, cm, 08/10/23 8:54:00 EST, Height/Length Dosing, 116, kg, 08/10/23 8:54:00 EST, Weight Dosing Start Date: 08/11/24 Status: Ordered Comment on above: Take 5 mg by mouth o nce daily. hydroCHLOROthiazide 12.5 mg / losartan potassium 50 mg oral tablet (19 sources) Thiazide Diuretic, Angiotensin 2 Receptor Chris Start: 08-08-2022 losartan-hydroCHLO ROthiazide (Hyzaar) 50-12.5 MG tablet Refill(s) 0 08/08/2022 Active Start: 10-14-2021 End: 12-26-2021 losartan-hydroCHLOROthiazide (HYZAAR) 50-12.5 mg per tablet hydroxyurea 500 mg oral capsule (20 sources) Antimetabolite Start: 08-08-2022 End: 02-16-2024 take 1 capsule by mouth once daily hydroxyurea (HYDREA) 500 mg capsule take 1 capsule by mouth every day 90 capsule 1 02/16/2024 Active Start: 02-14-2022 End: 05-19-2022 hydroxyurea 500 mg Cap Refil ls(s) 0 Start Date: 08/08/22 Status: Ordered Start: 10-27-2021 End: 01-20-2022 take 1 capsule by mouth once daily hydroxyurea (HYDREA) 500 mg capsule Take 1 capsule by mouth once daily. 30 capsule 3 01/20/2022 Active Comment on above: Take 1 capsule by mo [facility] once daily. TAKE 1 CAPSULE BY MO [facility] ONCE DAILY losartan potassium 50 mg oral tablet (20 sources) Angiotensin 2 Receptor Chris Start: 08-15-2024 losartan 50 mg Tab 50 mg = 1 tab(s), Refills(s) 0 Start Date: 08/15/24 Status: Ordered Start: 03-10-2024 take 1 tablet by megha twice daily Losartan 50 mg tablet Active 0 .ROUTE .COMPLEX March 10, 2024 1:23pm TAKE 1 TABLET BY MOUTH TWICE A DAY Start: 03-10-2024 take 1 tablet by megha twice daily Losartan Active 0 .ROUTE .COMPLEX March 10, 2024 2:23pm TAKE 1 TABLET BY MOUTH TWICE A DAY Start: 09-14-2023 End: 03-10-2024 take 1 tablet by mouth twice daily Losartan 50 mg tablet Discontinued 50 MG PO Twice daily 180 90 March 09, 2024 12:35pm March 10, 2024 1:29pm Start: 12-12-2021 take 1 tablet by megha once daily losartan (COZAAR) 50 mg tablet Take 50 mg by mouth once daily. 12/12/2021 Active take 1 tablet by megha twice daily Losartan Potassium 50 MG 1 tablet Orally twice daily Active Comment on above: Take 50 mg by mouth once daily. spironolactone 25 mg oral tablet (5 sources) Aldosterone Antagonist Start: 08-15-2024 spironolactone 25 mg Tab 25 mg = 1 tab(s), Refills(s) 0 Start Date: 08/15/24 Status: Ordered Start: 06-29-2024 take 1 tablet by megha once daily Spironolactone 25 mg tablet Active 0 .ROUTE .COMPLEX June 29, 2024 9:42am TAKE 1 TABLET BY MOUTH DAILY Start: 06-07-2024 End: 06-29-2024 take 1 tablet by mouth once daily Spironolactone 25 mg tablet Discontinued 25 MG PO Daily 30 June 07, 2024 9:37am June 29, 2024 9:42am triamcinolone acetonide 0.25 mg/ml topical cream (11 sources) Corticosteroid Start: 09-14-2023 Triamcinolone Acetonide 0.025 % cream Active 1 APPLIC TOPICAL Twice daily as needed September 13, 2023 11:00pm Start: 09-12-2022 Triamcinolone Acetonide 0.025 % 1 application Externally twice daily as needed for 30 days Aug, Active Start: 09-12-2022 Triamcinolone Acetonide 0.025 % 1 application Externally twice daily as needed for 30 days Aug, Active Completed/Discontinued Medications Medication Drug Class(es) Dates Sig (Normalized) Sig (Original) ciprofloxacin 500 mg oral tablet (2 sources) Quinolone Antimicrobial Start: 08-15-2024 take 1 tablet by mouth once daily Cipro 500 mg Tab 500 mg = 1 tab(s), Oral, Daily, take one tab day before procedure and one tab after procedure, # 2 tab(s), Refills(s) 0, Pharmacy: [facility] [id number], 183, cm, 08/15/24 8:53:00 EST, Height/Length Dosing, 110.2, kg, 08/15/24 8:53:00 EST, Weight Dosing Start Date: 08/15/24 Status: Ordered doxycycline hyclate 100 mg oral capsule (20 sources) Tetracycline-class Drug Start: 06-19-2022 take 1 capsule by [...] mg oral tablet (20 sources) Thiazide Diuretic Start: 03-04-2024 End: 06-07-2024 take 1 tablet by mouth once daily Hydrochlorothiazide 25 mg tablet Discontinued 25 MG PO Daily March 03, 2024 11:00pm June 07, 2024 9:37am Comment on above: Take 25 mg by mouth once daily. 1000 ml sodium chloride 9 mg/ml injection (1 source) Start: 11-14-2021 End: 11-14-2021 NaCl 0.9% 1,000 mL iv bolus Start: 11-14-2021 End: 11-14-2021 NaCl 0.9% 1,000 mL iv bolus Problems Active Problems Problem Classification Problem Date Documented Da te Episodic/Chronic Allergic reactions (9 sources) Flexural eczema; Translations: [Flexural eczema] Chronic Blindness and vision defects (3 sources) Blindness AND/OR vision impairment level 08-03-2019 Chronic Cardiac dysrhythmias (1 source) Bradycardia, unspecified Episodic Chronic kidney disease (20 sources) Chronic kidney disease stage 3A ; [...] sources) Hypertensive disorder; Translations: [Essential (primary) hypertension] Onset: 01-14-2024 05-31-2012 Chronic Genitourinary symptoms and ill-defined conditions (7 sources) Blood in urine; Translations: [Nocturia] Onset: 08-15-2024 08-03-2019 Episodic Heart valve disorders (1 source) Cardiac murmur, unspecified Episodic Hyperplasia of prostate (20 sources) Lower urinary tract symptoms due to benign prostatic hypertrophy; Translations: [Benign prostatic hyperplasia with lower urinary tract symptoms] Onset: 06-15-1959 Chronic Immunizations and screening for infectious disease (2 sources) Vaccination given; Translations: [Encounter for immunization] Episodic Inflammatory conditions of male genital organs (3 sources) Prostatitis 08-03-2019 Episodic Malaise and fatigue (4 sources) Malaise; Translations: [Other malaise] Onset: 08-09-2015 Episodic Mood disorders (9 sources) Depressive disorder; 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] Onset: 03-26-2015 08-03-2019 Chronic Mycoses (5 sources) Onychomycosis; Translations: [Tinea unguium] 07-30-2023 Episodic [...] 05-31-2012 Chronic Other aftercare (1 source) Other half-way (current) drug therapy Episodic Other aftercare (2 sources) Long-term current use of drug therapy; Translations: [Other half-way (current) drug therapy] Episodic Other connective tissue disease (1 source) Trigger finger, left middle finger Episodic Other connective tissue disease (7 sources) Pain in right foot; Translations: [Pain in right foot] 07-30-2023 Episodic Other connective tissue disease (3 sources) Pain of toes of bilateral feet; [...] Episodic Other nutritional; endocrine; and metabolic disorders (18 sources) Obesity; Translations: [Obesity, unspecified] 09-15-2023 Chronic Other nutritional; endocrine; and metabolic disorders (4 sources) Obese class I; Translations: [Body mass index (BMI) 33.0-33.9, adult] Onset: 06-15-1959 Chronic Other nutritional; endocrine; and metabolic disorders (2 sources) Simple obesity ; Translations: [Other obesity due to excess calories] Onset: 06-15-1959 Chronic Other nutritional; endocrine; and metabolic disorders (13 sources) Morbid obesity; Translations: [Morbid (severe) obesity [...] mass index (BMI) 35.0-35.9, adult Chronic Other nutritional; endocrine; and metabolic disorders (3 sources) Obesity, unspecified; Translations: [Obesity, unspecified] 09-15-2023 Chronic Other screening for suspected conditions (not mental disorders or infectious disease) (9 sources) Raised prostate specific antigen; Translations: [Elevated prostate specific antigen [PSA]] Onset: 07-28-2022 Episodic Other skin disorders (16 sources) Sebaceous cyst; Translations: [Sebaceous cyst] Episodic Residual codes; unclassified (2 sources) Family history of cancer; Translations: [Family history of malignant neoplasm of prostate] Onset: 08-08-2022 Episodic Residual codes; unclassified (3 sources) Family history of prostate cancer 08-05-2021 Episodic [...] Translations: [Syncope and collapse] Episodic Viral infection (20 sources) Herpesviral vesicular dermatitis; Translations: [Herpesviral vesicular [...] Test Name Value Interpretation Reference Range Facility [facility] 08-18-2024 [facility] Visit (SP) Office ([place]) PRUDENCIO PATRICK ([id number]) 1945 M Date Time Provider Department 08/18/24 9:00 AM MANDIE BAIG During your visit today, we recorded the following information about you: Temperature Pulse Respiration Blood pressure 97.6 degrees 58/minute 18/minute 147/79 Weight 110.8 kg Mandie Baig APRN.STOCKROOM COORDINATOR 08/18/2024 2:39 PM Signed NAME: Prudencio Patrick CLINIC NO.: [id number] DATE OF SERVICE: August 18, 2024 (Anthony) Some elements in this clinic note that are critical to medical decision making have been carefully reviewed and included from a prior clinic note dated: May 26, 2024 ([place]) Referring Provider: Dr. 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 His M protein levels have been stable over the last 13+ years, and his risk of progression remains very low. However, he became more notably polycythemic and so we ordered a MPN workup for PRV which came back positive. Now improving with hydrea. He did require phlebotomies, however, he decided against any further phlebotomies due to poor side effects. PLAN: Meets parameters for Phlebotomy Today- Patient refuses to have any more phlebotomy's due to syncope episodes. hematocrit today (47.5 on 08/11/2024) Continue baby ASA Continue Hydrea 500 mg daily Labs in 11 weeks RTC in 12 weeks - HPI: CASE HISTORY: Reverse Chronological Order 08/11/2024- H/H 16.3/47.5, WBC 4.23, Plts 154, biclonal Mspike 0.29, 0.49 05/18/2024 - H/H 14.9/42.6, WBC 4.57, Plts 152, biclonal Mspike 0.31, 0.60 01/15/2023 - H/H 15.3/45.3 WBC 4.73, PLTs 155, biclonal Mspike 0.38, 0.58 04/17/2022 - H/H 16.3/47.9 - phlebotomy 500 ml 02/20/2022 - H/H 16.5/48.7 - phlebotomy 250 ml x 3 weeks in a row 11/28/2021 - Hydrea started 500 mg 11/14/2021 - phlebotomy caused severe hypotensive episode - possibly due to fasting/dehydration 10/18/2021 - Jak2+ PRV diagnosed 2006 - IgA [place] and IgM lambda biclonal M-spike Updated Visit, August 18, 2024: Rafa returns with Martha today for a follow-up and review of labs. Overall he is doing well. Hematocrit today is 47.5. He does qualify for a phlebotomy but refuses at this time due to previous syncope episodes when he is has had past phelobotomy's. Remains on 500 mg hydrea daily and ASA. M-Protein is remaining stable. Updated Visit, May 26, 2024: Rafa returns with Martha for a follow up, continues doing well overall. HCT: 42.6 - does not qualify for phlebotomy. Will reconsider phlebotomy when he qualifies in the future. M-protein remains stable. Updated Visit, March 02, 2024: Rafa returns with his . He is feeling well. Remains on hydrea 500 mg daily and aspirin daily. His labs are stable. Hct is 47.1 and qualifies for phlebotomy, however he prefers not to have phlebotomies. Updated Visit, December 03, 2023: Rafa returns with Martha, he is doing well. Labs today are fairly stable although he could qualify for plebotomy. Unfortunately, he feels terrible afterwards and does not want to do this for now. Updated Visit, September 24, 2023: Rafa returns with Martha. He offers no new complaints. He had his annual physical recently and was told everything looks good from their perspective. His labs look good today - HCT 45.6. Updated Visit, July 02, 2023: Prudencio Patrick [...] well overall. Just meets criteria for phlebotomy. aMrtha accompanies him as usual. Updated Visit, January [...] of infection. Updated Visit, August 07, 2022: (more content not included)... Normal [facility] Urine Cytology ([facility])on 0 08-18-2024 Microscopic exam Cytology (U) [Interp] Diagnosis Info Invalid Interpretation Code [facility] Comment on above: Result Comment: A:Ur ine,Urine:Voided Interpretation - A few clusters of urothelial cells with mild atypia; as voided urine, low grade papillary urothelial neoplasm can not be excluded. Clinical correlation is indicated. Adequate cellularity for evaluation. CPT 12384 MicroScopic Description - Adequacy - Gross Description Site ID:A color Dark Yellow fixative Alcohol Specimen designated Urine received in alcohol preservative and labeled with the patient???s name, consists of 60ml slightly cloudy dark yellow fluid. Electronically signed by : on: 08/18/2024 14:02:48 Performed By: #### 1 [id number] #### [facility] [address] [place] [id number] Ambulatory Visit Summaryon 0 08-15-2024 Ambulatory Visit Summary Ambulatory Visit Summary PRUDENCIO PATRICK :1945 Visit Date:08/15/2024 Ambulatory Visit Instructions Your Diagnosis Elevated PSA Gross hematuria BPH with urinary obstruction Family history of prostate cancer Tests Performed US Renal -- Results Pending -- XR Abdomen 1 View -- Results Pending -- Please visit your patient portal for your results or contact your primary care physician. Your Care Team Attending Physician - BARBRA BAILON, Christophe Stoddard Primary Care Physician - JOSE YAP DO This Is Your Medications List finasteride (finasteride 5 mg Tab) Contact prescribing physician if questions or concerns acyclovir amlodipine aspirin (Adult Aspirin 81 mg oral tablet, chewable) atorvastatin clonidine (cloNIDine 0.1 mg tab) hydroxyurea (hydroxyurea 500 mg Cap) losartan (losartan 50 mg Tab) spironolactone (spironolactone 25 mg Tab) Procedures Performed Cancer of skin, Colonoscopy. Discharge Vitals Temperature (Temporal Artery) 37 ???C Heart Rate (Peripheral) 70 Respiratory Rate 16 Blood Pressure 132/79 Height 183 cm Height 72 in Weight 110.2 kg Weight 242.949 lb BMI 32.91 What to do next You Need to Schedule the Following Appointments Follow Up with BARBRA BAILON, MARZENA Heller When: Comments: sched cysto Where: [facility] [address], [place] [address]- [phone] Medications What How Much When Instructions Unchanged finasteride (finasteride 5 mg Tab) 1 Tablets By Mouth Every day Unchanged acyclovir 800 Milligram Contact prescribing physician if questions or concerns Unchanged amlodipine 5 Milligram By Mouth Every day Contact prescribing physician if questions or concerns Unchanged aspirin (Adult Aspirin 81 mg oral tablet, chewable) 1 Tablets Chewed Every day Contact prescribing physician if questions or concerns Unchanged atorvastatin 10 Milligram By Mouth Every day Contact prescribing physician if questions or concerns Unchanged clonidine (cloNIDine 0.1 mg tab) 1 Tablets Contact prescribing physician if questions or concerns Unchanged hydroxyurea (hydroxyurea 500 mg Cap) Contact prescribing physician if questions or concerns Unchanged losartan (losartan 50 mg Tab) 1 Tablets Contact prescribing physician if questions or concerns Unchanged spironolactone (spironolactone 25 mg Tab) 1 Tablets Contact prescribing physician if questions or concerns Allergies penicillin (Mild) Problems Ongoing - Any problem that you are currently receiving treatment for. Blindness BPH with urinary obstruction Depression Elevated PSA Family history of prostate cancer Gross hematuria Hematuria Hypertension Prostatitis Patient Survey You may receive a survey via text or e-mail asking about your office visit. Please share your experience with us by completing your survey. We appreciate your feedback and thank you for choosing us for your care. Education Materials Cystoscopy Cystoscopy is a procedure that is used to help diagnose and sometimes treat conditions that affect the lower urinary tract. The lower urinary tract includes the bladder and the urethra. The urethra is the tube that drains urine from the bladder. Cystoscopy is done using a thin, tube-shaped instrument with a light and camera at the end (cystoscope). The cystoscope may be hard or flexible, depending on the goal of the procedure. The cystoscope is inserted through the urethra, into the bladder. Cystoscopy may be recommended if you have: ??? Urinary tract infections that keep coming back. ??? Blood in the urine (hematuria). ??? An inability to control when you urinate (urinary incontinence) or an overactive bladder. ??? Unusual cells found in a urine sample. ??? A blockage in the urethra, such as a urinary stone. ??? Painful urination. ??? An abnormality in the bladder found during an intravenous pyelogram (IVP) or CT scan. Cystoscopy may also be done to remove a sample of tissue to be examined under a microscope (biopsy). Tell a health care provider about: ??? Any allergies you have. ??? All medicines you are taking, including vitamins, herbs, eye drops, creams, and [id number] medicines. ??? Any problems you or family members have had with anesthetic medicines. ??? Any blood disorders you have. ??? Any surgeries you have had. ??? Any medical conditions you have. ??? Whether you are or may be . What are the risks? Generally, this is a safe procedure. However, problems may occur, including: ??? Infection. ??? Bleeding. ??? Allergic reactions to medicines. ??? Damage to other structures or organs. What happens before the procedure? Medicines Ask your health care provider about: ??? Changing or stopping your regular medicines. This is especially important if you are taking diabetes medicines or blood thinners. ??? Taking medicines suc (more content not included)... Normal [facility] Urine Cytology ([facility])on 0 08-15-2024 Method of Extraction Voided Normal [facility] Comment on above: Performed By: #### 1 [id number] #### [facility] [address] [place] [address] Number of Jars 1 Invalid Interpretation Code [facility] Comment on above: Performed By: #### 1 [id number] #### [facility] [facility] [address] [place] [address] Specimen Urine Normal [facility] Comment on above: Performed By: #### 1 [id number] #### [facility] [address] [place] [address] Type of Service Technical Only Normal Fi [facility] Comment on above: Performed By: #### 1 [id number] #### [facility] [address] [place] [address] Urology Office/Clinic Noteon 08-15-2024 Urology Office/Clinic Note Urology Office/Clinic Note Chief Complaint 1 year with PSA HPI Staff 78yr old male pt here for 1yr visit with PSA. S/p TRUS/bx 2001 - neg. Previous Dx: BPH with urinary obstruction, elevated PSA, family history of prostate cancer *Finasteride 5mg qd PSA 07/30/20 - 3.04 (6.08, Finasteride) 07/29/21 - 2.49 (4.98, Finasteride) 07/28/22 - 2.06 (4.12, Finasteride) 08/07/23 - 2.72 (5.44, Finasteride) 08/08/24 - 2.64 (5.28, Finasteride) Dysuria: denies Incomplete bladder emptying: denies Hematuria: pt states that he noticed a tiny bit of blood a couple of months ago but thought he may have been passing a stone at the time. Nothing since Frequency: denies Urgency: denies Nocturia: 1x Stream: denies straining or intermittency Leaking: denies Post void dripping: denies Wearing pads/ Depends: denies Urge incontinence: denies Stress incontinence: denies Incontinence without Sensory Awareness: denies Abdominal pain: denies Flank pain: denies Sexual complaints: denies History of Present Illness Tests reviewed: reviewed UA, PSA I have reviewed the previous health record information and history for this patient from Dr. Belle. I have reviewed and verified the staff HPI to be accurate for this encounter. Review of Systems PHQ Score Initial Depression Screen Score: 0 SCORE ROS - Provider Constitutional: denies weight loss, denies hot flashes. Eyes: denies eye problems. Gastrointestinal: denies nausea, denies vomiting. Cardiovascular: denies chest pain or angina. Integumentary: no dryness Musculoskeletal: denies musculoskeletal symptoms. ENMT: denies otolaryngeal symptoms. Respiratory: no shortness of breath. Heme/Lymph: denies easy bleeding tendency, denies easy bruising tendency. Psychiatric: no confusion, no anxiety. Genitourinary: See HPI. Physical Exam Vitals & Measurements T: 37 ???C(Temporal Artery) HR: 70(Peripheral) RR: 16 BP: 132/79 HT: 72 in HT: 183 cm WT: 110.2 kg WT: 242.949 lb BMI: 32.91 General Appearance: alert, no distress, well nourished, well developed male. Assessment/Plan 1. Elevated PSA (R97.20: Elevated prostate specific antigen [PSA]) PSA 07/30/20 - 3.04 (6.08 Finasteride) 07/29/21 - 2.49 (4.98 Finasteride) 07/28/22 - 2.06 (4.12 Finasteride) 08/07/23 - 2.72 (5.44 Finasteride) 08/08/24 - 2.64 (5.28 Finasteride) S/p TRUS/bx 2001 - neg. JOSE 08/08/22: ~35g, benign PSA decreased from prior. No indication for further workup. Will cont to monitor. -PSA in 1 yr 2. Gross hematuria (R31.0: Gross hematuria) Isolated episode ~2 mos ago. Reports twinge of back pain at that time. Shares blood was very minimal. Thought he may have passed a stone despite no hx of kidney stones. No sample provided for UA today. Discussed hematuria workup includes upper urinary tract imaging, evaluation of the urinary cells with urine cytology and possible a FISH test, and a cystoscopy to rule out lower urinary tract pathology. Pt aware that a distinct etiology of the hematuria may not be clear upon conclusion of the workup. The rationale for this workup has been discussed, and all questions have been answered. -Schedule KUB/TIANNA -Pt to provide urine sample later today to be sent for FISH/cytology -Will schedule cystoscopy. The risks and benefits for cystoscopy have been discussed. The risks include bleeding, infection, and irritation of the bladder and urinary channel, among others. The patient, after being informed of procedural details and after questions have been answered, wishes to proceed. Full informed consent has been obtained. Will order Local anesthesia. 3. BPH with urinary obstruction (N40.1: Benign prostatic hyperplasia with lower urinary tract symptoms) Taking Finasteride 5mg qd. No urinary habit complaints. Feels he empties. -Cont Finasteride. Pt to call for refills. 4. Family history of prostate cancer (Z80.42: Family history of malignant neoplasm of prostate) Grandfather. Follow-up With When Contact Information Christophe BELLE MD, [facility] [address], [place] [address] [phone] Additional Instructions: sched cysto Patient Education Cystoscopy Hematuria, Adult I, Adriane Baker, personally scribed for Dr. Belle on 08/15/2024 09:16:20. . Documentation recorded by the scribeAdriane, accurately reflects the services(s) I performed and decisions made by me. Authenticated by Dr. Belle on 08/15/2024 09:20:52. Problem List/Past Medical History Ongoing Blindness BPH with urinary obstruction Depression Elevated PSA Family history of prostate cancer Gross hematuria Hematuria Hypertension Prostatitis Historical No qualifying data Procedure/Surgical History Cancer of skin, Colonoscopy. Medications acyclovir, 800 mg Adult Aspirin 81 mg oral tablet, chewable, 81 mg= 1 tab(s), Chewed, Daily amlodipine, 5 mg, Oral, Daily atorvastatin, 10 mg (more content not included)... Normal [facility] Comment on above: Result Comment: Elec tronically Signed By: Christophe BELLE MD\.br\Date and Time Signed: 08/15/24 09:20 EST\.br\Electronically Co-Signed By: Adriane Baker\.br\Date and Time Co-Signed: 08/15/24 09:16 EST B2 Microglob SerPl-ncon Zsfz-3-Bizwvoomfqxd n [Mass/Vol] 3.1 ug/mL High <3.1 [facility] Comment on above: Order Comment: Speci men Type: BLOOD SPECIMENOrdering Facility: [facility] Address: [facility] [place] [address] Result Comment: Beta -2 Microglobulin test is performed using the [employer] immunoturbidimetric method. Results obtained with different methods or kits cannot be used interchangeably. Performed By: #### 2 885-2, 1951-06 ####[facility] LABCLIA [id number] ELIEJennifer [facility] [id number] [place], [place] [id number] [place] CBC W Auto Differential pane l (Bld)on 08-11-2024 Basophils (Bld) [#/Vol] 10*3/uL Normal <0.11 [facility] Comment on above: Order Comment: Speci men Type: BLOOD SPECIMENOrdering Facility: [facility] Address: [address] [place] [address] Performed By: #### 5 7021-8 ####[facility] LABIA [id number] [place] [address] Basophils/100 WBC (Bld) 0.5 % Normal [facility] Comment on above: Order Comment: Speci men Type: BLOOD SPECIMENOrdering Facility: [facility] Address: [address] [place] [address] Performed By: #### 5 7021-8 ####[facility] LABIA [id number] [place] [address] Differential cell count method Nom (Bld) Auto Normal [facility] Comment on above: Order Comment: Speci men Type: BLOOD SPECIMENOrdering Facility: [facility] Address: [address] [place] [address] Performed By: #### 5 7021-8 ####[facility] LABIA [id number] [place] [address] Eosinophils (Bld) [#/Vol] 0.12 10*3/uL Normal <0.46 [facility] Comment on above: Order Comment: Speci men Type: BLOOD SPECIMENOrdering Facility: [facility] Address: [address] [place] [address] Performed By: #### 5 7021-8 ####[facility] LABIA [id number] [place] [address] Eosinophils/100 WBC (Bld) 2.8 % Normal [facility] Comment on above: Order Comment: Speci men Type: BLOOD SPECIMENOrdering Facility: [facility] Address: [address] [place] [address] Performed By: #### 5 7021-8 ####[facility] LABCLIA [id number] [place] [address] Erythrocyte distribution width (RBC) [Ratio] 13.8 % Normal 11.5-15.0 [facility] Comment on above: Order Comment: Speci men Type: BLOOD SPECIMENOrdering Facility: [facility] Address: [address] [place] [address] Performed By: #### 5 7021-8 ####[facility] LABCLIA [id number] [place] [address] Hematocrit (Bld) [Volume fraction] 47.5 % Normal 39.0-51.0 [facility] Comment on above: Order Comment: Speci men Type: BLOOD SPECIMENOrdering Facility: [facility] Address: [address] [place] [address] Performed By: #### 5 7021-8 ####[facility] LABCLIA [id number] [place] [address] Hemoglobin (Bld) [Mass/Vol] 16.3 g/dL Normal 13.0-17.0 [facility] Comment on above: Order Comment: Speci men Type: BLOOD SPECIMENOrdering Facility: [facility] Address: [address] [place] [address] Performed By: #### 5 7021-8 ####[facility] LABCLIA [id number] [place] [address] Immature granulocytes (Bld) [#/Vol] 10*3/uL Normal <0.10 [facility] Comment on above: Order Comment: Speci men Type: BLOOD SPECIMENOrdering Facility: [facility] Address: [address] [place] [address] Performed By: #### 5 7021-8 ####[facility] LABCLIA [id number] [place] [address] Immature granulocytes/100 WBC (Bld) 0.2 % Normal [facility] Comment on above: Order Comment: Speci men Type: BLOOD SPECIMENOrdering Facility: [facility] Address: [address] [place] [address] Performed By: #### 5 7021-8 ####[facility] LABCLIA [id number] [place] [address] Lymphocytes (Bld) [#/Vol] 0.74 10*3/uL Low 1.00-4.00 [facility] Comment on above: Order Comment: Speci men Type: BLOOD SPECIMENOrdering Facility: [facility] Address: [address] [place] [address] Performed By: #### 5 7021-8 ####[facility] LABCLIA [id number] [place] [address] Lymphocytes/100 WBC (Bld) 17.5 % Normal [facility] Comment on above: Order Comment: Speci men Type: BLOOD SPECIMENOrdering Facility: [facility] Address: [address] [place] [address] Performed By: #### 5 7021-8 ####[facility] LABCLIA [id number] [place] [address] MCH (RBC) [Entitic mass] 35.7 pg High 26.0-34.0 [facility] Comment on above: Order Comment: Speci men Type: BLOOD SPECIMENOrdering Facility: [facility] Address: [address] [place] [address] Performed By: #### 5 7021-8 ####[facility] LABCLIA [id number] [place] [address] MCHC (RBC) [Mass/Vol] 34.3 g/dL Normal 30.5-36.0 [facility] Comment on above: Order Comment: Speci men Type: BLOOD SPECIMENOrdering Facility: [facility] Address: [address] [place] [address] Performed By: #### 5 7021-8 ####[facility] LABCLIA [id number] [place] [address] MCV (RBC) [Entitic vol] 103.9 fL High 80.0-100.0 [facility] Comment on above: Order Comment: Speci men Type: BLOOD SPECIMENOrdering Facility: [facility] Address: [address] [place] [address] Performed By: #### 5 7021-8 ####[facility] LABCLIA [id number] [place] [address] Monocytes (Bld) [#/Vol] 0.38 10*3/uL Normal <0.87 [facility] Comment on above: Order Comment: Speci men Type: BLOOD SPECIMENOrdering Facility: [facility] Address: [address] [place] [address] Performed By: #### 5 7021-8 ####[facility] LABCLIA [id number] [place] [address] Monocytes/100 WBC (Bld) 9.0 % Normal [facility] Comment on above: Order Comment: Speci men Type: BLOOD SPECIMENOrdering Facility: [facility] Address: [address] [place] [address] Performed By: #### 5 7021-8 ####[facility] LABCLIA [id number] [place] [address] Neutrophils (Bld) [#/Vol] 2.96 10*3/uL Normal 1.45-7.50 [facility] Comment on above: Order Comment: Speci men Type: BLOOD SPECIMENOrdering Facility: [facility] Address: [address] [place] [address] Performed By: #### 5 7021-8 ####[facility] LABCLIA [id number] [place] [address] Neutrophils/100 WBC (Bld) 70.0 % Normal [facility] Comment on above: Order Comment: Speci men Type: BLOOD SPECIMENOrdering Facility: [facility] Address: [address] [place] [address] Performed By: #### 5 7021-8 ####[facility] LABCLIA [id number] [place] [address] Nucleated RBC (Bld) [#/Vol] 10*3/uL Normal <0.01 [facility] Comment on above: Order Comment: Speci men Type: BLOOD SPECIMENOrdering Facility: [facility] Address: [address] [place] [address] Performed By: #### 5 7021-8 ####[facility] LABCLIA [id number] [place] [address] Nucleated RBC/100 WBC (Bld) [Ratio] 0.0 /100 WBC Normal [facility] Comment on above: Order Comment: Speci men Type: BLOOD SPECIMENOrdering Facility: [facility] Address: [address] [place] [address] Performed By: #### 5 7021-8 ####[facility] LABCLIA [id number] [place] [address] Platelet mean volume (Bld) [Entitic vol] 10.4 fL Normal 9.0-12.7 [facility] Comment on above: Order Comment: Speci men Type: BLOOD SPECIMENOrdering Facility: [facility] Address: [address] [place] [address] Performed By: #### 5 7021-8 ####[facility] LABCLIA [id number] [place] [address] Platelets (Bld) [#/Vol] 154 10*3/uL Normal 150-400 [facility] Comment on above: Order Comment: Speci men Type: BLOOD SPECIMENOrdering Facility: [facility] Address: [address] [place] [address] Performed By: #### 5 7021-8 ####[facility] LABCLIA [id number] [place] [address] RBC (Bld) [#/Vol] 4.57 10*6/uL Normal 4.20-6.00 [facility] Comment on above: Order Comment: Speci men Type: BLOOD SPECIMENOrdering Facility: [facility] Address: [address] [place] [address] Performed By: #### 5 7021-8 ####[facility] LABIA [id number] [place] [address] WBC (Bld) [#/Vol] 4.23 10*3/uL Normal 3.70-11.00 [facility] Comment on above: Order Comment: Speci men Type: BLOOD SPECIMENOrdering Facility: [facility] Address: [address] [place] [address] Performed By: #### 5 7021-8 ####[facility] LABCLIA [id number] [place] [address] Calcium.ionized [Moles/Vol]o n 08-11-2024 Calcium.ionized (Bld) [Mass/Vol] 1.31 mmol/L High 1.08-1.30 [facility] Comment on above: Order Comment: Speci men Type: BLOOD SPECIMENOrdering Facility: [facility] Address: [address] [place] [address] Performed By: #### 1 995-0 ####[facility] LABCLIA [id number] [address] [place] [facility] Calcium.ionized adjusted to pH 7.4 (Bld) [Moles/Vol] 1.26 mmol/L Normal 1.08-1.30 [facility] Comment on above: Order Comment: Speci men Type: BLOOD SPECIMENOrdering Facility: [facility] Address: [address] [place] [address] Performed By: #### 1 995-0 ####[facility] LABCLIA [id number] [place] [address] [place] Comprehensive metabolic 2000 panelon 08-11-2024 Albumin [Mass/Vol] 4.3 g/dL Normal 3.9-4.9 [facility] Comment on above: Order Comment: Speci men Type: BLOOD SPECIMENOrdering Facility: [facility] Address: [address] [place] [address] Performed By: #### 3 084-1, 2532-0, 2777-1 ####[facility] LABCLIA [id number] [place] [address]#### 22080-0 ####[facility] LABCLIA [id number] [place] [address] [place] ALP [Catalytic activity/Vol] 89 U/L Normal 38-113 [facility] Comment on above: Order Comment: Speci men Type: BLOOD SPECIMENOrdering Facility: [facility] Address: [address] [place] [address] Result Comment: Moses ected result: Previously reported as 84 U/L on 08/11/2024 at 10:40 AM EST. Performed By: #### 3 084-1, 2531-0, 2776- ####[facility] LABCLIA [id number] [place] [address]#### 40696-7 ####[facility] LABCLIA [id number] [address] [place] ALT [Catalytic activity/Vol] 28 U/L Normal 10-54 [facility] Comment on above: Order Comment: Speci men Type: BLOOD SPECIMENOrdering Facility: [facility] Address: [address] [place] [address] Result Comment: Moses ected result: Previously reported as 25 U/L on 08/11/2024 at 10:40 AM EST. Performed By: #### 3 084-1, 2532-0, 277-1 ####[facility] LABCLIA [id number] [place] [address]#### 52420-8 ####[facility] LABCLIA [id number] [place] [address] [place] Anion gap [Moles/Vol] 15 mmol/L Normal 8-15 [facility] Comment on above: Order Comment: Speci men Type: BLOOD SPECIMENOrdering Facility: [facility] Address: [address] [place] [address] Performed By: #### 3 084-1, 2531-0, 2776- ####[facility] LABCLIA [id number] [place] [address]#### 83861-9 ####[facility] LABCLIA [id number] [place] [address] [place] AST [Catalytic activity/Vol] 32 U/L Normal 14-40 [facility] Comment on above: Order Comment: Speci men Type: BLOOD SPECIMENOrdering Facility: [facility] Address: [address] [place] [address] Result Comment: Moses ected result: Previously reported as 25 U/L on 08/11/2024 at 10:40 AM EST. Performed By: #### 3 084-1, 2531-0, 2776- ####[facility] LABCLIA [id number] [place] [address]#### 13448-0 ####[facility] LABCLIA [id number] [place] [id number] [place] Bilirubin [Mass/Vol] 0.6 mg/dL Normal 0.2-1.3 [facility] Comment on above: Order Comment: Speci men Type: BLOOD SPECIMENOrdering Facility: [facility] Address: [address] [place] [address] Performed By: #### 3 084-1, 2-0, 2776- ####[facility] LABCLIA [id number] [place] [address]#### 30053-3 ####[facility] LABCLIA [id number] [place] [address] [place] Calcium [Mass/Vol] 9.9 mg/dL Normal 8.5-10.2 [facility] Comment on above: Order Comment: Speci men Type: BLOOD SPECIMENOrdering Facility: [facility] Address: [address] [place] [address] Result Comment: Moses ected result: Previously reported as 9.7 mg/dL on 08/11/2024 at 10:40 AM EST. Performed By: #### 3 084-1, 2532-0, 2777-1 ####[facility] LABCLIA [id number] [place] [address]#### 65603-0 ####[facility] LABCLIA [id number] [place] [address] [place] Chloride [Moles/Vol] 104 mmol/L Normal 98-107 [facility] Comment on above: Order Comment: Speci men Type: BLOOD SPECIMENOrdering Facility: [facility] Address: [address] [place] [address] Performed By: #### 3 084-1, 2532-0, 2777-1 ####[facility] LABCLIA [id number] [place] [address]#### 29057-9 ####[facility] LABCLIA [id number] [place] [id number] [place] CO2 [Moles/Vol] 19 mmol/L Low 22-30 [facility] Comment on above: Order Comment: Speci men Type: BLOOD SPECIMENOrdering Facility: [facility] Address: [address] [place] [address] Result Comment: Moses ected result: Previously reported as 23 mmol/L on 08/11/2024 at 10:40 AM EST. Performed By: #### 3 084-1, 2532-0, 277-1 ####[facility] LABCLIA [id number] [place] [address]#### 46508-2 ####[facility] LABCLIA [id number] [place] [id number] [place] Creatinine [Mass/Vol] 1.26 mg/dL High 0.73-1.22 [facility] Comment on above: Order Comment: Speci men Type: BLOOD SPECIMENOrdering Facility: [facility] Address: [address] [place] [address] Result Comment: Moses ected result: Previously reported as 1.21 mg/dL on 08/11/2024 at 10:40 AM EST. Performed By: #### 3 084-1, 2532-0, 2776-1 ####[facility] LABCLIA [id number] [place] [address]#### 79850-7 ####[facility] LABIA [id number] [address] [place] Creatinine and Glomerular filtration rate.predicted panel (S/P/Bld) 58 mL/min/1.73m??? Low >=60 [facility] Comment on above: Order Comment: Speci men Type: BLOOD SPECIMENOrdering Facility: [facility] Address: [address] [place] [address] Result Comment: Tawanna mated Glomerular Filtration Rate (eGFR) is calculated using the 2020 CKD-EPI creatinine equation. This equation utilizes serum creatinine, sex, and age as parameters. The creatinine assay has traceable calibration to isotope dilution-mass spectrometry. Refer to KDIGO guidelines for clinical interpretation. In patients with unstable renal function, e.g. those with acute kidney injury, the eGFR may not accurately reflect actual GFR. Corrected result: Previously reported as 61 mL/min/1.73m??? on 08/11/2024 at 10:40 AM EST. Performed By: #### 3 084-1, 2532-0, 2776- ####[facility] LABCLIA [id number] [place] [address]#### 18297-3 ####[facility] LABCLIA [id number] [address] [address] [place] Glucose [Mass/Vol] 100 mg/dL High 74-99 [facility] Comment on above: Order Comment: Speci men Type: BLOOD SPECIMENOrdering Facility: [facility] Address: [address] [place] [address] Result Comment: The [place] [employer] Association (ADA) provides guidance for cutoff [...] Standards of Medical Care in Diabetes 2016, [place] [employer]. Diabetes Care. 2016.39(Suppl 1). Corrected result: Previously reported as 101 mg/dL on 08/11/2024 at 10:40 AM EST. Performed By: #### 3 084-1, 2531-0, 2776- ####[facility] LABCLIA [id number] [place] [address]#### 10979-8 ####[facility] LABCLIA [id number] [address] [address] [place] Potassium [Moles/Vol] 4.8 mmol/L Normal 3.7-5.1 [facility] Comment on above: Order Comment: Speci men Type: BLOOD SPECIMENOrdering Facility: [facility] Address: [address] [place] [address] Performed By: #### 3 084-1, 2532-0, 2776-1 ####[facility] LABCLIA [id number] [place] [address]#### 79730-0 ####[facility] LABCLIA [id number] [address] [address] [place] Protein [Mass/Vol] 8.2 g/dL High 6.3-8.0 [facility] Comment on above: Order Comment: Speci men Type: BLOOD SPECIMENOrdering Facility: [facility] Address: [address] [place] [address] Result Comment: Moses ected result: Previously reported as 7.8 g/dL on 08/11/2024 at 10:40 AM EST. Performed By: #### 3 084-1, 2-0, 2776-1 ####[facility] LABCLIA [id number] [place] [address]#### 70594-1 ####[facility] LABCLIA [id number] [place] [id number] [place] Sodium [Moles/Vol] 138 mmol/L Normal 136-144 [facility] Comment on above: Order Comment: Speci men Type: BLOOD SPECIMENOrdering Facility: [facility] Address: [address] [place] [address] Performed By: #### 3 084-1, 2-0, 2776- ####[facility] LABCLIA [id number] [place] [address]#### 12480-8 ####[facility] LABIA [id number] [place] [id number] [place] Urea nitrogen [Mass/Vol] 17 mg/dL Normal 9-24 [facility] Comment on above: Order Comment: Speci men Type: BLOOD SPECIMENOrdering Facility: [facility] Address: [address] [place] [address] Performed By: #### 3 084-1, 2532-0, 2777-1 ####[facility] LABCLIA [id number] [place] [address]#### 86964-0 ####[facility] LABCLIA [id number] [place] [address] [place] EPO SerPl-aCncon 08-11-2024 Erythropoietin (EPO) Qn 8.4 mIU/mL Normal 2.6-18.5 [facility] Comment on above: Order Comment: Speci men Type: BLOOD SPECIMENOrdering Facility: [facility] Address: [address] [place] [address] Performed By: #### 1 5061-5 ####[facility] LABIA [id number] [address] [place] IMMUNOFIXATION SCREEN, SERUM on 08-11-2024 INTERPRETATION (MPA) Two sets of atypical restricted bands are present in the specimen, one in the IgA and kappa lanes, and the other in the IgM and lambda lanes. 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 Normal [facility] Comment on above: Order Comment: Speci men Type: BLOOD SPECIMENOrdering Facility: [facility] Address: [address] [place] [address] Performed By: #### I FESC ####[facility] LABIA [id number] [address] [place] MPA RESULT M protein is present. Abnormal No M p rotein is identified. [facility] Comment on above: Order Comment: Speci men Type: BLOOD SPECIMENOrdering Facility: [facility] Address: [address] [place] [address] Performed By: #### I FES ####[facility] LABIA [id number] [place] [id number] [place] STAFF REVIEW (MPA) Reviewed by Viki Carballo MD [facility] Comment on above: Order Comment: Speci men Type: BLOOD SPECIMENOrdering Facility: [facility] Address: [address] [place] [address] Performed By: #### I FES ####[facility] LABCLIA [id number] [place] [address] [place] IMMUNOGLOBULINS,IGG,IGA,IGMo n 08-11-2024 IgA [Mass/Vol] 690 mg/dL High 70-400 [facility] Comment on above: Order Comment: Speci men Type: BLOOD SPECIMENOrdering Facility: [facility] Address: [address] [place] [address] Performed By: #### S ERIMM ####[facility] LABCLIA [id number] [place] [address] [place] IgG [Mass/Vol] 877 mg/dL Normal 700-1600 [facility] Comment on above: Order Comment: Speci men Type: BLOOD SPECIMENOrdering Facility: [facility] Address: [address] [place] [address] Performed By: #### S ERIMM ####[facility] LABCLIA [id number] [place] [address] [place] IgM [Mass/Vol] 825 mg/dL High 40-230 [facility] Comment on above: Order Comment: Speci men Type: BLOOD SPECIMENOrdering Facility: [facility] Address: [address] [place] [address] Performed By: #### S ERIMM ####[facility] LABCLIA [id number] [place] [address] [place] KAPPA/BURT,FREE,SERon 2024 Immunoglobulin light chains.kappa.free (S) [Mass/Vol] 26.9 mg/L High 3.3-19.4 [facility] Comment on above: Order Comment: Speci men Type: BLOOD SPECIMENOrdering Facility: [facility] Address: [address] [place] [address] Result Comment: Rare ly, increased serum free light chains levels may not be detected or accurately quantified due to prozone phenomenon or in high viscosity samples using this immunoturbidimetric assay. Correlation with other laboratory results and clinical findings is recommended. The [place] Free Light Chain was performed using the Binding [employer] immunoturbidimetric method. Result obtained with different assay methods or kits cannot be used interchangeably. Performed By: #### K LFRS ####[facility] LABCLIA [id number] [place] [address] [place] Immunoglobulin light chains.kappa/Immuno globulin light chains.lambda (S) [Mass ratio] 0.41 Normal 0.26-1.65 [facility] Comment on above: Order Comment: Speci men Type: BLOOD SPECIMENOrdering Facility: [facility] Address: [address] [place] [address] Performed By: #### K LFRS ####[facility] LABCLIA [id number] [place] [address] [place] Immunoglobulin light chains.lambda.free [Mass/Vol] 65.7 mg/L High 5.7-26.3 [facility] Comment on above: Order Comment: Speci men Type: BLOOD SPECIMENOrdering Facility: [facility] Address: [address] [place] [address] Result Comment: Rare ly, increased serum free [...] cannot be used interchangeably. Performed By: #### K LFRS ####[facility] LABCLIA [id number] [place] [address] [place] LDH SerPl-cCncon 08-11-2024 LDH [Catalytic activity/Vol] 187 U/L Normal 135-225 [facility] Comment on above: Order Comment: Speci men Type: BLOOD SPECIMENOrdering Facility: [facility] Address: [address] [place] [address] Result Comment: Hemo lysis present. The origin [...] clinically indicated. Performed By: #### 3 084-1, 2532-0, 2777-1 ####[facility] LABCLIA [id number] [place] [address]#### 05059-7 ####[facility] LABCLIA [id number] [place] [address] [place] PROTEIN ELECTROPHORESIS SERU M (P)on 08-11-2024 Albumin [Mass/Vol] 4.38 g/dL Normal 3.43-5.41 [facility] Comment on above: Order Comment: Speci men Type: BLOOD SPECIMEN Ordering Facility: [facility] Address: [address] [place] [address] Performed By: #### K LFRS #### [facility] LAB CLIA [id number] [address] [place] [address] [place] Alpha 1 globulin Elph [Mass/Vol] 0.22 g/dL Normal 0.18-0.43 [facility] Comment on above: Order Comment: Speci men Type: BLOOD SPECIMEN Ordering Facility: [facility] Address: [address] [place] [address] Performed By: #### K LFRS #### [facility] LAB CLIA [id number] [address] [place] [address] [place] Alpha 2 globulin Elph [Mass/Vol] 0.56 g/dL Normal 0.42-0.98 [facility] Comment on above: Order Comment: Speci men Type: BLOOD SPECIMEN Ordering Facility: [facility] Address: [address] [place] [address] Performed By: #### K LFRS #### [facility] LAB CLIA [id number] [address] [place] [address] [place] Beta globulin Elph [Mass/Vol] 1.00 g/dL Normal 0.61-1.17 [facility] Comment on above: Order Comment: Speci men Type: BLOOD SPECIMEN Ordering Facility: [facility] Address: [address] [place] [address] Performed By: #### K LFRS #### [facility] LAB CLIA [id number] [address] [place] [address] [place] Gamma globulin Elph [Mass/Vol] 1.54 g/dL High 0.53-1.51 [facility] Comment on above: Order Comment: Speci men Type: BLOOD SPECIMEN Ordering Facility: [facility] Address: [address] [place] [address] Performed By: #### K LFRS #### [facility] LAB CLIA [id number] [address] [place] [address] [place] INTERPRETATION COMMENT FOR PROTEIN ELECTROPHORESIS See separate immunofixation report for characterization of monoclonal gammopathy. Normal [facility] Comment on above: Order Comment: Speci men Type: BLOOD SPECIMEN Ordering Facility: [facility] Address: [address] [place] [address] Performed By: #### K LFRS #### [facility] LAB CLIA [id number] [address] [place] [address] [place] M SPIKE CONCENTRATION 2 0.49 g/dL High <=0.00 [facility] Comment on above: Order Comment: Speci men Type: BLOOD SPECIMEN Ordering Facility: [facility] Address: [address] [place] [address] Performed By: #### K LFRS #### [facility] LAB CLIA [id number] [place] M-PROTEIN LOCATION Gamma Fraction 1 Normal [facility] Comment on above: Order Comment: Speci men Type: BLOOD SPECIMEN Ordering Facility: [facility] Address: [address] [place] [address] Performed By: #### K LFRS #### [facility] LAB CLIA [id number] [address] [place] [address] [place] M-PROTEIN LOCATION 2 Gamma Fraction 2 Normal [facility] Comment on above: Order Comment: Speci men Type: BLOOD SPECIMEN Ordering Facility: [facility] Address: [address] [place] [address] Performed By: #### K LFRS #### [facility] LAB CLIA [id number] [address] [place] [address] [place] Protein Fractions [Interp] An M protein is identified on protein electrophoresis. Abnormal No definitive M protein is identified on protein electrophores is. [facility] Comment on above: Order Comment: Speci men Type: BLOOD SPECIMEN Ordering Facility: [facility] Address: [address] [place] [address] Performed By: #### K LFRS #### [facility] CLIA [id number] [address] [place] [address] [place] Protein.monoclonal Elph [Mass/Vol] 0.29 g/dL High <=0.00 [facility] Comment on above: Order Comment: Speci men Type: BLOOD SPECIMEN Ordering Facility: [facility] Address: [address] [place], [place] [address] Performed By: #### K LFRS #### [facility] LAB CLIA [id number] [address] [place] [address] [place] SPE STAFF REVIEW Reviewed by Viki Carballo MD Normal [facility] Comment on above: Order Comment: Speci men Type: BLOOD SPECIMEN Ordering Facility: [facility] Address: [address] [place] [address] Performed By: #### K LFRS #### [facility] CLIA [id number] [address] [place] [address] [place] Phosphate SerPl-mCncon 08-11 Phosphate [Mass/Vol] 3.2 mg/dL Normal 2.7-4.8 [facility] Comment on above: Order Comment: Speci men Type: BLOOD SPECIMENOrdering Facility: [facility] Address: [address] [place] [address] Performed By: #### 3 084-1, 2531-0, 2776-06 ####[facility] LABCLIA [id number] [place] [address]#### 87424-8 ####[facility] LABCLIA [id number] [place] [address] [place] Prot SerPl-mCncon 08-11-2024 Protein [Mass/Vol] 7.7 g/dL Normal 6.3-8.0 [facility] Comment on above: Order Comment: Speci men Type: BLOOD SPECIMENOrdering Facility: [facility] Address: [address] [place] [address] Performed By: #### 2 885-2, 1951-06 ####[facility] LABCLIA [id number] [place] [address] [place] Urate SerPl-mCncon Urate [Mass/Vol] 6.2 mg/dL Normal 4.0-8.1 [facility] Comment on above: Order Comment: Speci men Type: BLOOD SPECIMENOrdering Facility: [facility] Address: [address] [place] [address] Performed By: #### 3 084-1, 2531-0, 2776-06 ####[facility] LABCLIA [id number] [place] [address]#### 74720-3 ####[facility] LABCLIA [id number] ELIEJennifer [address] [address] [place] CNOVSPon 05-26-2024 CNOVSP Visit (SP) Office (HEMASA) PRUDENCIO PATRICK ([id number]) 1945 M Date Time Provider Department 05/26/24 8:20 AM MAYCOL NOVAK HEMHUDSON During your visit today, we recorded the following information about you: Temperature Pulse Respiration Blood pressure 97.5 degrees 64/minute 16/minute 157/84 Weight Height 112.5 kg 1.803 m Maycol Novak MD 05/26/2024 9:59 AM Signed NAME: Prudencio Patrick CLINIC NO.: [id number] DATE OF SERVICE: May 26, 2024 (Dipak) Some elements in this clinic note that are critical to medical decision making have been carefully reviewed and included from a prior clinic note dated: March 02, 2024 (Jovany) Referring Provider: Dr. 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 His M protein levels have been stable over the last 13+ years, and his risk of progression remains very low. However, he became more notably polycythemic and so we ordered a MPN workup for PRV which came back positive. Now improving with hydrea. He did require phlebotomies, however, he decided against any further phlebotomies due to poor side effects. PLAN: No Phlebotomy for hematocrit today (42.6 on 05/18/2024) Continue baby ASA Continue Hydrea 500 mg daily Labs in 11 weeks RTC in 12 weeks Possible phlebotomy - reconsider with Hct > 45 - HPI: CASE HISTORY: Reverse Chronological Order 05/18/2024 - H/H 14.9/42.6, WBC 4.57, Plts 152, biclonal Mspike 0.31, 0.60 01/15/2023 - H/H 15.3/45.3 WBC 4.73, PLTs 155, biclonal Mspike 0.38, 0.58 04/17/2022 - H/H 16.3/47.9 - phlebotomy 500 ml 02/20/2022 - H/H 16.5/48.7 - phlebotomy 250 ml x 3 weeks in a row 11/28/2021 - Hydrea started 500 mg 11/14/2021 - phlebotomy caused severe hypotensive episode - possibly due to fasting/dehydration 10/18/2021 - 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 HCT: 42.6 - does not qualify for phlebotomy. Will reconsider phlebotomy when he qualifies in the future. M-protein remains stable. Updated Visit, March 02, 2024: Rafa returns with his . He is feeling well. Remains on hydrea 500 mg daily and aspirin daily. His labs are stable. Hct is 47.1 and qualifies for phlebotomy, however he prefers not to have phlebotomies. Updated Visit, December 03, 2023: Rafa returns with Martha, he is doing well. Labs today are fairly stable although he could qualify for plebotomy. Unfortunately, he feels terrible afterwards and does not want to do this for now. Updated Visit, September 24, 2023: Rafa returns with Martha. He offers no new complaints. He had his annual physical recently and was told everything looks good from their perspective. His labs look good today - HCT 45.6. Updated Visit, July 02, 2023: Prudencio Coleman Bubba returns for scheduled follow-up. At this point [...] then we can estimate a pattern for plan (more content not included)... Normal [facility] Albumin [Mass/volume] in Ser um or Plasmaon 05-18-2024 Albumin [Mass/Vol] Albumin [Mass/volume ] in Serum or Plasma 3.43-5.41 [facility] B2 Microglob SerPl-mCncon Vzel-3-Zfjxnivzldtp n [Mass/Vol] 2.7 ug/mL Normal <3.1 [facility] Comment on above: Order Comment: Speci men Type: BLOOD SPECIMENOrdering Facility: [facility] Address: [address] [place] [address] Result Comment: Beta -2 Microglobulin test is performed using the [employer] immunoturbidimetric method. Results obtained with different methods or kits cannot be used interchangeably. Performed By: #### 2 885-2, 1951-06 ####[facility] LABCLIA [id number] [id number] [address] [place] Basophils Auto (Bld) [#/Vol] on 05-18-2024 Basophils (Bld) [#/Vol] Automated basophil count <0.11 [facility] Basophils/100 WBC Auto (Bld) on 05-18-2024 Basophils/100 WBC (Bld) Automated basophil % [facility] Blood manual differential co mment interpretation narrativeon 05-18-2024 Manual differential comment Dylan (Bld) [Interp] Blood manual differential comment interpretation narrative [facility] CBC W Auto Differential pane l (Bld)on 05-18-2024 Basophils (Bld) [#/Vol] 0.03 10*3/uL Normal <0.11 [facility] Comment on above: Order Comment: Speci men Type: BLOOD SPECIMENOrdering Facility: [facility] Address: [address] [place] [address] Performed By: #### 5 7021-8 ####[facility] LABCLIA [id number] [place] [address] Basophils/100 WBC (Bld) 0.7 % Normal [facility] Comment on above: Order Comment: Speci men Type: BLOOD SPECIMENOrdering Facility: [facility] Address: [address] [place] [address] Performed By: #### 5 7021-8 ####[facility] LABCLIA [id number] [place] [address] Differential cell count method Nom (Bld) Auto Normal [facility] Comment on above: Order Comment: Speci men Type: BLOOD SPECIMENOrdering Facility: [facility] Address: [address] [place], [place] [address] Performed By: #### 5 7021-8 ####[facility] LABCLIA [id number] [place] [address] Eosinophils (Bld) [#/Vol] 0.08 10*3/uL Normal <0.46 [facility] Comment on above: Order Comment: Speci men Type: BLOOD SPECIMENOrdering Facility: [facility] Address: [address] [place] [address] Performed By: #### 5 7021-8 ####[facility] LABCLIA [id number] [place] [address] Eosinophils/100 WBC (Bld) 1.8 % Normal [facility] Comment on above: Order Comment: Speci men Type: BLOOD SPECIMENOrdering Facility: [facility] Address: [address] [place] [address] Performed By: #### 5 7021-8 ####[facility] LABCLIA [id number] [place] [address] Erythrocyte distribution width (RBC) [Ratio] 13.9 % Normal 11.5-15.0 [facility] Comment on above: Order Comment: Speci men Type: BLOOD SPECIMENOrdering Facility: [facility] Address: [address] [place] [address] Performed By: #### 5 7021-8 ####[facility] LABCLIA [id number] [place] [address] Hematocrit (Bld) [Volume fraction] 42.6 % Normal 39.0-51.0 [facility] Comment on above: Order Comment: Speci men Type: BLOOD SPECIMENOrdering Facility: [facility] Address: [address] [place] [address] Performed By: #### 5 7021-8 ####[facility] LABCLIA [id number] [place] [address] Hemoglobin (Bld) [Mass/Vol] 14.9 g/dL Normal 13.0-17.0 [facility] Comment on above: Order Comment: Speci men Type: BLOOD SPECIMENOrdering Facility: [facility] Address: [address] [place] [address] Performed By: #### 5 7021-8 ####[facility] LABCLIA [id number] [place] [address] Immature granulocytes (Bld) [#/Vol] 10*3/uL Normal <0.10 [facility] Comment on above: Order Comment: Speci men Type: BLOOD SPECIMENOrdering Facility: [facility] Address: [address] [place] [address] Performed By: #### 5 7021-8 ####[facility] LABCLIA [id number] [place] [address] Immature granulocytes/100 WBC (Bld) 0.4 % Normal [facility] Comment on above: Order Comment: Speci men Type: BLOOD SPECIMENOrdering Facility: [facility] Address: [address] [place] [address] Performed By: #### 5 7021-8 ####[facility] LABCLIA [id number] [place] [address] Lymphocytes (Bld) [#/Vol] 0.77 10*3/uL Low 1.00-4.00 [facility] Comment on above: Order Comment: Speci men Type: BLOOD SPECIMENOrdering Facility: [facility] Address: [address] [place] [address] Performed By: #### 5 7021-8 ####[facility] LABCLIA [id number] [place] [address] Lymphocytes/100 WBC (Bld) 16.8 % Normal [facility] Comment on above: Order Comment: Speci men Type: BLOOD SPECIMENOrdering Facility: [facility] Address: [address] [place] [address] Performed By: #### 5 7021-8 ####[facility] LABCLIA [id number] [place] [address] MCH (RBC) [Entitic mass] 36.5 pg High 26.0-34.0 [facility] Comment on above: Order Comment: Speci men Type: BLOOD SPECIMENOrdering Facility: [facility] Address: [address] [place] [address] Performed By: #### 5 7021-8 ####[facility] LABCLIA [id number] [place] [address] MCHC (RBC) [Mass/Vol] 35.0 g/dL Normal 30.5-36.0 [facility] Comment on above: Order Comment: Speci men Type: BLOOD SPECIMENOrdering Facility: [facility] Address: [address] [place] [address] Performed By: #### 5 7021-8 ####[facility] LABIA [id number] [place] [address] MCV (RBC) [Entitic vol] 104.4 fL High 80.0-100.0 [facility] Comment on above: Order Comment: Speci men Type: BLOOD SPECIMENOrdering Facility: [facility] Address: [address] [place] [address] Performed By: #### 5 7021-8 ####[facility] LABIA [id number] [place] [address] Monocytes (Bld) [#/Vol] 0.53 10*3/uL Normal <0.87 [facility] Comment on above: Order Comment: Speci men Type: BLOOD SPECIMENOrdering Facility: [facility] Address: [address] [place] [address] Performed By: #### 5 7021-8 ####[facility] LABIA [id number] [place] [address] Monocytes/100 WBC (Bld) 11.6 % Normal [facility] Comment on above: Order Comment: Speci men Type: BLOOD SPECIMENOrdering Facility: [facility] Address: [address] [place] [address] Performed By: #### 5 7021-8 ####[facility] LABCLIA [id number] [place] [address] Neutrophils (Bld) [#/Vol] 3.14 10*3/uL Normal 1.45-7.50 [facility] Comment on above: Order Comment: Speci men Type: BLOOD SPECIMENOrdering Facility: [facility] Address: [address] [place] [address] Performed By: #### 5 7021-8 ####[facility] LABCLIA [id number] [place] [address] Neutrophils/100 WBC (Bld) 68.7 % Normal [facility] Comment on above: Order Comment: Speci men Type: BLOOD SPECIMENOrdering Facility: [facility] Address: [address] [place] [address] Performed By: #### 5 7021-8 ####[facility] LABCLIA [id number] [place] [address] Nucleated RBC (Bld) [#/Vol] 10*3/uL Normal <0.01 [facility] Comment on above: Order Comment: Speci men Type: BLOOD SPECIMENOrdering Facility: [facility] Address: [address] [place] [address] Performed By: #### 5 7021-8 ####[facility] LABCLIA [id number] [place] [address] Nucleated RBC/100 WBC (Bld) [Ratio] 0.0 /100 WBC Normal [facility] Comment on above: Order Comment: Speci men Type: BLOOD SPECIMENOrdering Facility: [facility] Address: [address] [place] [address] Performed By: #### 5 7021-8 ####[facility] LABCLIA [id number] [place] [address] Platelet mean volume (Bld) [Entitic vol] 10.2 fL Normal 9.0-12.7 [facility] Comment on above: Order Comment: Speci men Type: BLOOD SPECIMENOrdering Facility: [facility] Address: [address] [place] [address] Performed By: #### 5 7021-8 ####[facility] LABCLIA [id number] [place] [address] Platelets (Bld) [#/Vol] 152 10*3/uL Normal 150-400 [facility] Comment on above: Order Comment: Speci men Type: BLOOD SPECIMENOrdering Facility: [facility] Address: [address] [place] [address] Performed By: #### 5 7021-8 ####[facility] LABIA [id number] [place] [address] RBC (Bld) [#/Vol] 4.08 10*6/uL Low 4.20-6.00 [facility] Comment on above: Order Comment: Speci men Type: BLOOD SPECIMENOrdering Facility: [facility] Address: [address] [place] [address] Performed By: #### 5 7021-8 ####[facility] LABIA [id number] [place] [address] WBC (Bld) [#/Vol] 4.57 10*3/uL Normal 3.70-11.00 [facility] Comment on above: Order Comment: Speci men Type: BLOOD SPECIMENOrdering Facility: [facility] Address: [address] [place] [address] Performed By: #### 5 7021-8 ####[facility] LABIA [id number] [place] [address] Comprehensive metabolic 2000 panelon 05-18-2024 Albumin [Mass/Vol] 4.2 g/dL Normal 3.9-4.9 [facility] Comment on above: Order Comment: Speci men Type: BLOOD SPECIMENOrdering Facility: [facility] Address: [address] [place], [place] [address] Performed By: #### 3 084-1, 13468-0, 2532-0, 2776- ####[facility] LABCLIA [id number] [place] [address] ALP [Catalytic activity/Vol] 84 U/L Normal 38-113 [facility] Comment on above: Order Comment: Speci men Type: BLOOD SPECIMENOrdering Facility: [facility] Address: [address] [place] [address] Performed By: #### 3 084-1, 78883-2, 2532-0, 2776-1 ####[facility] LABIA [id number] [place] [address] ALT [Catalytic activity/Vol] 16 U/L Normal 10-54 [facility] Comment on above: Order Comment: Speci men Type: BLOOD SPECIMENOrdering Facility: [facility] Address: [address] [place] [address] Performed By: #### 3 084-1, 04189-5, 2532-0, 2776-1 ####[facility] LABIA [id number] [place] [address] Anion gap [Moles/Vol] 11 mmol/L Normal 8-15 [facility] Comment on above: Order Comment: Speci men Type: BLOOD SPECIMENOrdering Facility: [facility] Address: [address] [place] [address] Performed By: #### 3 084-1, 73871-7, 2532-0, 2776-1 ####[facility] LABIA [id number] [place] [address] AST [Catalytic activity/Vol] 18 U/L Normal 14-40 [facility] Comment on above: Order Comment: Speci men Type: BLOOD SPECIMENOrdering Facility: [facility] Address: [address] [place] [address] Performed By: #### 3 084-1, 42827-8, 2532-0, 2776- ####PERLA [facility] LABCLIA [id number] [place] [address] Bilirubin [Mass/Vol] 0.6 mg/dL Normal 0.2-1.3 [facility] Comment on above: Order Comment: Speci men Type: BLOOD SPECIMENOrdering Facility: [facility] Address: [address] [place] [address] Performed By: #### 3 084-1, 45412-3, 2532-0, 2776- ####[facility] LABCLIA [id number] [place] [address] Calcium [Mass/Vol] 9.5 mg/dL Normal 8.5-10.2 [facility] Comment on above: Order Comment: Speci men Type: BLOOD SPECIMENOrdering Facility: [facility] Address: [address] [place] [address] Performed By: #### 3 084-1, 36220-3, 2531-0, 2776- ####PERLA [facility] LABIA [id number] [place] [address] Chloride [Moles/Vol] 98 mmol/L Normal 98-107 [facility] Comment on above: Order Comment: Speci men Type: BLOOD SPECIMENOrdering Facility: [facility] Address: [address] [place] [address] Performed By: #### 3 084-1, 74089-7, 2532-0, 2776- ####[facility] LABIA [id number] [place] [address] CO2 [Moles/Vol] 29 mmol/L Normal 22-30 [facility] Comment on above: Order Comment: Speci men Type: BLOOD SPECIMENOrdering Facility: [facility] Address: [address] [place] [address] Performed By: #### 3 084-1, 79649-0, 2532-0, 2777-1 ####[facility] LABCLIA [id number] [place] [address] Creatinine [Mass/Vol] 1.12 mg/dL Normal 0.73-1.22 [facility] Comment on above: Order Comment: Speci eduar Type: BLOOD SPECIMENOrdering Facility: [facility] Address: [address] [place] [address] Performed By: #### 3 084-1, 44299-5, 2531-0, 2776- ####[facility] LABCLIA [id number] [place] [address] Creatinine and Glomerular filtration rate.predicted panel (S/P/Bld) 67 mL/min/1.73m??? Normal >=60 [facility] Comment on above: Order Comment: Rene eduar Type: BLOOD SPECIMENOrdering Facility: [facility] Address: [address] [place] [address] Result Comment: Tawanna mated Glomerular Filtration Rate [...] actual GFR. Performed By: #### 3 084-1, 92903-1, 2531-0, 2776-06 ####[facility] LABCLIA [id number] [place] [address] Glucose [Mass/Vol] 96 mg/dL Normal 74-99 [facility] Comment on above: Order Comment: Speci eduar Type: BLOOD SPECIMENOrdering Facility: [facility] Address: [address] [id number] Result Comment: The [place] Diabetes Association (ADA) provides guidance for cutoff [...] Standards of Medical Care in Diabetes 2016, [place] [employer] Association. Diabetes Care. 2016.39(Suppl 1). Performed By: #### 3 084-1, 58642-0, 2531-0, 2776- ####[facility] LABCLIA [id number] [place] [address] Potassium [Moles/Vol] 3.5 mmol/L Low 3.7-5.1 [facility] Comment on above: Order Comment: Speci men Type: BLOOD SPECIMENOrdering Facility: [facility] Address: [address] [place] [address] Performed By: #### 3 084-1, 20227-9, 0, 2776-06 ####[facility] LABCLIA [id number] [place] [address] Protein [Mass/Vol] 7.4 g/dL Normal 6.3-8.0 [facility] Comment on above: Order Comment: Speci men Type: BLOOD SPECIMENOrdering Facility: [facility] Address: [address] [place] [address] Performed By: #### 3 084-1, 49746-9, 0, 2776-06 ####[facility] LABCLIA [id number] [place] [address] Sodium [Moles/Vol] 138 mmol/L Normal 136-144 [facility] Comment on above: Order Comment: Speci men Type: BLOOD SPECIMENOrdering Facility: [facility] Address: [address] [place] [address] Performed By: #### 3 084-1, 62507-2, 2531-0, 2776-1 ####[facility] LABCLIA [id number] [place] [address] Urea nitrogen [Mass/Vol] 15 mg/dL Normal 9-24 [facility] Comment on above: Order Comment: Speci men Type: BLOOD SPECIMENOrdering Facility: [facility] Address: [address] [place] [address] Performed By: #### 3 084-1, 79154-0, 2532-0, 2777-1 ####[facility] LABCLIA [id number] [place] [address] Eosinophils/100 WBC Auto (Bl d)on 05-18-2024 Eosinophils/100 WBC (Bld) Automated eosinophil % [facility] Erythrocyte distribution wid th Auto (RBC) [Ratio]on 05-18-2024 Erythrocyte distribution width (RBC) [Ratio] Erythrocyte distribution width [Ratio] by Automated count 11.5-15.0 [facility] Hematocrit Auto (Bld) [Volum e fraction]on 05-18-2024 Hematocrit (Bld) [Volume fraction] Hematocrit [Volume Fraction] of Blood by Automated count 39.0-51.0 [facility] Hemoglobin [Mass/volume] in Bloodon 05-18-2024 Hemoglobin (Bld) [Mass/Vol] Hemoglobin [Mass/volume] in Blood 13.0-17.0 [facility] IMMUNOFIXATION SCREEN, SERUM on 05-18-2024 INTERPRETATION (MPA) Two sets of atypical restricted bands are present in the specimen, one in the IgA and kappa lanes, and the other in the IgM and lambda lanes. 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 Normal [facility] Comment on above: Order Comment: Speci men Type: BLOOD SPECIMENOrdering Facility: [facility] Address: [address] [place] [address] Performed By: #### I [facility] ####[facility] LABCLIA [id number] [facility] [id number] [address] [place] MPA RESULT M protein is present. Abnormal No M p rotein is identified. [facility] Comment on above: Order Comment: Speci men Type: BLOOD SPECIMENOrdering Facility: [facility] Address: [address] [place] [address] Performed By: #### I FES ####[facility] LABCLIA [id number] [address] [place] STAFF REVIEW (MPA) Reviewed by Francesco Rivera MD, Ph.D ([id number]) Normal [facility] Comment on above: Order Comment: Speci men Type: BLOOD SPECIMENOrdering Facility: [facility] Address: [address] [place] [address] Performed By: #### I FES ####[facility] LABCLIA [id number] [place] [address] [place] IMMUNOGLOBULINS,IGG,IGA,IGMo n 05-18-2024 IgA [Mass/Vol] 639 mg/dL High 70-400 [facility] Comment on above: Order Comment: Speci men Type: BLOOD SPECIMENOrdering Facility: [facility] Address: [address] [place] [address] Performed By: #### S ERIMM ####[facility] LABCLIA [id number] [place] [address] [place] IgG [Mass/Vol] 820 mg/dL Normal 700-1600 [facility] Comment on above: Order Comment: Speci men Type: BLOOD SPECIMENOrdering Facility: [facility] Address: [address] [place] [address] Performed By: #### S ERIMM ####[facility] LABCLIA [id number] [place] [address] [place] IgM [Mass/Vol] 921 mg/dL High 40-230 [facility] Comment on above: Order Comment: Speci men Type: BLOOD SPECIMENOrdering Facility: [facility] Address: [address] [place] [address] Performed By: #### S ERIMM ####[facility] LABCLIA [id number] [address] [place] [address] [place] IgA [Mass/volume] in Serum o r Plasmaon 05-18-2024 IgA [Mass/Vol] IgA [Mass/volume] in Serum or Plasma High 70-400 [facility] IgG [Mass/volume] in Serum o r Plasmaon 05-18-2024 IgG [Mass/Vol] IgG [Mass/volume] in Serum or Plasma 700-1600 [facility] IgM [Mass/volume] in Serum o r Plasmaon 05-18-2024 IgM [Mass/Vol] IgM [Mass/volume] in Serum or Plasma High 40-230 [facility] Immunoglobulin light chains. kappa.free [Mass/volume] in Serumon 05-18-2024 Immunoglobulin light chains.kappa.free (S) [Mass/Vol] Immunoglobulin light chains.kappa.free [Mass/volume] in Serum High 3.3-19.4 [facility] Comment on above: Rarely, increased se rum free light chains levels may not be detected or accurately quantified due to prozone phenomenon or in high viscosity samples using this immunoturbidimetric assay. Correlation with other laboratory results and clinical findings is recommended. The [place] Free Light Chain was performed using the Binding Site Optilite immunoturbidimetric method. Result obtained with different assay methods or kits cannot be used interchangeably. Immunoglobulin light chains. kappa.free/Immunoglobulin light chains.lambda.free [Ron 05-18-2024 Immunoglobulin light chains.kappa.free/I mmunoglobulin light chains.lambda.free (S) [Mass ratio] Immunoglobulin light chains.kappa.free/Immun oglobulin light chains.lambda.free [Mass 0.26-1.65 [facility] Immunoglobulin light chains. lambda.free [Mass/volume] in Serum or Plasmaon 05-18-2024 Immunoglobulin light chains.lambda.free [Mass/Vol] Immunoglobulin light chains.lambda.free [Mass/volume] in Serum or Plasma High 5.7-26.3 [facility] Comment on above: Rarely, increased se rum free light chains levels may not be detected or accurately quantified due to prozone phenomenon or in high viscosity samples using this immunoturbidimetric assay. Correlation with other laboratory results and clinical findings is recommended. The Lambda Free Light Chain was performed using the Binding Site Optilite immunoturbidimetric method. Result obtained with different assay methods or kits cannot be used interchangeably. KAPPA/BURT,FREE,SERon 2023 Immunoglobulin light chains.kappa.free (S) [Mass/Vol] 26.4 mg/L High 3.3-19.4 [facility] Comment on above: Order Comment: Speci men Type: BLOOD SPECIMENOrdering Facility: [facility] Address: [address] [place] [address] Result Comment: Rare ly, increased serum free light chains levels may not be detected or accurately quantified due to prozone phenomenon or in high viscosity samples using this immunoturbidimetric assay. Correlation with other laboratory results and clinical findings is recommended. The [place] Free Light Chain was performed using the Binding Site Optilite immunoturbidimetric method. Result obtained with different assay methods or kits cannot be used interchangeably. Performed By: #### K LFRS ####[facility] LABIA [id number] [place] [address] [place] Immunoglobulin light chains.kappa/Immuno globulin light chains.lambda (S) [Mass ratio] 0.41 Normal 0.26-1.65 [facility] Comment on above: Order Comment: Speci men Type: BLOOD SPECIMENOrdering Facility: [facility] Address: [address] [place] [address] Performed By: #### K LFRS ####[facility] [id number] [place] [address] [place] Immunoglobulin light chains.lambda.free [Mass/Vol] 64.6 mg/L High 5.7-26.3 [facility] Comment on above: Order Comment: Speci men Type: BLOOD SPECIMENOrdering Facility: [facility] Address: [address] [place] [address] Result Comment: Rare ly, increased serum free [...] cannot be used interchangeably. Performed By: #### K LFRS ####[facility] LABCLIA [id number] [facility]ENTERJennifer [facility] [id number] [id number] [place] LDH SerPl-cCncon 05-18-2024 LDH [Catalytic activity/Vol] 163 U/L Normal 135-225 [facility] Comment on above: Order Comment: Speci men Type: BLOOD SPECIMENOrdering Facility: [facility] Address: [address] [place] [address] Performed By: #### 3 084-1, 09427-5, 2532-0, 2777-1 ####[facility] LABCLIA [id number] [place] [address] Laboratory - Chemistry and C hemistry - challengeon 05-18-2024 Albumin [Mass/Vol] 4.2 g/dL 3.9-4.9 [facility] ALP [Catalytic activity/Vol] 84 U/L 38-113 [facility] ALT [Catalytic activity/Vol] 16 U/L 10-54 [facility] AST [Catalytic activity/Vol] 18 U/L 14-40 [facility] Bilirubin [Mass/Vol] 0.6 mg/dL 0.2-1.3 [facility] Calcium [Mass/Vol] 9.5 mg/dL 8.5-10.2 [facility] Chloride [Moles/Vol] 98 mmol/L 98-107 [facility] CO2 [Moles/Vol] 29 mmol/L 22-30 [facility] Creatinine [Mass/Vol] 1.12 mg/dL 0.73-1.22 [facility] Glucose [Mass/Vol] 96 mg/dL 74-99 [facility] Comment on above: The [place] Diabete s Association (ADA) provides guidance for cutoff values for fasting glucose and random glucose. The ADA defines fasting as no caloric intake for at least 8 hours. Fasting plasma glucose results between 100 to 125 mg/dL indicate increased risk for diabetes (prediabetes).Fasting plasma glucose results greater than or equal to 126 mg/dL meet the criteria for diagnosis of diabetes. In the absence of unequivocal hyperglycemia, results should be confirmed by repeat testing. In a patient with classic symptoms of hyperglycemia or hyperglycemic crisis, random plasma glucose results greater than or equal to 200 mg/dL meet the criteria for diagnosis of diabetes.Reference: Standards of Medical Care in Diabetes 2016, [place] Diabetes Association. Diabetes Care. 2016.39(Suppl 1). LDH [Catalytic activity/Vol] 163 U/L 135-225 [facility] Potassium [Moles/Vol] 3.5 mmol/L Low 3.7-5.1 [facility] Protein [Mass/Vol] 0.31 g/dL High <=0.00 [facility] Protein [Mass/Vol] 0.60 g/dL High <=0.00 [facility] Sodium [Moles/Vol] 138 mmol/L 136-144 [facility] Urate [Mass/Vol] 5.7 mg/dL 4.0-8.1 [facility] Urea nitrogen [Mass/Vol] 15 mg/dL 9-24 [facility] Laboratory - Hematology and Cell countson 05-18-2024 Eosinophils (Bld) [#/Vol] 0.08 10*3/uL <0.46 [facility] Immature granulocytes/100 WBC (Bld) 0.4 % [facility] Leukocytes [#/volume] correc lucía for nucleated erythrocytes in Blood by Automated counon 05-18-2024 WBC corrected for nucl RBC Auto (Bld) [#/Vol] Leukocytes [#/volume] corrected for nucleated erythrocytes in Blood by Automated coun 3.70-11.00 [facility] Lymphocytes Auto (Bld) [#/Vo l]on 05-18-2024 Lymphocytes (Bld) [#/Vol] Lymphocytes [#/volume] in Blood by Automated count Low 1.00-4.00 [facility] Lymphocytes/100 WBC Auto (Bl d)on 05-18-2024 Lymphocytes/100 WBC (Bld) Lymphocytes/100 leukocytes in Blood by Automated count [facility] MCH Auto (RBC) [Entitic mass ]on 05-18-2024 MCH (RBC) [Entitic mass] MCH [Entitic mass] by Automated count High 26.0-34.0 [facility] MCHC Auto (RBC) [Mass/Vol]on 05-18-2024 MCHC (RBC) [Mass/Vol] MCHC [Mass/volume] by Automated count 30.5-36.0 [facility] MCV Auto (RBC) [Entitic vol] on 05-18-2024 MCV (RBC) [Entitic vol] MCV [Entitic volume] by Automated count High 80.0-100.0 [facility] Monocytes Auto (Bld) [#/Vol] on 05-18-2024 Monocytes (Bld) [#/Vol] Automated blood monocyte count <0.87 [facility] Monocytes/100 WBC Auto (Bld) on 05-18-2024 Monocytes/100 WBC (Bld) Automated monocyte % [facility] Neutrophils Auto (Bld) [#/Vo l]on 05-18-2024 Neutrophils (Bld) [#/Vol] Neutrophils [#/volume] in Blood by Automated count 1.45-7.50 [facility] Neutrophils/100 WBC Auto (Bl d)on 05-18-2024 Neutrophils/100 WBC (Bld) Automated neutrophil % [facility] No Panel Informationon 05-18 Estimated GFR (CKD-EPI) 67 mL/min/1.73m??? >=60 [facility] Comment on above: Estimated Glomerular Filtration Rate (eGFR) is calculated using the 2020 CKD-EPI creatinine equation. This equation utilizes serum creatinine, sex, and age as parameters. The creatinine assay has traceable calibration to isotope dilution-mass spectrometry. Refer to KDIGO guidelines for clinical interpretation. In patients with unstable renal function, e.g. those with acute kidney injury, the eGFR may not accurately reflect actual GFR. Immature Granulocyte # (Auto) <0.03 k/uL <0.10 [facility] Immunofixation Interpretation [facility] Leuk/Lymph Sign Pathologist (Misc) Reviewed by Francesco Rivera MD, Ph.D ([id number]) [facility] Miscellaneous Test 6 Gamma Fraction 1 [facility] Miscellaneous Test 7 Gamma Fraction 2 [facility] Miscellaneous Test Comment Reviewed by Francesco Rivera MD, Ph.D ([id number]) [facility] Phosphorus Level 3.0 mg/dL 2.7-4.8 [facility] Protein Electrophoresis Interpret [facility] Protein Electrophoresis Note An M protein is identified on protein electrophoresis. Abnormal No definitive M protein is identified on protein electrophores is. [facility] Serum Immunofixation M protein is present. Abnormal No M protein is identified. [facility] Nucleated RBC Auto (Bld) [#/ Vol]on 05-18-2024 Nucleated RBC (Bld) [#/Vol] Nucleated erythrocytes [#/volume] in Blood by Automated count <0.01 [facility] Nucleated erythrocytes [Pres ence] in Blood by Automated counton 05-18-2024 Nucleated RBC Auto Ql (Bld) Nucleated erythrocytes [Presence] in Blood by Automated count [facility] PROTEIN ELECTROPHORESIS SERU M (P)on 05-18-2024 Albumin [Mass/Vol] 4.06 g/dL Normal 3.43-5.41 [facility] Comment on above: Order Comment: Speci men Type: BLOOD SPECIMENOrdering Facility: [facility] Address: [address] [place] [address] Performed By: #### L [id number] ####[facility] [id number] [place] [address] [place] Alpha 1 globulin Elph [Mass/Vol] 0.23 g/dL Normal 0.18-0.43 [facility] Comment on above: Order Comment: Speci men Type: BLOOD SPECIMENOrdering Facility: [facility] Address: [address] [place] [address] Performed By: #### L [id number] ####[facility] LABIA [id number] [place] [address] [place] Alpha 2 globulin Elph [Mass/Vol] 0.56 g/dL Normal 0.42-0.98 [facility] Comment on above: Order Comment: Speci men Type: BLOOD SPECIMENOrdering Facility: [facility] Address: [address] [place] [address] Performed By: #### L [id number] ####[facility] LABCLIA [id number] [place] [address] [place] Beta globulin Elph [Mass/Vol] 1.06 g/dL Normal 0.61-1.17 [facility] Comment on above: Order Comment: Speci men Type: BLOOD SPECIMENOrdering Facility: [facility] Address: [address] [place] [address] Performed By: #### L [id number] ####[facility] LABCLIA [id number] [place] [address] [place] Gamma globulin Elph [Mass/Vol] 1.38 g/dL Normal 0.53-1.51 [facility] Comment on above: Order Comment: Speci men Type: BLOOD SPECIMENOrdering Facility: [facility] Address: [address] [place] [address] Performed By: #### L [id number] ####[facility] LABCLIA [id number] [place] [address] [place] INTERPRETATION COMMENT FOR PROTEIN ELECTROPHORESIS See separate immunofixation report for characterization of monoclonal gammopathy. Normal [facility] Comment on above: Order Comment: Speci men Type: BLOOD SPECIMENOrdering Facility: [facility] Address: [address] [place] [address] Performed By: #### L [id number] ####[facility] LABIA [id number] [place] [address] [place] M SPIKE CONCENTRATION 2 0.60 g/dL High <=0.00 [facility] Comment on above: Order Comment: Speci men Type: BLOOD SPECIMENOrdering Facility: [facility] Address: [address] [place] [address] Performed By: #### L [id number] ####[facility] LABCLIA [id number] [address] [place] M-PROTEIN LOCATION Gamma Fraction 1 Normal [facility] Comment on above: Order Comment: Speci men Type: BLOOD SPECIMENOrdering Facility: [facility] Address: [address] [place] [address] Performed By: #### L [id number] ####[facility] LABCLIA [id number] [address] [place] M-PROTEIN LOCATION 2 Gamma Fraction 2 Normal [facility] Comment on above: Order Comment: Speci men Type: BLOOD SPECIMENOrdering Facility: [facility] Address: [address] [place] [address] Performed By: #### L [id number] ####[facility] LABIA [id number] [place] [address] [place] Protein Fractions [Interp] An M protein is identified on protein electrophoresis. Abnormal No definitive M protein is identified on protein electrophores is. [facility] Comment on above: Order Comment: Speci men Type: BLOOD SPECIMENOrdering Facility: [facility] Address: [address] [place] [address] Performed By: #### L [id number] ####[facility] LABCLIA [id number] [address] [place] Protein.monoclonal Elph [Mass/Vol] 0.31 g/dL High <=0.00 [facility] Comment on above: Order Comment: Speci men Type: BLOOD SPECIMENOrdering Facility: [facility] Address: [address] [place] [address] Performed By: #### L [id number] ####[facility] LABCLIA [id number] [place] [id number] [place] SPE STAFF REVIEW Reviewed by Francesco Rivera MD, Ph.D ([id number]) Normal [facility] Comment on above: Order Comment: Speci men Type: BLOOD SPECIMENOrdering Facility: [facility] Address: [address] [place] [address] Performed By: #### L [id number] ####[facility] LABCLIA [id number] [place] [id number] [place] Phosphate SerPl-mCncon 05-18 Phosphate [Mass/Vol] 3.0 mg/dL Normal 2.7-4.8 [facility] Comment on above: Order Comment: Speci men Type: BLOOD SPECIMENOrdering Facility: [facility] Address: [address] [place] [address] Performed By: #### 3 084-1, 11858-9, 2532-0, 2777-1 ####[facility] LABCLIA [id number] [place] [address] Platelet mean volume Auto (B ld) [Entitic vol]on 05-18-2024 Platelet mean volume (Bld) [Entitic vol] Platelet mean volume [Entitic volume] in Blood by Automated count 9.0-12.7 [facility] Platelets Auto (Bld) [#/Vol] on 05-18-2024 Platelets (Bld) [#/Vol] Platelets [#/volume] in Blood by Automated count 150-400 [facility] Prot SerPl-mCncon 05-18-2024 Protein [Mass/Vol] 7.3 g/dL Normal 6.3-8.0 [facility] Comment on above: Order Comment: Speci men Type: BLOOD SPECIMENOrdering Facility: [facility] Address: [address] [place] [address] Performed By: #### 2 885-2, 1951-06 ####[facility] [id number] [place] [id number] [place] Protein [Mass/volume] in Ser um or Plasmaon 05-18-2024 Protein [Mass/Vol] Protein [Mass/volume ] in Serum or Plasma 6.3-8.0 [facility] RBC Auto (Bld) [#/Vol]on RBC (Bld) [#/Vol] Erythrocytes [#/volu me] in Blood by Automated count Low 4.20-6.00 [facility] Serum or plasma alpha 1 glob ulin measurement by electrophoresis (mass/volume)on 05-18-2024 Alpha 1 globulin Elph [Mass/Vol] Serum or plasma alpha 1 globulin measurement by electrophoresis (mass/volume) 0.18-0.43 [facility] Serum or plasma alpha 2 glob ulin measurement by electrophoresis (mass/volume)on 05-18-2024 Alpha 2 globulin Elph [Mass/Vol] Serum or plasma alpha 2 globulin measurement by electrophoresis (mass/volume) 0.42-0.98 [facility] Serum or plasma anion gap de terminationon 05-18-2024 Anion gap [Moles/Vol] Serum or plasma anion gap determination 8-15 [facility] Serum or plasma beta globuli n measurement by electrophoresis (mass/volume)on 05-18-2024 Beta globulin Elph [Mass/Vol] Serum or plasma beta globulin measurement by electrophoresis (mass/volume) 0.61-1.17 [facility] Serum or plasma nmaz-7-cncgn globulin measurement (mass/volume)on 05-18-2024 Qshx-2-Vrufdbgixupi n [Mass/Vol] Serum or plasma twqr-7-ztieasqleevyf measurement (mass/volume) <3.1 [facility] Comment on above: Beta-2 Microglobulin test is performed using the [employer] immunoturbidimetric method. Results obtained with different methods or kits cannot be used interchangeably. Serum or plasma gamma globul in measurement by electrophoresis (mass/volume)on 05-18-2024 Gamma globulin Elph [Mass/Vol] Serum or plasma gamma globulin measurement by electrophoresis (mass/volume) 0.53-1.51 [facility] Urate SerPl-mCncon Urate [Mass/Vol] 5.7 mg/dL Normal 4.0-8.1 [facility] Comment on above: Order Comment: Speci men Type: BLOOD SPECIMENOrdering Facility: [facility] Address: [address] [place] [address] Performed By: #### 3 084-1, 11593-6, 2532-0, 2777-1 ####[facility] LABCLIA [id number] [place] [address] CNOVSPon 03-02-2024 [facility] Visit (SP) Office (HEMASA) PRUDENCIO PATRICK ([id number]) 1945 M Date Time Provider Department 03/02/24 9:00 AM SALINA RIVERA HEMASA During your visit today, we recorded the following information about you: Temperature Pulse Respiration Blood pressure 97.4 degrees 71/minute 18/minute 176/89 Weight Height 111.7 kg 1.803 m Salina Rivera PA-C 03/02/2024 10:20 AM Signed NAME: Prudencio Patrick CLINIC NO.: [id number] DATE OF SERVICE: March 02, 2024 (Jovany) Some elements in this clinic note that are critical to medical decision making have been carefully reviewed and included from a prior clinic note dated: December 03, 2023 (Dipak) Referring Provider: Dr. 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 His M protein levels have been stable over the last 13+ years, and his risk of progression remains very low. However, he became more notably polycythemic and so we ordered a MPN workup for PRV which came back positive. Now improving with hydrea. He did require phlebotomies, however, he decided against any further phlebotomies due to poor side effects. 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 He is feeling well. Remains on hydrea 500 mg daily and aspirin daily. His labs are stable. Hct is 47.1 and qualifies for phlebotomy, however he prefers not to have phlebotomies. Updated Visit, December 03, 2023: Rafa returns with Martha, he is doing well. Labs today are fairly stable although he could qualify for plebotomy. Unfortunately, he feels terrible afterwards and does not want to do this for now. Updated Visit, September 24, 2023: Rafa returns with Martha. He offers no new complaints. He had his annual physical recently and was told everything looks good from their perspective. His labs look good today - HCT 45.6. Updated Visit, July 02, 2023: Prudencio Coleman Bubba returns for scheduled follow-up. At this point [...] his last visit. He denies shortness of sina (more content not included)... Normal [facility] Albumin [Mass/volume] in Ser um or Plasmaon 02-23-2024 Albumin [Mass/Vol] 4.04 g/dL 3.43-5.41 [facility] B2 Microglob SerPl-mCncon Dckz-3-Jnosowjpgdtn n [Mass/Vol] 2.6 ug/mL Normal <3.1 [facility] Comment on above: Order Comment: Speci men Type: BLOOD SPECIMENOrdering Facility: [facility] Address: [address] [place] [address] Result Comment: Beta -2 Microglobulin test is performed using the [employer] immunoturbidimetric method. Results obtained with different methods or kits cannot be used interchangeably. Performed By: #### 1 952-1, 2885-2 ####[facility] LABCLIA [id number] [facility] [address] [place] [address] [place] Basophils Auto (Bld) [#/Vol] on 02-23-2024 Basophils (Bld) [#/Vol] 0.03 10*3/uL <0.11 [facility] Basophils/100 WBC Auto (Bld) on 02-23-2024 Basophils/100 WBC (Bld) 0.6 % [facility] Blood manual differential co mment interpretation narrativeon 02-23-2024 Manual differential comment Dylan (Bld) [Interp] Auto [facility] CBC W Auto Differential pane l (Bld)on 02-23-2024 Basophils (Bld) [#/Vol] 0.03 10*3/uL Normal <0.11 [facility] Comment on above: Order Comment: Speci men Type: BLOOD SPECIMENOrdering Facility: [facility] Address: [address] [place] [address] Performed By: #### 5 7021-8 ####[facility] LABCLIA [id number] [place] [address] Basophils/100 WBC (Bld) 0.6 % Normal [facility] Comment on above: Order Comment: Speci men Type: BLOOD SPECIMENOrdering Facility: [facility] Address: [address] [place] [address] Performed By: #### 5 7021-8 ####[facility] LABCLIA [id number] [place] [address] Differential cell count method Nom (Bld) Auto Normal [facility] Comment on above: Order Comment: Speci men Type: BLOOD SPECIMENOrdering Facility: [facility] Address: [address] [place] [address] Performed By: #### 5 7021-8 ####[facility] LABCLIA [id number] [place] [address] Eosinophils (Bld) [#/Vol] 0.09 10*3/uL Normal <0.46 [facility] Comment on above: Order Comment: Speci men Type: BLOOD SPECIMENOrdering Facility: [facility] Address: [address] [place] [address] Performed By: #### 5 7021-8 ####[facility] LABCLIA [id number] [place] [address] Eosinophils/100 WBC (Bld) 1.8 % Normal [facility] Comment on above: Order Comment: Speci men Type: BLOOD SPECIMENOrdering Facility: [facility] Address: [address] [place] [address] Performed By: #### 5 7021-8 ####[facility] LABCLIA [id number] [place] [address] Erythrocyte distribution width (RBC) [Ratio] 14.1 % Normal 11.5-15.0 [facility] Comment on above: Order Comment: Speci men Type: BLOOD SPECIMENOrdering Facility: [facility] Address: [address] [place] [address] Performed By: #### 5 7021-8 ####[facility] LABCLIA [id number] [place] [address] Hematocrit (Bld) [Volume fraction] 47.1 % Normal 39.0-51.0 [facility] Comment on above: Order Comment: Speci men Type: BLOOD SPECIMENOrdering Facility: [facility] Address: [address] [place] [address] Performed By: #### 5 7021-8 ####[facility] LABCLIA [id number] [place] [address] Hemoglobin (Bld) [Mass/Vol] 16.3 g/dL Normal 13.0-17.0 [facility] Comment on above: Order Comment: Speci men Type: BLOOD SPECIMENOrdering Facility: [facility] Address: [address] [place] [address] Performed By: #### 5 7021-8 ####[facility] LABCLIA [id number] [place] [address] Immature granulocytes (Bld) [#/Vol] 10*3/uL Normal <0.10 [facility] Comment on above: Order Comment: Speci men Type: BLOOD SPECIMENOrdering Facility: [facility] Address: [address] [place] [address] Performed By: #### 5 7021-8 ####[facility] LABCLIA [id number] [place] [address] Immature granulocytes/100 WBC (Bld) 0.0 % Normal [facility] Comment on above: Order Comment: Speci men Type: BLOOD SPECIMENOrdering Facility: [facility] Address: [address] [place] [address] Performed By: #### 5 7021-8 ####[facility] LABCLIA [id number] [place] [address] Lymphocytes (Bld) [#/Vol] 0.71 10*3/uL Low 1.00-4.00 [facility] Comment on above: Order Comment: Speci men Type: BLOOD SPECIMENOrdering Facility: [facility] Address: [address] [place] [address] Performed By: #### 5 7021-8 ####[facility] LABCLIA [id number] [place] [address] Lymphocytes/100 WBC (Bld) 13.9 % Normal [facility] Comment on above: Order Comment: Speci men Type: BLOOD SPECIMENOrdering Facility: [facility] Address: [address] [place] [address] Performed By: #### 5 7021-8 ####[facility] LABIA [id number] [place] [address] MCH (RBC) [Entitic mass] 35.8 pg High 26.0-34.0 [facility] Comment on above: Order Comment: Speci men Type: BLOOD SPECIMENOrdering Facility: [facility] Address: [address] [place] [address] Performed By: #### 5 7021-8 ####[facility] LABCLIA [id number] [place] [address] MCHC (RBC) [Mass/Vol] 34.6 g/dL Normal 30.5-36.0 [facility] Comment on above: Order Comment: Speci men Type: BLOOD SPECIMENOrdering Facility: [facility] Address: [address] [place] [address] Performed By: #### 5 7021-8 ####[facility] LABCLIA [id number] [place] [address] MCV (RBC) [Entitic vol] 103.5 fL High 80.0-100.0 [facility] Comment on above: Order Comment: Speci men Type: BLOOD SPECIMENOrdering Facility: [facility] Address: [address] [place] [address] Performed By: #### 5 7021-8 ####[facility] LABCLIA [id number] [place] [address] Monocytes (Bld) [#/Vol] 0.54 10*3/uL Normal <0.87 [facility] Comment on above: Order Comment: Speci men Type: BLOOD SPECIMENOrdering Facility: [facility] Address: [address] [place] [address] Performed By: #### 5 7021-8 ####[facility] LABCLIA [id number] [place] [address] Monocytes/100 WBC (Bld) 10.6 % Normal [facility] Comment on above: Order Comment: Speci men Type: BLOOD SPECIMENOrdering Facility: [facility] Address: [address] [place] [address] Performed By: #### 5 7021-8 ####[facility] LABCLIA [id number] [place] [address] Neutrophils (Bld) [#/Vol] 3.74 10*3/uL Normal 1.45-7.50 [facility] Comment on above: Order Comment: Speci men Type: BLOOD SPECIMENOrdering Facility: [facility] Address: [address] [place] [address] Performed By: #### 5 7021-8 ####[facility] LABCLIA [id number] [place] [address] Neutrophils/100 WBC (Bld) 73.1 % Normal [facility] Comment on above: Order Comment: Speci men Type: BLOOD SPECIMENOrdering Facility: [facility] Address: [address] [place] [address] Performed By: #### 5 7021-8 ####[facility] LABCLIA [id number] [place] [address] Nucleated RBC (Bld) [#/Vol] 10*3/uL Normal <0.01 [facility] Comment on above: Order Comment: Speci men Type: BLOOD SPECIMENOrdering Facility: [facility] Address: [address] [place] [address] Performed By: #### 5 7021-8 ####[facility] LABCLIA [id number] [place] [address] Nucleated RBC/100 WBC (Bld) [Ratio] 0.0 /100 WBC Normal [facility] Comment on above: Order Comment: Speci men Type: BLOOD SPECIMENOrdering Facility: [facility] Address: [address] [place] [address] Performed By: #### 5 7021-8 ####[facility] LABCLIA [id number] [place] [address] Platelet mean volume (Bld) [Entitic vol] 10.6 fL Normal 9.0-12.7 [facility] Comment on above: Order Comment: Speci men Type: BLOOD SPECIMENOrdering Facility: [facility] Address: [address] [place] [address] Performed By: #### 5 7021-8 ####[facility] LABCLIA [id number] [place] [address] Platelets (Bld) [#/Vol] 154 10*3/uL Normal 150-400 [facility] Comment on above: Order Comment: Speci men Type: BLOOD SPECIMENOrdering Facility: [facility] Address: [address] [place] [address] Performed By: #### 5 7021-8 ####[facility] LABCLIA [id number] [place] [address] RBC (Bld) [#/Vol] 4.55 10*6/uL Normal 4.20-6.00 [facility] Comment on above: Order Comment: Speci men Type: BLOOD SPECIMENOrdering Facility: [facility] Address: [address] [place] [address] Performed By: #### 5 7021-8 ####[facility] LABCLIA [id number] [place] [address] WBC (Bld) [#/Vol] 5.11 10*3/uL Normal 3.70-11.00 [facility] Comment on above: Order Comment: Speci men Type: BLOOD SPECIMENOrdering Facility: [facility] Address: [address] [place] [address] Performed By: #### 5 7021-8 ####[facility] LABCLIA [id number] [place] [address] Calcium.ionized [Moles/Vol]o n 02-23-2024 Calcium.ionized (Bld) [Mass/Vol] 1.21 mmol/L Normal 1.08-1.30 [facility] Comment on above: Order Comment: Speci men Type: BLOOD SPECIMENOrdering Facility: [facility] Address: [address] [place] [address] Performed By: #### 1 995-0 ####[facility] LABCLIA [id number] [address] [address] [place] Calcium.ionized adjusted to pH 7.4 (Bld) [Moles/Vol] 1.30 mmol/L Normal 1.08-1.30 [facility] Comment on above: Order Comment: Speci men Type: BLOOD SPECIMENOrdering Facility: [facility] Address: [address] [place] [address] Performed By: #### 1 995-0 ####[facility] LABCLIA [id number] [place] [address] [place] Comprehensive metabolic 2000 panelon 02-23-2024 Albumin [Mass/Vol] 4.4 g/dL Normal 3.9-4.9 [facility] Comment on above: Order Comment: Speci men Type: BLOOD SPECIMENOrdering Facility: [facility] Address: [address] [place] [address] Performed By: #### 3 084-1, 2777-1, 2532-0, 94816-1 ####[facility] LABCLIA [id number] [place] [address] ALP [Catalytic activity/Vol] 109 U/L Normal 38-113 [facility] Comment on above: Order Comment: Speci men Type: BLOOD SPECIMENOrdering Facility: [facility] Address: [address] [place] [address] Performed By: #### 3 084-1, 2777-1, 2532-0, 02841-8 ####[facility] LABCLIA [id number] [place] [address] ALT [Catalytic activity/Vol] 27 U/L Normal 10-54 [facility] Comment on above: Order Comment: Speci men Type: BLOOD SPECIMENOrdering Facility: [facility] Address: [address] [place] [address] Performed By: #### 3 084-1, 2777-1, 2532-0, 16059-4 ####[facility] LABCLIA [id number] [place] [address] Anion gap [Moles/Vol] 10 mmol/L Normal 8-15 [facility] Comment on above: Order Comment: Speci men Type: BLOOD SPECIMENOrdering Facility: [facility] Address: [address] [place] [address] Performed By: #### 3 084-1, 2777-1, 2532-0, 37075-1 ####[facility] LABCLIA [id number] [place] [address] AST [Catalytic activity/Vol] 26 U/L Normal 14-40 [facility] Comment on above: Order Comment: Speci men Type: BLOOD SPECIMENOrdering Facility: [facility] Address: [address] [place] [address] Performed By: #### 3 084-1, 2777-1, 2532-0, 18791-9 ####[facility] LABCLIA [id number] [place] [address] Bilirubin [Mass/Vol] 0.9 mg/dL Normal 0.2-1.3 [facility] Comment on above: Order Comment: Speci men Type: BLOOD SPECIMENOrdering Facility: [facility] Address: [address] [place] [address] Performed By: #### 3 084-1, 2777-1, 2532-0, 07501-6 ####[facility] LABCLIA [id number] [place] [address] Calcium [Mass/Vol] 9.9 mg/dL Normal 8.5-10.2 [facility] Comment on above: Order Comment: Speci men Type: BLOOD SPECIMENOrdering Facility: [facility] Address: [address] [place] [address] Performed By: #### 3 084-1, 2777-1, 2532-0, 17417-5 ####[facility] LABCLIA [id number] [place] [address] Chloride [Moles/Vol] 103 mmol/L Normal 98-107 [facility] Comment on above: Order Comment: Speci men Type: BLOOD SPECIMENOrdering Facility: [facility] Address: [facility] [place] [id number] Performed By: #### 3 084-1, 2777-1, 2532-0, 27713-0 ####[facility] LABCLIA [id number] [place] [address] CO2 [Moles/Vol] 26 mmol/L Normal 22-30 [facility] Comment on above: Order Comment: Speci men Type: BLOOD SPECIMENOrdering Facility: [facility] Address: [address] [place] [address] Performed By: #### 3 084-1, 2777-1, 2532-0, 47396-7 ####[facility] LABCLIA [id number] [place] [address] Creatinine [Mass/Vol] 1.12 mg/dL Normal 0.73-1.22 [facility] Comment on above: Order Comment: Speci men Type: BLOOD SPECIMENOrdering Facility: [facility] Address: [address] [place] [address] Performed By: #### 3 084-1, 2777-1, 2532-0, 66310-3 ####[facility] LABCLIA [id number] [place] [address] Creatinine and Glomerular filtration rate.predicted panel (S/P/Bld) 67 mL/min/1.73m??? Normal >=60 [facility] Comment on above: Order Comment: Speci men Type: BLOOD SPECIMENOrdering Facility: [facility] Address: [address] [place] [address] Result Comment: Tawanna mated Glomerular Filtration Rate [...] GFR. Performed By: #### 3 084-1, 2777-1, 0, ####[facility] LABCLIA [id number] [place] [address] Glucose [Mass/Vol] 104 mg/dL High 74-99 [facility] Comment on above: Order Comment: Speci men Type: BLOOD SPECIMENOrdering Facility: [facility] Address: [address] [place] [address] Result Comment: The [place] [employer] (ADA) provides guidance for cutoff [...] Standards of Medical Care in Diabetes 2016, [place] [employer]. Diabetes Care. 2016.39(Suppl 1). Performed By: #### 3 084-1, 2777-, 0, ####[facility] LABCLIA [id number] [place] [address] Potassium [Moles/Vol] 5.4 mmol/L High 3.7-5.1 [facility] Comment on above: Order Comment: Speci men Type: BLOOD SPECIMENOrdering Facility: [facility] Address: [address] [place] [address] Performed By: #### 3 084-1, 2777-1, 0, ####[facility] LABCLIA [id number] [place] [address] Protein [Mass/Vol] 7.6 g/dL Normal 6.3-8.0 [facility] Comment on above: Order Comment: Speci men Type: BLOOD SPECIMENOrdering Facility: [facility] Address: [address] [place] [address] Performed By: #### 3 084-1, 2777-1, 253-0, 25011-9 ####[facility] LABCLIA [id number] [place] [address] Sodium [Moles/Vol] 139 mmol/L Normal 136-144 [facility] Comment on above: Order Comment: Speci men Type: BLOOD SPECIMENOrdering Facility: [facility] Address: [address] [place] [address] Performed By: #### 3 084-1, 2777-1, 2532-0, 46141-9 ####[facility] LABCLIA [id number] [place] [address] Urea nitrogen [Mass/Vol] 15 mg/dL Normal 9-24 [facility] Comment on above: Order Comment: Speci men Type: BLOOD SPECIMENOrdering Facility: [facility] Address: [address] [place] [address] Performed By: #### 3 084-1, 2777-1, 2532-0, 61177-6 ####[facility] LABCLIA [id number] [place] [address] Eosinophils/100 WBC Auto (Bl d)on 02-23-2024 Eosinophils/100 WBC (Bld) 1.8 % [facility] Erythrocyte distribution wid th Auto (RBC) [Ratio]on 02-23-2024 Erythrocyte distribution width (RBC) [Ratio] 14.1 % 11.5-15.0 [facility] Hematocrit Auto (Bld) [Volum e fraction]on 02-23-2024 Hematocrit (Bld) [Volume fraction] 47.1 % 39.0-51.0 [facility] Hemoglobin [Mass/volume] in Bloodon 02-23-2024 Hemoglobin (Bld) [Mass/Vol] 16.3 g/dL 13.0-17.0 [facility] IMMUNOFIXATION SCREEN, SERUM on 02-23-2024 INTERPRETATION (MPA) Two sets of atypical restricted bands are present in the specimen, one in the IgA and kappa lanes, and the other in the IgM and lambda lanes. 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 Normal [facility] Comment on above: Order Comment: Speci men Type: BLOOD SPECIMEN [facility] Address: [address] [place] [address] Performed By: #### K LFRS #### [facility] CLIA [id number] [address] [place] [address] [place] MPA RESULT M protein is present. Abnormal No M p rotein is identified. [facility] Comment on above: Order Comment: Rene witt Type: BLOOD SPECIMEN Ordering Facility: [facility] Address: [address] [place] [address] Performed By: #### K LFRS #### [facility] CLIA [id number] [address] [place] [address] [place] STAFF REVIEW ([facility]) Reviewed by Viky Chapman M.D., Ph.D Normal [facility] Comment on above: Order Comment: Rene witt Type: BLOOD SPECIMEN [facility] Address: [address] [place] [address] Performed By: #### K LFRS #### [facility] CLIA [id number] [address] [place] [address] [place] IMMUNOGLOBULINS,IGG,IGA,IGMo n 02-23-2024 IgA [Mass/Vol] 613 mg/dL High 70-400 [facility] Comment on above: Order Comment: Jose Rauli eduar Type: BLOOD SPECIMEN [facility] Facility: [facility] Address: [address] [place] [address] Performed By: #### K LFRS #### [facility] CLIA [id number] [address] [place] [address] [place] IgG [Mass/Vol] 822 mg/dL Normal 700-1600 [facility] Comment on above: Order Comment: Speci men Type: BLOOD SPECIMEN Ordering Facility: [facility] Address: [address] [place] [address] Performed By: #### K LFRS #### [facility] CLIA [id number] [place] IgM [Mass/Vol] 827 mg/dL High 40-230 [facility] Comment on above: Order Comment: Speci men Type: BLOOD SPECIMEN [facility] Facility: [facility] Address: [address] [place] [address] Performed By: #### K LFRS #### [facility] CLIA [id number] [address] [place] [address] [place] IgA [Mass/volume] in Serum o r Plasmaon 02-23-2024 IgA [Mass/Vol] 613 mg/dL High 70-400 [facility] [facility] [Mass/volume] in Serum o r Plasmaon 02-23-2024 IgG [Mass/Vol] 822 mg/dL 700-1600 [facility] IgM [Mass/volume] in Serum o r [employer] [facility] 02-23-2024 IgM [Mass/Vol] 827 mg/dL High 40-230 [facility] Immunoglobulin light chains. kappa.free [Mass/volume] in Serumon 02-23-2024 Immunoglobulin light chains.kappa.free (S) [Mass/Vol] 26.8 mg/L High 3.3-19.4 [facility] Comment on above: Rarely, increased se rum free light chains levels may not be detected or accurately quantified due to prozone phenomenon or in high viscosity samples using this immunoturbidimetric assay. Correlation with other laboratory results and clinical findings is recommended. The [place] Free Light Chain was performed using the Binding Site [employer] immunoturbidimetric method. Result obtained with different assay methods or kits cannot be used interchangeably. Immunoglobulin light chains. kappa.free/Immunoglobulin light chains.lambda.free [Ron 02-23-2024 Immunoglobulin light chains.kappa.free/I mmunoglobulin light chains.lambda.free (S) [Mass ratio] 0.40 0.26-1.65 [facility] Immunoglobulin light chains. lambda.free [Mass/volume] in Serum or Plasmaon 02-23-2024 Immunoglobulin light chains.lambda.free [Mass/Vol] 67.0 mg/L High 5.7-26.3 [facility] Comment on above: Rarely, increased se rum free light chains levels may not be detected or accurately quantified due to prozone phenomenon or in high viscosity samples using this immunoturbidimetric assay. Correlation with other laboratory results and clinical findings is recommended. The Lambda Free Light Chain was performed using the Binding Site [employer] immunoturbidimetric method. Result obtained with different assay methods or kits cannot be used interchangeably. KAPPA/BURT,FREE,SERon 2023 Immunoglobulin light chains.kappa.free (S) [Mass/Vol] 26.8 mg/L High 3.3-19.4 [facility] Comment on above: Order Comment: Speci men Type: BLOOD SPECIMENOrdering Facility: [facility] Address: [address] [place] [address] Result Comment: Rare ly, increased serum free light chains levels may not be detected or accurately quantified due to prozone phenomenon or in high viscosity samples using this immunoturbidimetric assay. Correlation with other laboratory results and clinical findings is recommended. The [place] Free Light Chain was performed using the Binding Site [employer]il[employer] immunoturbidimetric method. Result obtained with different assay methods or kits cannot be used interchangeably. Performed By: #### K LFRS ####[facility] LABIA [id number] [place] [address] [place] Immunoglobulin light chains.kappa/Immuno globulin light chains.lambda (S) [Mass ratio] 0.40 Normal 0.26-1.65 [facility] Comment on above: Order Comment: Speci men Type: BLOOD SPECIMENOrdering Facility: [facility] Address: [address] [place] [address] Performed By: #### K LFRS ####[facility] LABCLIA [id number] [place] [address] [place] Immunoglobulin light chains.lambda.free [Mass/Vol] 67.0 mg/L High 5.7-26.3 [facility] Comment on above: Order Comment: Speci men Type: BLOOD SPECIMENOrdering Facility: [facility] Address: [address] [place] [address] Result Comment: Rare ly, increased serum free [...] cannot be used interchangeably. Performed By: #### K LFRS ####[facility] LABCLIA [id number] [place] [address] [place] LDH SerPl-cCncon 02-23-2024 LDH [Catalytic activity/Vol] 182 U/L Normal 135-225 [facility] Comment on above: Order Comment: Speci men Type: BLOOD SPECIMENOrdering Facility: [facility] Address: [address] [place] [address] Performed By: #### 3 084-1, 2777-1, 2532-0, 46151-4 ####[facility] LABCLIA [id number] [place] [address] Laboratory - Chemistry and C hemistry - challengeon 02-23-2024 Albumin [Mass/Vol] 4.4 g/dL 3.9-4.9 [facility] ALP [Catalytic activity/Vol] 109 U/L 38-113 [facility] ALT [Catalytic activity/Vol] 27 U/L 10-54 [facility] AST [Catalytic activity/Vol] 26 U/L 14-40 [facility] Bilirubin [Mass/Vol] 0.9 mg/dL 0.2-1.3 [facility] Calcium [Mass/Vol] 9.9 mg/dL 8.5-10.2 [facility] Chloride [Moles/Vol] 103 mmol/L 98-107 [facility] CO2 [Moles/Vol] 26 mmol/L 22-30 [facility] Creatinine [Mass/Vol] 1.12 mg/dL 0.73-1.22 [facility] Glucose [Mass/Vol] 104 mg/dL High 74-99 [facility] Comment on above: The [place] Diabete s Association (ADA) provides guidance for cutoff values for fasting glucose and random glucose. The ADA defines fasting as no caloric intake for at least 8 hours. Fasting plasma glucose results between 100 to 125 mg/dL indicate increased risk for diabetes (prediabetes).Fasting plasma glucose results greater than or equal to 126 mg/dL meet the criteria for diagnosis of diabetes. In the absence of unequivocal hyperglycemia, results should be confirmed by repeat testing. In a patient with classic symptoms of hyperglycemia or hyperglycemic crisis, random plasma glucose results greater than or equal to 200 mg/dL meet the criteria for diagnosis of diabetes.Reference: Standards of Medical Care in Diabetes 2016, [place] Diabetes Association. Diabetes Care. 2016.39(Suppl 1). LDH [Catalytic activity/Vol] 182 U/L 135-225 [facility] Potassium [Moles/Vol] 5.4 mmol/L High 3.7-5.1 [facility] Protein [Mass/Vol] 0.38 g/dL High <=0.00 [facility] Protein [Mass/Vol] 0.58 g/dL High <=0.00 [facility] Sodium [Moles/Vol] 139 mmol/L 136-144 [facility] Urate [Mass/Vol] 5.3 mg/dL 4.0-8.1 [facility] Urea nitrogen [Mass/Vol] 15 mg/dL 9-24 [facility] Laboratory - Hematology and Cell countson 02-23-2024 Eosinophils (Bld) [#/Vol] 0.09 10*3/uL <0.46 [facility] Immature granulocytes/100 WBC (Bld) 0.0 % [facility] Leukocytes [#/volume] correc lucía for nucleated erythrocytes in Blood by Automated counon 02-23-2024 WBC corrected for nucl RBC Auto (Bld) [#/Vol] 5.11 k/uL 3.70-11.00 [facility] Lymphocytes Auto (Bld) [#/Vo l]on 02-23-2024 Lymphocytes (Bld) [#/Vol] 0.71 10*3/uL Low 1.00-4.00 [facility] Lymphocytes/100 WBC Auto (Bl d)on 02-23-2024 Lymphocytes/100 WBC (Bld) 13.9 % [facility] MCH Auto (RBC) [Entitic mass ]on 02-23-2024 MCH (RBC) [Entitic mass] 35.8 pg High 26.0-34.0 [facility] MCHC Auto (RBC) [Mass/Vol]on 02-23-2024 MCHC (RBC) [Mass/Vol] 34.6 g/dL 30.5-36.0 [facility] MCV Auto (RBC) [Entitic vol] on 02-23-2024 MCV (RBC) [Entitic vol] 103.5 fL High 80.0-100.0 [facility] Monocytes Auto (Bld) [#/Vol] on 02-23-2024 Monocytes (Bld) [#/Vol] 0.54 10*3/uL <0.87 [facility] Monocytes/100 WBC Auto (Bld) on 02-23-2024 Monocytes/100 WBC (Bld) 10.6 % [facility] Neutrophils Auto (Bld) [#/Vo l]on 02-23-2024 Neutrophils (Bld) [#/Vol] 3.74 10*3/uL 1.45-7.50 [facility] Neutrophils/100 WBC Auto (Bl d)on 02-23-2024 Neutrophils/100 WBC (Bld) 73.1 % [facility] No Panel Informationon 02-22 Estimated GFR (CKD-EPI) 67 mL/min/1.73m??? >=60 [facility] Comment on above: Estimated Glomerular Filtration Rate (eGFR) is calculated using the 2020 CKD-EPI creatinine equation. This equation utilizes serum creatinine, sex, and age as parameters. The creatinine assay has traceable calibration to isotope dilution-mass spectrometry. Refer to KDIGO guidelines for clinical interpretation. In patients with unstable renal function, e.g. those with acute kidney injury, the eGFR may not accurately reflect actual GFR. Immature Granulocyte # (Auto) <0.03 k/uL <0.10 [facility] Immunofixation Interpretation [facility] Ionized Calcium (pH Adjusted) 1.30 mmol/L 1.08-1.30 [facility] Leuk/Lymph Sign Pathologist (Misc) Reviewed by Viky Chapman M.D., Ph.D [facility] Miscellaneous Test 6 Gamma Fraction 1 [facility] Miscellaneous Test 7 Gamma Fraction 2 [facility] Miscellaneous Test Comment Reviewed by Viky Chapman M.D., Ph.D [facility] Phosphorus Level 3.1 mg/dL 2.7-4.8 [facility] Protein Electrophoresis Interpret [facility] Protein Electrophoresis Note An M protein is identified on protein electrophoresis. Abnormal No definitive M protein is identified on protein electrophores is. [facility] Serum Immunofixation M protein is present. Abnormal No M protein is identified. [facility] Nucleated RBC Auto (Bld) [#/ Vol]on 02-23-2024 Nucleated RBC (Bld) [#/Vol] 10*3/uL <0.01 [facility] Nucleated erythrocytes [Pres ence] in Blood by Automated counton 02-23-2024 Nucleated RBC Auto Ql (Bld) 0.0 /100{WBC} [facility] PROTEIN ELECTROPHORESIS SERU M (P)on 02-23-2024 Albumin [Mass/Vol] 4.04 g/dL Normal 3.43-5.41 [facility] Comment on above: Order Comment: Speci men Type: BLOOD SPECIMENOrdering Facility: [facility] Address: [address] [place] [address] Performed By: #### L [id number] ####[facility] LABCLIA [id number] [place] [address] [place] Alpha 1 globulin Elph [Mass/Vol] 0.27 g/dL Normal 0.18-0.43 [facility] Comment on above: Order Comment: Speci men Type: BLOOD SPECIMENOrdering Facility: [facility] Address: [address] [place] [address] Performed By: #### L [id number] ####[facility] LABCLIA [id number] [place] [address] [place] Alpha 2 globulin Elph [Mass/Vol] 0.63 g/dL Normal 0.42-0.98 [facility] Comment on above: Order Comment: Speci men Type: BLOOD SPECIMENOrdering Facility: [facility] Address: [address] [place] [address] Performed By: #### L [id number] ####[facility] LABIA [id number] [place] [address] [place] Beta globulin Elph [Mass/Vol] 0.95 g/dL Normal 0.61-1.17 [facility] Comment on above: Order Comment: Speci men Type: BLOOD SPECIMENOrdering Facility: [facility] Address: [address] [place] [address] Performed By: #### L [id number] ####[facility] LABIA [id number] [place] [address] [place] Gamma globulin Elph [Mass/Vol] 1.51 g/dL Normal 0.53-1.51 [facility] Comment on above: Order Comment: Speci men Type: BLOOD SPECIMENOrdering Facility: [facility] Address: [address] [place] [address] Performed By: #### L [id number] ####[facility] LABIA [id number] [place] [address] [place] INTERPRETATION COMMENT FOR PROTEIN ELECTROPHORESIS See separate immunofixation report for characterization of monoclonal gammopathy. Normal [facility] Comment on above: Order Comment: Speci men Type: BLOOD SPECIMENOrdering Facility: [facility] Address: [address] [place] [address] Performed By: #### L [id number] ####[facility] LABIA [id number] [place] [address] [place] M SPIKE CONCENTRATION 2 0.58 g/dL High <=0.00 [facility] Comment on above: Order Comment: Speci men Type: BLOOD SPECIMENOrdering Facility: [facility] Address: [address] [place] [address] Performed By: #### L [id number] ####[facility] LABCLIA [id number] [address] M-PROTEIN LOCATION Gamma Fraction 1 Normal [facility] Comment on above: Order Comment: Speci men Type: BLOOD SPECIMENOrdering Facility: [facility] Address: [address] [place] [address] Performed By: #### L [id number] ####[facility] LABCLIA [id number] [address] [place] M-PROTEIN LOCATION 2 Gamma Fraction 2 Normal [facility] Comment on above: Order Comment: Speci men Type: BLOOD SPECIMENOrdering Facility: [facility] Address: [address] [place] [address] Performed By: #### L [id number] ####[facility] LABCLIA [id number] [place] [address] [place] Protein Fractions [Interp] An M protein is identified on protein electrophoresis. Abnormal No definitive M protein is identified on protein electrophores is. [facility] Comment on above: Order Comment: Speci men Type: BLOOD SPECIMENOrdering Facility: [facility] Address: [address] [place] [address] Performed By: #### L [id number] ####[facility] LABCLIA [id number] [place] [address] [place] Protein.monoclonal Elph [Mass/Vol] 0.38 g/dL High <=0.00 [facility] Comment on above: Order Comment: Speci men Type: BLOOD SPECIMENOrdering Facility: [facility] Address: [address] [place] [address] Performed By: #### L [id number] ####[facility] LABCLIA [id number] [place] [id number] [place] SPE STAFF REVIEW Reviewed by Viky Chapman M.D., Ph.D Normal [facility] Comment on above: Order Comment: Speci men Type: BLOOD SPECIMENOrdering Facility: [facility] Address: [address] [place], [place] [address] Performed By: #### L [id number] ####[facility] LABCLIA [id number] [place] [id number] [place] Phosphate SerPl-mCncon 02-22 Phosphate [Mass/Vol] 3.1 mg/dL Normal 2.7-4.8 [facility] Comment on above: Order Comment: Speci men Type: BLOOD SPECIMENOrdering Facility: [facility] Address: [address] [place] [address] Performed By: #### 3 084-1, 2777-1, 2532-0, 55787-7 ####[facility] LABCLIA [id number] [place] [address] Platelet mean volume Auto (B ld) [Entitic vol]on 02-23-2024 Platelet mean volume (Bld) [Entitic vol] 10.6 fL 9.0-12.7 [facility] Platelets Auto (Bld) [#/Vol] on 02-23-2024 Platelets (Bld) [#/Vol] 154 10*3/uL 150-400 [facility] Prot SerPl-mCncon 02-23-2024 Protein [Mass/Vol] 7.4 g/dL Normal 6.3-8.0 [facility] Comment on above: Order Comment: Speci men Type: BLOOD SPECIMENOrdering Facility: [facility] Address: [address] [place] [address] Performed By: #### 1 952-1, 2885-2 ####[facility] LABCLIA [id number] [place] [id number] [place] Protein [Mass/volume] in Ser um or Plasmaon 02-23-2024 Protein [Mass/Vol] 7.4 g/dL 6.3-8.0 [facility] RBC Auto (Bld) [#/Vol]on RBC (Bld) [#/Vol] 4.55 10*6/uL 4.20-6.00 [facility] Serum ionized calcium measur ement using ion specific electrode (mass/volume)on 02-23-2024 Calcium.ionized ISE [Mass/Vol] 1.21 mmol/L 1.08-1.30 [facility] Serum or plasma alpha 1 glob ulin measurement by electrophoresis (mass/volume)on 02-23-2024 Alpha 1 globulin Elph [Mass/Vol] 0.27 g/dL 0.18-0.43 [facility] Serum or plasma alpha 2 glob ulin measurement by electrophoresis (mass/volume)on 02-23-2024 Alpha 2 globulin Elph [Mass/Vol] 0.63 g/dL 0.42-0.98 [facility] Serum or plasma anion gap de terminationon 02-23-2024 Anion gap [Moles/Vol] 10 mmol/L 8-15 [facility] Serum or plasma beta globuli n measurement by electrophoresis (mass/volume)on 02-23-2024 Beta globulin Elph [Mass/Vol] 0.95 g/dL 0.61-1.17 [facility] Serum or plasma ijha-9-msmch globulin measurement (mass/volume)on 02-23-2024 Bfzz-2-Wormzbxuytpy n [Mass/Vol] 2.6 ug/mL <3.1 [facility] Comment on above: Beta-2 Microglobulin test is performed using the [employer] immunoturbidimetric method. Results obtained with different methods or kits cannot be used interchangeably. Serum or plasma gamma globul in measurement by electrophoresis (mass/volume)on 02-23-2024 Gamma globulin Elph [Mass/Vol] 1.51 g/dL 0.53-1.51 [facility] Urate SerPl-mCncon Urate [Mass/Vol] 5.3 mg/dL Normal 4.0-8.1 [facility] Comment on above: Order Comment: Speci men Type: BLOOD SPECIMENOrdering Facility: [facility] Address: [address] [place] [address] Performed By: #### 3 084-1, 2777-1, 2532-0, 08271-0 ####[facility] LABCLIA [id number] [place] [address] B2 Microglob SerPl-mCncon Ebva-8-Ifxconisirxk n [Mass/Vol] 2.7 ug/mL Normal <3.1 [facility] Comment on above: Order Comment: Speci men Type: BLOOD SPECIMENOrdering Facility: [facility] Address: [address] [place] [address] Result Comment: Beta -2 Microglobulin test is performed using the [employer] immunoturbidimetric method. Results obtained with different methods or kits cannot be used interchangeably. Performed By: #### 1 952-1, 2885-2 ####[facility] LABCLIA [id number] [place] [address] [place] CBC W Auto Differential pane l (Bld)on 12-03-2023 Basophils (Bld) [#/Vol] 0.04 10*3/uL Normal <0.11 [facility] Comment on above: Order Comment: Speci men Type: BLOOD SPECIMENOrdering Facility: [facility] Address: [address] [place] [address] Performed By: #### 5 7021-8 ####[facility] LABCLIA [id number] [place] [address] Basophils/100 WBC (Bld) 0.8 % Normal [facility] Comment on above: Order Comment: Speci men Type: BLOOD SPECIMENOrdering Facility: [facility] Address: [address] [place] [address] Performed By: #### 5 7021-8 ####[facility] LABCLIA [id number] [place] [address] Differential cell count method Nom (Bld) Auto Normal [facility] Comment on above: Order Comment: Speci men Type: BLOOD SPECIMENOrdering Facility: [facility] Address: [address] [place], [place] [address] Performed By: #### 5 7021-8 ####[facility] LABCLIA [id number] [place] [address] Eosinophils (Bld) [#/Vol] 0.12 10*3/uL Normal <0.46 [facility] Comment on above: Order Comment: Speci men Type: BLOOD SPECIMENOrdering Facility: [facility] Address: [address] [place] [address] Performed By: #### 5 7021-8 ####[facility] LABCLIA [id number] [place] [address] Eosinophils/100 WBC (Bld) 2.3 % Normal [facility] Comment on above: Order Comment: Speci men Type: BLOOD SPECIMENOrdering Facility: [facility] Address: [address] [place] [address] Performed By: #### 5 7021-8 ####[facility] LABCLIA [id number] [place] [address] Erythrocyte distribution width (RBC) [Ratio] 13.7 % Normal 11.5-15.0 [facility] Comment on above: Order Comment: Speci men Type: BLOOD SPECIMENOrdering Facility: [facility] Address: [address] [place] [address] Performed By: #### 5 7021-8 ####[facility] LABCLIA [id number] [place] [address] Hematocrit (Bld) [Volume fraction] 48.5 % Normal 39.0-51.0 [facility] Comment on above: Order Comment: Speci men Type: BLOOD SPECIMENOrdering Facility: [facility] Address: [address] [place] [address] Performed By: #### 5 7021-8 ####[facility] LABCLIA [id number] [place] [address] Hemoglobin (Bld) [Mass/Vol] 16.8 g/dL Normal 13.0-17.0 [facility] Comment on above: Order Comment: Speci men Type: BLOOD SPECIMENOrdering Facility: [facility] Address: [address] [place] [address] Performed By: #### 5 7021-8 ####[facility] LABCLIA [id number] [place] [address] Immature granulocytes (Bld) [#/Vol] 10*3/uL Normal <0.10 [facility] Comment on above: Order Comment: Speci men Type: BLOOD SPECIMENOrdering Facility: [facility] Address: [address] [place] [address] Performed By: #### 5 7021-8 ####[facility] LABCLIA [id number] [place] [address] Immature granulocytes/100 WBC (Bld) 0.4 % Normal [facility] Comment on above: Order Comment: Speci men Type: BLOOD SPECIMENOrdering Facility: [facility] Address: [address] [place] [address] Performed By: #### 5 7021-8 ####[facility] LABCLIA [id number] [place] [address] Lymphocytes (Bld) [#/Vol] 0.70 10*3/uL Low 1.00-4.00 [facility] Comment on above: Order Comment: Speci men Type: BLOOD SPECIMENOrdering Facility: [facility] Address: [address] [place] [address] Performed By: #### 5 7021-8 ####[facility] LABCLIA [id number] [place] [address] Lymphocytes/100 WBC (Bld) 13.4 % Normal [facility] Comment on above: Order Comment: Speci men Type: BLOOD SPECIMENOrdering Facility: [facility] Address: [address] [place] [address] Performed By: #### 5 7021-8 ####[facility] LABCLIA [id number] [place] [address] MCH (RBC) [Entitic mass] 36.0 pg High 26.0-34.0 [facility] Comment on above: Order Comment: Speci men Type: BLOOD SPECIMENOrdering Facility: [facility] Address: [address] [place] [address] Performed By: #### 5 7021-8 ####[facility] LABCLIA [id number] [place] [address] MCHC (RBC) [Mass/Vol] 34.6 g/dL Normal 30.5-36.0 [facility] Comment on above: Order Comment: Speci men Type: BLOOD SPECIMENOrdering Facility: [facility] Address: [address] [place] [address] Performed By: #### 5 7021-8 ####[facility] LABCLIA [id number] [place] [address] MCV (RBC) [Entitic vol] 103.9 fL High 80.0-100.0 [facility] Comment on above: Order Comment: Speci men Type: BLOOD SPECIMENOrdering Facility: [facility] Address: [address] [place] [address] Performed By: #### 5 7021-8 ####[facility] LABCLIA [id number] [place] [address] Monocytes (Bld) [#/Vol] 0.53 10*3/uL Normal <0.87 [facility] Comment on above: Order Comment: Speci men Type: BLOOD SPECIMENOrdering Facility: [facility] Address: [address] [place] [address] Performed By: #### 5 7021-8 ####[facility] LABCLIA [id number] [place] [address] Monocytes/100 WBC (Bld) 10.2 % Normal [facility] Comment on above: Order Comment: Speci men Type: BLOOD SPECIMENOrdering Facility: [facility] Address: [address] [place] [address] Performed By: #### 5 7021-8 ####[facility] LABCLIA [id number] [place] [address] Neutrophils (Bld) [#/Vol] 3.80 10*3/uL Normal 1.45-7.50 [facility] Comment on above: Order Comment: Speci men Type: BLOOD SPECIMENOrdering Facility: [facility] Address: [address] [place] [address] Performed By: #### 5 7021-8 ####[facility] LABCLIA [id number] [place] [address] Neutrophils/100 WBC (Bld) 72.9 % Normal [facility] Comment on above: Order Comment: Speci men Type: BLOOD SPECIMENOrdering Facility: [facility] Address: [address] [place] [address] Performed By: #### 5 7021-8 ####[facility] LABCLIA [id number] [place] [address] Nucleated RBC (Bld) [#/Vol] 10*3/uL Normal <0.01 [facility] Comment on above: Order Comment: Speci men Type: BLOOD SPECIMENOrdering Facility: [facility] Address: [address] [place] [address] Performed By: #### 5 7021-8 ####[facility] LABCLIA [id number] [place] [address] Nucleated RBC/100 WBC (Bld) [Ratio] 0.0 /100 WBC Normal [facility] Comment on above: Order Comment: Speci men Type: BLOOD SPECIMENOrdering Facility: [facility] Address: [address] [place] [address] Performed By: #### 5 7021-8 ####[facility] LABCLIA [id number] [place] [address] Platelet mean volume (Bld) [Entitic vol] 10.6 fL Normal 9.0-12.7 [facility] Comment on above: Order Comment: Speci men Type: BLOOD SPECIMENOrdering Facility: [facility] Address: [address] [place] [address] Performed By: #### 5 7021-8 ####[facility] LABCLIA [id number] [place] [address] Platelets (Bld) [#/Vol] 170 10*3/uL Normal 150-400 [facility] Comment on above: Order Comment: Speci men Type: BLOOD SPECIMENOrdering Facility: [facility] Address: [address] [place] [address] Performed By: #### 5 7021-8 ####[facility] LABCLIA [id number] [place] [address] RBC (Bld) [#/Vol] 4.67 10*6/uL Normal 4.20-6.00 [facility] Comment on above: Order Comment: Speci men Type: BLOOD SPECIMENOrdering Facility: [facility] Address: [address] [place] [address] Performed By: #### 5 7021-8 ####[facility] LABCLIA [id number] [place] [address] WBC (Bld) [#/Vol] 5.21 10*3/uL Normal 3.70-11.00 [facility] Comment on above: Order Comment: Speci men Type: BLOOD SPECIMENOrdering Facility: [facility] Address: [address] [place] [address] Performed By: #### 5 7021-8 ####[facility] LABCLIA [id number] [place] [address] CNOVSPon 12-03-2023 OVSP Visit (SP) Office ([place]) PRUDENCIO PATRICK ([id number]) 1945 M Date Time Provider Department 12/03/23 1:00 PM MAYCOL NOVAK During your visit today, we recorded the following information about you: Temperature Pulse Respiration Blood pressure 97.7 degrees 65/minute 16/minute 154/84 Weight Height 111.9 kg 1.803 m Maycol Novak MD 12/04/2023 4:53 PM Signed NAME: Prudencio Patrick CLINIC NO.: [id number] DATE OF SERVICE: December 03, 2023 ([facility]) Some elements in this clinic note that are critical to medical decision making have been carefully reviewed and included from a prior clinic note dated: September 24, 2023 ([facility]) Referring Provider: Dr. 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 - labs for M-spike pending. 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 Labs today are fairly stable although he could qualify for plebotomy. Unfortunately, he feels terrible afterwards and does not want to do this for now. Updated Visit, September 24, 2023: Rafa returns with Martha. He offers no new complaints. He had his annual physical recently and was told everything looks good from their perspective. His labs look good today - HCT 45.6. Updated Visit, July 02, 2023: Prudencio Patrick [...] basis. Updated Visit, April 17, 2022: Prudencio Coleman Bubba returns for follow-up. He remains on Hydrea 500 mg once daily and is tolerating it well. He states that he is doing well. There has been no significant medical changes since his last visit. He denies shortness of breath, chest pain and leg pain. He follows with his PCP, Dr. Yap, who has been changing his blood pressure medications. Patient states the first time he had a phlebotomy his blood pressure dropped. The second time he had a phlebotomy he had no problems. He denies bleeding and abnormal bruising. He offers no new complaints today. N (more content not included)... Normal [facility] 12-03-2023 [facility] PRUDENCIO PATRICK ([id number]) 1945 M Date Time Provider Department 12/03/23 MAYCOL NOVAK During your visit today, we recorded the following information about you: Shaunna Walters 12/03/2023 1:34 PM Addendum Please call patient with his Lab results. To determine if Dr Begum wants to see back in 3 months? Patient was seen when his Martha was here for her follow up . No follow up orders given at the time of office visit. Kaitlin Sheldon RN 12/04/2023 9:28 AM Signed Not all labs are resulted. Will wait for provider to review and call patient with recommendations. FLORENCE Ann Vivek, MD 12/05/2023 9:40 AM Signed SPIEP is stable. Will see him for labs in 11 weeks and with me in 12 weeks - orders already forwarded to clerical. Shaunna Walters 12/07/2023 1:19 PM Signed Rafa has been scheduled for lab draw in 11 02-23-24 and follow up with possible phlebotomy on thu03-02-24. Patient was notified of this appt. Allergies As of Date: 12/03/2023 Noted Allergy Reaction CLINDAMYCIN 01/01/2015 10 - Anaphylaxis PENICILLINS 05/31/2012 4 - Hives Date Reviewed: 11/10/2023 Reviewed by: Salina Rivera, PANoyC - Fully Assessed Reason for Visit: Results [95] Prescriptions as of 12/07/2023 - hydroxyurea (HYDREA) 500 mg capsule take 1 capsule by mouth every day - losartan (COZAAR) 50 mg tablet Take [...] Take 5 mg by mouth once daily. 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 LABCLIA [id number] [place] [address] [place] [facility] Calcium.ionized adjusted to pH 7.4 (Bld) [Moles/Vol] 1.28 mmol/L Normal 1.08-1.30 [facility] Comment on above: Order Comment: Speci men Type: BLOOD SPECIMENOrdering Facility: [facility] Address: [address] [place] [address] Performed By: #### 1 995-0 ####[facility] LABCLIA [id number] [place] [address] [place] Comprehensive metabolic 2000 panelon 12-03-2023 Albumin [Mass/Vol] 4.5 g/dL Normal 3.9-4.9 [facility] Comment on above: Order Comment: Speci men Type: BLOOD SPECIMENOrdering Facility: [facility] Address: [address] [place] [address] Performed By: #### 3 084-1, 2532-0, 33941-6, 2777-1 ####[facility] LABCLIA [id number] [place] [address] ALP [Catalytic activity/Vol] 111 U/L Normal 38-113 [facility] Comment on above: Order Comment: Speci men Type: BLOOD SPECIMENOrdering Facility: [facility] Address: [address] [place] [address] Performed By: #### 3 084-1, 2-0, 86936-0, 2776- ####[facility] LABCLIA [id number] [place] [address] ALT [Catalytic activity/Vol] 23 U/L Normal 10-54 [facility] Comment on above: Order Comment: Speci men Type: BLOOD SPECIMENOrdering Facility: [facility] Address: [address] [place] [address] Performed By: #### 3 084-1, 2-0, 88700-4, 2776- ####[facility] LABCLIA [id number] [place] [address] Anion gap [Moles/Vol] 9 mmol/L Normal 8-15 [facility] Comment on above: Order Comment: Speci men Type: BLOOD SPECIMENOrdering Facility: [facility] Address: [address] [place] [address] Performed By: #### 3 084-1, 2531-0, 38237-0, 2776-06 ####[facility] LABCLIA [id number] [place] [address] AST [Catalytic activity/Vol] 20 U/L Normal 14-40 [facility] Comment on above: Order Comment: Speci men Type: BLOOD SPECIMENOrdering Facility: [facility] Address: [address] [place] [address] Performed By: #### 3 084-1, 2531-0, 54770-3, 2776-06 ####[facility] LABCLIA [id number] [place] [address] Bilirubin [Mass/Vol] 0.5 mg/dL Normal 0.2-1.3 [facility] Comment on above: Order Comment: Speci men Type: BLOOD SPECIMENOrdering Facility: [facility] Address: [address] [place] [address] Performed By: #### 3 084-1, 2-0, 20499-9, 2776- ####[facility] LABCLIA [id number] [place] [address] Calcium [Mass/Vol] 10.6 mg/dL High 8.5-10.2 [facility] Comment on above: Order Comment: Speci men Type: BLOOD SPECIMENOrdering Facility: [facility] Address: [address] [place] [address] Performed By: #### 3 084-1, 2532-0, 90443-8, 277-1 ####[facility] LABCLIA [id number] [place] [address] Chloride [Moles/Vol] 104 mmol/L Normal 98-107 [facility] Comment on above: Order Comment: Speci men Type: BLOOD SPECIMENOrdering Facility: [facility] Address: [address] [place] [address] Performed By: #### 3 084-1, 2532-0, 47126-7, 277-1 ####[facility] LABCLIA [id number] [place] [address] CO2 [Moles/Vol] 28 mmol/L Normal 22-30 [facility] Comment on above: Order Comment: Speci men Type: BLOOD SPECIMENOrdering Facility: [facility] Address: [address] [place] [address] Performed By: #### 3 084-1, 2532-0, 73900-5, 277-1 ####[facility] LABCLIA [id number] [place] [address] Creatinine [Mass/Vol] 1.16 mg/dL Normal 0.73-1.22 [facility] Comment on above: Order Comment: Speci men Type: BLOOD SPECIMENOrdering Facility: [facility] Address: [address] [place] [address] Performed By: #### 3 084-1, 2532-0, 11940-1, 2777-1 ####[facility] LABCLIA [id number] [place] [address] Creatinine and Glomerular filtration rate.predicted panel (S/P/Bld) 64 mL/min/1.73m??? Normal >=60 [facility] Comment on above: Order Comment: Rene witt Type: BLOOD SPECIMENOrdering Facility: [facility] Address: [address] [place] [address] Result Comment: Tawanna mated Glomerular Filtration Rate [...] actual GFR. Performed By: #### 3 084-1, 2532-0, 44284-2, 7-1 ####[facility] LABCLIA [id number] [place] [address] Glucose [Mass/Vol] 122 mg/dL High 74-99 [facility] Comment on above: Order Comment: Rene witt Type: BLOOD SPECIMENOrdering Facility: [facility] Address: [address] [place] [address] Result Comment: The [place] Diabetes Association (ADA) provides guidance for cutoff [...] Standards of Medical Care in Diabetes 2016, [place] [employer]. Diabetes Care. 2016.39(Suppl 1). Performed By: #### 3 084-1, 2532-0, 38032-5, 2777-1 ####[facility] LABCLIA [id number] [place] [address] Potassium [Moles/Vol] 4.1 mmol/L Normal 3.7-5.1 [facility] Comment on above: Order Comment: Speci men Type: BLOOD SPECIMENOrdering Facility: [facility] Address: [address] [place] [address] Performed By: #### 3 084-1, 2532-0, 80164-2, 2777-1 ####[facility] LABCLIA [id number] [place] [address] Protein [Mass/Vol] 8.5 g/dL High 6.3-8.0 [facility] Comment on above: Order Comment: Speci men Type: BLOOD SPECIMENOrdering Facility: [facility] Address: [address] [place] [address] Performed By: #### 3 084-1, 2532-0, 21339-4, 7-1 ####[facility] LABCLIA [id number] [place] [address] Sodium [Moles/Vol] 141 mmol/L Normal 136-144 [facility] Comment on above: Order Comment: Speci men Type: BLOOD SPECIMENOrdering Facility: [facility] Address: [address] [place] [address] Performed By: #### 3 084-1, 2532-0, 09317-6, 7-1 ####[facility] LABCLIA [id number] [place] [address] Urea nitrogen [Mass/Vol] 19 mg/dL Normal 9-24 [facility] Comment on above: Order Comment: Speci men Type: BLOOD SPECIMENOrdering Facility: [facility] Address: [address] [place] [address] Performed By: #### 3 084-1, 2532-0, 42916-4, 2777-1 ####[facility] LABCLIA [id number] [place] [address] IMMUNOFIXATION SCREEN, SERUM on 12-03-2023 INTERPRETATION (MPA) Two sets of atypical restricted bands are present in the specimen, one in the IgA and kappa lanes, and the other in the IgM and lambda lanes. 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 Normal [facility] Comment on above: Order Comment: Speci men Type: BLOOD SPECIMEN [facility] Address: [address] [place] [address] Performed By: #### I FESC #### [facility] CLIA [id number] [address] [place] [address] OF [facility] MPA RESULT M protein is present. Abnormal No M p rotein is identified. [facility] Comment on above: Order Comment: Speci men Type: BLOOD SPECIMEN [facility] Address: [address] [place] [address] Performed By: #### I FESC #### [facility] CLIA [id number] [address] [place] [address] OF [place] STAFF REVIEW ([facility]) Reviewed by Viki Carballo MD Normal [facility] Comment on above: Order Comment: Speci men Type: BLOOD SPECIMEN [facility] Address: [address] [place] [address] Performed By: #### I FESC #### [facility] CLIA [id number] [address] [place] [address] [place] IMMUNOGLOBULINS,IGG,IGA,IGMo n 12-03-2023 IgA [Mass/Vol] 632 mg/dL High 70-400 [facility] Comment on above: Order Comment: Speci men Type: BLOOD SPECIMENOrdering Facility: [facility] Address: [address] [place] [address] Performed By: #### S ERIMM ####[facility] LABCLIA [id number] [place] [address] [place] IgG [Mass/Vol] 831 mg/dL Normal 700-1600 [facility] Comment on above: Order Comment: Speci men Type: BLOOD SPECIMENOrdering Facility: [facility] Address: [address] [place] [address] Performed By: #### S ERIMM ####[facility] LABCLIA [id number] [place] [address] [place] IgM [Mass/Vol] 838 mg/dL High 40-230 [facility] Comment on above: Order Comment: Speci men Type: BLOOD SPECIMENOrdering Facility: [facility] Address: [address] [place] [address] Performed By: #### S ERIMM ####[facility] LABCLIA [id number] [place] [address] [place] KAPPA/BURT,FREE,SERon 2023 Immunoglobulin light chains.kappa.free (S) [Mass/Vol] 26.3 mg/L High 3.3-19.4 [facility] Comment on above: Order Comment: Speci men Type: BLOOD SPECIMEN [facility] Address: [address] [place] [address] Result Comment: Rare ly, increased serum free light chains levels may not be detected or accurately quantified due to prozone phenomenon or in high viscosity samples using this immunoturbidimetric assay. Correlation with other laboratory results and clinical findings is recommended. The [place] Free Light Chain was performed using the Binding Site [employer] immunoturbidimetric method. Result obtained with different assay methods or kits cannot be used interchangeably. Performed By: #### K LFRS #### [facility] CLIA [id number] [address] [place] [address] [place] Immunoglobulin light chains.kappa/Immuno globulin light chains.lambda (S) [Mass ratio] 0.58 Normal 0.26-1.65 [facility] Comment on above: Order Comment: Speci men Type: BLOOD SPECIMEN [facility] Address: [address] [place] [address] Performed By: #### K LFRS #### [facility] CLIA [id number] [address] [place] [address] [place] Immunoglobulin light chains.lambda.free [Mass/Vol] 45.7 mg/L High 5.7-26.3 [facility] Comment on above: Order Comment: Speci men Type: BLOOD SPECIMEN [facility] Address: [address] [place] [address] Result Comment: Rare ly, increased serum free [...] cannot be used interchangeably. Performed By: #### K LFRS #### [facility] CLIA [id number] [address] [place] [address] [place] LDH SerPl-cCncon 12-03-2023 LDH [Catalytic activity/Vol] 182 U/L Normal 135-225 [facility] Comment on above: Order Comment: Speci men Type: BLOOD SPECIMENOrdering Facility: [facility] Address: [address] [place] [address] Performed By: #### 3 084-1, 2532-0, 12463-5, 2777-1 ####[facility] LABCLIA [id number] [place] [address] PROTEIN ELECTROPHORESIS SERU M (P)on 12-03-2023 Albumin [Mass/Vol] 4.11 g/dL Normal 3.43-5.41 [facility] Comment on above: Order Comment: Speci men Type: BLOOD SPECIMEN [facility] Address: [address] [place] [address] Performed By: #### K LFRS #### [facility] CLIA [id number] [address] [place] [address] [place] Alpha 1 globulin Elph [Mass/Vol] 0.28 g/dL Normal 0.18-0.43 [facility] Comment on above: Order Comment: Speci men Type: BLOOD SPECIMEN [facility] Address: [address] [place] [address] Performed By: #### K LFRS #### [facility] CLIA [id number] [address] [place] [address] [place] Alpha 2 globulin Elph [Mass/Vol] 0.63 g/dL Normal 0.42-0.98 [facility] Comment on above: Order Comment: Speci men Type: BLOOD SPECIMEN [facility] Address: [address] [place] [address] Performed By: #### K LFRS #### [facility] CLIA [id number] [address] [place] [address] [place] Beta globulin Elph [Mass/Vol] 1.03 g/dL Normal 0.61-1.17 [facility] Comment on above: Order Comment: Speci men Type: BLOOD SPECIMEN [facility] Address: [address] [place] [address] Performed By: #### K LFRS #### [facility] CLIA [id number] [address] [place] [address] [place] Gamma globulin Elph [Mass/Vol] 1.54 g/dL High 0.53-1.51 [facility] Comment on above: Order Comment: Speci men Type: BLOOD SPECIMEN [facility] Address: [address] [place] [address] Performed By: #### K LFRS #### [facility] CLIA [id number] [address] [place] [address] [place] INTERPRETATION COMMENT FOR PROTEIN ELECTROPHORESIS See separate immunofixation report for characterization of monoclonal gammopathy. Normal [facility] Comment on above: Order Comment: Speci men Type: BLOOD SPECIMEN [facility] Address: [address] [place] [address] Performed By: #### K LFRS #### [facility] CLIA [id number] [address] [place] [address] [place] M SPIKE CONCENTRATION 2 0.67 g/dL High <=0.00 [facility] Comment on above: Order Comment: Speci men Type: BLOOD SPECIMEN [facility] Address: [address] [place] [address] Performed By: #### K LFRS #### [facility] CLIA [id number] [address] [place] [address] [place] M-PROTEIN LOCATION Gamma Fraction 1 Normal [facility] Comment on above: Order Comment: Speci men Type: BLOOD SPECIMEN [facility] Address: [address] [place] [address] Performed By: #### K LFRS #### [facility] CLIA [id number] [address] [place] [address] OF [place] M-PROTEIN LOCATION 2 Gamma Fraction 2 Normal [facility] Comment on above: Order Comment: Speci men Type: BLOOD SPECIMEN [facility] Address: [address] [place] [address] Performed By: #### K LFRS #### [facility] CLIA [id number] [address] [place] [address] [place] Protein Fractions [Interp] An M protein is identified on protein electrophoresis. Abnormal No definitive M protein is identified on protein electrophores is. [facility] Comment on above: Order Comment: Speci men Type: BLOOD SPECIMEN [facility] Address: [address] [place] [address] Performed By: #### K LFRS #### [facility] CLIA [id number] [address] [place] [address] [place] Protein.monoclonal Elph [Mass/Vol] 0.36 g/dL High <=0.00 [facility] Comment on above: Order Comment: Speci men Type: BLOOD SPECIMEN [facility] Address: [address] [place] [address] Performed By: #### K LFRS #### [facility] CLIA [id number] [address] [place] [address] [place] SPE STAFF REVIEW Reviewed by MD Tex Fragoso [facility] Comment on above: Order Comment: Speci men Type: BLOOD SPECIMEN [facility] Address: [address] [place] [address] Performed By: #### K LFRS #### [facility] CLIA [id number] [address] [place] [address] [place] Phosphate SerPl-mCncon 12-02 Phosphate [Mass/Vol] 3.9 mg/dL Normal 2.7-4.8 [facility] Comment on above: Order Comment: Speci men Type: BLOOD SPECIMENOrdering Facility: [facility] Address: [address] [place] [address] Performed By: #### 3 084-1, 2532-0, 71359-5, 2777-1 ####[facility] LABCLIA [id number] [place] [address] Prot SerPl-mCncon 12-03-2023 Protein [Mass/Vol] 7.6 g/dL Normal 6.3-8.0 [facility] Comment on above: Order Comment: Speci men Type: BLOOD SPECIMENOrdering Facility: [facility] Address: [address] [place] [address] Performed By: #### 1 952-1, 2885-2 ####[facility] LABCLIA [id number] [place] [address] [place] Urate SerPl-mCncon Urate [Mass/Vol] 5.6 mg/dL Normal 4.0-8.1 [facility] Comment on above: Order Comment: Speci men Type: BLOOD SPECIMENOrdering Facility: [facility] Address: [address] [place] [address] Performed By: #### 3 084-1, 2532-0, 05511-5, 2777-1 ####[facility] LABCLIA [id number] [place] [address] B2 Microglob SerPl-mCncon Hvkd-0-Fxahcvyyfzuc n [Mass/Vol] 2.7 ug/mL Normal <3.1 [facility] Comment on above: Order Comment: Speci men Type: BLOOD SPECIMENOrdering Facility: [facility] Address: [address] [place] [address] Result Comment: Beta -2 Microglobulin test is performed using the [employer] immunoturbidimetric method. Results obtained with different methods or kits cannot be used interchangeably. Performed By: #### 1 952-1, 75972-8, 2276-4 ####[facility] LABCLIA [id number] [place] [address] [place] CBC W Auto Differential pane l (Bld)on 09-24-2023 Basophils (Bld) [#/Vol] 0.04 10*3/uL Normal <0.11 [facility] Comment on above: Order Comment: Speci men Type: BLOOD SPECIMEN [facility] Address: [address] [place] [address] Performed By: #### K LFRS #### [facility] CLIA [id number] [address] [place] [address] [place] [place] Basophils/100 WBC (Bld) 0.8 % Normal [facility] Comment on above: Order Comment: Speci men Type: BLOOD SPECIMEN Ordering Facility: [facility] Address: [address] [place] [address] Performed By: #### K LFRS #### [facility] CLIA [id number] [address] [id number] [address] [place] Differential cell count method Nom (Bld) Auto Normal [facility] Comment on above: Order Comment: Speci men Type: BLOOD SPECIMEN Ordering Facility: [facility] Address: [address] [place] [address] Performed By: #### K LFRS #### [facility] CLIA [id number] [address] [place] [address] [place] Eosinophils (Bld) [#/Vol] 0.15 10*3/uL Normal <0.46 [facility] Comment on above: Order Comment: Speci men Type: BLOOD SPECIMEN Ordering Facility: [facility] Address: [address] [place] [address] Performed By: #### K LFRS #### [facility] CLIA [id number] [address] [place] [address] [place] Eosinophils/100 WBC (Bld) 3.1 % Normal [facility] Comment on above: Order Comment: Speci men Type: BLOOD SPECIMEN Ordering Facility: [facility] Address: [address] [place] [address] Performed By: #### K LFRS #### [facility] CLIA [id number] [address] [place] [address] [place] Erythrocyte distribution width (RBC) [Ratio] 14.3 % Normal 11.5-15.0 [facility] Comment on above: Order Comment: Speci men Type: BLOOD SPECIMEN Ordering Facility: [facility] Address: [address] [place] [address] Performed By: #### K LFRS #### [facility] CLIA [id number] [address] [place] [address] [place] Hematocrit (Bld) [Volume fraction] 45.6 % Normal 39.0-51.0 [facility] Comment on above: Order Comment: Speci men Type: BLOOD SPECIMEN Ordering Facility: [facility] Address: [address] [place] [address] Performed By: #### K LFRS #### [facility] CLIA [id number] [address] [place] [address] [place] Hemoglobin (Bld) [Mass/Vol] 15.3 g/dL Normal 13.0-17.0 [facility] Comment on above: Order Comment: Speci men Type: BLOOD SPECIMEN Ordering Facility: [facility] Address: [address] [place] [address] Performed By: #### K LFRS #### [facility] CLIA [id number] [address] [place] [address] [place] Immature granulocytes (Bld) [#/Vol] 10*3/uL Normal <0.10 [facility] Comment on above: Order Comment: Speci men Type: BLOOD SPECIMEN Ordering Facility: [facility] Address: [address] [place] [address] Performed By: #### K LFRS #### [facility] CLIA [id number] [address] [place] [address] [place] Immature granulocytes/100 WBC (Bld) 0.4 % Normal [facility] Comment on above: Order Comment: Speci men Type: BLOOD SPECIMEN Ordering Facility: [facility] Address: [address] [place] [address] Performed By: #### K LFRS #### [facility] CLIA [id number] [address] [place] [address] [place] Lymphocytes (Bld) [#/Vol] 0.80 10*3/uL Low 1.00-4.00 [facility] Comment on above: Order Comment: Speci men Type: BLOOD SPECIMEN Ordering Facility: [facility] Address: [address] [place] [address] Performed By: #### K LFRS #### [facility] CLIA [id number] [address] [place] [address] [place] Lymphocytes/100 WBC (Bld) 16.3 % Normal [facility] Comment on above: Order Comment: Speci men Type: BLOOD SPECIMEN Ordering Facility: [facility] Address: [address] [place] [address] Performed By: #### K LFRS #### [facility] CLIA [id number] [address] [place] [address] [place] MCH (RBC) [Entitic mass] 35.1 pg High 26.0-34.0 [facility] Comment on above: Order Comment: Speci men Type: BLOOD SPECIMEN Ordering Facility: [facility] Address: [address] [place] [address] Performed By: #### K LFRS #### [facility] CLIA [id number] [address] [place] [address] [place] MCHC (RBC) [Mass/Vol] 33.6 g/dL Normal 30.5-36.0 [facility] Comment on above: Order Comment: Speci men Type: BLOOD SPECIMEN Ordering Facility: [facility] Address: [address] [place] [address] Performed By: #### K LFRS #### [facility] CLIA [id number] [address] [place] [address] [place] MCV (RBC) [Entitic vol] 104.6 fL High 80.0-100.0 [facility] Comment on above: Order Comment: Speci men Type: BLOOD SPECIMEN Ordering Facility: [facility] Address: [address] [place] [address] Performed By: #### K LFRS #### [facility] CLIA [id number] [address] [place] [address] [place] Monocytes (Bld) [#/Vol] 0.49 10*3/uL Normal <0.87 [facility] Comment on above: Order Comment: Speci men Type: BLOOD SPECIMEN Ordering Facility: [facility] Address: [address] [place] [address] Performed By: #### K LFRS #### [facility] CLIA [id number] [address] [place] [address] [place] Monocytes/100 WBC (Bld) 10.0 % Normal [facility] Comment on above: Order Comment: Speci men Type: BLOOD SPECIMEN Ordering Facility: [facility] Address: [address] [place] [address] Performed By: #### K LFRS #### [facility] CLIA [id number] [address] [place] [address] [place] Neutrophils (Bld) [#/Vol] 3.40 10*3/uL Normal 1.45-7.50 [facility] Comment on above: Order Comment: Speci men Type: BLOOD SPECIMEN Ordering Facility: [facility] Address: [address] [place] [address] Performed By: #### K LFRS #### [facility] CLIA [id number] [address] [place] [address] [place] Neutrophils/100 WBC (Bld) 69.4 % Normal [facility] Comment on above: Order Comment: Speci men Type: BLOOD SPECIMEN Ordering Facility: [facility] Address: [address] [place] [address] Performed By: #### K LFRS #### [facility] CLIA [id number] [address] [place] [address] [place] Nucleated RBC (Bld) [#/Vol] 10*3/uL Normal <0.01 [facility] Comment on above: Order Comment: Speci men Type: BLOOD SPECIMEN Ordering Facility: [facility] Address: [address] [place] [address] Performed By: #### K LFRS #### [facility] CLIA [id number] [address] [place] [address] [place] Nucleated RBC/100 WBC (Bld) [Ratio] 0.0 /100 WBC Normal [facility] Comment on above: Order Comment: Speci men Type: BLOOD SPECIMEN Ordering Facility: [facility] Address: [address] [place] [address] Performed By: #### K LFRS #### [facility] CLIA [id number] [address] [place] [address] [place] Platelet mean volume (Bld) [Entitic vol] 10.3 fL Normal 9.0-12.7 [facility] Comment on above: Order Comment: Speci men Type: BLOOD SPECIMEN Ordering Facility: [facility] Address: [address] [place] [address] Performed By: #### K LFRS #### [facility] CLIA [id number] [address] [place] [address] [place] Platelets (Bld) [#/Vol] 163 10*3/uL Normal 150-400 [facility] Comment on above: Order Comment: Speci men Type: BLOOD SPECIMEN Ordering Facility: [facility] Address: [address] [place] [address] Performed By: #### K LFRS #### [facility] CLIA [id number] [address] [place] [address] [place] RBC (Bld) [#/Vol] 4.36 10*6/uL Normal 4.20-6.00 [facility] Comment on above: Order Comment: Speci men Type: BLOOD SPECIMEN Ordering Facility: [facility] Address: [address] [place] [address] Performed By: #### K LFRS #### [facility] CLIA [id number] [address] [place] [address] [place] WBC (Bld) [#/Vol] 4.90 10*3/uL Normal 3.70-11.00 [facility] Comment on above: Order Comment: Speci men Type: BLOOD SPECIMEN Ordering Facility: [facility] Address: [address] [place] [address] Performed By: #### K LFRS #### [facility] CLIA [id number] [address] [place] [address] [facility] Visit (SP) Office ([place]) PRUDENCIO PATRICK ([id number]) 1945 M Date Time Provider Department 09/24/23 10:45 AM MAYCOL NOVAK During your visit today, we recorded the following information about you: Temperature Pulse Respiration Blood pressure 97.4 degrees 58/minute 18/minute 164/75 Weight 113.9 kg Maycol Novak MD 09/24/2023 7:08 PM Signed NAME: Prudencio Patrick CLINIC NO.: [id number] DATE OF SERVICE: September 24, 2023 (Dipak) Some elements in this clinic note that are critical to medical decision making have been carefully reviewed and included from a prior clinic note dated: July 02, 2023 (Mahesh) Referring Provider: Dr. 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 - labs for M-spike pending. 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 He offers no new complaints. He had his annual physical recently and was told everything looks good from their perspective. His labs look good today - HCT 45.6. Updated Visit, July 02, 2023: Prudencio Patrick [...] pain. He follows with his PCP, Dr. Yap, who has been changing his blood pressure [...] Updated Visit, November 28, 2021: Didn't tolerate ph (more content not included)... Normal [facility] Calcium.ionized [Moles/Vol]o n 09-24-2023 Calcium.ionized (Bld) [Mass/Vol] 1.33 mmol/L High 1.08-1.30 [facility] Comment on above: Order Comment: Speci men Type: BLOOD SPECIMENOrdering Facility: [facility] Address: [address] [place] [address] Performed By: #### 1 995-0 ####[facility] [id number] [facility] [place] [address] [place] Calcium.ionized adjusted to pH 7.4 (Bld) [Moles/Vol] 1.29 mmol/L Normal 1.08-1.30 [facility] Comment on above: Order Comment: Speci men Type: BLOOD SPECIMENOrdering Facility: [facility] Address: [address] [place] [address] Performed By: #### 1 995-0 ####[facility]IA [id number] [place] [id number] [place] Comprehensive metabolic 2000 panelon 09-24-2023 Albumin [Mass/Vol] 4.2 g/dL Normal 3.9-4.9 [facility] Comment on above: Order Comment: Speci men Type: BLOOD SPECIMENOrdering Facility: [facility] Address: [address] [place] [address] Performed By: #### 2 4323-8, 3084-1, 2777-1, 2532-0 ####[facility]IA [id number] [place] [address] [place] ALP [Catalytic activity/Vol] 99 U/L Normal 38-113 [facility] Comment on above: Order Comment: Speci men Type: BLOOD SPECIMENOrdering Facility: [facility] Address: [address] [place] [address] Performed By: #### 2 4323-8, 3084-1, 2777-1, 2532-0 ####[facility]IA [id number] [place] [address] [place] ALT [Catalytic activity/Vol] 25 U/L Normal 10-54 [facility] Comment on above: Order Comment: Speci men Type: BLOOD SPECIMENOrdering Facility: [facility] Address: [address] [place] [address] Performed By: #### 2 4323-8, 3084-1, 2777-1, 2532-0 ####[facility]CLIA [id number] [place] [address] [place] Anion gap [Moles/Vol] 11 mmol/L Normal 9-18 [facility] Comment on above: Order Comment: Speci men Type: BLOOD SPECIMENOrdering Facility: [facility] Address: [address] [place], [place] [address] Performed By: #### 2 4323-8, 3084-1, 2777-1, 2532-0 ####[facility]CLIA [id number] [place] [address] [place] AST [Catalytic activity/Vol] 25 U/L Normal 14-40 [facility] Comment on above: Order Comment: Speci men Type: BLOOD SPECIMENOrdering Facility: [facility] Address: [address] [place] [address] Performed By: #### 2 4323-8, 3084-1, 2777-1, 2532-0 ####[facility] LABCLIA [id number] [place] [address] [place] Bilirubin [Mass/Vol] 0.6 mg/dL Normal 0.2-1.3 [facility] Comment on above: Order Comment: Speci men Type: BLOOD SPECIMENOrdering Facility: [facility] Address: [address] [place] [address] Performed By: #### 2 4323-8, 3084-1, 2777-1, 2532-0 ####[facility] LABCLIA [id number] [place] [address] [place] Calcium [Mass/Vol] 10.0 mg/dL Normal 8.5-10.2 [facility] Comment on above: Order Comment: Speci men Type: BLOOD SPECIMENOrdering Facility: [facility] Address: [address] [place], [place] [address] Performed By: #### 2 4323-8, 3084-1, 2777-1, 2532-0 ####[facility] LABCLIA [id number] [place] [address] [place] Chloride [Moles/Vol] 105 mmol/L Normal 97-105 [facility] Comment on above: Order Comment: Speci men Type: BLOOD SPECIMENOrdering Facility: [facility] Address: [address] [place], [place] [address] Performed By: #### 2 4323-8, 3084-1, 2777-1, 2532-0 ####[facility] LABCLIA [id number] [place] [address] [place] CO2 [Moles/Vol] 24 mmol/L Normal 22-30 [facility] Comment on above: Order Comment: Speci men Type: BLOOD SPECIMENOrdering Facility: [facility] Address: [address] [place] [address] Performed By: #### 2 4323-8, 3084-1, 2777-1, 2532-0 ####[facility] LABIA [id number] [place] [address] [place] Creatinine [Mass/Vol] 1.09 mg/dL Normal 0.73-1.22 [facility] Comment on above: Order Comment: Speci men Type: BLOOD SPECIMENOrdering Facility: [facility] Address: [address] [place] [address] Performed By: #### 2 4323-8, 3084-1, 2777-1, 2532-0 ####[facility] LABIA [id number] [place] [address] [place] Creatinine and Glomerular filtration rate.predicted panel (S/P/Bld) 69 mL/min/1.73m??? Normal >=60 [facility] Comment on above: Order Comment: Speci men Type: BLOOD SPECIMENOrdering Facility: [facility] Address: [address] [place] [address] Result Comment: Tawanna mated Glomerular Filtration Rate [...] reflect actual GFR. Performed By: #### 2 4323-8, 3084-1, 2776-, 2532-0 ####[facility] LABCLIA [id number] [address] [address] [place] Glucose [Mass/Vol] 102 mg/dL High 74-99 [facility] Comment on above: Order Comment: Rene witt Type: BLOOD SPECIMENOrdering Facility: [facility] Address: [address] [place] [address] Result Comment: The [place] Diabetes Association (ADA) provides guidance for cutoff [...] Standards of Medical Care in Diabetes 2016, [place] [employer]. Diabetes Care. 2016.39(Suppl 1). Performed By: #### 2 4323-8, 4-1, 2776-, 2-0 ####[facility] LABCLIA [id number] [address] [address] [place] Potassium [Moles/Vol] 4.9 mmol/L Normal 3.7-5.1 [facility] Comment on above: Order Comment: Rene witt Type: BLOOD SPECIMENOrdering Facility: [facility] Address: [address] [place] [address] Performed By: #### 2 4323-8, 3084-1, 2776-1, 2532-0 ####[facility] LABCLIA [id number] [facility] [address] [address] [place] Protein [Mass/Vol] 7.5 g/dL Normal 6.3-8.0 [facility] Comment on above: Order Comment: Speci men Type: BLOOD SPECIMENOrdering Facility: [facility] Address: [address] [place] [address] Performed By: #### 2 4323-8, 3084-1, 2777-1, 2532-0 ####[facility] LABCLIA [id number] [place] [address] [place] Sodium [Moles/Vol] 140 mmol/L Normal 136-144 [facility] Comment on above: Order Comment: Speci men Type: BLOOD SPECIMENOrdering Facility: [facility] Address: [address] [place] [address] Performed By: #### 2 4323-8, 3084-1, 2777-1, 2532-0 ####[facility] LABCLIA [id number] [place] [address] [place] Urea nitrogen [Mass/Vol] 21 mg/dL Normal 9-24 [facility] Comment on above: Order Comment: Speci men Type: BLOOD SPECIMENOrdering Facility: [facility] Address: [address] [place] [address] Performed By: #### 2 4323-8, 3084-1, 2777-1, 2532-0 ####[facility] LABCLIA [id number] [place] [address] [place] Ferritin SerPl-mCncon 2023 Ferritin [Mass/Vol] 106.0 ng/mL Normal 30.3-565.7 [facility] Comment on above: Order Comment: Speci men Type: BLOOD SPECIMENOrdering Facility: [facility] Address: [address] [place] [address] Performed By: #### 1 952-1, 16216-6, 2276-4 ####[facility] LABCLIA [id number] [address] [place] Folate SerPl-mCncon 09-24-19 24 Folate [Mass/Vol] ng/mL Normal >4.7 [facility] Comment on above: Order Comment: Rene witt Type: BLOOD SPECIMEN Ordering Facility: [facility] Address: [address] [place] [address] Result Comment: A re sult of > 20 ng/mL is not necessarily indicative of a pathologic or treatable condition: it reflects a limitation of the test methodology. Assay reference range: 4.8 to 24.2 ng/mL. Suitable for detection of folate deficiency. Reference: Folate III (Folate III) [package insert V 1.0 Bahamian]. [facility], [place], [place]: April 2015. Performed By: #### K LFRS #### [facility] CLIA [id number] [address] [place] [address] IMMUNOFIXATION SCREEN, SERUM on 09-24-2023 INTERPRETATION (MPA) Two sets of atypical restricted bands are present in the specimen, one in the IgA and kappa lanes, and the other in the IgM and lambda lanes. 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 Normal [facility] Comment on above: Order Comment: Rene witt Type: BLOOD SPECIMENOrdering Facility: [facility] Address: [address] [place] [address] Performed By: #### I FESC ####[facility] LABCLIA [id number] [address] [place] MPA RESULT M protein is present. Abnormal No M p rotein is identified. [facility] Comment on above: Order Comment: Speci men Type: BLOOD SPECIMENOrdering Facility: [facility] Address: [address] [place] [address] Performed By: #### I FESC ####[facility] LABCLIA [id number] [address] [place] STAFF REVIEW (MPA) Reviewed by Francesco Rivera MD, Ph.D ([id number]) Normal [facility] Comment on above: Order Comment: Speci men Type: BLOOD SPECIMENOrdering Facility: [facility] Address: [address] [place] [address] Performed By: #### I FESC ####[facility] LABCLIA [id number] [place] [address] [place] IMMUNOGLOBULINS,IGG,IGA,IGMo n 09-24-2023 IgA [Mass/Vol] 560 mg/dL High 70-400 [facility] Comment on above: Order Comment: Speci men Type: BLOOD SPECIMENOrdering Facility: [facility] Address: [address] [place] [address] Performed By: #### S ERIMM ####[facility] LABCLIA [id number] [place] [address] [place] IgG [Mass/Vol] 803 mg/dL Normal 700-1600 [facility] Comment on above: Order Comment: Speci men Type: BLOOD SPECIMENOrdering Facility: [facility] Address: [address] [place] [address] Performed By: #### S ERIMM ####[facility] LABIA [id number] [place] [address] [place] IgM [Mass/Vol] 774 mg/dL High 40-230 [facility] Comment on above: Order Comment: Speci men Type: BLOOD SPECIMENOrdering Facility: [facility] Address: [address] [place] [address] Performed By: #### S ERIMM ####[facility] LABIA [id number] [place] [address] [place] Iron and Iron binding capaci ty panelon 09-24-2023 Iron [Mass/Vol] 129 ug/dL Normal 41-186 [facility] Comment on above: Order Comment: Speci men Type: BLOOD SPECIMENOrdering Facility: [facility] Address: [address] [place] [address] Performed By: #### 1 952-1, 73670-7, 6-4 ####[facility] LABCLIA [id number] [place] [address] [place] Iron binding capacity [Mass/Vol] 480 ug/dL High 232-386 [facility] Comment on above: Order Comment: Speci men Type: BLOOD SPECIMENOrdering Facility: [facility] Address: [address] [place] [address] Performed By: #### 1 952-1, 91346-3, 2275-4 ####[facility] LABIA [id number] [place] [address] [place] Iron/TIBC [Molar ratio] 26.9 % Normal 15.0-57.0 [facility] Comment on above: Order Comment: Speci men Type: BLOOD SPECIMENOrdering Facility: [facility] Address: [address] [place] [address] Performed By: #### 1 952-1, 47636-8, 4 ####[facility] [id number] [place] [address] [place] KAPPA/BURT,FREE,SERon 2023 Immunoglobulin light chains.kappa.free (S) [Mass/Vol] 28.8 mg/L High 3.3-19.4 [facility] Comment on above: Order Comment: Speci men Type: BLOOD SPECIMENOrdering Facility: [facility] Address: [address] [place] [address] Result Comment: Rare ly, increased serum free light chains levels may not be detected or accurately quantified due to prozone phenomenon or in high viscosity samples using this immunoturbidimetric assay. Correlation with other laboratory results and clinical findings is recommended. The [place] Free Light Chain was performed using the Binding Site [employer] immunoturbidimetric method. Result obtained with different assay methods or kits cannot be used interchangeably. Performed By: #### K LFRS ####[facility] LABIA [id number] [place] Immunoglobulin light chains.kappa/Immuno globulin light chains.lambda (S) [Mass ratio] 0.67 Normal 0.26-1.65 [facility] Comment on above: Order Comment: Speci men Type: BLOOD SPECIMENOrdering Facility: [facility] Address: [address] [place] [address] Performed By: #### K LFRS ####[facility] LABCLIA [id number] [address] [place] Immunoglobulin light chains.lambda.free [Mass/Vol] 43.0 mg/L High 5.7-26.3 [facility] Comment on above: Order Comment: Speci men Type: BLOOD SPECIMENOrdering Facility: [facility] Address: [address] [place] [address] Result Comment: Rare ly, increased serum free [...] cannot be used interchangeably. Performed By: #### K LFRS ####[facility] LABCLIA [id number] [place] [address] [place] LDH SerPl-cCncon 09-24-2023 LDH [Catalytic activity/Vol] 240 U/L High 135-225 [facility] Comment on above: Order Comment: Speci men Type: BLOOD SPECIMENOrdering Facility: [facility] Address: [address] [place] [address] Performed By: #### 2 4323-8, 3084-1, 2777-1, 2532-0 ####[facility] LABCLIA [id number] [place] [address] [place] PROTEIN ELECTROPHORESIS SERU M (P)on 09-24-2023 Albumin [Mass/Vol] 3.98 g/dL Normal 3.43-5.41 [facility] Comment on above: Order Comment: Speci men Type: BLOOD SPECIMENOrdering Facility: [facility] Address: [address] [place] [address] Performed By: #### L [id number] ####[facility] LABIA [id number] [place] [address] [place] Alpha 1 globulin Elph [Mass/Vol] 0.29 g/dL Normal 0.18-0.43 [facility] Comment on above: Order Comment: Speci men Type: BLOOD SPECIMENOrdering Facility: [facility] Address: [address] [place] [address] Performed By: #### L [id number] ####[facility] LABIA [id number] [place] [address] [place] Alpha 2 globulin Elph [Mass/Vol] 0.66 g/dL Normal 0.42-0.98 [facility] Comment on above: Order Comment: Speci men Type: BLOOD SPECIMENOrdering Facility: [facility] Address: [address] [place] [address] Performed By: #### L [id number] ####[facility] LABIA [id number] [place] [address] [place] Beta globulin Elph [Mass/Vol] 0.89 g/dL Normal 0.61-1.17 [facility] Comment on above: Order Comment: Speci men Type: BLOOD SPECIMENOrdering Facility: [facility] Address: [address] [place] [address] Performed By: #### L [id number] ####[facility] LABIA [id number] [place] [address] [place] Gamma globulin Elph [Mass/Vol] 1.39 g/dL Normal 0.53-1.51 [facility] Comment on above: Order Comment: Speci men Type: BLOOD SPECIMENOrdering Facility: [facility] Address: [address] [place], [place] [id number] Performed By: #### L [id number] ####[facility] LABCLIA [id number] [address] [place] INTERPRETATION COMMENT FOR PROTEIN ELECTROPHORESIS See separate immunofixation report for characterization of monoclonal gammopathy. Normal [facility] Comment on above: Order Comment: Speci men Type: BLOOD SPECIMENOrdering Facility: [facility] Address: [address] [place] [address] Performed By: #### L [id number] ####[facility] LABCLIA [id number] [address] [place] M SPIKE CONCENTRATION 2 0.73 g/dL High <=0.00 [facility] Comment on above: Order Comment: Speci men Type: BLOOD SPECIMENOrdering Facility: [facility] Address: [address] [place] [address] Performed By: #### L [id number] ####[facility] LABCLIA [id number] [address] [place] M-PROTEIN LOCATION Gamma Fraction 1 Normal [facility] Comment on above: Order Comment: Speci men Type: BLOOD SPECIMENOrdering Facility: [facility] Address: [address] [place] [address] Performed By: #### L [id number] ####[facility] LABCLIA [id number] [address] [place] M-PROTEIN LOCATION 2 Gamma Fraction 2 Normal [facility] Comment on above: Order Comment: Speci men Type: BLOOD SPECIMENOrdering Facility: [facility] Address: [address] [place] [address] Performed By: #### L [id number] ####[facility] LABCLIA [id number] [place] [address] [place] Protein Fractions [Interp] An M protein is identified on protein electrophoresis. Abnormal No definitive M protein is identified on protein electrophores is. [facility] Comment on above: Order Comment: Speci men Type: BLOOD SPECIMENOrdering Facility: [facility] Address: [address] [place] [address] Performed By: #### L [id number] ####[facility] LABIA [id number] [place] [address] [place] Protein.monoclonal Elph [Mass/Vol] 0.29 g/dL High <=0.00 [facility] Comment on above: Order Comment: Speci men Type: BLOOD SPECIMENOrdering Facility: [facility] Address: [address] [place] [address] Performed By: #### L [id number] ####[facility] [id number] [place] [address] [place] SPE STAFF REVIEW Reviewed by Francesco Rivera MD, Ph.D ([id number]) Normal [facility] Comment on above: Order Comment: Speci men Type: BLOOD SPECIMENOrdering Facility: [facility] Address: [address] [place] [address] Performed By: #### L [id number] ####[facility] [id number] [place] [address] [place] Phosphate SerPl-mCncon 09-23 Phosphate [Mass/Vol] 3.6 mg/dL Normal 2.7-4.8 [facility] Comment on above: Order Comment: Speci men Type: BLOOD SPECIMENOrdering Facility: [facility] Address: [address] [place] [address] Performed By: #### 2 4323-8, 3084-1, 2777-1, 2532-0 ####[facility] [id number] [place] [address] [place] Prot SerPl-mCncon 09-24-2023 Protein [Mass/Vol] 7.2 g/dL Normal 6.3-8.0 [facility] Comment on above: Order Comment: Speci men Type: BLOOD SPECIMEN [facility] Address: [address] [place] [address] Performed By: #### K LFRS #### [facility] LAB CLIA [id number] [address] [place] [address] [place] Urate SerPl-ncon 4 Urate [Mass/Vol] 5.3 mg/dL Normal 4.0-8.1 [facility] Comment on above: Order Comment: Speci men Type: BLOOD SPECIMENOrdering Facility: [facility] Address: [address] [place] [address] Performed By: #### 2 4323-8, 3084-1, 2777-1, 2532-0 ####[facility] LABCLIA [id number] [place] [address] [place] Vit B12 SerPl-ncon 024 Cobalamin (Vitamin B12) [Mass/Vol] 684 pg/mL Normal 232-1245 [facility] Comment on above: Order Comment: Speci men Type: BLOOD SPECIMEN [facility] Address: [address] [place] [address] Performed By: #### K LFRS #### [facility] LAB CLIA [id number] [address] [place] [address] [place] 09-15-2023 CNPN Telephone (HEMTSA) PRUDENCIO PATRICK ([id number]) 1945 M Date Time Provider Department 09/15/23 MAYCOL NOVAK During your visit today, we recorded the following information about you: Viki Barry MA 09/15/2023 11:15 AM Signed Labs needed for appointment on 09/23 Viki Barry MA Allergies As of Date: 09/15/2023 Noted Allergy Reaction CLINDAMYCIN 01/01/2015 10 - Anaphylaxis PENICILLINS 05/31/2012 4 - Hives Date Reviewed: 07/03/2023 Reviewed by: Sonia Aragon APRN.STOCKROOM COORDINATOR - Fully Assessed Reason for Visit: Lab Orders [1688] Primary Visit Diagnosis:PRV (polycythemia rubra vera) ([facility]) [D45] Other Visit Diagnosis:MGUS (monoclonal gammopathy of unknown significance) [D47.2] Order(s):B2 MICROGLOBULIN B [SQB2M] Order #: [id number] FUTURE CBC + DIFF [SQCBCDIF] Order #: [id number] FUTURE COMP METABOLIC PANEL [SQCMP] Order #: [id number] FUTURE LD LACTATE DEHYDRO [SQLD6] Order #: [id number] FUTURE PHOSPHORUS INORGANIC [SQPHOS] Order #: [id number] FUTURE PROTEIN ELECTROPHORESIS SERUM W/INTERP [SQSEPG] Order #: [id number] FUTURE MONOCLONAL PROTEIN, SERUM (BLOOD) [SQSERMPA] Order #: [id number] FUTURE URIC ACID BLOOD [SQURIC] Order #: [id number] FUTURE CALCIUM IONIZED BLOOD [SQICA] Order #: [id number] FUTURE IRON + TIBC [SQIRON] Order #: [id number] FUTURE FERRITIN BLD [SQFERR] Order #: [id number] FUTURE VITAMIN B12 BLOOD [SQB12] Order #: [id number] FUTURE FOLATE SERUM [SQSERFOL] Order #: [id number] FUTURE Prescriptions as of 09/15/2023 - hydroxyurea (HYDREA) 500 mg capsule take 1 capsule by mouth once daily - losartan (COZAAR) 50 mg tablet Take [...] Take 5 mg by mouth once daily. Problem List As Of Date 09/15/2023 Noted Resolved Osteoarthritis [M19.90] MGUS (monoclonal gammopathy of unknown signific* Hypertension [I10] PRV (polycythemia rubra vera) (HCC) [D45] 10/25/2021 Stage 3a chronic kidney disease (HCC) [N18.31] 01/15/2023 Morbid obesity (HCC) [E66.01] 04/09/2023 Encounter Status:Closed by MAYCOL NOVAK on 09/15/23 Normal [facility] No Panel Informationon 08-07 Prostate Specific Antigen Total 2.72 ng/mL <=4.00 [facility] LIPID PROFILEon 09-25-2022 CHOL-HDL RATIO NORM SEE BELOW Normal [facility] Comment on above: Result Comment: 3.3 - 4.4 LOW RISK 4.4 - 7.1 AVERAGE RISK 7.1 - 11.0 MODERATE RISK >11.0 HIGH RISK Performed By: #### B MP, ALT, LIPID #### [facility] [address] [address] [address] Deandre Turner Cholesterol [Mass/Vol] 146 mg/dL Normal <=200 [facility] Comment on above: Performed By: #### B MP, ALT, LIPID #### [facility] [address] [address] [address] Deandre Turner Cholesterol in HDL [Mass/Vol] 56 mg/dL Normal 40-60 [facility] Comment on above: Performed By: #### B MP, ALT, LIPID #### [facility] [address] [address] [address] Deandre Turner Cholesterol in LDL [Mass/Vol] 72.2 mg/dL Normal [facility] Comment on above: Performed By: #### B MP, ALT, LIPID #### [facility] [address] [address] [address] Deandre Turner Cholesterol.total/C holesterol in HDL [Mass ratio] 2.6 {ratio} Normal [facility] Comment on above: Performed By: #### B MP, ALT, LIPID #### [facility] [address] [address] [address] Deandre Turner HDL NORMAL > or = 60 mg/dl - LO W CARDIOVASCULAR RISK <40 mg/dl - HIGH CARDIOVASCULAR RISK Normal [facility] Comment on above: Performed By: #### B MP, ALT, LIPID #### [facility] [address] [address] [address] Deandre Turner LDL CALC NORMAL SEE BELOW Normal [facility] Comment on above: Result Comment: <100 mg/dl OPTIMAL 100 - 129 mg/dl NEAR OR ABOVE OPTIMAL 130 - 159 mg/dl BORDERLINE HIGH 160 - 189 mg/dl HIGH >190 mg/dl VERY HIGH Performed By: #### B MP, ALT, LIPID #### [facility] [address] [place] [address] Dr. Deandre Turner Triglyceride [Mass/Vol] 89 mg/dL Normal <=150 [facility] Comment on above: Performed By: #### B MP, ALT, LIPID #### [facility] [address] [place] [address] Dr. Deandre Turner VLDL CALC 17.8 mg/dL Normal [facility] Comment on above: Performed By: #### B MP, ALT, LIPID #### [facility] [address] [address] [address] Deandre Turner PROF CHEM 8 (BAS METB)on Anion gap [Moles/Vol] 9.6 mmol/L Normal [facility] Comment on above: Performed By: #### B MP, ALT, LIPID #### [facility] [address] [place] [address] Dr. Deandre Turner Calcium [Mass/Vol] 9.6 mg/dL Normal 8.5-10.1 [facility] Comment on above: Performed By: #### B MP, ALT, LIPID #### [facility] [address] [address] [address] Deandre Turner Chloride [Moles/Vol] 105 mmol/L Normal 98-107 [facility] Comment on above: Performed By: #### B MP, ALT, LIPID #### [facility] [address] [address] [address] Deandre Turner CO2 [Moles/Vol] 28.7 mmol/L Normal 21.0-32.0 [facility] Comment on above: Performed By: #### B MP, ALT, LIPID #### [facility] [address] [address] [address] Deandre Turner Creatinine [Mass/Vol] 1.26 mg/dL Normal 0.70-1.30 [facility] Comment on above: Performed By: #### B MP, ALT, LIPID #### [facility] [address] [address] [address] Deandre Turner EGFR-AF [place] >60 Normal >=60 [facility] Comment on above: Performed By: #### B MP, ALT, LIPID #### [facility] [address] [place] [address] Dr. Deandre Turner EGFR-NON AF [place] 55 mL/min/1.73m2 Critically low >=60 [facility] Comment on above: Performed By: #### B MP, ALT, LIPID #### [facility] [address] [address] [address] Deandre Turner Glucose [Mass/Vol] 102 mg/dL Normal 74-106 [facility] Comment on above: Performed By: #### B MP, ALT, LIPID #### [facility] [address] [place] [address] Dr. Deandre Turner Potassium [Moles/Vol] 4.3 mmol/L Normal 3.5-5.1 [facility] Comment on above: Performed By: #### B MP, ALT, LIPID #### [facility] [address] [address] [address] Deandre Turner Sodium [Moles/Vol] 139 mmol/L Normal 136-145 [facility] Comment on above: Performed By: #### B MP, ALT, LIPID #### [facility] [address] [address] [address] Deandre Turner Urea nitrogen [Mass/Vol] 20.0 mg/dL Critically high 7.0-18.0 [facility] Comment on above: Performed By: #### B MP, ALT, LIPID #### [facility] [address] [place], [place] [address] Dr. Deandre Turner Urea nitrogen/Creatinine [Mass ratio] 15.9 mg/mg Normal [facility] Comment on above: Performed By: #### B MP, ALT, LIPID #### [facility] [address] [place], [place] [address] Dr. Deandre Turner SGPTon 09-25-2022 ALT [Catalytic activity/Vol] 33 U/L Normal 16-63 [facility] Comment on above: Performed By: #### B MP, ALT, LIPID #### [facility] [address] [address] [address] Deandre Turner CBC W Auto Differential pane l (Bld)on 02-27-2022 Abs Immature Gran <0.10 k/uL [facility] Basophils (Bld) [#/Vol] 0.03 10*3/uL <0.11 k/uL [facility] Basophils/100 WBC (Bld) 0.6 % [facility] Differential cell count method Nom (Bld) Auto [facility] Eosinophils (Bld) [#/Vol] 0.20 10*3/uL <0.46 k/uL [facility] Eosinophils/100 WBC (Bld) 4.0 % [facility] Erythrocyte distribution width (RBC) [Ratio] 15.6 % High 11.5 - 15.0 % [facility] Hematocrit (Bld) [Volume fraction] 44.9 % 39.0 - 51.0 % [facility] Hemoglobin (Bld) [Mass/Vol] 15.0 g/dL 13.0 - 17.0 g/dL [facility] Immature Gran % 0.2 % [facility] Lymphocytes (Bld) [#/Vol] 0.87 10*3/uL Low 1.00 - 4.00 k/uL [facility] Lymphocytes/100 WBC (Bld) 17.4 % [facility] MCH (RBC) [Entitic mass] 33.9 pg 26.0 - 34.0 pg [facility] MCHC (RBC) [Mass/Vol] 33.4 g/dL 30.5 - 36.0 g/dL [facility] MCV (RBC) [Entitic vol] 101.6 fL High 80.0 - 100.0 fL [facility] Monocytes (Bld) [#/Vol] 0.39 10*3/uL <0.87 k/uL [facility] Monocytes/100 WBC (Bld) 7.8 % [facility] Neutrophils (Bld) [#/Vol] 3.49 10*3/uL 1.45 - 7.50 k/uL [facility] Neutrophils/100 WBC (Bld) 70.0 % [facility] Nucleated RBC (Bld) [#/Vol] <0.01 k/uL [facility] Nucleated RBC/100 WBC (Bld) [Ratio] 0.0 /100 WBC [facility] Platelet mean volume (Bld) [Entitic vol] 10.7 fL 9.0 - 12.7 fL [facility] Platelets (Bld) [#/Vol] 159 10*3/uL 150 - 400 k/uL [facility] RBC (Bld) [#/Vol] 4.42 10*6/uL 4.20 - 6.0 0 m/uL [facility] WBC (Bld) [#/Vol] 4.99 10*3/uL 3.70 - 11. 00 k/uL [facility] CBC W Auto Differential pane l (Bld)on 11-14-2021 Abs Immature Gran <0.03 <0.10 k/uL [facility] Basophils (Bld) [#/Vol] 0.04 10*3/uL <0.11 k/uL [facility] Basophils/100 WBC (Bld) 0.7 % [facility] Differential cell count method Nom (Bld) Auto [facility] Eosinophils (Bld) [#/Vol] 0.16 10*3/uL <0.46 k/uL [facility] Eosinophils/100 WBC (Bld) 3.0 % [facility] Erythrocyte distribution width (RBC) [Ratio] 14.2 % 11.5 - 15.0 % [facility] Hematocrit (Bld) [Volume fraction] 49.5 % 39.0 - 51.0 % [facility] Hemoglobin (Bld) [Mass/Vol] 16.4 g/dL 13.0 - 17.0 g/dL [facility] Immature Gran % 0.2 % [facility] Lymphocytes (Bld) [#/Vol] 0.93 10*3/uL Low 1.00 - 4.00 k/uL [facility] Lymphocytes/100 WBC (Bld) 17.3 % [facility] MCH (RBC) [Entitic mass] 32.0 pg 26.0 - 34.0 pg [facility] MCHC (RBC) [Mass/Vol] 33.1 g/dL 30.5 - 36.0 g/dL [facility] MCV (RBC) [Entitic vol] 96.5 fL 80.0 - 100.0 fL [facility] Monocytes (Bld) [#/Vol] 0.65 10*3/uL <0.87 k/uL [facility] Monocytes/100 WBC (Bld) 12.1 % [facility] Neutrophils (Bld) [#/Vol] 3.58 10*3/uL 1.45 - 7.50 k/uL [facility] Neutrophils/100 WBC (Bld) 66.7 % [facility] Nucleated RBC (Bld) [#/Vol] 10*3/uL <0.01 k/uL [facility] Nucleated RBC/100 WBC (Bld) [Ratio] 0.0 /100 WBC [facility] Platelet mean volume (Bld) [Entitic vol] 11.1 fL 9.0 - 12.7 fL [facility] Platelets (Bld) [#/Vol] 158 10*3/uL 150 - 400 k/uL [facility] RBC (Bld) [#/Vol] 5.13 10*6/uL 4.20 - 6.0 0 m/uL [facility] WBC (Bld) [#/Vol] 5.37 10*3/uL 3.70 - 11. 00 k/uL [facility] Vital Signs Date Time Vital Sign Value Performing Clinician Facility 08-18-2024 09:00-0500 Body mass index (BMI) [Ratio] 34.08 kg/m2 Mandie Baig APRN.CNP Work Phone: [facility] 08-18-2024 09:00-0500 Body temperature 97.59 [degF] Mandie Baig APRN.CNP Work Phone: [facility] 08-18-2024 09:00-0500 Body weight 110.8 kg Mandie Baig APRN.CNP Work Phone: [facility] 08-18-2024 09:00-0500 Diastolic blood pressure 79 mm[Hg] Mandie Anthony CONTENT DIRECTOR.STOCKROOM COORDINATOR Work Phone: [facility] 08-18-2024 09:00-0500 Heart rate 58 /min Mandie Anthony CONTENT DIRECTOR.STOCKROOM COORDINATOR Work Phone: [facility] 08-18-2024 09:00-0500 Respiratory rate 18 /min Mandie Anthony CONTENT DIRECTOR.STOCKROOM COORDINATOR Work Phone: [facility] 08-18-2024 09:00-0500 SaO2% (BldA) [Mass fraction] 98 % Mandie Anthony CONTENT DIRECTOR.STOCKROOM COORDINATOR Work Phone: [facility] 08-18-2024 09:00-0500 Systolic blood pressure 147 mm[Hg] Mandie Anthony CONTENT DIRECTOR.STOCKROOM COORDINATOR Work Phone: [facility] 08-15-2024 08:40-0500 Blood Pressure Location Christophe BELLE [facility] [place] [facility] 08-15-2024 08:40-0500 Body temperature 98.6 [degF] Christophe BELLE [facility] [place] [facility] 08-15-2024 08:40-0500 Diastolic blood pressure 79 mm[Hg] Christophe BELLE [facility] [place] [facility] 08-15-2024 08:40-0500 Heart rate 70 /min Christophe BELLE [facility] [place] [facility] 08-15-2024 08:40-0500 Respiratory rate 16 /min Christophe BELLE [facility] [place] [facility] 08-15-2024 08:40-0500 Systolic blood pressure 132 mm[Hg] Christophe BELLE [facility] 08-11-2024 13:23-0500 Body height 182.9 cm Nakul Guerra DPM Work Phone: [facility] 08-11-2024 13:23-0500 Body mass index (BMI) [Ratio] 33.91 kg/m2 Nakul Guerra DPM Work Phone: [facility] 08-11-2024 13:23-0500 Body weight 113.4 kg Nakul Guerra DPM Work Phone: [facility] 08-11-2024 13:23-0500 Respiratory rate 18 /min Nakul Guerra DPM Work Phone: [facility] 08-02-2024 09:57-0500 Body height 177.8 cm [facility] 08-02-2024 09:57-0500 Body mass index (BMI) [Ratio] 35.7 kg/m2 [facility] 08-02-2024 09:57-0500 Body weight 113 kg [facility] 08-02-2024 09:57-0500 Diastolic blood pressure 85 mm[Hg] [facility] 08-02-2024 09:57-0500 Heart rate 69 /min [facility] 08-02-2024 09:57-0500 Respiratory rate 12 /min [facility] 08-02-2024 09:57-0500 Systolic blood pressure 135 mm[Hg] [facility] 06-02-2024 08:35-0500 Body height 182.9 cm Nakul Guerra DPM Work Phone: [facility] 06-02-2024 08:35-0500 Body mass index (BMI) [Ratio] 33.91 kg/m2 aNkul Guerra DPM Work Phone: [facility] 06-02-2024 08:35-0500 Body weight 113.4 kg Nakul Guerra DPM Work Phone: [facility] 06-02-2024 08:35-0500 Respiratory rate 18 /min Nakul Guerra DPM Work Phone: [facility] 05-26-2024 08:07-0500 Body height 180.3 cm Maycol Novak MD Work Phone: [facility] 05-26-2024 08:07-0500 Body mass index (BMI) [Ratio] 34.61 kg/m2 Maycol Novak MD Work Phone: [facility] 05-26-2024 08:07-0500 Body temperature 97.5 [degF] Maycol Novak MD Work Phone: [facility] 05-26-2024 08:07-0500 Body weight 112.5 kg Maycol Novak MD Work Phone: [facility] 05-26-2024 08:07-0500 Diastolic blood pressure 84 mm[Hg] Maycol Novak MD Work Phone: [facility] 05-26-2024 08:07-0500 Heart rate 64 /min Maycol Novak MD Work Phone: [facility] 05-26-2024 08:07-0500 Respiratory rate 16 /min Maycol Novak MD Work Phone: [facility] 05-26-2024 08:07-0500 SaO2% (BldA) [Mass fraction] 99 % Maycol Novak MD Work Phone: [facility] 05-26-2024 08:07-0500 Systolic blood pressure 157 mm[Hg] Maycol Novak MD Work Phone: [facility] 03-22-2024 08:59-0400 Body height 177.8 cm [facility] 03-22-2024 08:59-0400 Body mass index (BMI) [Ratio] 35.7 kg/m2 [facility] 03-22-2024 08:59-0400 Body weight 113.11 kg [facility] 03-22-2024 08:59-0400 Diastolic blood pressure 79 mm[Hg] [facility] 03-22-2024 08:59-0400 Heart rate 50 /min [facility] 03-22-2024 08:59-0400 Respiratory rate 12 /min [facility] 03-22-2024 08:59-0400 Systolic blood pressure 138 mm[Hg] [facility] 03-10-2024 10:44-0400 Body height 182.9 cm Nakul Guerra DPM Work Phone: [facility] 03-10-2024 10:44-0400 Body mass index (BMI) [Ratio] 33.91 kg/m2 Nakul Guerra DPM Work Phone: [facility] 03-10-2024 10:44-0400 Body weight 113.4 kg Nakul Guerra DPM Work Phone: [facility] 03-10-2024 10:44-0400 Diastolic blood pressure 82 mm[Hg] Nakul Guerra DPM Work Phone: [facility] 03-10-2024 10:44-0400 Heart rate 75 /min Nakul Guerra DPM Work Phone: [facility] 03-10-2024 10:44-0400 Respiratory rate 18 /min Nakul Guerra DPM Work Phone: [facility] 03-10-2024 10:44-0400 Systolic blood pressure 126 mm[Hg] Nakul Guerra DPM Work Phone: [facility] 03-02-2024 11:36-0400 Diastolic blood pressure 80 mm[Hg] [facility] 03-02-2024 11:36-0400 Systolic blood pressure 158 mm[Hg] [facility] 03-02-2024 08:59-0400 Diastolic blood pressure 89 mm[Hg] Salina Rivera PA-C Work Phone: [facility] Comment on above: recheck 03-02-2024 08:59-0400 Systolic blood pressure 176 mm[Hg] Salina Rivera PA-C Work Phone: [facility] Comment on above: recheck 03-02-2024 08:57-0400 Body height 180.3 cm Salina Jovany PA-C Work Phone: [facility] 03-02-2024 08:57-0400 Body mass index (BMI) [Ratio] 34.36 kg/m2 Salina Jovany PA-C Work Phone: [facility] 03-02-2024 08:57-0400 Body temperature 97.39 [degF] Salina Jovany PA-C Work Phone: [facility] 03-02-2024 08:57-0400 Body weight 111.7 kg Salina Jovany PA-C Work Phone: [facility] 03-02-2024 08:57-0400 Heart rate 71 /min Salina Jovany PA-C Work Phone: [facility] 03-02-2024 08:57-0400 Respiratory rate 18 /min Salina Jovany PA-C Work Phone: [facility] 03-02-2024 08:57-0400 SaO2% (BldA) [Mass fraction] 97 % Salina Jovany PA-C Work Phone: [facility] 02-11-2024 10:38-0400 Body height 182.9 cm Nakul Guerra DPM Work Phone: [facility] 02-11-2024 10:38-0400 Body mass index (BMI) [Ratio] 33.91 kg/m2 Nakul Guerra DPM Work Phone: [facility] 02-11-2024 10:38-0400 Body weight 113.4 kg Nakul Guerra DPM Work Phone: [facility] 02-11-2024 10:38-0400 Diastolic blood pressure 77 mm[Hg] Nakul Guerra DPM Work Phone: [facility] 02-11-2024 10:38-0400 Heart rate 81 /min Nakul Guerra DPM Work Phone: [facility] 02-11-2024 10:38-0400 Systolic blood pressure 128 mm[Hg] Nakul Guerra DPM Work Phone: [facility] 12-03-2023 13:22-0400 Body height 180.3 cm Maycol Novak MD Work Phone: [facility] 12-03-2023 13:22-0400 Body mass index (BMI) [Ratio] 34.42 kg/m2 Maycol Novak MD Work Phone: [facility] 12-03-2023 13:22-0400 Body temperature 97.7 [degF] Maycol Novak MD Work Phone: [facility] 12-03-2023 13:22-0400 Body weight 111.9 kg Maycol Novak MD Work Phone: [facility] 12-03-2023 13:22-0400 Diastolic blood pressure 84 mm[Hg] Maycol Novak MD Work Phone: [facility] 12-03-2023 13:22-0400 Heart rate 65 /min Maycol Novak MD Work Phone: [facility] 12-03-2023 13:22-0400 Respiratory rate 16 /min Maycol Novak MD Work Phone: [facility] 12-03-2023 13:22-0400 SaO2% (BldA) [Mass fraction] 97 % Maycol Novak MD Work Phone: [facility] 12-03-2023 13:22-0400 Systolic blood pressure 154 mm[Hg] Maycol Novak MD Work Phone: [facility] 09-24-2023 11:02-0400 Body temperature 97.39 [degF] Maycol Novak MD Work Phone: [facility] 09-24-2023 11:02-0400 Body weight 113.9 kg Maycol Novak MD Work Phone: [facility] 09-24-2023 11:02-0400 Diastolic blood pressure 75 mm[Hg] Maycol Novak MD Work Phone: [facility] 09-24-2023 11:02-0400 Heart rate 58 /min Maycol Noavk MD Work Phone: [facility] 09-24-2023 11:02-0400 Respiratory rate 18 /min Maycol Novak MD Work Phone: [facility] 09-24-2023 11:02-0400 SaO2% (BldA) [Mass fraction] 95 % Maycol Novak MD Work Phone: [facility] 09-24-2023 11:02-0400 Systolic blood pressure 164 mm[Hg] Maycol Novak MD Work Phone: [facility] 09-15-2023 10:37-0400 Body height 177.8 cm [facility] 09-15-2023 10:37-0400 Body mass index (BMI) [Ratio] 36.1 kg/m2 [facility] 09-15-2023 10:37-0400 Body weight 114.02 kg [facility] 09-15-2023 10:37-0400 Diastolic blood pressure 89 mm[Hg] [facility] 09-15-2023 10:37-0400 Heart rate 68 /min [facility] 09-15-2023 10:37-0400 Respiratory rate 12 /min [facility] 09-15-2023 10:37-0400 Systolic blood pressure 156 mm[Hg] [facility] 07-30-2023 10:08-0500 Body height 182.9 cm Nakul Guerra DPM Work Phone: [facility] 07-30-2023 10:08-0500 Body mass index (BMI) [Ratio] 33.91 kg/m2 Nakul Guerra DPM Work Phone: [facility] 07-30-2023 10:08-0500 Body weight 113.4 kg Nakul Guerra DPM Work Phone: [facility] 07-30-2023 10:08-0500 Diastolic blood pressure 80 mm[Hg] Nakul Guerra DPM Work Phone: [facility] 07-30-2023 10:08-0500 Heart rate 88 /min Nakul Guerra DPM Work Phone: [facility] 07-30-2023 10:08-0500 Systolic blood pressure 130 mm[Hg] Nakul Geurra DPM Work Phone: [facility] 04-10-2023 14:45-0400 Body height 177.8 cm Jose Ball Other [employer] Other 04-10-2023 14:45-0400 Body mass index (BMI) [Ratio] 35.72 kg/m2 Jose Ball Other [employer] Other 04-10-2023 14:45-0400 Body weight 112.95 kg Jose Ball Other [employer] Other 04-10-2023 14:45-0400 Diastolic blood pressure 79 mm[Hg] Jose Ball Other [employer] Other 04-10-2023 14:45-0400 Systolic blood pressure 147 mm[Hg] Jose Ball Other [employer] Other 03-17-2023 09:00-0400 Body height 177.8 cm Jose Ball Other [employer] Other 03-17-2023 09:00-0400 Body mass index (BMI) [Ratio] 35.01 kg/m2 Jose Ball Other [employer] Other 03-17-2023 09:00-0400 Body weight 110.68 kg Jose Ball Other [employer] Other 03-17-2023 09:00-0400 Diastolic blood pressure 90 mm[Hg] Jose Ball Other [employer] Other 03-17-2023 09:00-0400 Respiratory rate 12 /min Jose Ball Other [employer] Other 03-17-2023 09:00-0400 Systolic blood pressure 157 mm[Hg] Jose Ball Other [employer] Other 01-15-2023 08:19-0400 Body height 180.3 cm Maycol Novak MD Work Phone: [facility] 01-15-2023 08:19-0400 Body temperature 97.11 [degF] Maycol Novak MD Work Phone: [facility] 01-15-2023 08:19-0400 Body weight 113.22 kg Maycol Novak MD Work Phone: [facility] 01-15-2023 08:19-0400 Diastolic blood pressure 79 mm[Hg] Maycol Novak MD Work Phone: [facility] 01-15-2023 08:19-0400 Heart rate 58 /min Maycol Novak MD Work Phone: [facility] 01-15-2023 08:19-0400 Respiratory rate 18 /min Maycol Novak MD Work Phone: [facility] 01-15-2023 08:19-0400 SaO2% (BldA) [Mass fraction] 97 % Maycol Novak MD Work Phone: [facility] 01-15-2023 08:19-0400 Systolic blood pressure 165 mm[Hg] Maycol Novak MD Work Phone: [facility] 10-17-2022 08:47-0400 Body height 180.3 cm Sonia Aragon APRN.CNP Work Phone: [facility] 10-17-2022 08:47-0400 Body temperature 97.81 [degF] Sonia Aragon APRN.STOCKROOM COORDINATOR Work Phone: [facility] 10-17-2022 08:47-0400 Body weight 112.04 kg Sonia Aragon APRN.STOCKROOM COORDINATOR Work Phone: [facility] 10-17-2022 08:47-0400 Diastolic blood pressure 82 mm[Hg] Sonia Aragon CONTENT DIRECTOR.STOCKROOM COORDINATOR Work Phone: [facility] 10-17-2022 08:47-0400 Heart rate 62 /min Sonia Aragon APRN.STOCKROOM COORDINATOR Work Phone: [facility] 10-17-2022 08:47-0400 Respiratory rate 16 /min Sonia Aragon APRN.STOCKROOM COORDINATOR Work Phone: [facility] 10-17-2022 08:47-0400 SaO2% (BldA) [Mass fraction] 95 % Soina Aragon APRN.STOCKROOM COORDINATOR Work Phone: [facility] 10-17-2022 08:47-0400 Systolic blood pressure 163 mm[Hg] Sonia Aragon APRN.STOCKROOM COORDINATOR Work Phone: [facility] 09-12-2022 10:00-0400 Body height 177.8 cm [facility] Other [employer] Other 09-12-2022 10:00-0400 Body mass index (BMI) [Ratio] 35.52 kg/m2 [facility] Other [employer] Other 09-12-2022 10:00-0400 Body weight 112.31 kg [facility] Other [employer] Other 09-12-2022 10:00-0400 Diastolic blood pressure 84 mm[Hg] [facility] Other [employer] Other 09-12-2022 10:00-0400 Respiratory rate 12 /min Jose Yap Other [facility] [employer] Other 09-12-2022 10:00-0400 Systolic blood pressure 132 mm[Hg] Jose Yap Other [facility] [employer] Other 08-08-2022 08:46-0500 Blood Pressure Location Christophe BELLE [facility] 08-08-2022 08:46-0500 Diastolic blood pressure 79 mm[Hg] Christophe BELLE [facility] 08-08-2022 08:46-0500 Heart rate 76 /min Christophe BELLE [facility] 08-08-2022 08:46-0500 Systolic blood pressure 134 mm[Hg] Christophe BELLE [facility] 08-07-2022 10:30-0500 Diastolic blood pressure 67 mm[Hg] Chair [place] Work Phone: [facility] 08-07-2022 10:30-0500 Heart rate 45 /min Chair [place] Work Phone: [facility] 08-07-2022 10:30-0500 Respiratory rate 18 /min Chair [place] Work Phone: [facility] 08-07-2022 10:30-0500 SaO2% (BldA) [Mass fraction] 97 % Chair [place] Work Phone: [facility] 08-07-2022 10:30-0500 Systolic blood pressure 105 mm[Hg] Chair [place] Work Phone: [facility] 08-07-2022 09:00-0500 Body temperature 97.39 [degF] Chair Beverley Work Phone: [facility] 08-07-2022 08:20-0500 Body height 180.3 cm Maycol Novak MD Work Phone: [facility] 08-07-2022 08:20-0500 Body temperature 97.5 [degF] Maycol Novak MD Work Phone: [facility] 08-07-2022 08:20-0500 Body weight 112.86 kg Maycol Novak MD Work Phone: [facility] 08-07-2022 08:20-0500 Diastolic blood pressure 83 mm[Hg] Maycol Novak MD Work Phone: [facility] 08-07-2022 08:20-0500 Heart rate 66 /min Maycol Novak MD Work Phone: [facility] 08-07-2022 08:20-0500 Respiratory rate 16 /min Maycol Novak MD Work Phone: [facility] 08-07-2022 08:20-0500 SaO2% (BldA) [Mass fraction] 97 % Maycol Novak MD Work Phone: [facility] 08-07-2022 08:20-0500 Systolic blood pressure 169 mm[Hg] Maycol Novak MD Work Phone: [facility] 07-24-2022 10:30-0500 Body height 177.8 cm Jose Ball Other [employer] Other 07-24-2022 10:30-0500 Body mass index (BMI) [Ratio] 35.35 kg/m2 Jose Ball Other [employer] Other 07-24-2022 10:30-0500 Body weight 111.77 kg Jose Ball Other [employer] Other 07-24-2022 10:30-0500 Diastolic blood pressure 82 mm[Hg] Jose Ball Other [employer] Other 07-24-2022 10:30-0500 Respiratory rate 12 /min Jose Ball Other [employer] Other 07-24-2022 10:30-0500 Systolic blood pressure 128 mm[Hg] Jose Ball Other [employer] Other 07-03-2022 10:30-0500 Body height 177.8 cm Jose Ball Other [employer] Other 07-03-2022 10:30-0500 Body mass index (BMI) [Ratio] 35.12 kg/m2 Jose Ball Other [employer] Other 07-03-2022 10:30-0500 Body weight 111.04 kg Jose Ball Other [employer] Other 07-03-2022 10:30-0500 Diastolic blood pressure 80 mm[Hg] Jose Ball Other [employer] Other 07-03-2022 10:30-0500 Respiratory rate 12 /min Jose Ball Other [employer] Other 07-03-2022 10:30-0500 Systolic blood pressure 122 mm[Hg] Jose Ball Other [employer] Other 06-19-2022 14:30-0500 Body height 177.8 cm Jose Ball Other [employer] Other 06-19-2022 14:30-0500 Body mass index (BMI) [Ratio] 35.84 kg/m2 Jose Ball Other [employer] Other 06-19-2022 14:30-0500 Body weight 113.31 kg Jose Ball Other [employer] Other 06-19-2022 14:30-0500 Diastolic blood pressure 80 mm[Hg] Jose Ball Other [employer] Other 06-19-2022 14:30-0500 Respiratory rate 12 /min Jose Ball Other [employer] Other 06-19-2022 14:30-0500 Systolic blood pressure 130 mm[Hg] Jose Ball Other [employer] Other 04-17-2022 10:14-0400 Body temperature 97.81 [degF] Chair [place] Work Phone: [facility] 04-17-2022 10:14-0400 Diastolic blood pressure 81 mm[Hg] Chair [place] Work Phone: [facility] 04-17-2022 10:14-0400 Heart rate 54 /min Chair [place] Work Phone: [facility] 04-17-2022 10:14-0400 Respiratory rate 16 /min Chair Beverley Work Phone: [facility] 04-17-2022 10:14-0400 Systolic blood pressure 133 mm[Hg] Chair Beverley Work Phone: [facility] 04-17-2022 08:51-0400 Diastolic blood pressure 90 mm[Hg] Sonia Aragon APRN.STOCKROOM COORDINATOR Work Phone: [facility] 04-17-2022 08:51-0400 Systolic blood pressure 168 mm[Hg] Sonia Aragon APRN.STOCKROOM COORDINATOR Work Phone: [facility] 04-17-2022 08:50-0400 Body height 180.3 cm Sonia Aragon APRN.STOCKROOM COORDINATOR Work Phone: [facility] 04-17-2022 08:50-0400 Body temperature 97.7 [degF] Sonia Aragon APRN.STOCKROOM COORDINATOR Work Phone: [facility] 04-17-2022 08:50-0400 Body weight 112.76 kg Sonia Aragon CONTENT DIRECTOR.STOCKROOM COORDINATOR Work Phone: [facility] 04-17-2022 08:50-0400 Heart rate 55 /min Sonia Aragon CONTENT DIRECTOR.STOCKROOM COORDINATOR Work Phone: [facility] 04-17-2022 08:50-0400 Respiratory rate 18 /min Sonia Aragon CONTENT DIRECTOR.STOCKROOM COORDINATOR Work Phone: [facility] 04-17-2022 08:50-0400 SaO2% (BldA) [Mass fraction] 99 % Sonia Aragon CONTENT DIRECTOR.STOCKROOM COORDINATOR Work Phone: [facility] 02-20-2022 09:34-0400 Diastolic blood pressure 81 mm[Hg] Chair Beverley Work Phone: [facility] 02-20-2022 09:34-0400 Heart rate 70 /min Chair [place] Work Phone: [facility] 02-20-2022 09:34-0400 Respiratory rate 18 /min Chair [place] Work Phone: [facility] 02-20-2022 09:34-0400 Systolic blood pressure 134 mm[Hg] Chair [place] Work Phone: [facility] 02-20-2022 08:19-0400 Diastolic blood pressure 81 mm[Hg] Maycol Novak MD Work Phone: [facility] 02-20-2022 08:19-0400 Heart rate 59 /min Maycol Novak MD Work Phone: [facility] 02-20-2022 08:19-0400 Systolic blood pressure 179 mm[Hg] Maycol Novak MD Work Phone: [facility] 02-20-2022 08:15-0400 Body height 180.3 cm Maycol Novak MD Work Phone: [facility] 02-20-2022 08:15-0400 Body temperature 97.59 [degF] Maycol Novak MD Work Phone: [facility] 02-20-2022 08:15-0400 Body weight 113.58 kg Maycol Novak MD Work Phone: [facility] 02-20-2022 08:15-0400 Respiratory rate 16 /min Maycol Novak MD Work Phone: [facility] 02-20-2022 08:15-0400 SaO2% (BldA) [Mass fraction] 97 % Maycol Novak MD Work Phone: [facility] 12-26-2021 08:21-0400 Diastolic blood pressure 87 mm[Hg] Maycol Novak MD Work Phone: [facility] 12-26-2021 08:21-0400 Systolic blood pressure 161 mm[Hg] Maycol Novak MD Work Phone: [facility] 12-26-2021 08:16-0400 Body height 180.3 cm Maycol Novak MD Work Phone: [facility] 12-26-2021 08:16-0400 Body temperature 97.5 [degF] Mayocl Novak MD Work Phone: [facility] 12-26-2021 08:16-0400 Body weight 113.67 kg Maycol Novak MD Work Phone: [facility] 12-26-2021 08:16-0400 Heart rate 65 /min Maycol Novak MD Work Phone: [facility] 12-26-2021 08:16-0400 Respiratory rate 16 /min Maycol Novak MD Work Phone: [facility] 12-26-2021 08:16-0400 SaO2% (BldA) [Mass fraction] 98 % Maycol Novak MD Work Phone: [facility] 11-28-2021 08:36-0400 Body height 180.3 cm Maycol Novak MD Work Phone: [facility] 11-28-2021 08:36-0400 Body temperature 97.7 [degF] Maycol Novak MD Work Phone: [facility] 11-28-2021 08:36-0400 Body weight 111.4 kg Maycol Novak MD Work Phone: [facility] 11-28-2021 08:36-0400 Diastolic blood pressure 76 mm[Hg] Maycol Novak MD Work Phone: [facility] 11-28-2021 08:36-0400 Heart rate 57 /min Maycol Novak MD Work Phone: [facility] 11-28-2021 08:36-0400 Respiratory rate 18 /min Maycol Novak MD Work Phone: [facility] 11-28-2021 08:36-0400 SaO2% (BldA) [Mass fraction] 97 % Maycol Novak MD Work Phone: [facility] 11-28-2021 08:36-0400 Systolic blood pressure 148 mm[Hg] Maycol Novak MD Work Phone: [facility] 11-14-2021 08:27-0400 Body temperature 97.39 [degF] Chair Beverley Work Phone: [facility] 11-14-2021 08:27-0400 Diastolic blood pressure 75 mm[Hg] Chair Beverley Work Phone: [facility] 11-14-2021 08:27-0400 Heart rate 56 /min Chair Beverley Work Phone: [facility] 11-14-2021 08:27-0400 Respiratory rate 16 /min Chair Beverley Work Phone: [facility] 11-14-2021 08:27-0400 SaO2% (BldA) [Mass fraction] 98 % Chair [place] Work Phone: [facility] 11-14-2021 08:27-0400 Systolic blood pressure 123 mm[Hg] Chair Lowery Work Phone: [facility] 10-18-2021 08:19-0400 Body height 180.3 cm Maycol Novak MD Work Phone: [facility] 10-18-2021 08:19-0400 Body temperature 96.91 [degF] Maycol Novak MD Work Phone: [facility] 10-18-2021 08:19-0400 Body weight 111.4 kg Maycol Novak MD Work Phone: [facility] 10-18-2021 08:19-0400 Diastolic blood pressure 85 mm[Hg] Maycol Novak MD Work Phone: [facility] 10-18-2021 08:19-0400 Heart rate 61 /min Maycol Novak MD Work Phone: [facility] 10-18-2021 08:19-0400 Respiratory rate 16 /min Maycol Novka MD Work Phone: [facility] 10-18-2021 08:19-0400 SaO2% (BldA) [Mass fraction] 98 % Maycol Novak MD Work Phone: [facility] 10-18-2021 08:19-0400 Systolic blood pressure 159 mm[Hg] Myacol Novak MD Work Phone: [facility] Encounters Encounter Date Encounter Type Care Provider Facility Start: 08-18-2024 End: 08-18-2024 ambulatory JOSE YAP Facility:[facility] Start: 08-18-2024 End: 08-18-2024 Office outpatient visit 25 minutes Mandie Baig APRN.CNP Work Phone: Hematology/Oncology Comment on above: MGUS (monoclonal marlene mopathy of unknown significance) (Primary Dx); PRV (polycythemia rubra vera) (HCC); Stage 3a chronic kidney disease ([facility]) Start: 08-15-2024 End: 08-15-2024 ambulatory Christophe Richi BARBRA Facility:[facility] Start: 08-15-2024 End: 08-15-2024 Lab Drop off Christophe BELLE [facility] Start: 08-15-2024 End: 08-15-2024 ambulatory Christophe Richi BARBRA Facility:[facility] Start: 08-15-2024 End: 08-15-2024 Patient encounter procedure Christophe R BARBRA [facility] Start: 08-11-2024 End: 08-11-2024 Bamboo flowsheet Nakul Guerra DPM Work Phone: [facility] Start: 08-11-2024 End: 08-11-2024 Bamboo flowsheet Nakul Guerra DPM Work Phone: [facility] Start: 08-11-2024 End: 08-11-2024 Patient encounter procedure Nakul Guerra DPM Work Phone: [facility] Comment on above: Verruca plantaris (P rimary Dx); Foot pain, right; Pain due to onychomycosis of toenails of both feet Start: 08-11-2024 End: 08-11-2024 ambulatory NAKUL GUERRA Not Available Start: 08-02-2024 End: 08-02-2024 ambulatory [facility] Work Phone: Start: 08-02-2024 End: 08-02-2024 [facility] encounter [facility] Work [facility]: Start: 06-02-2024 End: 06-02-2024 Bamboo flowsheet Nakul Guerra DPM Work Phone: [facility] Start: 06-02-2024 End: 06-02-2024 Bamboo flowsheet Nakul Guerra DPM Work Phone: [facility] Start: 06-02-2024 End: 06-02-2024 Patient encounter procedure Nakul Guerra DPM Work Phone: [facility] Comment on above: Verruca plantaris (P rimary Dx); Foot pain, right; Pain due to onychomycosis of toenails of both feet Start: 06-02-2024 End: 06-02-2024 ambulatory NAKUL GUERRA Not Available Start: 05-26-2024 End: 05-26-2024 ambulatory MAYCOL NOVAK Facility:[facility] Start: 05-26-2024 End: 05-26-2024 Office outpatient visit 15 minutes Maycol Novak MD Work Phone: Hematology/Oncology Comment on above: MGUS (monoclonal marlene mopathy of unknown significance) (Primary Dx); PRV (polycythemia rubra vera) (HCC); Stage 3a chronic kidney disease (HCC) Start: 05-18-2024 Non-patient / Non-visit [facility] Phys[facility] Work Phone: Start: 05-18-2024 End: 05-18-2024 ambulatory JOSE YAP Facility:[facility] Start: 03-22-2024 End: 03-22-2024 ambulatory [facility] Work Phone: Start: 03-22-2024 End: 03-22-2024 Patient encounter procedure [facility] Physician [facility] Work Phone: Start: 03-10-2024 End: 03-10-2024 Bamboo flowsheet Nakul Guerra DPM Work Phone: [facility] Start: 03-10-2024 End: 03-10-2024 Bamboo flowsheet Nakul Guerra DPM Work Phone: [facility] Start: 03-10-2024 End: 03-10-2024 Patient encounter procedure Nakul Guerra DPM Work Phone: [facility] Comment on above: Verruca plantaris (P rimary Dx); Foot pain, right; Onychomycosis; Toe pain, bilateral Start: 03-10-2024 End: 03-10-2024 ambulatory NAKUL GUERRA Not Available Start: 03-02-2024 Non-patient / Non-visit [facility] Physician [facility] Work Phone: Start: 03-02-2024 End: 03-02-2024 ambulatory SALINA RIVERA Facility:[facility] Start: 03-02-2024 End: 03-02-2024 Office outpatient visit 15 minutes Salina Rivera PA-C Work Phone: Hematology/Oncology Comment on above: MGUS (monoclonal marlene mopathy of unknown significance) (Primary Dx); PRV (polycythemia rubra vera) (HCC) Start: 02-23-2024 End: 02-23-2024 ambulatory JOSE YAP Facility:[facility] Start: 02-23-2024 Non-patient / Non-visit [facility] Work Phone: Start: 02-12-2024 End: 02-16-2024 Refill Fransico Levin MD Work Phone: Hematology/Oncology Comment on above: Refill Request Start: 02-11-2024 End: 02-11-2024 Bamboo flowsheet Nakul Guerra DPM Work Phone: [facility] Start: 02-11-2024 End: 02-11-2024 Bamboo flowsheet Nakul Guerra DPM Work Phone: [facility] Start: 02-11-2024 End: 02-11-2024 Patient encounter procedure Nakul Guerra DPM Work Phone: [facility] Comment on above: Verruca plantaris (P rimary Dx); Foot pain, right Start: 02-11-2024 End: 02-11-2024 ambulatory NAKUL GUERRA Not Available Start: 01-28-2024 End: 01-28-2024 ambulatory NAKUL GUERRA Not Available Start: 01-14-2024 End: 01-14-2024 ambulatory NAKUL GUERRA Not Available Start: 12-31-2023 End: 12-31-2023 ambulatory NAKUL GUERRA Not Available Start: 12-03-2023 Telephone encounter Maycol daigle MD Work Phone: Cancer [facility] Comment on above: Results Start: 12-03-2023 End: 12-03-2023 ambulatory MAYCOL NOVAK Facility:[facility] Start: 12-03-2023 End: 12-03-2023 Office outpatient visit 15 minutes Maycol Novak MD Work Phone: Hematology/Oncology Comment on above: MGUS (monoclonal marlene mopathy of unknown significance) (Primary Dx); PRV (polycythemia rubra vera) (HCC); Stage 3a chronic kidney disease (HCC) Start: 11-07-2023 Refill Maycol stoddard MD Work Phone: Hematology/Oncology Comment on above: Refill Request Start: 10-08-2023 End: 10-08-2023 ambulatory NAKUL GUERRA Not Available Start: 09-24-2023 End: 09-24-2023 Office outpatient visit 15 minutes Maycol Novak MD Work Phone: Hematology/Oncology Comment on above: PRV (polycythemia ru bra vera) (HCC) (Primary Dx); MGUS (monoclonal gammopathy of unknown significance); Stage 3a chronic kidney disease (HCC); Morbid obesity (HCC) Start: 09-24-2023 End: 09-24-2023 ambulatory MAYCOL NOVAK Facility:[facility] Start: 09-15-2023 Telephone encounter Maycol daigle MD Work Phone: Hematology/Oncology Comment on above: Lab Orders Start: 09-15-2023 End: 09-15-2023 ambulatory [facility] Work Phone: Start: 09-15-2023 End: 09-15-2023 Patient encounter procedure [facility]ly [facility] Physician [facility] Work Phone: Start: 08-07-2023 Non-patient / Non-visit Formerly [facility] Professional [employer] Work Phone: Start: 07-30-2023 Chart abstracting Nakul hollingsworth DPM Work Phone: [facility] Start: 07-30-2023 End: 07-30-2023 Office outpatient new 30 minutes Nakul Guerra DPM Work Phone: [facility] Comment on above: Neoplasm of uncertai n behavior of skin (Primary Dx); Verruca plantaris; Foot pain, right; Onychomycosis; Toe pain, bilateral Start: 07-13-2023 End: 07-13-2023 ambulatory Jose Yap Other [employer] Other Start: 07-13-2023 Telephone encounter Jose Yap RAFFI [facility]ly [facility] Start: 05-08-2023 Refill Maycol stoddard MD Work Phone: Hematology/Oncology Comment on above: Refill Request Start: 04-23-2023 End: 04-23-2023 ambulatory Jose Yap Other [employer] Other Start: 04-23-2023 Telephone encounter Jose Yap FP G [facility] Start: 04-10-2023 End: 04-10-2023 ambulatory Jose Fracisco Other [employer] Other Start: 04-10-2023 Office outpatient vi sit 25 minutes Jose Ball [facility] Start: 03-17-2023 End: 03-17-2023 ambulatory Jose Fracisco Other [employer] Other Start: 03-17-2023 Office outpatient vi sit 25 minutes Jose Ball [facility] Start: 02-02-2023 End: 02-02-2023 ambulatory Jose Ball Other [employer] Other Start: 02-02-2023 Telephone encounter Jose NUGENT G [facility] Start: 01-15-2023 End: 01-15-2023 Office outpatient visit 15 minutes Maycol Novak MD Work Phone: Hematology/Oncology Comment on above: PRV (polycythemia ru bra vera) (HCC) (Primary Dx); MGUS (monoclonal gammopathy of unknown significance); Stage 3a chronic kidney disease (HCC) Start: 10-17-2022 End: 10-17-2022 ambulatory Sonia Aragon CONTENT DIRECTOR.STOCKROOM COORDINATOR Work Phone: Hematology/Oncology Comment on above: PRV (polycythemia ru bra vera) (HCC) (Primary Dx); MGUS (monoclonal gammopathy of unknown significance); Stage 3a chronic kidney disease (HCC) Start: 10-17-2022 End: 10-17-2022 Patient encounter procedure Sonia Aragon APRN.STOCKROOM COORDINATOR Work Phone: [facility] Start: 09-25-2022 Telephone encounter Jose NUGENT [facility] Start: 09-25-2022 End: 09-26-[address] JOSE YAP Outright [facility] [employer] Other Start: 09-12-2022 End: 09-12-2022 ambulatory Jose Yap Other Outright [facility] [employer] Other Start: 09-12-2022 Patient encounter procedure Jose LONDONO [facility] Start: 08-08-2022 End: 08-08-2022 Patient encounter procedure Christophe BELLE [facility] Start: 08-07-2022 Telephone encounter Arina Khoury RN H ematology/Oncology Comment on above: Appointment Start: 08-07-2022 End: 08-07-2022 ambulatory Chair 21 [facility] Work Phone: Hematology/Oncology Comment on above: PRV (polycythemia ru bra vera) (HCC) (Primary Dx) Start: 08-07-2022 End: 08-07-2022 Office outpatient visit 15 minutes Maycol Novak MD Work Phone: Hematology/Oncology Comment on above: PRV (polycythemia ru bra vera) (HCC) (Primary Dx) Start: 07-28-2022 End: 07-29-[address] CHRISTOPHE BELLE . Facility: Start: 07-24-2022 End: 07-24-2022 ambulatory Jose Yap Other [employer] Other Start: 07-24-2022 Office outpatient vi sit 15 minutes Jose Yap [facility] Start: 07-03-2022 End: 07-03-2022 ambulatory Jose Yap Other [employer] Other Start: 07-03-2022 Office outpatient vi sit 15 minutes Jose Yap [facility] Start: 06-27-2022 End: 06-27-2022 ambulatory Jose Yap Other [employer] Other Start: 06-27-2022 Telephone encounter Jose Yap [facility] Start: 06-19-2022 End: 06-19-2022 ambulatory Jose Yap Other [employer] Other Start: 06-19-2022 Office outpatient vi sit 15 minutes Jose Yap [facility] Start: 05-17-2022 Refill Maycol stoddard MD Work Phone: Hematology/Oncology Comment on above: Refill Request Start: 04-17-2022 End: 04-17-2022 ambulatory Chair 21 [place] Work Phone: Hematology/Oncology Comment on above: PRV (polycythemia ru bra vera) (HCC) (Primary Dx) PRV (polycythemia ru bra vera) (HCC) (Primary Dx); MGUS (monoclonal gammopathy of unknown significance) Start: 04-17-2022 End: 04-17-2022 Patient encounter procedure Sonia Aragon APRN.CNP Work Phone: [facility] Start: 02-28-2022 Telephone encounter Neetu Ochoa Hematology/Oncology Comment on above: Lab Orders Start: 02-27-2022 End: 02-27-2022 ambulatory Chair Maxi Da Silvay Work Phone: Hematology/Oncology Comment on above: PRV [...] Phone: [facility] Start: 01-20-2022 Refill [facility] Work Phone: [facility] Comment on above: Refill Request Start: 12-26-2021 [...] Orders Start: 11-14-2021 End: 11-14-2021 ambulatory Chair Maxi Lowery Work Phone: Hematology/Oncology Comment on above: PRV [...] Orders Start: 09-09-2021 Adult health examination Jason Yap Other [employer] Other Procedures Date Procedure Procedure Detail Performing Clinician Start: 07-28-[address] ALEYDA BELLE . Comment on above: Performed By: #### P SAD #### [facility] [address] [place] [address] Dr. Deandre Turner Start: 01-18-2018 Adult depression scr eening assessment Maycol Novak MD Work Phone: Start: 05-19-2016 Viral screening Frantz Yap Other Start: 02-07-2016 Attention to ileostomy Jose Yap Other Start: 08-09-2015 Screening for malign ant neoplasm of colon Jose Yap Other Colonoscopy Christophe BELLE Depression screening Frantz Yap Other Depression screening Frantz Yap Other Malignant neoplasm o f skin (disorder) Christophe BELLE Plan of Treatment Date Care Activity Detail Author Start: 08-11-2027 [facility] Start: 05-18-2027 [facility] Start: 02-22-2027 [facility] Screening [facility] Start: 12-02-2026 Diabetes Screening [facility] Start: 09-23-2026 [facility] Screening [facility] Start: 07-02-2026 [facility] Screening [facility] Start: 04-09-2026 [facility] Screening [facility] Start: 01-15-2026 DIABETES SCREEN DIABETES SCREEN [facility] Start: 10-17-2025 DIABETES SCREEN DIABETES SCREEN [facility] Start: 08-21-2025 ambulatory Ambulatory Facility:Kevin Bailey Start: 08-11-2025 Complete blood count Hemoglobin[facility] Start: 08-11-2025 Creatinine measurement Serum Creatin ine [facility] Start: 08-07-2025 DIABETES SCREEN DIABETES SCREEN [facility] Start: 05-18-2025 Creatinine measurement Serum Creatin ine [facility] Start: 02-22-2025 Creatinine measurement Serum Creatin ine [facility] Start: 02-20-2025 DIABETES SCREEN DIABETES SCREEN [facility] Start: 12-26-2024 DIABETES SCREEN DIABETES SCREEN [facility] Start: 12-02-2024 Creatinine measurement Serum Creatin ine [facility] Start: 11-28-2024 DIABETES SCREEN DIABETES SCREEN [facility] Start: 11-10-2024 End: 11-10-2024 Follow-up encounter Hematology/Oncology Comment on above: 12 week follow up wi th possible phlebotomy Start: 11-03-2024 End: 11-03-2024 Patient encounter procedure 11/03/2024 9:30 AM EDT Office Visit [facility] [address] [place] [address] 11 week lab [facility] Comment on above: 11 week lab Start: 10-18-2024 DIABETES SCREEN DIABETES SCREEN [facility] Start: 10-17-2024 ambulatory Ambulatory Facility:C [id number] Start: 10-12-2024 Covid-19 Vaccine ( season) Covid-19 Vaccine () [facility] Start: 09-23-2024 Creatinine measurement Serum Creatin ine [facility] Start: 08-18-2024 End: 08-18-2024 ambulatory 08/18/2024 9:30 AM EST [facility] Hematology/Oncology [address] [place] [address] possible phlebotomy Hematology/Oncology Comment on above: possible phlebotomy Start: 08-18-2024 End: 08-18-2024 Follow-up encounter 08/18/2024 9:00 AM EST Visit (SP) Office Hematology/Oncology [address] [place] [address] Mandie Baig APRN.STOCKROOM COORDINATOR [address] [place] [address] 12 week follow up with possible phlebotomy Hematology/Oncology Comment on above: 12 week follow up wi possible phlebotomy Start: 08-11-2024 End: 05-26-2025 [id number] [Mass/volume] in Serum or Plasma B2 MICROGLOBULIN Lab Routine MGUS (monoclonal gammopathy of unknown significance) Stage 3a chronic kidney disease (HCC) Expected: 08/11/2024 (Approximate), Expires: 05/26/2025 [facility] Work Phone: Comment on above: Expected: 08/11/2024 (Approximate), Expires: 05/26/2025 Start: 08-11-2024 End: 05-26-2025 Calcium.ionized [Moles/volume] in Blood CALCIUM, IONIZED Lab Routine MGUS (monoclonal gammopathy of unknown significance) Stage 3a chronic kidney disease (HCC) Expected: 08/11/2024 (Approximate), Expires: 05/26/2025 [facility] Comment on above: Expected: 08/11/2024 (Approximate), Expires: 05/26/2025 Start: 08-11-2024 End: 05-26-2025 CBC W Auto Differential panel - Blood COMPLETE BLOOD COUNT AND DIFFERENTIAL Lab Routine MGUS (monoclonal gammopathy of unknown significance) Stage 3a chronic kidney disease (HCC) Expected: 08/11/2024 (Approximate), Expires: 05/26/2025 [facility] Comment on above: Expected: 08/11/2024 (Approximate), Expires: 05/26/2025 Start: 08-11-2024 End: 05-26-2025 Comprehensive metabolic 2000 panel - Serum or Plasma COMPREHENSIVE METABOLIC PANEL Lab Routine MGUS (monoclonal gammopathy of unknown significance) Stage 3a chronic kidney disease (HCC) Expected: 08/11/2024 (Approximate), Expires: 05/26/2025 [facility] Comment on above: Expected: 08/11/2024 (Approximate), Expires: 05/26/2025 Start: 08-11-2024 End: 11-10-2024 Erythropoietin (EPO) [Units/volume] in Serum or Plasma ERYTHROPOIETIN/EPO Lab Routine MGUS (monoclonal gammopathy of unknown significance) Stage 3a chronic kidney disease (HCC) Expected: 08/11/2024 (Approximate), Expires: 11/10/2024 [facility] Comment on above: Expected: 08/11/2024 (Approximate), Expires: 11/10/2024 Start: 08-11-2024 End: 11-10-2024 KAPPA/BURT,FREE,SER KAPPA/BURT,FREE,SER Lab Routine MGUS (monoclonal gammopathy of unknown significance) Stage 3a chronic kidney disease (HCC) Expected: 08/11/2024 (Approximate), Expires: 11/10/2024 [facility] Comment on above: Expected: 08/11/2024 (Approximate), Expires: 11/10/2024 Start: 08-11-2024 End: 05-26-2025 Lactate dehydrogenase [Enzymatic activity/volume] in Serum or Plasma LACTATE DEHYDROGENASE Lab Routine MGUS (monoclonal gammopathy of unknown significance) Stage 3a chronic kidney disease (HCC) Expected: 08/11/2024 (Approximate), Expires: 05/26/2025 [facility] Comment on above: Expected: 08/11/2024 (Approximate), Expires: 05/26/2025 Start: 08-11-2024 End: 05-26-2025 MONOCLONAL PROTEIN, SERUM (BLOOD) MONOCLONAL PROTEIN, SERUM (BLOOD) Lab Routine MGUS (monoclonal gammopathy of unknown significance) Stage 3a chronic kidney disease (HCC) Expected: 08/11/2024 (Approximate), Expires: 05/26/2025 [facility] Comment on above: Expected: 08/11/2024 (Approximate), Expires: 05/26/2025 Start: 08-11-2024 End: 05-26-2025 Phosphate [Mass/volume] in Serum or Plasma PHOSPHORUS INORGANIC Lab Routine MGUS (monoclonal gammopathy of unknown significance) Stage 3a chronic kidney disease (HCC) Expected: 08/11/2024 (Approximate), Expires: 05/26/2025 [facility] Comment on above: Expected: 08/11/2024 (Approximate), Expires: 05/26/2025 Start: 08-11-2024 End: 05-26-2025 PROTEIN ELECTROPHORESIS SERUM W/INTERP PROTEIN ELECTROPHORESIS SERUM W/INTERP Lab Routine MGUS (monoclonal gammopathy of unknown significance) Stage 3a chronic kidney disease (HCC) Expected: 08/11/2024 (Approximate), Expires: 05/26/2025 [facility] Comment on above: Expected: 08/11/2024 (Approximate), Expires: 05/26/2025 Start: 08-11-2024 End: 05-26-2025 Urate [Mass/volume] in Serum or Plasma URIC ACID Lab Routine MGUS (monoclonal gammopathy of unknown significance) Stage 3a chronic kidney disease (HCC) Expected: 08/11/2024 (Approximate), Expires: 05/26/2025 [facility] Comment on above: Expected: 08/11/2024 (Approximate), Expires: 05/26/2025 Start: 08-11-2024 End: 08-11-2024 Patient encounter procedure [facility] Comment on above: lab Verruca plantaris (P rimary Dx); Foot pain, right; Pain due to onychomycosis of toenails of both feet Start: 07-02-2024 Creatinine measurement Serum Creatin ine [facility] Start: 06-15-2024 Advance Directive Discussion Advance Directive Discussion [facility] Start: 06-02-2024 End: 06-02-2024 Patient encounter procedure 06/02/2024 8:40 AM EST Procedure Visit [facility] [address] [facility] [address] [place] [address] Nakul Guerra DPM [address] [facility] [address] [place] [address] Verruca plantaris (Primary Dx); Foot pain, right; Pain due to onychomycosis of toenails of both feet [facility] Comment on above: Verruca plantaris (P rimary Dx); Foot pain, right; Pain due to onychomycosis of toenails of both feet Start: 06-01-2024 End: 08-31-2024 Dmad-[id number] [Mass/volume] in Serum or Plasma B2 MICROGLOBULIN Lab Routine MGUS (monoclonal gammopathy of unknown significance) PRV (polycythemia rubra vera) ([facility]) Expected: 06/01/2024 (Approximate), Expires: 08/31/2024 [facility] Comment on above: Expected: 06/01/2024 (Approximate), Expires: 08/31/2024 Start: 06-01-2024 End: 08-31-2024 CBC W Auto Differential panel - Blood COMPLETE BLOOD COUNT AND DIFFERENTIAL Lab Routine MGUS (monoclonal gammopathy of unknown significance) PRV (polycythemia rubra vera) ([facility]) Expected: 06/01/2024 (Approximate), Expires: 08/31/2024 [facility] Comment on above: Expected: 06/01/2024 (Approximate), Expires: 08/31/2024 Start: 06-01-2024 End: 08-31-2024 Comprehensive metabolic 2000 panel - Serum or Plasma COMPREHENSIVE METABOLIC PANEL Lab Routine MGUS (monoclonal gammopathy of unknown significance) PRV (polycythemia rubra vera) ([facility]) Expected: 06/01/2024 (Approximate), Expires: 08/31/2024 [facility] Work Phone: Comment on above: Expected: 06/01/2024 (Approximate), Expires: 08/31/2024 Start: 06-01-2024 End: 08-31-2024 Lactate dehydrogenase [Enzymatic activity/volume] in Serum or Plasma LACTATE DEHYDROGENASE Lab Routine MGUS (monoclonal gammopathy of unknown significance) PRV (polycythemia rubra vera) ([facility]) Expected: 06/01/2024 (Approximate), Expires: 08/31/2024 [facility] Comment on above: Expected: 06/01/2024 (Approximate), Expires: 08/31/2024 Start: 06-01-2024 End: 08-31-2024 MONOCLONAL PROTEIN, SERUM (BLOOD) MONOCLONAL PROTEIN, SERUM (BLOOD) Lab Routine MGUS (monoclonal gammopathy of unknown significance) PRV (polycythemia rubra vera) ([facility]) Expected: 06/01/2024 (Approximate), Expires: 08/31/2024 [facility] Comment on above: Expected: 06/01/2024 (Approximate), Expires: 08/31/2024 Start: 06-01-2024 End: 08-31-2024 Phosphate [Mass/volume] in Serum or Plasma PHOSPHORUS INORGANIC Lab Routine MGUS (monoclonal gammopathy of unknown significance) PRV (polycythemia rubra vera) ([facility]) Expected: 06/01/2024 (Approximate), Expires: 08/31/2024 [facility] Comment on above: Expected: 06/01/2024 (Approximate), Expires: 08/31/2024 Start: 06-01-2024 End: 08-31-2024 PROTEIN ELECTROPHORESIS SERUM W/INTERP PROTEIN ELECTROPHORESIS SERUM W/INTERP Lab Routine MGUS (monoclonal gammopathy of unknown significance) PRV (polycythemia rubra vera) ([facility]) Expected: 06/01/2024 (Approximate), Expires: 08/31/2024 [facility] Comment on above: Expected: 06/01/2024 (Approximate), Expires: 08/31/2024 Start: 06-01-2024 End: 08-31-2024 Urate [Mass/volume] in Serum or Plasma URIC ACID Lab Routine MGUS (monoclonal gammopathy of unknown significance) PRV (polycythemia rubra vera) ([facility]) Expected: 06/01/2024 (Approximate), Expires: 08/31/2024 [facility] Comment on above: Expected: 06/01/2024 (Approximate), Expires: 08/31/2024 Start: 05-26-2024 End: 05-26-2024 ambulatory 05/26/2024 8:45 AM EST [facility] Hematology/Oncology [address] [place] [address] possible phlebotomy Hematology/Oncology Comment on above: possible phlebotomy Start: 05-26-2024 End: 05-26-2024 Follow-up encounter 05/26/2024 8:30 AM EST Visit (SP) Office Hematology/Oncology [address] [address] Maycol Novak MD [address] [place] [address] 12 week follow up with possible phlebotomy Hematology/Oncology Comment on above: 12 week follow up wi possible phlebotomy Start: 05-19-2024 End: 05-19-2024 Patient encounter procedure 05/19/2024 1:30 PM EST Office Visit [facility] [address] [place] [address] 11 week lab [facility] Comment on above: 11 week lab Start: 05-19-2024 End: 05-19-2024 Patient encounter procedure 05/19/2024 10:40 AM EST Procedure Visit [facility] [address] [facility] [address] [place] [id number] Nakul Guerra DPM [address] [facility] [address] [place] [address] [facility] Start: 04-09-2024 Serum Creatinine Serum Creatinine [facility] Start: 03-10-2024 End: 03-10-2024 Patient encounter procedure [facility] Comment on above: Verruca plantaris (P rimary Dx); Foot pain, right; Onychomycosis; Toe pain, bilateral Start: 03-02-2024 End: 03-02-2024 Follow-up encounter Hematology/Oncology Comment on above: 12 week follow up wi th possible phlebotomy Start: 02-23-2024 End: 02-23-2024 Patient encounter procedure 02/23/2024 10:30 AM EDT Office Visit [facility] [address] [place] [address] 11 week lab [facility] Comment on above: 11 week lab Start: 02-19-2024 End: 12-03-2024 [id number] [Mass/volume] in Serum or Plasma B2 MICROGLOBULIN Lab Routine MGUS (monoclonal gammopathy of unknown significance) PRV (polycythemia rubra vera) (HCC) Stage 3a chronic kidney disease (HCC) Expected: 02/19/2024 (Approximate), Expires: 12/03/2024 [facility] Work Phone: Comment on above: Expected: 02/19/2024 (Approximate), Expires: 12/03/2024 Start: 02-19-2024 End: 12-03-2024 Calcium.ionized [Moles/volume] in Blood CALCIUM, IONIZED Lab Routine MGUS (monoclonal gammopathy of unknown significance) PRV (polycythemia rubra vera) (HCC) Stage 3a chronic kidney disease (HCC) Expected: 02/19/2024 (Approximate), Expires: 12/03/2024 [facility] Comment on above: Expected: 02/19/2024 (Approximate), Expires: 12/03/2024 Start: 02-19-2024 End: 12-03-2024 CBC W Auto Differential panel - Blood COMPLETE BLOOD COUNT AND DIFFERENTIAL Lab Routine MGUS (monoclonal gammopathy of unknown significance) PRV (polycythemia rubra vera) (HCC) Stage 3a chronic kidney disease (HCC) Expected: 02/19/2024 (Approximate), Expires: 12/03/2024 [facility] Comment on above: Expected: 02/19/2024 (Approximate), Expires: 12/03/2024 Start: 02-19-2024 End: 12-03-2024 Comprehensive metabolic 2000 panel - Serum or Plasma COMPREHENSIVE METABOLIC PANEL Lab Routine MGUS (monoclonal gammopathy of unknown significance) PRV (polycythemia rubra vera) (HCC) Stage 3a chronic kidney disease (HCC) Expected: 02/19/2024 (Approximate), Expires: 12/03/2024 [facility] Comment on above: Expected: 02/19/2024 (Approximate), Expires: 12/03/2024 Start: 02-19-2024 End: 05-20-2024 KAPPA/BURT,FREE,SER KAPPA/BURT,FREE,SER Lab Routine MGUS (monoclonal gammopathy of unknown significance) PRV (polycythemia rubra vera) (HCC) Stage 3a chronic kidney disease (HCC) Expected: 02/19/2024 (Approximate), Expires: 05/20/2024 [facility] Comment on above: Expected: 02/19/2024 (Approximate), Expires: 05/20/2024 Start: 02-19-2024 End: 12-03-2024 Lactate dehydrogenase [Enzymatic activity/volume] in Serum or Plasma LACTATE DEHYDROGENASE Lab Routine MGUS (monoclonal gammopathy of unknown significance) PRV (polycythemia rubra vera) (HCC) Stage 3a chronic kidney disease (HCC) Expected: 02/19/2024 (Approximate), Expires: 12/03/2024 [facility] Comment on above: Expected: 02/19/2024 (Approximate), Expires: 12/03/2024 Start: 02-19-2024 End: 12-03-2024 MONOCLONAL PROTEIN, SERUM (BLOOD) MONOCLONAL PROTEIN, SERUM (BLOOD) Lab Routine MGUS (monoclonal gammopathy of unknown significance) PRV (polycythemia rubra vera) (HCC) Stage 3a chronic kidney disease (HCC) Expected: 02/19/2024 (Approximate), Expires: 12/03/2024 [facility] Comment on above: Expected: 02/19/2024 (Approximate), Expires: 12/03/2024 Start: 02-19-2024 End: 12-03-2024 Phosphate [Mass/volume] in Serum or Plasma PHOSPHORUS INORGANIC Lab Routine MGUS (monoclonal gammopathy of unknown significance) PRV (polycythemia rubra vera) (HCC) Stage 3a chronic kidney disease (HCC) Expected: 02/19/2024 (Approximate), Expires: 12/03/2024 [facility] Comment on above: Expected: 02/19/2024 (Approximate), Expires: 12/03/2024 Start: 02-19-2024 End: 12-03-2024 PROTEIN ELECTROPHORESIS SERUM W/INTERP PROTEIN ELECTROPHORESIS SERUM W/INTERP Lab Routine MGUS (monoclonal gammopathy of unknown significance) PRV (polycythemia rubra vera) (HCC) Stage 3a chronic kidney disease (HCC) Expected: 02/19/2024 (Approximate), Expires: 12/03/2024 [facility] Comment on above: Expected: 02/19/2024 (Approximate), Expires: 12/03/2024 Start: 02-19-2024 End: 12-03-2024 Urate [Mass/volume] in Serum or Plasma URIC ACID Lab Routine MGUS (monoclonal gammopathy of unknown significance) PRV (polycythemia rubra vera) (HCC) Stage 3a chronic kidney disease (HCC) Expected: 02/19/2024 (Approximate), Expires: 12/03/2024 [facility] Comment on above: Expected: 02/19/2024 (Approximate), Expires: 12/03/2024 Start: 02-14-2024 Covid-19 Vaccine ( season) Covid-19 Vaccine () [facility] Start: 02-14-2024 Influenza vaccination Influenza Vacc ine (#1) [facility] Start: 02-11-2024 End: 02-11-2024 Patient encounter procedure 02/11/2024 10:40 AM EDT Office Visit [facility] [address] [id number] Nakul Guerra, JONY [address] [facility] [address] [place] [address] Verruca plantaris (Primary Dx); Foot pain, right [facility] Comment on above: Verruca plantaris (P rimary Dx); Foot pain, right Start: 01-16-2024 SERUM CREATININE SERUM CREATININE [facility] Start: 12-16-2023 End: 12-16-2023 Follow-up encounter Hematology/Oncology Comment on above: 12 WEEK FOLLOW UP PO SSIBLE PHLEBOTOMY Start: 12-10-2023 End: 09-23-2024 [id number] [Mass/volume] in Serum or Plasma B2 MICROGLOBULIN Lab Routine PRV (polycythemia rubra vera) (HCC) MGUS (monoclonal gammopathy of unknown significance) Stage 3a chronic kidney disease (HCC) Expected: 12/10/2023 (Approximate), Expires: 09/23/2024 [facility] Work Phone: Comment on above: Expected: 12/10/2023 (Approximate), Expires: 09/23/2024 Start: 12-10-2023 End: 09-23-2024 Calcium.ionized [Moles/volume] in Blood CALCIUM, IONIZED Lab Routine PRV (polycythemia rubra vera) (HCC) MGUS (monoclonal gammopathy of unknown significance) Stage 3a chronic kidney disease (HCC) Expected: 12/10/2023 (Approximate), Expires: 09/23/2024 [facility] Work Phone: Comment on above: Expected: 12/10/2023 (Approximate), Expires: 09/23/2024 Start: 12-10-2023 End: 09-23-2024 CBC W Auto Differential panel - Blood COMPLETE BLOOD COUNT AND DIFFERENTIAL Lab Routine PRV (polycythemia rubra vera) (HCC) MGUS (monoclonal gammopathy of unknown significance) Stage 3a chronic kidney disease (HCC) Expected: 12/10/2023 (Approximate), Expires: 09/23/2024 [facility] Work Phone: Comment on above: Expected: 12/10/2023 (Approximate), Expires: 09/23/2024 Start: 12-10-2023 End: 09-23-2024 Comprehensive metabolic 2000 panel - Serum or Plasma COMPREHENSIVE METABOLIC PANEL Lab Routine PRV (polycythemia rubra vera) (HCC) MGUS (monoclonal gammopathy of unknown significance) Stage 3a chronic kidney disease (HCC) Expected: 12/10/2023 (Approximate), Expires: 09/23/2024 [facility] Work Phone: Comment on above: Expected: 12/10/2023 (Approximate), Expires: 09/23/2024 Start: 12-10-2023 End: 03-10-2024 KAPPA/BURT,FREE,SER KAPPA/BURT,FREE,SER Lab Routine PRV (polycythemia rubra vera) (HCC) MGUS (monoclonal gammopathy of unknown significance) Stage 3a chronic kidney disease (HCC) Expected: 12/10/2023 (Approximate), Expires: 03/10/2024 [facility] Work Phone: Comment on above: Expected: 12/10/2023 (Approximate), Expires: 03/10/2024 Start: 12-10-2023 End: 09-23-2024 Lactate dehydrogenase [Enzymatic activity/volume] in Serum or Plasma LACTATE DEHYDROGENASE Lab Routine PRV (polycythemia rubra vera) (HCC) MGUS (monoclonal gammopathy of unknown significance) Stage 3a chronic kidney disease (HCC) Expected: 12/10/2023 (Approximate), Expires: 09/23/2024 [facility] Work Phone: Comment on above: Expected: 12/10/2023 (Approximate), Expires: 09/23/2024 Start: 12-10-2023 End: 09-23-2024 MONOCLONAL PROTEIN, SERUM (BLOOD) MONOCLONAL PROTEIN, SERUM (BLOOD) Lab Routine PRV (polycythemia rubra vera) (HCC) MGUS (monoclonal gammopathy of unknown significance) Stage 3a chronic kidney disease (HCC) Expected: 12/10/2023 (Approximate), Expires: 09/23/2024 [facility] Work Phone: Comment on above: Expected: 12/10/2023 (Approximate), Expires: 09/23/2024 Start: 12-10-2023 End: 09-23-2024 Phosphate [Mass/volume] in Serum or Plasma PHOSPHORUS INORGANIC Lab Routine PRV (polycythemia rubra vera) (HCC) MGUS (monoclonal gammopathy of unknown significance) Stage 3a chronic kidney disease (HCC) Expected: 12/10/2023 (Approximate), Expires: 09/23/2024 [facility] Work Phone: Comment on above: Expected: 12/10/2023 (Approximate), Expires: 09/23/2024 Start: 12-10-2023 End: 09-23-2024 PROTEIN ELECTROPHORESIS SERUM W/INTERP PROTEIN ELECTROPHORESIS SERUM W/INTERP Lab Routine PRV (polycythemia rubra vera) (HCC) MGUS (monoclonal gammopathy of unknown significance) Stage 3a chronic kidney disease (HCC) Expected: 12/10/2023 (Approximate), Expires: 09/23/2024 [facility] Work Phone: Comment on above: Expected: 12/10/2023 (Approximate), Expires: 09/23/2024 Start: 12-10-2023 End: 09-23-2024 Urate [Mass/volume] in Serum or Plasma URIC ACID Lab Routine PRV (polycythemia rubra vera) (HCC) MGUS (monoclonal gammopathy of unknown significance) Stage 3a chronic kidney disease (HCC) Expected: 12/10/2023 (Approximate), Expires: 09/23/2024 [facility] Work Phone: Comment on above: Expected: 12/10/2023 (Approximate), Expires: 09/23/2024 Start: 12-07-2023 End: 12-07-2023 Patient encounter procedure 12/07/2023 1:30 PM EDT Office Visit [facility] [address] [place] [address] [place] [address] LAB [facility] Comment on above: LAB Start: 10-08-2023 End: 10-08-2023 Patient encounter procedure 10/08/2023 10:40 AM EDT Procedure Visit [facility] [address] [facility] [address] [place] [id number] Nakul Guerra DPM [phone] [facility] [address] [place] [address] [facility] Start: 09-24-2023 End: 09-14-2024 [id number] [Mass/volume] in Serum or Plasma B2 MICROGLOBULIN B Lab Routine PRV (polycythemia rubra vera) (HCC) MGUS (monoclonal gammopathy of unknown significance) Expected: 09/24/2023 (Approximate), Expires: 09/14/2024 [facility] Work Phone: Comment on above: Expected: 09/24/2023 (Approximate), Expires: 09/14/2024 Start: 09-24-2023 End: 09-14-2024 Calcium.ionized [Moles/volume] in Blood CALCIUM IONIZED BLOOD Lab Routine PRV (polycythemia rubra vera) (HCC) MGUS (monoclonal gammopathy of unknown significance) Expected: 09/24/2023 (Approximate), Expires: 09/14/2024 [facility] Work Phone: Comment on above: Expected: 09/24/2023 (Approximate), Expires: 09/14/2024 Start: 09-24-2023 End: 09-14-2024 CBC W Auto Differential panel - Blood CBC + DIFF Lab Routine PRV (polycythemia rubra vera) (HCC) MGUS (monoclonal gammopathy of unknown significance) Expected: 09/24/2023 (Approximate), Expires: 09/14/2024 [facility] Work Phone: Comment on above: Expected: 09/24/2023 (Approximate), Expires: 09/14/2024 Start: 09-24-2023 End: 09-14-2024 Cobalamin (Vitamin B12) [Mass/volume] in Serum or Plasma VITAMIN B12 BLOOD Lab Routine PRV (polycythemia rubra vera) (HCC) MGUS (monoclonal gammopathy of unknown significance) Expected: 09/24/2023 (Approximate), Expires: 09/14/2024 [facility] Work Phone: Comment on above: Expected: 09/24/2023 (Approximate), Expires: 09/14/2024 Start: 09-24-2023 End: 09-14-2024 Comprehensive metabolic 2000 panel - Serum or Plasma COMP METABOLIC PANEL Lab Routine PRV (polycythemia rubra vera) (HCC) MGUS (monoclonal gammopathy of unknown significance) Expected: 09/24/2023 (Approximate), Expires: 09/14/2024 [facility] Work Phone: Comment on above: Expected: 09/24/2023 (Approximate), Expires: 09/14/2024 Start: 09-24-2023 End: 09-14-2024 Ferritin [Mass/volume] in Serum or Plasma FERRITIN BLD Lab Routine PRV (polycythemia rubra vera) (HCC) MGUS (monoclonal gammopathy of unknown significance) Expected: 09/24/2023 (Approximate), Expires: 09/14/2024 [facility] Work Phone: Comment on above: Expected: 09/24/2023 (Approximate), Expires: 09/14/2024 Start: 09-24-2023 End: 09-14-2024 Folate [Mass/volume] in Serum or Plasma FOLATE SERUM Lab Routine PRV (polycythemia rubra vera) (HCC) MGUS (monoclonal gammopathy of unknown significance) Expected: 09/24/2023 (Approximate), Expires: 09/14/2024 [facility] Work Phone: Comment on above: Expected: 09/24/2023 (Approximate), Expires: 09/14/2024 Start: 09-24-2023 End: 09-14-2024 Iron and Iron binding capacity panel - Serum or Plasma IRON + TIBC Lab Routine PRV (polycythemia rubra vera) (HCC) MGUS (monoclonal gammopathy of unknown significance) Expected: 09/24/2023 (Approximate), Expires: 09/14/2024 [facility] Work Phone: Comment on above: Expected: 09/24/2023 (Approximate), Expires: 09/14/2024 Start: 09-24-2023 End: 09-14-2024 Lactate dehydrogenase [Enzymatic activity/volume] in Serum or Plasma LD LACTATE DEHYDRO Lab Routine PRV (polycythemia rubra vera) (HCC) MGUS (monoclonal gammopathy of unknown significance) Expected: 09/24/2023 (Approximate), Expires: 09/14/2024 [facility] Work Phone: Comment on above: Expected: 09/24/2023 (Approximate), Expires: 09/14/2024 Start: 09-24-2023 End: 09-14-2024 MONOCLONAL PROTEIN, SERUM (BLOOD) MONOCLONAL PROTEIN, SERUM (BLOOD) Lab Routine PRV (polycythemia rubra vera) ([facility]) MGUS (monoclonal gammopathy of unknown significance) Expected: 09/24/2023 (Approximate), Expires: 09/14/2024 [facility] Work Phone: Comment on above: Expected: 09/24/2023 (Approximate), Expires: 09/14/2024 Start: 09-24-2023 End: 09-14-2024 Phosphate [Mass/volume] in Serum or Plasma PHOSPHORUS INORGANIC Lab Routine PRV (polycythemia rubra vera) ([facility]) MGUS (monoclonal gammopathy of unknown significance) Expected: 09/24/2023 (Approximate), Expires: 09/14/2024 [facility] Work Phone: Comment on above: Expected: 09/24/2023 (Approximate), Expires: 09/14/2024 Start: 09-24-2023 End: 09-14-2024 PROTEIN ELECTROPHORESIS SERUM W/INTERP PROTEIN ELECTROPHORESIS SERUM W/INTERP Lab Routine PRV (polycythemia rubra vera) ([facility]) MGUS (monoclonal gammopathy of unknown significance) Expected: 09/24/2023 (Approximate), Expires: 09/14/2024 [facility] Work Phone: Comment on above: Expected: 09/24/2023 (Approximate), Expires: 09/14/2024 Start: 09-24-2023 End: 09-14-2024 Urate [Mass/volume] in Serum or Plasma URIC ACID BLOOD Lab Routine PRV (polycythemia rubra vera) ([facility]) MGUS (monoclonal gammopathy of unknown significance) Expected: 09/24/2023 (Approximate), Expires: 09/14/2024 [facility] Work Phone: Comment on above: Expected: 09/24/2023 (Approximate), Expires: 09/14/2024 Start: 08-04-2023 Covid-19 Vaccine () Covid-19 Vaccine () [facility] Start: 07-30-2023 End: 02-15-2024 Patient encounter procedure 07/30/2023 10:00 AM EST Office Visit [facility] [address] [facility] [address] [place] [address] Nakul Guerra DPM [id number] [facility] [address] [place] [address] [facility] Start: 06-15-2023 Advance Directive Discussion Advance Directive Discussion [facility] Start: 06-15-2023 Behavioral Health Screening Behavioral Health Screening [facility] Start: 06-15-2023 Depression Assessment Depression Ass essment [facility] Start: 04-09-2023 End: 01-16-2024 [id number] [Mass/volume] in Serum or Plasma B2 MICROGLOBULIN B Lab Routine PRV (polycythemia rubra vera) (HCC) MGUS (monoclonal gammopathy of unknown significance) Expected: 04/09/2023 (Approximate), Expires: 01/16/2024 [facility] Work Phone: Comment on above: Expected: 04/09/2023 (Approximate), Expires: 01/16/2024 Start: 04-09-2023 End: 01-16-2024 Calcium.ionized [Moles/volume] in Blood CALCIUM IONIZED BLOOD Lab Routine PRV (polycythemia rubra vera) (HCC) MGUS (monoclonal gammopathy of unknown significance) Expected: 04/09/2023 (Approximate), Expires: 01/16/2024 [facility] Work Phone: Comment on above: Expected: 04/09/2023 (Approximate), Expires: 01/16/2024 Start: 04-09-2023 End: 01-16-2024 CBC W Auto Differential panel - Blood CBC + DIFF Lab Routine PRV (polycythemia rubra vera) (HCC) MGUS (monoclonal gammopathy of unknown significance) Expected: 04/09/2023 (Approximate), Expires: 01/16/2024 [facility] Work Phone: Comment on above: Expected: 04/09/2023 (Approximate), Expires: 01/16/2024 Start: 04-09-2023 End: 01-16-2024 Cobalamin (Vitamin B12) [Mass/volume] in Serum or Plasma VITAMIN B12 BLOOD Lab Routine PRV (polycythemia rubra vera) (HCC) MGUS (monoclonal gammopathy of unknown significance) Expected: 04/09/2023 (Approximate), Expires: 01/16/2024 [facility] Work Phone: Comment on above: Expected: 04/09/2023 (Approximate), Expires: 01/16/2024 Start: 04-09-2023 End: 01-16-2024 Comprehensive metabolic 2000 panel - Serum or Plasma COMP METABOLIC PANEL Lab Routine PRV (polycythemia rubra vera) (HCC) MGUS (monoclonal gammopathy of unknown significance) Expected: 04/09/2023 (Approximate), Expires: 01/16/2024 [facility] Work Phone: Comment on above: Expected: 04/09/2023 (Approximate), Expires: 01/16/2024 Start: 04-09-2023 End: 01-16-2024 Ferritin [Mass/volume] in Serum or Plasma FERRITIN BLD Lab Routine PRV (polycythemia rubra vera) (HCC) MGUS (monoclonal gammopathy of unknown significance) Expected: 04/09/2023 (Approximate), Expires: 01/16/2024 [facility] Work Phone: Comment on above: Expected: 04/09/2023 (Approximate), Expires: 01/16/2024 Start: 04-09-2023 End: 01-16-2024 Folate [Mass/volume] in Serum or Plasma FOLATE SERUM Lab Routine PRV (polycythemia rubra vera) (HCC) MGUS (monoclonal gammopathy of unknown significance) Expected: 04/09/2023 (Approximate), Expires: 01/16/2024 [facility] Work Phone: Comment on above: Expected: 04/09/2023 (Approximate), Expires: 01/16/2024 Start: 04-09-2023 End: 01-16-2024 Iron and Iron binding capacity panel - Serum or Plasma IRON + TIBC Lab Routine PRV (polycythemia rubra vera) (HCC) MGUS (monoclonal gammopathy of unknown significance) Expected: 04/09/2023 (Approximate), Expires: 01/16/2024 [facility] Work Phone: Comment on above: Expected: 04/09/2023 (Approximate), Expires: 01/16/2024 Start: 04-09-2023 End: 01-16-2024 Lactate dehydrogenase [Enzymatic activity/volume] in Serum or Plasma LD LACTATE DEHYDRO Lab Routine PRV (polycythemia rubra vera) ([facility]) MGUS (monoclonal gammopathy of unknown significance) Expected: 04/09/2023 (Approximate), Expires: 01/16/2024 [facility] Work Phone: Comment on above: Expected: 04/09/2023 (Approximate), Expires: 01/16/2024 Start: 04-09-2023 End: 01-16-2024 MONOCLONAL PROTEIN, SERUM (BLOOD) MONOCLONAL PROTEIN, SERUM (BLOOD) Lab Routine PRV (polycythemia rubra vera) ([facility]) MGUS (monoclonal gammopathy of unknown significance) Expected: 04/09/2023 (Approximate), Expires: 01/16/2024 [facility] Work Phone: Comment on above: Expected: 04/09/2023 (Approximate), Expires: 01/16/2024 Start: 04-09-2023 End: 01-16-2024 Phosphate [Mass/volume] in Serum or Plasma PHOSPHORUS INORGANIC Lab Routine PRV (polycythemia rubra vera) ([facility]) MGUS (monoclonal gammopathy of unknown significance) Expected: 04/09/2023 (Approximate), Expires: 01/16/2024 [facility] Work Phone: Comment on above: Expected: 04/09/2023 (Approximate), Expires: 01/16/2024 Start: 04-09-2023 End: 01-16-2024 PROTEIN ELECTROPHORESIS SERUM W/INTERP PROTEIN ELECTROPHORESIS SERUM W/INTERP Lab Routine PRV (polycythemia rubra vera) (HCC) MGUS (monoclonal gammopathy of unknown significance) Expected: 04/09/2023 (Approximate), Expires: 01/16/2024 [facility] Work Phone: Comment on above: Expected: 04/09/2023 (Approximate), Expires: 01/16/2024 Start: 04-09-2023 End: 01-16-2024 Urate [Mass/volume] in Serum or Plasma URIC ACID BLOOD Lab Routine PRV (polycythemia rubra vera) (HCC) MGUS (monoclonal gammopathy of unknown significance) Expected: 04/09/2023 (Approximate), Expires: 01/16/2024 [facility] Work Phone: Comment on above: Expected: 04/09/2023 (Approximate), Expires: 01/16/2024 Start: 02-13-2023 Influenza vaccination [facility] Start: 01-09-2023 End: 03-11-2023 CBC W Auto Differential panel - Blood CBC + DIFF Lab Routine PRV (polycythemia rubra vera) (HCC) MGUS (monoclonal gammopathy of unknown significance) Expected: 01/09/2023, Expires: 03/11/2023 [facility] Work Phone: Comment on above: Expected: 01/09/2023 , Expires: 03/11/2023 Start: 01-09-2023 End: 03-11-2023 Comprehensive metabolic 2000 panel - Serum or Plasma COMP METABOLIC PANEL Lab Routine PRV (polycythemia rubra vera) (HCC) MGUS (monoclonal gammopathy of unknown significance) Expected: 01/09/2023, Expires: 03/11/2023 [facility] Work Phone: Comment on above: Expected: 01/09/2023 , Expires: 03/11/2023 Start: 10-30-2022 End: 08-07-2023 CBC W Auto Differential panel - Blood CBC + DIFF Lab Routine PRV (polycythemia rubra vera) (HCC) Expected: 10/30/2022 (Approximate), Expires: 08/07/2023 [facility] Work Phone: Comment on above: Expected: 10/30/2022 (Approximate), Expires: 08/07/2023 Start: 10-30-2022 End: 08-07-2023 Comprehensive metabolic 2000 panel - Serum or Plasma COMP METABOLIC PANEL Lab Routine PRV (polycythemia rubra vera) (HCC) Expected: 10/30/2022 (Approximate), Expires: 08/07/2023 [facility] Work Phone: Comment on above: Expected: 10/30/2022 (Approximate), Expires: 08/07/2023 Start: 10-30-2022 End: 08-07-2023 Lactate dehydrogenase [Enzymatic activity/volume] in Serum or Plasma LD LACTATE DEHYDRO Lab Routine PRV (polycythemia rubra vera) (HCC) Expected: 10/30/2022 (Approximate), Expires: 08/07/2023 [facility] Work Phone: Comment on above: Expected: 10/30/2022 (Approximate), Expires: 08/07/2023 Start: 08-10-2022 DIABETES SCREEN DIABETES SCREEN [facility] Start: 07-27-2022 COVID-19 VACCINE (6 - Pfizer series) COVID-19 VACCINE (6 - Pfizer series) [facility] Start: 06-15-2022 ADVANCE DIRECTIVE DISCUSSION ADVANCE DIRECTIVE DISCUSSION [facility] Start: 06-15-2022 DEPRESSION ASSESSMENT DEPRESSION ASS ESSMENT [facility] Start: 04-18-2022 End: 06-18-2022 CBC W Auto Differential panel - Blood CBC + DIFF Lab Routine PRV (polycythemia rubra vera) (HCC) MGUS (monoclonal gammopathy of unknown significance) Expected: 04/18/2022, Expires: 06/18/2022 [facility] Work Phone: Comment on above: Expected: 04/18/2022 , Expires: 06/18/2022 Start: 04-18-2022 End: 06-18-2022 Comprehensive metabolic 2000 panel - Serum or Plasma COMP METABOLIC PANEL Lab Routine PRV (polycythemia rubra vera) (HCC) MGUS (monoclonal gammopathy of unknown significance) Expected: 04/18/2022, Expires: 06/18/2022 [facility] Work Phone: Comment on above: Expected: 04/18/2022 , Expires: 06/18/2022 Start: 04-18-2022 End: 06-18-2022 MONOCLONAL PROTEIN, SERUM (BLOOD) MONOCLONAL PROTEIN, SERUM (BLOOD) Lab Routine PRV (polycythemia rubra vera) (HCC) MGUS (monoclonal gammopathy of unknown significance) Expected: 04/18/2022, Expires: 06/18/2022 [facility] Work Phone: Comment on above: Expected: 04/18/2022 , Expires: 06/18/2022 Start: 04-18-2022 End: 06-18-2022 PROT ELECT SERUM WITH YULIYA AND INTERP PROT ELECT SERUM WITH YULIYA AND INTERP Lab Routine PRV (polycythemia rubra vera) (HCC) MGUS (monoclonal gammopathy of unknown significance) Expected: 04/18/2022, Expires: 06/18/2022 [facility] Work Phone: Comment on above: Expected: 04/18/2022 , Expires: 06/18/2022 Start: 02-20-2022 End: 12-26-2022 CBC W Auto Differential panel - Blood CBC + DIFF Lab Routine PRV (polycythemia rubra vera) (HCC) MGUS (monoclonal gammopathy of unknown significance) Expected: 02/20/2022 (Approximate), Expires: 12/26/2022 [facility] Work Phone: Comment on above: Expected: 02/20/2022 (Approximate), Expires: 12/26/2022 Start: 02-20-2022 End: 12-26-2022 Comprehensive metabolic 2000 panel - Serum or Plasma COMP METABOLIC PANEL Lab Routine PRV (polycythemia rubra vera) (HCC) MGUS (monoclonal gammopathy of unknown significance) Expected: 02/20/2022 (Approximate), Expires: 12/26/2022 [facility] Work Phone: Comment on above: Expected: 02/20/2022 (Approximate), Expires: 12/26/2022 Start: 02-13-2022 Influenza vaccination [facility] Start: 12-26-2021 End: 11-28-2022 CBC W Auto Differential panel - Blood CBC + DIFF Lab Routine PRV (polycythemia rubra vera) (HCC) MGUS (monoclonal gammopathy of unknown significance) Expected: 12/26/2021 (Approximate), Expires: 11/28/2022 [facility] Work Phone: Comment on above: Expected: 12/26/2021 (Approximate), Expires: 11/28/2022 Start: 12-26-2021 End: 11-28-2022 Comprehensive metabolic 2000 panel - Serum or Plasma COMP METABOLIC PANEL Lab Routine PRV (polycythemia rubra vera) (HCC) MGUS (monoclonal gammopathy of unknown significance) Expected: 12/26/2021 (Approximate), Expires: 11/28/2022 [facility] Work Phone: Comment on above: Expected: 12/26/2021 (Approximate), Expires: 11/28/2022 Start: 11-25-2021 End: 11-25-2022 [id number] [Mass/volume] in Serum or Plasma B2 MICROGLOBULIN B Lab Routine PRV (polycythemia rubra vera) (HCC) MGUS (monoclonal gammopathy of unknown significance) Expected: 11/25/2021, Expires: 11/25/2022 [facility] Work Phone: Comment on above: Expected: 11/25/2021 , Expires: 11/25/2022 Start: 11-25-2021 End: 11-25-2022 Calcium.ionized [Moles/volume] in Blood CALCIUM IONIZED BLOOD Lab Routine PRV (polycythemia rubra vera) (HCC) MGUS (monoclonal gammopathy of unknown significance) Expected: 11/25/2021, Expires: 11/25/2022 [facility] Work Phone: Comment on above: Expected: 11/25/2021 , Expires: 11/25/2022 Start: 11-25-2021 End: 11-25-2022 CBC W Auto Differential panel - Blood CBC + DIFF Lab Routine PRV (polycythemia rubra vera) (HCC) MGUS (monoclonal gammopathy of unknown significance) Expected: 11/25/2021, Expires: 11/25/2022 [facility] Work Phone: Comment on above: Expected: 11/25/2021 , Expires: 11/25/2022 Start: 11-25-2021 End: 11-25-2022 Comprehensive metabolic 2000 panel - Serum or Plasma COMP METABOLIC PANEL Lab Routine PRV (polycythemia rubra vera) (HCC) MGUS (monoclonal gammopathy of unknown significance) Expected: 11/25/2021, Expires: 11/25/2022 [facility] Work Phone: Comment on above: Expected: 11/25/2021 , Expires: 11/25/2022 Start: 11-25-2021 End: 01-25-2022 KAPPA/BURT,FREE,SER KAPPA/BURT,FREE,SER Lab Routine PRV (polycythemia rubra vera) (HCC) MGUS (monoclonal gammopathy of unknown significance) Expected: 11/25/2021, Expires: 01/25/2022 [facility] Work Phone: Comment on above: Expected: 11/25/2021 , Expires: 01/25/2022 Start: 11-25-2021 End: 11-25-2022 Lactate dehydrogenase [Enzymatic activity/volume] in Serum or Plasma [facility] Work Phone: Comment on above: Expected: 11/25/2021 , Expires: 11/25/2022 Expected: 11/25/2021 , Expires: 01/25/2022 Start: 11-25-2021 End: 11-25-2022 MONOCLONAL PROTEIN, SERUM (BLOOD) MONOCLONAL PROTEIN, SERUM (BLOOD) Lab Routine PRV (polycythemia rubra vera) ([facility]) MGUS (monoclonal gammopathy of unknown significance) Expected: 11/25/2021, Expires: 11/25/2022 [facility] Work Phone: Comment on above: Expected: 11/25/2021 , Expires: 11/25/2022 Start: 11-25-2021 End: 11-25-2022 Phosphate [Mass/volume] in Serum or Plasma PHOSPHORUS INORGANIC Lab Routine PRV (polycythemia rubra vera) (HCC) MGUS (monoclonal gammopathy of unknown significance) Expected: 11/25/2021, Expires: 11/25/2022 [facility] Work Phone: Comment on above: Expected: 11/25/2021 , Expires: 11/25/2022 Start: 11-25-2021 End: 11-25-2022 PROTEIN ELECTROPHORESIS SERUM W/INTERP PROTEIN ELECTROPHORESIS SERUM W/INTERP Lab Routine PRV (polycythemia rubra vera) (HCC) MGUS (monoclonal gammopathy of unknown significance) Expected: 11/25/2021, Expires: 11/25/2022 [facility] Work Phone: Comment on above: Expected: 11/25/2021 , Expires: 11/25/2022 Start: 11-25-2021 End: 11-25-2022 Urate [Mass/volume] in Serum or Plasma URIC ACID BLOOD Lab Routine PRV (polycythemia rubra vera) (HCC) MGUS (monoclonal gammopathy of unknown significance) Expected: 11/25/2021, Expires: 11/25/2022 [facility] Work Phone: Comment on above: Expected: 11/25/2021 , Expires: 11/25/2022 Start: 10-18-2021 End: 12-18-2021 Erythropoietin (EPO) [Units/volume] in Serum or Plasma [facility] Work Phone: Comment on above: Expected: 10/18/2021 , Expires: 12/18/2021 Start: 10-18-2021 End: 12-18-2021 JAK2 gene targeted mutation analysis in Blood or Tissue by Molecular genetics method [facility] Work Phone: Comment on above: Expected: 10/18/2021 , Expires: 12/18/2021 Start: 10-10-2021 End: 12-10-2021 CBC W Auto Differential panel - Blood CBC + DIFF Lab Routine MGUS (monoclonal gammopathy of unknown significance) Expected: 10/10/2021, Expires: 12/10/2021 [facility] Work Phone: Comment on above: Expected: 10/10/2021 , Expires: 12/10/2021 Start: 10-10-2021 End: 12-10-2021 Comprehensive metabolic 2000 panel - Serum or Plasma COMP METABOLIC PANEL Lab Routine MGUS (monoclonal gammopathy of unknown significance) Expected: 10/10/2021, Expires: 12/10/2021 [facility] Work Phone: Comment on above: Expected: 10/10/2021 , Expires: 12/10/2021 Start: 10-10-2021 End: 12-10-2021 KAPPA/BURT,FREE,SER KAPPA/BURT,FREE,SER Lab Routine MGUS (monoclonal gammopathy of unknown significance) Expected: 10/10/2021, Expires: 12/10/2021 [facility] Work Phone: Comment on above: Expected: 10/10/2021 , Expires: 12/10/2021 Start: 10-10-2021 End: 12-10-2021 MONOCLONAL PROTEIN, SERUM (BLOOD) MONOCLONAL PROTEIN, SERUM (BLOOD) Lab Routine MGUS (monoclonal gammopathy of unknown significance) Expected: 10/10/2021, Expires: 12/10/2021 [facility] Work Phone: Comment on above: Expected: 10/10/2021 , Expires: 12/10/2021 Start: 10-10-2021 End: 12-10-2021 PROTEIN ELECTROPHORESIS SERUM W/INTERP PROTEIN ELECTROPHORESIS SERUM W/INTERP Lab Routine MGUS (monoclonal gammopathy of unknown significance) Expected: 10/10/2021, Expires: 12/10/2021 [facility] Work Phone: Comment on above: Expected: 10/10/2021 , Expires: 12/10/2021 Start: 06-15-2021 ADVANCE DIRECTIVE DISCUSSION ADVANCE DIRECTIVE DISCUSSION [facility] Start: 06-15-2021 DEPRESSION ASSESSMENT DEPRESSION ASS ESSMENT [facility] Start: 01-06-2021 COVID-19 VACCINE (3 - Booster for Pfizer series) COVID-19 VACCINE (3 - Booster for Pfizer series) [facility] Start: 2020 RSV Vaccine (1 - 1-d ose 75+ series) RSV Vaccine (1 - 1-dose 75+ series) [facility] Start: 01-18-2019 Adult depression screening assessment DEPRESSION SCREENING [facility] Start: 03-28-2014 Urine microalbumin profile DTaP,Tdap,Td Vaccine (1 - Tdap) [facility] Start: 2010 Pneumococcal Vaccine : 65+ Years (1 of 1 - PCV) Pneumococcal Vaccine: 65+ Years (1 of 1 - PCV) [facility] Start: 2010 PNEUMOCOCCAL: 65+ (1 - PCV) PNEUMOCOCCAL: 65+ (1 - PCV) [facility] Start: 2010 PNEUMOVAX AGE 65 AND OVER WITH 5YR LOOKBACK (#1) PNEUMOVAX AGE 65 AND OVER WITH 5YR LOOKBACK (#1) [facility] Start: 2005 RSV Vaccine (1 - 1-d ose 60+ series) RSV Vaccine (1 - 1-dose 60+ series) [facility] Start: 08-29-1995 SHINGRIX VACCINE (1 of 2) CAMILO GRIX VACCINE (1 of 2) [facility] Start: 1964 SHINGRIX VACCINE (1 of 2) CAMILO GRIX VACCINE (1 of 2) [facility] Start: 1964 Urine microalbumin profile DTAP,TDAP,TD (1 - Tdap) [facility] Start: 08-29-1963 ANNUAL PCP TEAM GROUNDS/MAINTENANCE SPECIALIST [place] DISEASE VISIT ANNUAL PCP TEAM CHRONIC DISEASE VISIT [facility] Start: 08-29-1963 Anxiety Screening Anxiety Screening [facility] Start: 08-29-1963 BP CONTROLLED (<130/80) BP CONTROLLE D (<130/80) [facility] Start: 08-29-1963 Depression Screening Depression Scre ening [facility] Start: 08-29-1963 HEPATITIS C SCREENING HEPATITIS C [facility] Start: 08-29-1963 Hepatitis C screening Hepatitis C [facility] Start: 08-29-1951 PNEUMOCOCCAL: 65+ (1 - PCV) PNEUMOCOCCAL: 65+ (1 - PCV) [facility] End: 08-18-2025 [id number] [Mass/volume] in Serum or Plasma B2 MICROGLOBULIN Lab Routine MGUS (monoclonal gammopathy of unknown significance) PRV (polycythemia rubra vera) (HCC) Every 3 months for 4 Occurrences starting 08/18/2024 until 08/18/2025 [facility] Work Phone: Comment on above: Every 3 months for 4 Occurrences starting 08/18/2024 until 08/18/2025 End: 08-18-2025 Calcium.ionized [Moles/volume] in Blood CALCIUM, IONIZED Lab Routine MGUS (monoclonal gammopathy of unknown significance) PRV (polycythemia rubra vera) ([facility]) Every 3 months for 4 Occurrences starting 08/18/2024 until 08/18/2025 [facility] Comment on above: Every 3 months for 4 Occurrences starting 08/18/2024 until 08/18/2025 End: 02-28-2023 CBC W Auto Differential panel - Blood CBC + DIFF Lab Routine PRV (polycythemia rubra vera) ([facility]) Once per week for 10 Occurrences starting 02/28/2022 until 02/28/2023 [facility] Work Phone: Comment on above: Once per week for 10 Occurrences starting 02/28/2022 until 02/28/2023 End: 08-18-2025 CBC W Auto Differential panel - Blood COMPLETE BLOOD COUNT AND DIFFERENTIAL Lab Routine MGUS (monoclonal gammopathy of unknown significance) PRV (polycythemia rubra vera) ([facility]) Every 3 months for 4 Occurrences starting 08/18/2024 until 08/18/2025 [facility] Comment on above: Every 3 months for 4 Occurrences starting 08/18/2024 until 08/18/2025 Comprehensive metabo lic 2000 panel - Serum or Plasma [facility] End: 08-18-2025 Comprehensive metabolic 2000 panel - Serum or Plasma COMPREHENSIVE METABOLIC PANEL Lab Routine MGUS (monoclonal gammopathy of unknown significance) PRV (polycythemia rubra vera) ([facility]) Every 3 months for 4 Occurrences starting 08/18/2024 until 08/18/2025 [facility] Comment on above: Every 3 months for 4 Occurrences starting 08/18/2024 until 08/18/2025 End: 08-18-2025 Erythropoietin (EPO) [Units/volume] in Serum or Plasma ERYTHROPOIETIN/EPO Lab Routine MGUS (monoclonal gammopathy of unknown significance) PRV (polycythemia rubra vera) ([facility]) Every 3 months for 4 Occurrences starting 08/18/2024 until 08/18/2025 [facility] Comment on above: Every 3 months for 4 Occurrences starting 08/18/2024 until 08/18/2025 End: 08-18-2025 Lactate dehydrogenase [Enzymatic activity/volume] in Serum or Plasma LACTATE DEHYDROGENASE Lab Routine MGUS (monoclonal gammopathy of unknown significance) PRV (polycythemia rubra vera) ([facility]) Every 3 months for 4 Occurrences starting 08/18/2024 until 08/18/2025 [facility] Comment on above: Every 3 months for 4 Occurrences starting 08/18/2024 until 08/18/2025 End: 08-18-2025 MONOCLONAL PROTEIN, SERUM (BLOOD) MONOCLONAL PROTEIN, SERUM (BLOOD) Lab Routine MGUS (monoclonal gammopathy of unknown significance) PRV (polycythemia rubra vera) ([facility]) Every 3 months for 4 Occurrences starting 08/18/2024 until 08/18/2025 [facility] Comment on above: Every 3 months for 4 Occurrences starting 08/18/2024 until 08/18/2025 End: 08-18-2025 Phosphate [Mass/volume] in Serum or Plasma PHOSPHORUS INORGANIC Lab Routine MGUS (monoclonal gammopathy of unknown significance) PRV (polycythemia rubra vera) ([facility]) Every 3 months for 4 Occurrences starting 08/18/2024 until 08/18/2025 [facility] Comment on above: Every 3 months for 4 Occurrences starting 08/18/2024 until 08/18/2025 End: 08-18-2025 PROTEIN ELECTROPHORESIS SERUM W/INTERP PROTEIN ELECTROPHORESIS SERUM W/INTERP Lab Routine MGUS (monoclonal gammopathy of unknown significance) PRV (polycythemia rubra vera) ([facility]) Every 3 months for 4 Occurrences starting 08/18/2024 until 08/18/2025 [facility] Comment on above: Every 3 months for 4 Occurrences starting 08/18/2024 until 08/18/2025 End: 08-18-2025 Urate [Mass/volume] in Serum or Plasma URIC ACID Lab Routine MGUS (monoclonal gammopathy of unknown significance) PRV (polycythemia rubra vera) ([facility]) Every 3 months for 4 Occurrences starting 08/18/2024 until 08/18/2025 [facility] Comment on above: Every 3 months for 4 Occurrences starting 08/18/2024 until 08/18/2025 [facility] Immunization Date Immunization Notes Care Provider Amina tucker 03-22-2024 influenza, high dose seasonal, preservative-free [facility] 03-17-2023 influenza, high dose seasonal, preservative-free Jose Yap Other [facility] 03-17-2023 influenza virus vaccine, unspecified formulation Nakul Guerra DPM Work Phone: [facility] 03-26-2022 COVID-19 booster vaccine, age 12+ yr, bivalent (PFIZER-BIONTECH) Maycol Novak MD Work Phone: [facility] 03-26-2022 COVID-19 Vaccine Pfi zer - Documentation Purposes Only Jose Yap Other [facility] 03-14-2022 influenza (aIIV4) vaccine, age 65+ yr, quadrivalent, PF (FLUAD QUADRIVALENT) Chair Lowery Work Phone: [facility] 03-14-2022 influenza virus vaccine, split virus (incl. purified surface antigen) Jose Yap Other [facility] 03-14-2022 influenza virus vaccine, unspecified formulation [facility] 03-14-2022 influenza, high dose seasonal, preservative-free Jose Yap Other [facility] Other 03-18-2021 COVID-19 vaccine, ag e 12+ yr (PFIZER-BIONTECH - PURPLE TOP) Maycol Novak MD Work Phone: [facility] 03-12-2021 influenza virus vaccine, split virus (incl. purified surface antigen) Jose Yap Other [facility] 03-12-2021 influenza virus vaccine, unspecified formulation [facility] 02-21-2021 influenza nasal, unspecified formulation Maycol Novak MD Work Phone: [facility] 02-21-2021 influenza virus vaccine, unspecified formulation Christophe BELLE [facility] 08-30-2020 COVID-19 vaccine (ED) Maycol Novak MD Work Phone: [facility] 08-09-2020 COVID-19 vaccine, ag e 12+ yr (PFIZER-BIONTECH - PURPLE TOP) Maycol Novak MD Work Phone: [facility] 07-25-2020 COVID-19 vaccine (ED) Maycol Novak MD Work Phone: [facility] 07-18-2020 COVID-19 vaccine, ag e 12+ yr (PFIZER-BIONTECH - PURPLE TOP) Maycol Novak MD Work Phone: [facility] 03-16-2020 influenza virus vaccine, split virus (incl. purified surface antigen) Jose Yap Other [facility] 03-16-2020 influenza virus vaccine, unspecified formulation [facility] 03-21-2019 influenza virus vaccine, live, attenuated, for intranasal use Maycol Novak MD Work Phone: [facility] 02-21-2019 influenza virus vaccine, split virus (incl. purified surface antigen) Jose Yap Other [facility] 02-21-2019 influenza virus vaccine, unspecified formulation [facility] 02-21-2019 Seasonal trivalent influenza vaccine, adjuvanted, preservative free Maycol Novak MD Work Phone: [facility] 03-22-2018 influenza virus vaccine, split virus (incl. purified surface antigen) Jose Yap Other [facility] 03-22-2018 influenza virus vaccine, unspecified formulation [facility] 03-22-2018 Seasonal trivalent influenza vaccine, adjuvanted, preservative free Maycol Novak MD Work Phone: [facility] 04-23-2017 influenza virus vaccine, split virus (incl. purified surface antigen) Jose Yap Other [facility] 04-23-2017 influenza virus vaccine, unspecified formulation [facility] 04-23-2017 influenza, high dose seasonal, preservative-free Maycol Novak MD Work Phone: [facility] 03-21-2016 influenza virus vaccine, split virus (incl. purified surface antigen) Jose Yap Other [facility] 03-21-2016 influenza virus vaccine, unspecified formulation [facility] 03-21-2016 influenza, high dose seasonal, preservative-free Maycol Novak MD Work Phone: [facility] 03-26-2015 influenza virus vaccine, split virus (incl. purified surface antigen) Jose Yap Other [facility] 03-26-2015 influenza virus vaccine, unspecified formulation [facility] 03-26-2015 pneumococcal conjuga te vaccine, 13 valent Jose Yap Other [facility] 03-27-2014 tetanus and diphther ia toxoids, adsorbed, preservative free, for adult use (5 Lf of tetanus toxoid and 2 Lf of diphtheria toxoid) Jose Yap Other [facility] 03-18-2013 tetanus and diphther ia toxoids, adsorbed, preservative free, for adult use (5 Lf of tetanus toxoid and 2 Lf of diphtheria toxoid) Jose Yap Other [facility] 02-18-2012 tetanus and diphther ia toxoids, adsorbed, preservative free, for adult use (5 Lf of tetanus toxoid and 2 Lf of diphtheria toxoid) Jose Yap Other [facility] 01-14-2012 pneumococcal polysaccharide vaccine, 23 valent Jose Yap Other [facility] Payers Date Payer Category Payer Unknown [id number] 2022 Medicare (Managed Care) [id number]. [id number] 2022 Unknown [id number] 2020 Unknown [id number] 2020 Private Health Insurance AETROBERT Salazar ETNA MEDICARE SUPPLEMENT [id number] 2020-Present [phone] [address] [address] [place] [address] Indemnity [id number] 2020 Private Health Insurance [id number] 2011 Medicare MEDICARE MEDICAR E A AND B [id number] 2011-Present [phone] [place] [address] Medicare [id number] 2011 Medicare [id number] .[id number] 1945 Unknown [id number] .[id number] 1945 Unknown [id number] .2.593 1945 Unknown [id number] [id number] .2.1259 1945 Unknown [id number] [id number] .2.1259 1945 Unknown [id number] [id number] .2.1259 1945 Unknown [id number] [id number] .2.1259 1945 Unknown [id number] [id number] .2.9 1945 Unknown [id number] [id number] .2.9 1945 Unknown [id number] 2.16.840.1.317404.3.579 .2.9 1945 Unknown [id number] [id number] .2.9 1945 Unknown [id number] [id number] .2.727 1945 Unknown [id number] .2.727 1945 Unknown [id number] .2.727 Social History Date Type Detail Facility Start: 05-31-2012 End: 04-17-2022 Tobacco smoking status NHIS Ex-smoker [facility] End: 05-31-1980 History of tobacco use Current smoker [facility] End: 05-31-1980 History of tobacco use Cigarette Smoker [facility] Start: 05-31-2012 End: 04-17-2022 Tobacco use and exposure Smokeless tobacco non-user [facility] Start: 10-18-2020 End: 08-11-2024 Alcohol intake Not Asked [facility] Start: 1945 Sex Assigned At Not on file C [facility] Start: 10-08-2021 End: 04-17-2022 Exposure to SARS-CoV-2 (event) Not sure [facility] Start: 10-15-2021 End: 10-25-2021 Exposure to SARS-CoV-2 (event) Unable to assess [facility] History of tobacco use Passive smoker [facility] Start: 04-17-2022 End: 08-18-2024 Alcohol intake Ex-drinker (finding) [facility] Start: 01-15-2023 End: 03-02-2024 Sex Assigned At [facility] Start: 01-15-2023 End: 03-02-2024 History of Social function [facility] Adult Depression Screening Assessment 0 [facility] Start: 07-30-2023 Tobacco smoking status SDIS Tobacco smoking consumption unknown [facility] Start: 1945 Sex Assigned At Male F [facility] Start: 01-14-2024 Tobacco smoking status NHIS Never smoked tobacco [facility] Start: 08-02-2024 Sex Male (finding) [facility] NEGATED: Highlighted rowStart: NINF History of tobacco use Passive smoker [facility] Functional Status Date Assessment Result Facility 08-15-2024 Functional Status N/A [facility] 08-08-2022 Functional Status N/A [facility] 01-01-2015 Are you deaf, or do you have serious difficulty hearing No 01/01/2015 1:03 PM Page Floyd [facility] 01-01-2015 Are you blind, or do you have serious difficulty seeing, even when wearing glasses No 01/01/2015 1:03 PM Page [place] [facility] 01-01-2015 Do you have serious difficulty walking or climbing stairs No 01/01/2015 1:03 PM Page [place] [facility] 01-01-2015 Do you have difficul ty dressing or bathing No 01/01/2015 1:03 PM Page [place] [facility] 01-01-2015 Because of a physica l, mental, or emotional condition, do you have difficulty doing errands alone such as visiting a physician's office or shopping No 01/01/2015 1:03 PM Page [place] [facility] Mental Status Date Assessment Result Facility 01-01-2015 Because of a physica l, mental, or emotional condition, do you have serious difficulty concentrating, remembering, or making decisions No 01/01/2015 1:03 PM Page [place] [facility] Clinical Notes 10-10-2021 to 08-18-2024 Mandie Baig APRN.OLIVIER - 08/18/2024 9:00 AM Olivia Guerra DPM - 08/11/2024 1:30 PM Olivia Guerra, DPM - 06/02/2024 8:40 AM ESTPatient InstructionsPatient Instructions Note Date & Type Note Facility 08-18-2024 History of Presen t illness Narrative Images from the original note were not included. NAME: Prudencio Patrick CLINIC NO.: [id number] DATE OF SERVICE: August 18, 2024 (Anthony) Some elements in this clinic note that are critical to medical decision making have been carefully reviewed and included from a prior clinic note dated: May 26, 2024 (Dipak) Referring Provider: Dr. 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 His M protein levels have been stable over the last 13+ years, and his risk of progression remains very low. However, he became more notably polycythemic and so we ordered a MPN workup for PRV which came back positive. Now improving with hydrea. He did require phlebotomies, however, he decided against any further phlebotomies due to poor side effects. PLAN: Meets parameters for Phlebotomy Today- Patient refuses to have any more phlebotomy's due to syncope episodes. hematocrit today (47.5 on 08/11/2024) Continue baby ASA Continue Hydrea 500 mg daily Labs in 11 weeks RTC in 12 weeks HPI: CASE HISTORY: Reverse Chronological Order 08/11/2024- H/H 16.3/47.5, WBC 4.23, Plts 154, biclonal Mspike 0.29, 0.49 05/18/2024 - H/H 14.9/42.6, WBC 4.57, Plts 152, biclonal Mspike 0.31, 0.60 01/15/2023 - H/H 15.3/45.3 WBC 4.73, PLTs 155, biclonal Mspike 0.38, 0.58 04/17/2022 - H/H 16.3/47.9 - phlebotomy 500 ml 02/20/2022 - H/H 16.5/48.7 - phlebotomy 250 ml x 3 weeks in a row 11/28/2021 - Hydrea started 500 mg 11/14/2021 - phlebotomy caused severe hypotensive episode - possibly due to fasting/dehydration 10/18/2021 - Jak2+ PRV diagnosed 2006 - IgA [place] and IgM lambda biclonal M-spike Updated Visit, August 18, 2024: Rafa returns with Martha today for a follow-up and review of labs. Overall he is doing well. Hematocrit today is 47.5. He does qualify for a phlebotomy but refuses at this time due to previous syncope episodes when he is has had past phelobotomy's. Remains on 500 mg hydrea daily and ASA. M-Protein is remaining stable. Updated Visit, May 26, 2024: Rafa returns with Martha for a follow up, continues doing well overall. HCT: 42.6 - does not qualify for phlebotomy. Will reconsider phlebotomy when he qualifies in the future. M-protein remains stable. Updated Visit, March 02, 2024: Rafa returns with his . He is feeling well. Remains on hydrea 500 mg daily and aspirin daily. His labs are stable. Hct is 47.1 and qualifies for phlebotomy, however he prefers not to have phlebotomies. Updated Visit, December 03, 2023: Rafa returns with Martha, he is doing well. Labs today are fairly stable although he could qualify for plebotomy. Unfortunately, he feels terrible afterwards and does not want to do this for now. Updated Visit, September 24, 2023: Rafa returns with Martha. He offers no new complaints. He had his annual physical recently and was told everything looks good from their perspective. His labs look good today - HCT 45.6. Updated Visit, July 02, 2023: Prudencio Coleman Bubba returns for scheduled follow-up. At this point [...] pain. He follows with his PCP, Dr. Yap, who has been changing his blood pressure [...] addition. I discussed his situation with Dr. Yap today and he will clarify meds for him. 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 [...] Hives MEDICATIONS: hydroxyurea (HYDREA) 500 mg capsule take 1 capsule by mouth every day losartan (COZAAR) 50 mg tablet Take 50 [...] daily. LABORATORY VALUES: WBC (k/uL) Date Value 08/11/2024 4.23 RBC (m/uL) Date Value 08/11/2024 4.57 Hemoglobin (g/dL) Date Value 08/11/2024 16.3 Hematocrit (%) Date Value 08/11/2024 47.5 MCV (fL) Date Value 08/11/2024 103.9 (H) MCH (pg) Date Value 08/11/2024 35.7 (H) MCHC (g/dL) Date Value 08/11/2024 34.3 RDW-CV (%) Date Value 08/11/2024 13.8 Platelet Count (k/uL) Date Value 08/11/2024 154 MPV (fL) Date Value 08/11/2024 10.4 Glucose (mg/dL) Date Value 08/11/2024 100 (H) BUN (mg/dL) Date Value 08/11/2024 17 Creatinine (mg/dL) Date Value 08/11/2024 1.26 (H) Sodium (mmol/L) Date Value 08/11/2024 138 Potassium (mmol/L) Date Value 08/11/2024 4.8 Chloride (mmol/L) Date Value 08/11/2024 104 CO2 (mmol/L) Date Value 08/11/2024 19 (L) Protein, Total (g/dL) Date Value 08/11/2024 8.2 (H) 08/11/2024 7.7 Albumin (g/dL) Date Value 08/11/2024 4.3 Calcium, Total (mg/dL) Date Value 08/11/2024 9.9 Alkaline Phosphatase (U/L) Date Value 08/11/2024 89 Bilirubin, Total (mg/dL) Date Value 08/11/2024 0.6 AST (U/L) Date Value 08/11/2024 32 ALT (U/L) Date Value 08/11/2024 28 DIAGNOSIS: (D47.2) MGUS (monoclonal gammopathy of unknown significance) (primary encounter diagnosis) Plan: B2 MICROGLOBULIN, COMPLETE BLOOD COUNT AND DIFFERENTIAL, COMPREHENSIVE METABOLIC PANEL, LACTATE DEHYDROGENASE, PHOSPHORUS INORGANIC, PROTEIN ELECTROPHORESIS SERUM W/INTERP, MONOCLONAL PROTEIN, SERUM (BLOOD), URIC ACID, CALCIUM, IONIZED, ERYTHROPOIETIN/EPO (D45) PRV (polycythemia rubra vera) ([facility]) Plan: B2 MICROGLOBULIN, COMPLETE BLOOD COUNT AND DIFFERENTIAL, COMPREHENSIVE METABOLIC PANEL, LACTATE DEHYDROGENASE, PHOSPHORUS INORGANIC, PROTEIN ELECTROPHORESIS SERUM W/INTERP, MONOCLONAL PROTEIN, SERUM (BLOOD), URIC ACID, CALCIUM, IONIZED, ERYTHROPOIETIN/EPO (N18.31) Stage 3a chronic kidney disease ([facility]) PAST MEDICAL HISTORY Diagnosis Date Hypertension MGUS (monoclonal gammopathy of unknown significance) Osteoarthritis PRV (polycythemia rubra vera) ([facility]) 10/25/2021 History reviewed. No pertinent surgical history. Social History Tobacco Use Smoking status: Former Current packs/day: 0.00 Types: Cigarettes Quit date: 05/31/1980 Years since quittin.2 Passive exposure: Past Smokeless tobacco: Never Substance Use Topics Alcohol use: Not Currently Drug use: Never History reviewed. No pertinent family history. I spent a total of 20 minutes on the date of service which included preparing to see the patient, upwi-wf-hisy patient care, completing clinical documentation, performing a medically appropriate examination, counseling and educating the patient/family/caregiver, ordering medications, tests, or procedures, independently interpreting results (not separately reported), communicating results to the patient/family/caregiver, and care coordination (not separately reported). . Mandie Baig APRN, [facility], [facility] Provided at: [place], [place] CC: Dr. Jose Yap [address] [facility] [id number] documented in this encounter [facility] 08-18-2024 Note HNO ID: [id number] Author: MANDIE BAIG APRN.OLIVIER Service: ? Author Type: Nurse Practitioner Type: Progress Notes Filed: 08/18/2024 14:39 Note Text: NAME: Prudencio Patrick CLINIC NO.: [id number] DATE OF SERVICE: August 18, 2024 (Anthony) Some elements in this clinic note that are critical to medical decision making have been carefully reviewed and included from a prior clinic note dated: May 26, 2024 (Dipak) Referring Provider: Dr. 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 His M protein levels have been stable over the last 13+ years, and his risk of progression remains very low. However, he became more notably polycythemic and so we ordered a MPN workup for PRV which came back positive. Now improving with hydrea. He did require phlebotomies, however, he decided against any further phlebotomies due to poor side effects. PLAN: Meets parameters for Phlebotomy Today- Patient refuses to have any more phlebotomy's due to syncope episodes. hematocrit today (47.5 on 08/11/2024) Continue baby ASA Continue Hydrea 500 mg daily Labs in 11 weeks RTC in 12 weeks HPI: CASE HISTORY: Reverse Chronological Order 08/11/2024- H/H 16.3/47.5, WBC 4.23, Plts 154, biclonal Mspike 0.29, 0.49 05/18/2024 - H/H 14.9/42.6, WBC 4.57, Plts 152, biclonal Mspike 0.31, 0.60 01/15/2023 - H/H 15.3/45.3 WBC 4.73, PLTs 155, biclonal Mspike 0.38, 0.58 04/17/2022 - H/H 16.3/47.9 - phlebotomy 500 ml 02/20/2022 - H/H 16.5/48.7 - phlebotomy 250 ml x 3 weeks in a row 11/28/2021 - Hydrea started 500 mg 11/14/2021 - phlebotomy caused severe hypotensive episode - possibly due to fasting/dehydration 10/18/2021 - Jak2+ PRV diagnosed 2006 - IgA [place] and IgM lambda biclonal M-spike Updated Visit, August 18, 2024: Rafa returns with Martha today for a follow-up and review of labs. Overall he is doing well. Hematocrit today is 47.5. He does qualify for a phlebotomy but refuses at this time due to previous syncope episodes when he is has had past phelobotomy's. Remains on 500 mg hydrea daily and ASA. M-Protein is remaining stable. Updated Visit, May 26, 2024: Rafa returns with Martha for a follow up, continues doing well overall. HCT: 42.6 - does not qualify for phlebotomy. Will reconsider phlebotomy when he qualifies in the future. M-protein remains stable. Updated Visit, March 02, 2024: Rafa returns with his . He is feeling well. Remains on hydrea 500 mg daily and aspirin daily. His labs are stable. Hct is 47.1 and qualifies for phlebotomy, however he prefers not to have phlebotomies. Updated Visit, December 03, 2023: Rafa returns with Martha, he is doing well. Labs today are fairly stable although he could qualify for plebotomy. Unfortunately, he feels terrible afterwards and does not want to do this for now. Updated Visit, September 24, 2023: Rafa returns with Martha. He offers no new complaints. He had his annual physical recently and was told everything looks good from their perspective. His labs look good today - HCT 45.6. Updated Visit, July 02, 2023: Prudencio Coleman Bubba returns for scheduled follow-up. At this point [...] defer phlebotomy today. I think that is reasona (more content not included)... [facility] 08-15-2024 Hospital Discharg e instructions Patient Education 08/15/2024 09:14:39 Cystoscopy Cystoscopy Cystoscopy is a procedure that is used to help diagnose and sometimes treat conditions that affect the lower urinary tract. The lower urinary tract includes the bladder and the urethra. The urethra is the tube that drains urine from the bladder. Cystoscopy is done using a thin, tube-shaped instrument with a light and camera at the end (cystoscope). The cystoscope may be hard or flexible, depending on the goal of the procedure. The cystoscope is inserted through the urethra, into the bladder. Cystoscopy may be recommended if you have: Urinary tract infections that keep coming back. Blood in the urine (hematuria). An inability to control when you urinate (urinary incontinence) or an overactive bladder. Unusual cells found in a urine sample. A blockage in the urethra, such as a urinary stone. Painful urination. An abnormality in the bladder found during an intravenous pyelogram (IVP) or CT scan. Cystoscopy may also be done to remove a sample of tissue to be examined under a microscope (biopsy). Tell a health care provider about: Any allergies you have. All medicines you are taking, including vitamins, herbs, eye drops, creams, and ojjw-dyv-oywbmoe medicines. Any problems you or family members have had with anesthetic medicines. Any blood disorders you have. Any surgeries you have had. Any medical conditions you have. Whether you are or may be . What are the risks? Generally, this is a safe procedure. However, problems may occur, including: Infection. Bleeding. Allergic reactions to medicines. Damage to other structures or organs. What happens before the procedure? Medicines Ask your health care provider about: Changing or stopping your regular medicines. This is especially important if you are taking diabetes medicines or blood thinners. Taking medicines such as aspirin and ibuprofen. These medicines can thin your blood. Do not take these medicines unless your health care provider tells you to take them. Taking nmtr-aji-sgqgidb medicines, vitamins, herbs, and supplements. Tests You may have an exam or testing, such as: X-rays of the bladder, urethra, or kidneys. CT scan of the abdomen or pelvis. Urine tests to check for signs of infection. General instructions Follow instructions from your health care provider about eating or drinking restrictions. Ask your health care provider what steps will be taken to help prevent infection. These steps may include: ?Washing skin with a germ-killing soap. ?Taking antibiotic medicine. Plan to have a responsible adult take you home from the hospital or clinic. What happens during the procedure? You will be given one or more of the following: ?A medicine to help you relax (sedative). ?A medicine to numb the area (local anesthetic). The area around the opening of your urethra will be cleaned. The cystoscope will be passed through your urethra into your bladder. Germ-free (sterile) fluid will flow through the cystoscope to fill your bladder. The fluid will stretch your bladder so that your health care provider can clearly examine your bladder ferguson. Your doctor will look at the urethra and bladder. Your doctor may take a biopsy or remove stones. The cystoscope will be removed, and your bladder will be emptied. The procedure may vary among health care providers and hospitals. What can I expect after the procedure? After the procedure, it is common to have: Some soreness or pain in your abdomen and urethra. Urinary symptoms. These include: ?Mild pain or burning when you urinate. Pain should stop within a few minutes after you urinate. This may last for up to 1 week. ?A small amount of blood in your urine for several days. ?Feeling like you need to urinate but producing only a small amount of urine. Follow these instructions at home: Medicines Take kqvf-mnp-blvjbfq and prescription medicines only as told by your health care provider. If you were prescribed an antibiotic medicine, take it as told by your health care provider. Do not stop taking the antibiotic even if you start to feel better. General instructions Return to your normal activities as told by your health care provider. Ask your health care provider what activities are safe for you. If you were given a sedative during the procedure, it can affect you for several hours. Do not drive or operate machinery until your health care provider says that it is safe. Watch for any blood in your urine. If the amount of blood in your urine increases, call your health care provider. Follow instructions from your health care provider about eating or drinking restrictions. If a tissue sample was removed for testing (biopsy) during your procedure, it is up to you to get your test results. Ask your health care provider, or the department that is doing the test, when your results will be ready. Drink enough fluid to keep your urine pale yellow. Keep all follow-up visits. This is important. Contact a health care provider if: You have pain that gets worse or does not get better with medicine, especially pain when you urinate. You have trouble urinating. You have more blood in your urine. Get help right away if: You have blood clots in your urine. You have abdominal pain. You have a fever or chills. You are unable to urinate. Summary Cystoscopy is a procedure that is used to help diagnose and sometimes treat conditions that affect the lower urinary tract. Cystoscopy is done using a thin, tube-shaped instrument with a light and camera at the end. After the procedure, it is common to have some soreness or pain in your abdomen and urethra. Watch for any blood in your urine. If the amount of blood in your urine increases, call your health care provider. If you were prescribed an antibiotic medicine, take it as told by your health care provider. Do not stop taking the antibiotic even if you start to feel better. This information is not intended to replace advice given to you by your health care provider. Make sure you discuss any questions you have with your health care provider. Document Revised: 02/12/2022 Document Reviewed: 01/11/2021 [employer] Patient Education 2023 [employer]. 08/15/2024 09:14:36 Hematuria, Adult Hematuria, Adult Hematuria is blood in the urine. Blood may be visible in the urine, or it may be identified with a test. This condition can be caused by infections of the bladder, urethra, kidney, or prostate. Other possible causes include: Kidney stones. Cancer of the urinary tract. Too much calcium in the urine. Conditions that are passed from parent to child (inherited conditions). Exercise that requires a lot of energy. Infections can usually be treated with medicine, and a kidney stone usually will pass through your urine. If neither of these is the cause of your hematuria, more tests may be needed to identify the cause of your symptoms. It is very important to tell your health care provider about any blood in your urine, even if it is painless or the blood stops without treatment. Blood in the urine, when it happens and then stops and then happens again, can be a symptom of a very serious condition, including cancer. There is no pain in the initial stages of many urinary cancers. Follow these instructions at home: Medicines Take vpzy-eky-qnafayx and prescription medicines only as told by your health care provider. If you were prescribed an antibiotic medicine, take it as told by your health care provider. Do not stop taking the antibiotic even if you start to feel better. Eating and drinking Drink enough fluid to keep your urine pale yellow. It is recommended that you drink 3 4 quarts (2.8 3.8 L) a day. If you have been diagnosed with an infection, drinking cranberry juice in addition to large amounts of water is recommended. Avoid caffeine, tea, and carbonated beverages. These tend to irritate the bladder. Avoid alcohol because it may irritate the prostate (in males). General instructions If you have been diagnosed with a kidney stone, follow your health care provider's instructions about straining your urine to catch the stone. Empty your bladder often. Avoid holding urine for long periods of time. If you are female: ?After a bowel movement, wipe from front to back and use each piece of toilet paper only once. ?Empty your bladder before and after sex. Pay attention to any changes in your symptoms. Tell your health care provider about any changes or any new symptoms. It is up to you to get the results of any tests. Ask your health care provider, or the department that is doing the test, when your results will be ready. Keep all follow-up visits. This is important. Contact a health care provider if: You develop back pain. You have a fever or chills. You have nausea or vomiting. Your symptoms do not improve after 3 days. Your symptoms get worse. Get help right away if: You develop severe vomiting and are unable to take medicine without vomiting. You develop severe pain in your back or abdomen even though you are taking medicine. You pass a large amount of blood in your urine. You pass blood clots in your urine. You feel very weak or like you might faint. You faint. Summary Hematuria is blood in the urine. It has many possible causes. It is very important that you tell your health care provider about any blood in your urine, even if it is painless or the blood stops without treatment. Take cxzk-pqg-ethpjge and prescription medicines only as told by your health care provider. Drink enough fluid to keep your urine pale yellow. This information is not intended to replace advice given to you by your health care provider. Make sure you discuss any questions you have with your health care provider. Document Revised: 01/30/2021 Document Reviewed: 01/30/2021 [employer] Patient Education 2023 [employer]. Follow Up Care 08/10/2023 09:25:31 With:BARBRA BAILON, Christophe Stoddard, URL Address: [facility] [address] , [place] [address]- [phone] When: Unknown Comments:sched cysto [facility] 08-15-2024 Note Patient Education Urology Cystoscopy Cystoscopy is a procedure that is used to help diagnose and sometimes treat conditions that affect the lower urinary tract. The lower urinary tract includes the bladder and the urethra. The urethra is the tube that drains urine from the bladder. Cystoscopy is done using a thin, tube-shaped instrument with a light and camera at the end (cystoscope). The cystoscope may be hard or flexible, depending on the goal of the procedure. The cystoscope is inserted through the urethra, into the bladder. Cystoscopy may be recommended if you have: ??? Urinary tract infections that keep coming back. ??? Blood in the urine (hematuria). ??? An inability to control when you urinate (urinary incontinence) or an overactive bladder. ??? Unusual cells found in a urine sample. ??? A blockage in the urethra, such as a urinary stone. ??? Painful urination. ??? An abnormality in the bladder found during an intravenous pyelogram (IVP) or CT scan. Cystoscopy may also be done to remove a sample of tissue to be examined under a microscope (biopsy). Tell a health care provider about: ??? Any allergies you have. ??? All medicines you are taking, including vitamins, herbs, eye drops, creams, and iklf-hag-qsmfnbr medicines. ??? Any problems you or family members have had with anesthetic medicines. ??? Any blood disorders you have. ??? Any surgeries you have had. ??? Any medical conditions you have. ??? Whether you are or may be . What are the risks? Generally, this is a safe procedure. However, problems may occur, including: ??? Infection. ??? Bleeding. ??? Allergic reactions to medicines. ??? Damage to other structures or organs. What happens before the procedure? Medicines Ask your health care provider about: ??? Changing or stopping your regular medicines. This is especially important if you are taking diabetes medicines or blood thinners. ??? Taking medicines such as aspirin and ibuprofen. These medicines can thin your blood. Do not take these medicines unless your health care provider tells you to take them. ??? Taking lqjz-npi-dlinsgl medicines, vitamins, herbs, and supplements. Tests You may have an exam or testing, such as: ??? X-rays of the bladder, urethra, or kidneys. ??? CT scan of the abdomen or pelvis. ??? Urine tests to check for signs of infection. General instructions ??? Follow instructions from your health care provider about eating or drinking restrictions. ??? Ask your health care provider what steps will be taken to help prevent infection. These steps may include: ? Washing skin with a germ-killing soap. ? Taking antibiotic medicine. ??? Plan to have a responsible adult take you home from the hospital or clinic. What happens during the procedure? You will be given one or more of the following: ? A medicine to help you relax (sedative). ? A medicine to numb the area (local anesthetic). ??? The area around the opening of your urethra will be cleaned. ??? The cystoscope will be passed through your urethra into your bladder. ??? Germ-free (sterile) fluid will flow through the cystoscope to fill your bladder. The fluid will stretch your bladder so that your health care provider can clearly examine your bladder ferguson. ??? Your doctor will look at the urethra and bladder. Your doctor may take a biopsy or remove stones. ??? The cystoscope will be removed, and your bladder will be emptied. The procedure may vary among health care providers and hospitals. What can I expect after the procedure? After the procedure, it is common to have: ??? Some soreness or pain in your abdomen and urethra. ??? Urinary symptoms. These include: ? Mild pain or burning when you urinate. Pain should stop within a few minutes after you urinate. This may last for up to 1 week. ? A small amount of blood in your urine for several days. ? Feeling like you need to urinate but producing only a small amount of urine. Follow these instructions at home: Medicines ??? Take bodb-prh-azqxmuj and prescription medicines only as told by your health care provider. ??? If you were prescribed an antibiotic medicine, take it as told by your health care provider. Do not stop taking the antibiotic even if you start to feel better. General instructions ??? Return to your normal activities as told by your health care provider. Ask your health care provider what activities are safe for you. ??? If you were given a sedative during the procedure, it can affect you for several hours. Do not drive or operate machinery until your health care provider says that it is safe. ??? Watch for any blood in your urine. If the amount of blood in your urine increases, call your health care provider. ??? Follow instructions from your health care provider about eating or drinking restrictions. ??? If a tissue sample was removed for testing (biopsy) during your (more content not included)... [facility] 08-11-2024 History of Presen t illness Narrative Patient: Prudencio Patrick : 1945 PCP: Jose Yap MD SUBJECTIVE Patient presents today for follow up of skin lesion/neoplasm of unknown origin to the right hallux of the foot Pt states that previous treatment of acid tx with some improvement Pt rates pain the pain on a 1-10 scale an intensity of 3 Pt presents today for followup. Patient presents today with a CC of elongated, thick nails. Pt states nails have been elongated and thick for many years and cause pain with ambulation in shoegear. Pt has tried previous treatment with minimal relief. Pt presents today for nail care and treatment. Allergies: Allergies Allergen Reactions Clindamycin Anaphylaxis Penicillins Hives and Unknown Other Reaction(s): Mild Past Medical History: No past medical history on file. Medications: Current Outpatient Medications: acyclovir (Zovirax) 800 [...] Not on file Tobacco Use Smoking status: Never Passive exposure: Never Smokeless tobacco: Never Vaping Use Vaping status: Unknown Substance and Sexual Activity Alcohol use: Defer Drug use: Defer Sexual activity: Defer Other Topics Concern Not on file Social History Narrative Not on file Social Drivers of Health Financial Resource Strain: Not on file Food Insecurity: Not on file Transportation Needs: Not on file Physical Activity: Not on file Stress: Not on file Social Connections: Not on file Intimate Partner Violence: Not on file Housing Stability: Not on file ROS: Gastrointestinal: denies abdominal pain, ulcers, or changes in appetite or bowel habits OBJECTIVE LE EXAM: DERM: Elongated thick yellow crumbly nails digits 1 through 10. Positive hair growth b/l feet. Distal right plantar hallux region has a 0.8 cm x 0.8cm round nummular lesion VASC: Positive palpable pedal pulses bilaterally NEURO: Gross sensation intact to bilateral feet ORTHO: Positive pain on palpation to toenails of the left 1,2,3,4,5 toes and right 1,2,3,4,5 toes Minimal pain on palpation of right great toe lesion ASSESSMENT 1. Verruca plantaris 2. Foot pain, right 3. Pain due to onychomycosis of toenails of both feet PLAN Application of salinocaine acid medication to lesion/lesions located at right foot Informed pt of risks and benefits of procedure including high reoccurence rate, infection, pain and consent given. Application of DSD post procedure. Discussed proper foot care with patient today. Debride nails in length and thickness digits 1 through 10 Nakul Guerra DPM documented in this encounter [facility] 06-02-2024 History of Presen t illness Narrative Patient: Prudencio Patrick : 1945 PCP: Jose Yap MD SUBJECTIVE Patient presents today for follow up of skin lesion/neoplasm of unknown origin to the right hallux of the foot Pt states that previous treatment of acid tx with some improvement Pt rates pain the pain on a 1-10 scale an intensity of 5 Pt presents today for followup. Patient presents today with a CC of elongated, thick nails. Pt states nails have been elongated and thick for many years and cause pain with ambulation in shoegear. Pt has tried previous treatment with minimal relief. Pt presents today for nail care and treatment. Allergies: Allergies Allergen Reactions Clindamycin Anaphylaxis Penicillins Hives and Unknown Other Reaction(s): Mild Past Medical History: No past medical history on file. Medications: Current Outpatient Medications: acyclovir (Zovirax) 800 [...] Not on file Tobacco Use Smoking status: Never Passive exposure: Never Smokeless tobacco: Never Vaping Use Vaping status: Unknown Substance and Sexual Activity Alcohol use: Defer Drug use: Defer Sexual activity: Defer Other Topics Concern Not on file Social History Narrative Not on file Social Drivers of Health Financial Resource Strain: Not on file Food Insecurity: Not on file Transportation Needs: Not on file Physical Activity: Not on file Stress: Not on file Social Connections: Not on file Intimate Partner Violence: Not on file Housing Stability: Not on file ROS: Gastrointestinal: denies abdominal pain, ulcers, or changes in appetite or bowel habits OBJECTIVE LE EXAM: DERM: Elongated thick yellow [...] of right great toe lesion ASSESSMENT 1. Verruca plantaris 2. Foot pain, right 3. Pain due to onychomycosis of toenails of both feet PLAN Application of salinocaine acid medication to lesion/lesions located at right foot Informed pt of risks and benefits of procedure including high reoccurence rate, infection, pain and consent given. Application of DSD post procedure. Discussed proper foot care with patient today. Debride nails in length and thickness digits 1 through 10 Nakul Guerra DPM documented in this encounter [facility] 05-26-2024 Instructions Maria Esther Downey - 05/26/2024 8:27 AM EST No Phlebotomy for hematocrit today (42.6 on 05/18/2024) Continue baby ASA Continue Hydrea 500 mg daily Labs in 11 weeks RTC in 12 weeks Possible phlebotomy - reconsider with Hct > 45 documented in this encounter [facility] 05-26-2024 History of Presen t illness Narrative Images from the original note were not included. NAME: Prudencio Patrick [facility] NO.: [id number] DATE OF SERVICE: May 26, 2024 (Dipak) Some elements in this clinic note that are critical to medical decision making have been carefully reviewed and included from a prior clinic note dated: March 02, 2024 (Jovany) Referring Provider: Dr. 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 His M protein levels have been stable over the last 13+ years, and his risk of progression remains very low. However, he became more notably polycythemic and so we ordered a MPN workup for PRV which came back positive. Now improving with hydrea. He did require phlebotomies, however, he decided against any further phlebotomies due to poor side effects. PLAN: No Phlebotomy for hematocrit today (42.6 on 05/18/2024) Continue baby ASA Continue Hydrea 500 mg daily Labs in 11 weeks RTC in 12 weeks Possible phlebotomy - reconsider with Hct > 45 HPI: CASE HISTORY: Reverse Chronological Order 05/18/2024 - H/H 14.9/42.6, WBC 4.57, Plts 152, biclonal Mspike 0.31, 0.60 01/15/2023 - H/H 15.3/45.3 WBC 4.73, PLTs 155, biclonal Mspike 0.38, 0.58 04/17/2022 - H/H 16.3/47.9 - phlebotomy 500 ml 02/20/2022 - H/H 16.5/48.7 - phlebotomy 250 ml x 3 weeks in a row 11/28/2021 - Hydrea started 500 mg 11/14/2021 - phlebotomy caused severe hypotensive episode - possibly due to fasting/dehydration 10/18/2021 - 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 HCT: 42.6 - does not qualify for phlebotomy. Will reconsider phlebotomy when he qualifies in the future. M-protein remains stable. Updated Visit, March 02, 2024: Rafa returns with his . He is feeling well. Remains on hydrea 500 mg daily and aspirin daily. His labs are stable. Hct is 47.1 and qualifies for phlebotomy, however he prefers not to have phlebotomies. Updated Visit, December 03, 2023: Rafa returns with Martha, he is doing well. Labs today are fairly stable although he could qualify for plebotomy. Unfortunately, he feels terrible afterwards and does not want to do this for now. Updated Visit, September 24, 2023: Rafa returns with Martha. He offers no new complaints. He had his annual physical recently and was told everything looks good from their perspective. His labs look good today - HCT 45.6. Updated Visit, July 02, 2023: Prudencio Patrick [...] June 12, 2022: Rafa returns with his Mratha and labs are stable. Hgb is at [...] pain. He follows with his PCP, Dr. Yap, who has been changing his blood pressure [...] addition. I discussed his situation with Dr. Yap today and he will clarify meds for him. Updated Visit, October 25, 2021: Telephone 12 mins Discussed findings of Clemente 2 Mutation - c/w Polycythemia - [id number] mut + B-asa Phlebotomy Consider hydrea for [...] PERFORMANCE STATUS: 0 PHYSICAL EXAMINATION: Vitals: BP 157/84 Pulse 64 Temp (Src) 97.5 (Temporal) Resp 16 Ht 5' 10.984 (1.80m) Wt 248 lb 0.3 oz (112.5kg) SpO2 99% BMI 34.61 kg/(m^2). Body surface area is 2.37 meters [...] Hives MEDICATIONS: hydroxyurea (HYDREA) 500 mg capsule take 1 capsule by mouth every day losartan (COZAAR) 50 mg tablet Take 50 [...] daily. LABORATORY VALUES: WBC (k/uL) Date Value 05/18/2024 4.57 RBC (m/uL) Date Value 05/18/2024 4.08 (L) Hemoglobin (g/dL) Date Value 05/18/2024 14.9 Hematocrit (%) Date Value 05/18/2024 42.6 MCV (fL) Date Value 05/18/2024 104.4 (H) MCH (pg) Date Value 05/18/2024 36.5 (H) MCHC (g/dL) Date Value 05/18/2024 35.0 RDW-CV (%) Date Value 05/18/2024 13.9 Platelet Count (k/uL) Date Value 05/18/2024 152 MPV (fL) Date Value 05/18/2024 10.2 Glucose (mg/dL) Date Value 05/18/2024 96 BUN (mg/dL) Date Value 05/18/2024 15 Creatinine (mg/dL) Date Value 05/18/2024 1.12 Sodium (mmol/L) Date Value 05/18/2024 138 Potassium (mmol/L) Date Value 05/18/2024 3.5 (L) Chloride (mmol/L) Date Value 05/18/2024 98 CO2 (mmol/L) Date Value 05/18/2024 29 Protein, Total (g/dL) Date Value 05/18/2024 7.4 05/18/2024 7.3 Albumin (g/dL) Date Value 05/18/2024 4.2 Calcium, Total (mg/dL) Date Value 05/18/2024 9.5 Alkaline Phosphatase (U/L) Date Value 05/18/2024 84 Bilirubin, Total (mg/dL) Date Value 05/18/2024 0.6 AST (U/L) Date Value 05/18/2024 18 ALT (U/L) Date Value 05/18/2024 16 DIAGNOSIS: (D47.2) MGUS (monoclonal gammopathy of unknown significance) (primary encounter diagnosis) Plan: B2 MICROGLOBULIN, COMPLETE BLOOD COUNT AND DIFFERENTIAL, COMPREHENSIVE METABOLIC PANEL, LACTATE DEHYDROGENASE, PHOSPHORUS INORGANIC, PROTEIN ELECTROPHORESIS SERUM W/INTERP, MONOCLONAL PROTEIN, SERUM (BLOOD), URIC ACID, CALCIUM, IONIZED, ERYTHROPOIETIN/EPO, KAPPA/BURT,FREE,SER (D45) PRV (polycythemia rubra vera) ([facility]) (N18.31) Stage 3a chronic kidney disease ([facility]) Plan: B2 MICROGLOBULIN, COMPLETE BLOOD COUNT AND DIFFERENTIAL, COMPREHENSIVE METABOLIC PANEL, LACTATE DEHYDROGENASE, PHOSPHORUS INORGANIC, PROTEIN ELECTROPHORESIS SERUM W/INTERP, MONOCLONAL PROTEIN, SERUM (BLOOD), URIC ACID, CALCIUM, IONIZED, ERYTHROPOIETIN/EPO, KAPPA/BURT,FREE,SER PAST MEDICAL HISTORY Diagnosis Date Hypertension MGUS (monoclonal gammopathy of unknown significance) Osteoarthritis PRV (polycythemia rubra vera) ([facility]) 10/25/2021 No past surgical history on file. Social History Tobacco Use Smoking status: Former Current packs/day: 0.00 Types: Cigarettes Quit date: 05/31/1980 Years since quittin.0 Passive exposure: Past Smokeless tobacco: Never Substance Use Topics Alcohol use: Not Currently Drug use: Never No family history on file. I spent a total of 20 minutes on the date of service which included preparing to see the patient, [id number] patient care, completing clinical documentation, performing a medically appropriate examination, counseling and educating the patient/family/caregiver, ordering medications, tests, or procedures, independently interpreting results (not separately reported), communicating results to the patient/family/caregiver, and care coordination (not separately reported). Maycol Novak MD, CPE Hematology and Oncology Services Provided at: [place], [place] Scribe Attestation: This note was scribed by Maria Esther Downey on May 26, 2024 under the direction and supervision of Dr. Maycol Novak. I attest that all of the information documented is correct to the best of my knowledge. Provider Attestation: I, Maycol Novak MD, attest that all information documented by the above scribe is correct, and was supervised by me and under my direction. CC: Dr. Jose Yap [address] [facility] [id number] documented in this encounter [facility] 05-26-2024 Note HNO ID: [id number] Author: MAYCOL NOVAK MD Service: ? Author Type: Physician Type: Progress Notes Filed: 05/26/2024 09:59 Note Text: NAME: Prudencio Patrick [facility] NO.: [id number] DATE OF SERVICE: May 26, 2024 (Dipak) Some elements in this clinic note that are critical to medical decision making have been carefully reviewed and included from a prior clinic note dated: March 02, 2024 (Jovany) Referring Provider: Dr. 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 His M protein levels have been stable over the last 13+ years, and his risk of progression remains very low. However, he became more notably polycythemic and so we ordered a MPN workup for PRV which came back positive. Now improving with hydrea. He did require phlebotomies, however, he decided against any further phlebotomies due to poor side effects. PLAN: No Phlebotomy for hematocrit today (42.6 on 05/18/2024) Continue baby ASA Continue Hydrea 500 mg daily Labs in 11 weeks RTC in 12 weeks Possible phlebotomy - reconsider with Hct > 45 HPI: CASE HISTORY: Reverse Chronological Order 05/18/2024 - H/H 14.9/42.6, WBC 4.57, Plts 152, biclonal Mspike 0.31, 0.60 01/15/2023 - H/H 15.3/45.3 WBC 4.73, PLTs 155, biclonal Mspike 0.38, 0.58 04/17/2022 - H/H 16.3/47.9 - phlebotomy 500 ml 02/20/2022 - H/H 16.5/48.7 - phlebotomy 250 ml x 3 weeks in a row 11/28/2021 - Hydrea started 500 mg 11/14/2021 - phlebotomy caused severe hypotensive episode - possibly due to fasting/dehydration 10/18/2021 - 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 HCT: 42.6 - does not qualify for phlebotomy. Will reconsider phlebotomy when he qualifies in the future. M-protein remains stable. Updated Visit, March 02, 2024: Rafa returns with his . He is feeling well. Remains on hydrea 500 mg daily and aspirin daily. His labs are stable. Hct is 47.1 and qualifies for phlebotomy, however he prefers not to have phlebotomies. Updated Visit, December 03, 2023: Rafa returns with Martha, he is doing well. Labs today are fairly stable although he could qualify for plebotomy. Unfortunately, he feels terrible afterwards and does not want to do this for now. Updated Visit, September 24, 2023: Rafa returns with Martha. He offers no new complaints. He had his annual physical recently and was told everything looks good from their perspective. His labs look good today - HCT 45.6. Updated Visit, July 02, 2023: Prudencio Patrick [...] his last visit. He denies shortness of breat (more content not included)... [facility] 03-10-2024 History of Presen t illness Narrative Patient: Prudencio Patrick : 1945 PCP: Jose Yap MD SUBJECTIVE Patient presents today for follow up of skin lesion/neoplasm of unknown origin to the right hallux of the foot Pt states that previous treatment of acid tx with some improvement Pt rates pain the pain on a 1-10 scale an intensity of 4 Pt presents today for followup. Patient presents today with a CC of elongated, thick nails. Pt states nails have been elongated and thick for many years and cause pain with ambulation in shoegear. Pt has tried previous treatment with minimal relief. Pt presents today for nail care and treatment. Allergies: Allergies Allergen Reactions Clindamycin Anaphylaxis Penicillins Hives and Unknown Other Reaction(s): Mild Past Medical History: No past medical history on file. Medications: Current Outpatient Medications: acyclovir (Zovirax) 800 [...] Not on file Tobacco Use Smoking status: Never Passive exposure: Never Smokeless tobacco: Never Vaping Use Vaping status: Unknown Substance and Sexual Activity Alcohol use: [...] or changes in appetite or bowel habits OBJECTIVE LE EXAM: DERM: Elongated thick yellow [...] of right great toe lesion ASSESSMENT 1. Verruca plantaris 2. Foot pain, right 3. Onychomycosis 4. Toe pain, bilateral PLAN Application of salinocaine acid medication to lesion/lesions located at right foot Informed pt of risks and benefits of procedure including high reoccurence rate, infection, pain and consent given. Application of DSD post procedure. Discussed proper foot care with patient today. Debride nails in length and thickness digits 1 through 10 Nakul Guerra DPM documented in this encounter [facility] 03-02-2024 History of Presen t illness Narrative Images from the original note were not included. NAME: Prudencio Patrick CLINIC NO.: [id number] DATE OF SERVICE: March 02, 2024 (Jovany) Some elements in this clinic note that are critical to medical decision making have been carefully reviewed and included from a prior clinic note dated: December 03, 2023 (Dipak) Referring Provider: Dr. 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 His M protein levels have been stable over the last 13+ years, and his risk of progression remains very low. However, he became more notably polycythemic and so we ordered a MPN workup for PRV which came back positive. Now improving with hydrea. He did require phlebotomies, however, he decided against any further phlebotomies due to poor side effects. 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 He is feeling well. Remains on hydrea 500 mg daily and aspirin daily. His labs are stable. Hct is 47.1 and qualifies for phlebotomy, however he prefers not to have phlebotomies. Updated Visit, December 03, 2023: Rafa returns with Martha, he is doing well. Labs today are fairly stable although he could qualify for plebotomy. Unfortunately, he feels terrible afterwards and does not want to do this for now. Updated Visit, September 24, 2023: Rafa returns with Martha. He offers no new complaints. He had his annual physical recently and was told everything looks good from their perspective. His labs look good today - HCT 45.6. Updated Visit, July 02, 2023: Prudencio Patrick [...] pain. He follows with his PCP, Dr. Yap, who has been changing his blood pressure [...] addition. I discussed his situation with Dr. Yap today and he will clarify meds for him. Updated Visit, October 25, 2021: Telephone 12 mins Discussed findings of Clemente 2 Mutation - c/w Polycythemia - [id number] mut + B-asa Phlebotomy Consider hydrea for [...] PERFORMANCE STATUS: 0 PHYSICAL EXAMINATION: Vitals: BP 176/89[recheck[ Pulse 71 Temp (Src) 97.4 (Temporal) Resp 18 Ht 5' 10.984 (1.80m) Wt 246 lb 4.1 oz (111.7kg) SpO2 97% BMI 34.36 kg/(m^2). Body surface area is 2.37 meters squared. General: Alert and oriented, no distress, pleasant and cooperative. Heart: Regular, normal S1 and S2, no murmurs, rubs, or gallops Lungs: Clear to auscultation bilaterally Abdomen: Benign Extremities: Feet/ankles without edema, posterior tibial pulses full and symmetrical ALLERGIES: ALLERGIES Allergen Reactions Clindamycin Anaphylaxis Penicillins Hives MEDICATIONS: hydroxyurea (HYDREA) 500 mg capsule take 1 capsule by mouth every day losartan (COZAAR) 50 mg tablet Take 50 [...] daily. LABORATORY VALUES: WBC (k/uL) Date Value 02/23/2024 5.11 RBC (m/uL) Date Value 02/23/2024 4.55 Hemoglobin (g/dL) Date Value 02/23/2024 16.3 Hematocrit (%) Date Value 02/23/2024 47.1 MCV (fL) Date Value 02/23/2024 103.5 (H) MCH (pg) Date Value 02/23/2024 35.8 (H) MCHC (g/dL) Date Value 02/23/2024 34.6 RDW-CV (%) Date Value 02/23/2024 14.1 Platelet Count (k/uL) Date Value 02/23/2024 154 MPV (fL) Date Value 02/23/2024 10.6 Glucose (mg/dL) Date Value 02/23/2024 104 (H) BUN (mg/dL) Date Value 02/23/2024 15 Creatinine (mg/dL) Date Value 02/23/2024 1.12 Sodium (mmol/L) Date Value 02/23/2024 139 Potassium (mmol/L) Date Value 02/23/2024 5.4 (H) Chloride (mmol/L) Date Value 02/23/2024 103 CO2 (mmol/L) Date Value 02/23/2024 26 Protein, Total (g/dL) Date Value 02/23/2024 7.6 02/23/2024 7.4 Albumin (g/dL) Date Value 02/23/2024 4.4 Calcium, Total (mg/dL) Date Value 02/23/2024 9.9 Alkaline Phosphatase (U/L) Date Value 02/23/2024 109 Bilirubin, Total (mg/dL) Date Value 02/23/2024 0.9 AST (U/L) Date Value 02/23/2024 26 ALT (U/L) Date Value 02/23/2024 27 DIAGNOSIS: (D47.2) MGUS (monoclonal gammopathy of unknown significance) (primary encounter diagnosis) Plan: COMPREHENSIVE METABOLIC PANEL, LACTATE DEHYDROGENASE, COMPLETE BLOOD COUNT AND DIFFERENTIAL, B2 MICROGLOBULIN, PHOSPHORUS INORGANIC, URIC ACID, MONOCLONAL PROTEIN, SERUM (BLOOD), PROTEIN ELECTROPHORESIS SERUM W/INTERP (D45) PRV (polycythemia rubra vera) ([facility]) Plan: COMPREHENSIVE METABOLIC PANEL, LACTATE DEHYDROGENASE, COMPLETE BLOOD COUNT AND DIFFERENTIAL, B2 MICROGLOBULIN, PHOSPHORUS INORGANIC, URIC ACID, MONOCLONAL PROTEIN, SERUM (BLOOD), PROTEIN ELECTROPHORESIS SERUM W/INTERP PAST MEDICAL HISTORY Diagnosis Date Hypertension MGUS (monoclonal gammopathy of unknown significance) Osteoarthritis PRV (polycythemia rubra vera) ([facility]) 10/25/2021 No past surgical history on file. Social History Tobacco Use Smoking status: Former Current packs/day: 0.00 Types: Cigarettes Quit date: 05/31/1980 Years since quittin.7 Passive exposure: Past Smokeless tobacco: Never Substance Use Topics Alcohol use: Not Currently Drug use: Never No family history on file. I spent a total of 20 minutes on the date of the service which included preparing to see the patient, [id number] patient care, completing clinical documentation, performing a medically appropriate examination, counseling and educating the patient/family/caregiver, ordering medications, tests, or procedures, independently interpreting results (not separately reported), communicating results to the patient/family/caregiver, and care coordination (not separately reported). Salina Rivera PA-C Hematology and Oncology Services Provided at: [place], [place] CC: Dr. Jose Yap [address] [address] documented in this encounter [facility] 03-02-2024 Note HNO ID: [id number] Author: SALINA RIVERA PA-C Service: ? Author Type: Physician Setter Out Type: Progress Notes Filed: 03/02/2024 10:20 Note Text: NAME: Prudencio Patrick [facility] NO.: [id number] DATE OF SERVICE: March 02, 2024 (Jovany) Some elements in this clinic note that are critical to medical decision making have been carefully reviewed and included from a prior clinic note dated: December 03, 2023 (Dipak) Referring Provider: Dr. 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 His M protein levels have been stable over the last 13+ years, and his risk of progression remains very low. However, he became more notably polycythemic and so we ordered a MPN workup for PRV which came back positive. Now improving with hydrea. He did require phlebotomies, however, he decided against any further phlebotomies due to poor side effects. 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 He is feeling well. Remains on hydrea 500 mg daily and aspirin daily. His labs are stable. Hct is 47.1 and qualifies for phlebotomy, however he prefers not to have phlebotomies. Updated Visit, December 03, 2023: Rafa returns with Martha, he is doing well. Labs today are fairly stable although he could qualify for plebotomy. Unfortunately, he feels terrible afterwards and does not want to do this for now. Updated Visit, September 24, 2023: Rafa returns with Martha. He offers no new complaints. He had his annual physical recently and was told everything looks good from their perspective. His labs look good today - HCT 45.6. Updated Visit, July 02, 2023: Prudencio Patrick [...] pain. He follows with his PCP, Dr. Yap, who has been changing his blood pressure medications. Patient states the first time he had a phlebotomy his blood pressure dropped. The second time he had a phlebotomy he had no problems. He denies bleeding and abnormal bruising. He offers no ne (more content not included)... [facility] 02-11-2024 History of Presen t illness Narrative Patient: Prudencio Patrick : 1945 PCP: Jose Yap MD SUBJECTIVE Patient presents today for follow up of skin lesion/neoplasm of unknown origin to the right hallux of the foot Pt states that previous treatment of acid tx with some improvement Pt rates pain the pain on a 1-10 scale an intensity of 4 Pt presents today for followup. Allergies: Allergies Allergen Reactions Clindamycin Anaphylaxis Penicillins Hives and Unknown Other Reaction(s): Mild Past Medical History: No past medical history on file. Medications: Current Outpatient Medications: acyclovir (Zovirax) 800 [...] Not on file Tobacco Use Smoking status: Never Passive exposure: Never Smokeless tobacco: Never Vaping Use Vaping status: Unknown Substance and Sexual Activity Alcohol use: [...] or changes in appetite or bowel habits OBJECTIVE LE EXAM: DERM: Elongated thick yellow crumbly nails digits 1 through 10. Positive hair growth b/l feet. Distal right plantar hallux region has a 1.2 cm x 1.0 cm round nummular lesion VASC: Positive palpable pedal pulses bilaterally NEURO: Gross sensation intact to bilateral feet ORTHO: Positive pain on palpation to nails 1 through 10 Minimal pain on palpation of right great toe lesion ASSESSMENT 1. Verruca plantaris 2. Foot pain, right PLAN Application of salinocaine acid medication to lesion/lesions located at right foot Informed pt of risks and benefits of procedure including high reoccurence rate, infection, pain and consent given. Application of DSD post procedure. Nakul Guerra DPM documented in this encounter [facility] 12-07-2023 Telephone encounter Note Rafa has been scheduled for lab draw in 11 weeks 02-23-24 and follow up with possible phlebotomy on thu03-02-24. Patient was notified of this appt. [facility] 12-07-2023 Miscellaneous Notes Rafa has been scheduled for lab draw in 11 weeks 02-23-24 and follow up with possible phlebotomy on thu03-02-24. Patient was notified of this appt. HITESH is stable. Will see him for labs in 11 weeks and with me in 12 weeks - orders already forwarded to clerical. Not all labs are resulted. Will wait for provider to review and call patient with recommendations. Kaitlin Sheldon RN Please call patient with his Lab results. To determine if Dr Begum wants to see back in 3 months? Patient was seen when his Martha was here for her follow up . No follow up orders given at the time of office visit. documented in this encounter [facility] 12-05-2023 Telephone encounter Note SPIEP is stable. Will see him for labs in 11 weeks and with me in 12 weeks - orders already forwarded to clerical. [facility] 12-04-2023 Telephone encounter Note Not all labs are resulted. Will wait for provider to review and call patient with recommendations. Kaitlin Sheldon RN [facility] 12-03-2023 Note HNO ID: [id number] Author: MAYCOL NOVAK MD Service: ? Author Type: Physician Type: Progress Notes Filed: 12/04/2023 16:53 Note Text: NAME: Prudencio Patrick [facility] NO.: [id number] DATE OF SERVICE: December 03, 2023 ([facility]) Some elements in this clinic note that are critical to medical decision making have been carefully reviewed and included from a prior clinic note dated: September 24, 2023 (Dipak) Referring Provider: Dr. 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 - labs for M-spike pending. 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 Labs today are fairly stable although he could qualify for plebotomy. Unfortunately, he feels terrible afterwards and does not want to do this for now. Updated Visit, September 24, 2023: Rafa returns with Martha. He offers no new complaints. He had his annual physical recently and was told everything looks good from their perspective. His labs look good today - HCT 45.6. Updated Visit, July 02, 2023: Prudencio Coleman Bubba returns for scheduled follow-up. At this point [...] pain. He follows with his PCP, Dr. Yap, who has been changing his blood pressure [...] amlodipine, HCTZ 25 in addition to Hyzaar (1 (more content not included)... [facility] 12-03-2023 History of Presen t illness Narrative Images from the original note were not included. NAME: Prudencio Patrick CLINIC NO.: [id number] DATE OF SERVICE: December 03, 2023 ([facility]) Some elements in this clinic note that are critical to medical decision making have been carefully reviewed and included from a prior clinic note dated: September 24, 2023 (Dipak) Referring Provider: Dr. 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 - labs for M-spike pending. 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 Labs today are fairly stable although he could qualify for plebotomy. Unfortunately, he feels terrible afterwards and does not want to do this for now. Updated Visit, September 24, 2023: Rafa returns with Martha. He offers no new complaints. He had his annual physical recently and was told everything looks good from their perspective. His labs look good today - HCT 45.6. Updated Visit, July 02, 2023: Prudencio Patrick [...] pain. He follows with his PCP, Dr. Yap, who has been changing his blood pressure [...] addition. I discussed his situation with Dr. Yap today and he will clarify meds for him. Updated Visit, October 25, 2021: Telephone 12 mins Discussed findings of Clemente 2 Mutation - c/w Polycythemia - [id number] mut + B-asa Phlebotomy Consider hydrea for [...] PERFORMANCE STATUS: 0 PHYSICAL EXAMINATION: Vitals: BP 154/84 Pulse 65 Temp (Src) 97.7 (Temporal) Resp 16 Ht 5' 10.984 (1.80m) Wt 246 lb 11.1 oz (111.9kg) SpO2 97% BMI 34.42 kg/(m^2). Body surface area is 2.37 meters [...] Hives MEDICATIONS: hydroxyurea (HYDREA) 500 mg capsule take 1 capsule by mouth every day losartan (COZAAR) 50 mg tablet Take 50 [...] daily. LABORATORY VALUES: WBC (k/uL) Date Value 12/03/2023 5.21 RBC (m/uL) Date Value 12/03/2023 4.67 Hemoglobin (g/dL) Date Value 12/03/2023 16.8 Hematocrit (%) Date Value 12/03/2023 48.5 MCV (fL) Date Value 12/03/2023 103.9 (H) MCH (pg) Date Value 12/03/2023 36.0 (H) MCHC (g/dL) Date Value 12/03/2023 34.6 RDW-CV (%) Date Value 12/03/2023 13.7 Platelet Count (k/uL) Date Value 12/03/2023 170 MPV (fL) Date Value 12/03/2023 10.6 Glucose (mg/dL) Date Value 12/03/2023 122 (H) BUN (mg/dL) Date Value 12/03/2023 19 Creatinine (mg/dL) Date Value 12/03/2023 1.16 Sodium (mmol/L) Date Value 12/03/2023 141 Potassium (mmol/L) Date Value 12/03/2023 4.1 Chloride (mmol/L) Date Value 12/03/2023 104 CO2 (mmol/L) Date Value 12/03/2023 28 Protein, Total (g/dL) Date Value 12/03/2023 8.5 (H) 12/03/2023 7.6 Albumin (g/dL) Date Value 12/03/2023 4.5 Calcium, Total (mg/dL) Date Value 12/03/2023 10.6 (H) Alkaline Phosphatase (U/L) Date Value 12/03/2023 111 Bilirubin, Total (mg/dL) Date Value 12/03/2023 0.5 AST (U/L) Date Value 12/03/2023 20 ALT (U/L) Date Value 12/03/2023 23 DIAGNOSIS: (D47.2) MGUS (monoclonal gammopathy of unknown significance) (primary encounter diagnosis) Plan: B2 MICROGLOBULIN, COMPLETE BLOOD COUNT AND DIFFERENTIAL, COMPREHENSIVE METABOLIC PANEL, LACTATE DEHYDROGENASE, PHOSPHORUS INORGANIC, PROTEIN ELECTROPHORESIS SERUM W/INTERP, MONOCLONAL PROTEIN, SERUM (BLOOD), URIC ACID, CALCIUM, IONIZED, KAPPA/BURT,FREE,SER (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) PRV (polycythemia rubra vera) ([facility]) Plan: B2 MICROGLOBULIN, COMPLETE BLOOD COUNT AND DIFFERENTIAL, COMPREHENSIVE METABOLIC PANEL, LACTATE DEHYDROGENASE, PHOSPHORUS INORGANIC, PROTEIN ELECTROPHORESIS SERUM W/INTERP, MONOCLONAL PROTEIN, SERUM (BLOOD), URIC ACID, CALCIUM, IONIZED, KAPPA/BURT,FREE,SER (N18.31) Stage 3a chronic kidney disease ([facility]) Plan: B2 MICROGLOBULIN, COMPLETE BLOOD COUNT AND DIFFERENTIAL, COMPREHENSIVE METABOLIC PANEL, LACTATE DEHYDROGENASE, PHOSPHORUS INORGANIC, PROTEIN ELECTROPHORESIS SERUM W/INTERP, MONOCLONAL PROTEIN, SERUM (BLOOD), URIC ACID, CALCIUM, IONIZED, KAPPA/BURT,FREE,SER PAST MEDICAL HISTORY Diagnosis Date Hypertension MGUS (monoclonal gammopathy of unknown significance) Osteoarthritis PRV (polycythemia rubra vera) ([facility]) 10/25/2021 No past surgical history on file. Social History Tobacco Use Smoking status: Former Types: Cigarettes Quit date: 05/31/1980 Years since quittin.5 Passive exposure: Past Smokeless tobacco: Never Substance Use Topics Alcohol use: Not Currently Drug use: Never No family history on file. I spent a total of 20 minutes on the date of service which included preparing to see the patient, [id number] patient care, completing clinical documentation, performing a medically appropriate examination, counseling and educating the patient/family/caregiver, ordering medications, tests, or procedures, independently interpreting results (not separately reported), communicating results to the patient/family/caregiver, and care coordination (not separately reported). Maycol Novak MD, CPE Hematology and Oncology Services Provided at: [place], [place] Scribe Attestation: This note was scribed by Maria Esther Luu on December 03, 2023 under the direction and supervision of Dr. Maycol Novak. I attest that all of the information documented is correct to the best of my knowledge. Provider Attestation: I, Maycol Novak MD, attest that all information documented by the above scribe is correct, and was supervised by me and under my direction. CC: Dr. Jose Yap [facility] [place] [address] documented in this encounter [facility] 12-03-2023 Telephone encounter Note Please call patient with his Lab results. To determine if Dr Begum wants to see back in 3 months? Patient was seen when his Martha was here for her follow up . No follow up orders given at the time of office visit. [facility] 11-10-2023 Telephone encounter Note I cannot sign for hydrea. I will forward to Brian. Salina Rivera PA-C [facility] Work Phone: 11-10-2023 Miscellaneous Notes I cannot sign for hydrea. I will forward to Brian. Salina Rivera PA-C Dr. Kel hyatt, sent to Mindy. Andie Garcia MA documented in this encounter [facility] 11-10-[address] Kel hyatt, sent to Mindy. Andie Garcia MA [facility] 09-24-2023 Instructions Maria Esther Luu - 09/24/2023 11:13 AM EDT No Phlebotomy for hematocrit > 47 (45.6 today) - At this time patient wishes to not have any further phlebotomies Continue baby ASA Continue Hydrea 500 mg daily Labs in 11 weeks RTC in 12 weeks Possible phlebotomy documented in this encounter [facility] 09-24-2023 History of Presen t illness Narrative Images from the original note were not included. NAME: Prudencio Patrick [facility] NO.: [id number] DATE OF SERVICE: September 24, 2023 (Dipak) Some elements in this clinic note that are critical to medical decision making have been carefully reviewed and included from a prior clinic note dated: July 02, 2023 ([facility]) Referring Provider: Dr. 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 - labs for M-spike pending. PLAN: No Phlebotomy for hematocrit > 47 (45.6 today) - At this time patient wishes to not have any further phlebotomies Continue baby ASA Continue Hydrea 500 mg daily Labs in 11 weeks RTC in 12 weeks Possible phlebotomy HPI: CASE HISTORY: Reverse Chronological Order 01/15/2023 - H/H 15.3/45.3 WBC 4.73, PLTs 155 04/17/2022 - H/H 16.3/47.9 - phlebotomy 500 ml 02/20/2022 - H/H 16.5/48.7 - phlebotomy 250 ml x 3 weeks in a row 11/28/2021 - Hydrea started 500 mg 11/14/2021 - phlebotomy caused severe hypotensive episode - possibly due to fasting/dehydration 10/18/2021 - Jak2+ PRV diagnosed 2006 - IgA Bastrop and IgM lambda biclonal M-spike Updated Visit, September 24, 2023: Rafa returns with Jacqueline. He offers no new complaints. He had his annual physical recently and was told everything looks good from their perspective. His labs look good today - HCT 45.6. Updated Visit, July 02, 2023: Prudencio Coleman Bubba returns for scheduled follow-up. At this point [...] pain. He follows with his PCP, Dr. Yap, who has been changing his blood pressure [...] addition. I discussed his situation with Dr. Yap today and he will clarify meds for him. Updated Visit, October 25, 2021: Telephone 12 mins Discussed findings of Clemente 2 Mutation - c/w Polycythemia - [id number] mut + B-asa Phlebotomy Consider hydrea for [...] PERFORMANCE STATUS: 0 PHYSICAL EXAMINATION: Vitals: BP 164/75 Pulse 58 Temp (Src) 97.4 (Temporal) Resp 18 Wt 251 lb 1.7 oz (113.9kg) SpO2 95% Body surface area is 2.39 meters squared. [...] Hives MEDICATIONS: hydroxyurea (HYDREA) 500 mg capsule take 1 capsule by mouth once daily losartan (COZAAR) 50 [...] daily. LABORATORY VALUES: WBC (k/uL) Date Value 09/24/2023 4.90 RBC (m/uL) Date Value 09/24/2023 4.36 Hemoglobin (g/dL) Date Value 09/24/2023 15.3 Hematocrit (%) Date Value 09/24/2023 45.6 MCV (fL) Date Value 09/24/2023 104.6 (H) MCH (pg) Date Value 09/24/2023 35.1 (H) MCHC (g/dL) Date Value 09/24/2023 33.6 RDW-CV (%) Date Value 09/24/2023 14.3 Platelet Count (k/uL) Date Value 09/24/2023 163 MPV (fL) Date Value 09/24/2023 10.3 Glucose (mg/dL) Date Value 09/24/2023 102 (H) BUN (mg/dL) Date Value 09/24/2023 21 Creatinine (mg/dL) Date Value 09/24/2023 1.09 Sodium (mmol/L) Date Value 09/24/2023 140 Potassium (mmol/L) Date Value 09/24/2023 4.9 Chloride (mmol/L) Date Value 09/24/2023 105 CO2 (mmol/L) Date Value 09/24/2023 24 Protein, Total (g/dL) Date Value 09/24/2023 7.5 Albumin (g/dL) Date Value 09/24/2023 4.2 Calcium, Total (mg/dL) Date Value 09/24/2023 10.0 Alkaline Phosphatase (U/L) Date Value 09/24/2023 99 Bilirubin, Total (mg/dL) Date Value 09/24/2023 0.6 AST (U/L) Date Value 09/24/2023 25 ALT (U/L) Date Value 09/24/2023 25 DIAGNOSIS: (D45) PRV (polycythemia rubra vera) (HCC) (primary encounter diagnosis) Plan: B2 MICROGLOBULIN, COMPLETE BLOOD COUNT AND DIFFERENTIAL, COMPREHENSIVE METABOLIC PANEL, LACTATE DEHYDROGENASE, PHOSPHORUS INORGANIC, PROTEIN ELECTROPHORESIS SERUM W/INTERP, MONOCLONAL PROTEIN, SERUM (BLOOD), URIC ACID, CALCIUM, IONIZED, KAPPA/BURT,FREE,SER (D47.2) MGUS (monoclonal gammopathy of unknown significance) Plan: B2 MICROGLOBULIN, COMPLETE BLOOD COUNT AND DIFFERENTIAL, COMPREHENSIVE METABOLIC PANEL, LACTATE DEHYDROGENASE, PHOSPHORUS INORGANIC, PROTEIN ELECTROPHORESIS SERUM W/INTERP, MONOCLONAL PROTEIN, SERUM (BLOOD), URIC ACID, CALCIUM, IONIZED, KAPPA/BURT,FREE,SER (N18.31) Stage 3a chronic kidney disease (HCC) Plan: B2 MICROGLOBULIN, COMPLETE BLOOD COUNT AND DIFFERENTIAL, COMPREHENSIVE METABOLIC PANEL, LACTATE DEHYDROGENASE, PHOSPHORUS INORGANIC, PROTEIN ELECTROPHORESIS SERUM W/INTERP, MONOCLONAL PROTEIN, SERUM (BLOOD), URIC ACID, CALCIUM, IONIZED, KAPPA/BURT,FREE,SER PAST MEDICAL HISTORY Diagnosis Date Hypertension MGUS (monoclonal gammopathy of unknown significance) Osteoarthritis PRV (polycythemia rubra vera) (HCC) 10/25/2021 No past surgical history on file. Social History Tobacco Use Smoking status: Former Types: Cigarettes Quit date: 05/31/1980 Years since quittin.3 Passive exposure: Past Smokeless tobacco: Never Substance Use Topics Alcohol use: Not Currently Drug use: Never No family history on file. I spent a total of 20 minutes on the date of service which included preparing to see the patient, [id number] patient care, completing clinical documentation, performing a medically appropriate examination, counseling and educating the patient/family/caregiver, ordering medications, tests, or procedures, independently interpreting results (not separately reported), communicating results to the patient/family/caregiver, and care coordination (not separately reported). Maycol Novak MD, CPE Hematology and Oncology Services Provided at: [place], [place] Scribe Attestation: This note was scribed by Maria Esther Luu on September 24, 2023 under the direction and supervision of Dr. Maycol Novak. I attest that all of the information documented is correct to the best of my knowledge. Provider Attestation: I, Maycol Novak MD, attest that all information documented by the above scribe is correct, and was supervised by me and under my direction. CC: Dr. Jose Yap [address] [place] [address] documented in this encounter [facility] 09-24-2023 Note HNO ID: [id number] Author: MAYCOL NOVAK MD Service: ? Author Type: Physician Type: Progress Notes Filed: 09/24/2023 19:08 Note Text: NAME: Prudencio Patrick CLINIC NO.: [id number] DATE OF SERVICE: September 24, 2023 ([facility]) Some elements in this clinic note that are critical to medical decision making have been carefully reviewed and included from a prior clinic note dated: July 02, 2023 ([facility]) Referring Provider: Dr. 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 - labs for M-spike pending. PLAN: No Phlebotomy for hematocrit > 47 (45.6 today) - At this time patient wishes to not have any further phlebotomies Continue baby ASA Continue Hydrea 500 mg daily Labs in 11 weeks RTC in 12 weeks Possible phlebotomy HPI: CASE HISTORY: Reverse Chronological Order 01/15/2023 - H/H 15.3/45.3 WBC 4.73, PLTs 155 04/17/2022 - H/H 16.3/47.9 - phlebotomy 500 ml 02/20/2022 - H/H 16.5/48.7 - phlebotomy 250 ml x 3 weeks in a row 11/28/2021 - Hydrea started 500 mg 11/14/2021 - phlebotomy caused severe hypotensive episode - possibly due to fasting/dehydration 10/18/2021 - Jak2+ PRV diagnosed 2006 - IgA Bastrop and IgM lambda biclonal M-spike Updated Visit, September 24, 2023: Rafa returns with Jacqueline. He offers no new complaints. He had his annual physical recently and was told everything looks good from their perspective. His labs look good today - HCT 45.6. Updated Visit, July 02, 2023: Prudencio Patrick [...] pain. He follows with his PCP, Dr. Yap, who has been changing his blood pressure [...] addition. I discussed his situation with Dr. Yap today and he will clarif (more content not included)... [facility] 09-15-2023 Miscellaneous Notes Labs needed for appointment on 09/23 Viki Barry MA documented in this encounter [facility] 07-30-2023 History of Presen t illness Narrative Patient: Prudencio Patrick : 1945 PCP: Jose Yap MD SUBJECTIVE This is a 77 y.o. 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 Patient may take fwpw-[id number]-[id number] NSAID p.r.n. for pain Application of salinocaine acid medication to lesion/lesions located at right foot Informed pt of risks and benefits of procedure including high reoccurence rate, infection, pain and consent given. Application of DSD post procedure. Nakul Guerra DPM documented in this encounter [facility] 07-13-2023 Evaluation note Encounter Date Diagnosis Assessment Notes Jun, Primary hypertension (ICD-10 - I10) [facility] 10-27-2023 Evaluation note* Encounter Date Diagnosis Assessment Notes [...] to determine if responsible for lightheadedness. r/o [facility] 10-03-2023 Evaluation note* Encounter Date Diagnosis Assessment Notes [...] in treatment. Mar, Nocturia (ICD-10 - R35.1) [facility] 08-21-2023 Evaluation note* Encounter Date Diagnosis Assessment Notes Treatment Notes Treatment Clinical Notes Jan, Hypertension (ICD-10 - I10) [facility] 08-03-2023 Instructions* Patient Instructions* Maycol Novak MD - 01/15/2023 8:53 AM EDT Plan for phlebotomy for hematocrit > 47. Continue baby ASA. Continue Hydrea 500 mg daily. Follow up in 12 weeks labs same day. Possible phlebotomy. [facility] History of Present illness Narrative* Maycol Novak MD - 01/15/2023 8:46 AM EDT Images from the original note were not included. NAME: Prudencio Patrick CLINIC NO.: [id number] DATE OF SERVICE: January 15, 2023 ([facility]) Some elements in this clinic note that are critical to medical decision making have been carefully reviewed and included from a prior clinic note dated: October 17, 2022 ([facility]) Referring Provider: Dr. 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 He follows with his PCP, Dr. Yap, who has been changing his blood pressure [...] addition. I discussed his situation with Dr. Yap today and he will clarify meds for him. 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 Has been in observation and followed by [...] 22 DIAGNOSIS: (D45) PRV (polycythemia rubra vera) ([facility]) (primary encounter diagnosis) Plan: IRON + TIBC, [...] unknown significance) Osteoarthritis PRV (polycythemia rubra vera) ([facility]) 10/25/2021 History reviewed. No pertinent surgical history. [...] which included preparing to see the patient, wyec-ae-[id number] patient care, completing clinical documentation, performing a medically appropriate examination, counseling and educating the patient/family/caregiver, ordering medications, tests, or p rocedures, and independently interpreting results (not separately reported). Maycol Novak MD, CPE Hematology and Oncology Services Provided at: [place], [place] CC: Dr. Jose Yap [address] [facility] [address] [facility] History of Present illness Narrative* Sonia Aragon APRN.STOCKROOM COORDINATOR - 10/17/2022 8:48 AM EDT Images from the original note were not included. NAME: Prudencio Patrick [facility] NO.: [id number] DATE OF SERVICE: October 17, 2022 ([facility]) Some elements in this clinic note that are critical to medical decision making have been carefully reviewed and included from a prior clinic note dated: August 07, 2022. (Dr. Novak) Referring Provider: Dr. 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 He follows with his PCP, Dr. Yap, who has been changing his blood pressure [...] addition. I discussed his situation with Dr. Yap today and he will clarify meds for him. 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 Cardneas which showed a <5% lambda monoclonal plasma [...] 166 DIAGNOSIS: (D45) PRV (polycythemia rubra vera) ([facility]) (primary encounter diagnosis) (D47.2) MGUS (monoclonal gammopathy of unknown significance) PAST MEDICAL HISTORY Diagnosis Date Hypertension MGUS (monoclonal gammopathy of unknown significance) Osteoarthritis PRV (polycythemia rubra vera) ([facility]) 10/25/2021 No past surgical history on file. Social History Tobacco Use Smoking status: Former Types: Cigarettes Quit date: 05/31/1980 Years since quittin.4 Passive exposure: Past Smokeless tobacco: Never Substance Use Topics Alcohol use: Not Currently Drug use: Never No family history on file. Sonia Aragon APRN.CNP Hematology and Oncology Services Provided at: [place], [place] CC: Dr. Jose Yap [address] [facility] [address] I spent a total of 30 minutes on the date of the service which included preparing to see the patient, [id number]-qn-[id number] patient care, completing clinical documentation, obtaining and/or reviewing separately obtained history, performing a medically appropriate examination, counseling and educating the pat ient/family/caregiver, ordering medications, tests, or procedures, independently interpreting results (not separately reported), and communicating results to the patient/family/caregiver. [facility]* Encounter Date Diagnosis Assessment Notes Treatment Notes Treatment Clinical Notes Sep, Stage 3a chronic kidney disease (ICD-10 - N18.31) [facility] Other 03-31-2023 Evaluation note* Encounter Date Diagnosis [...] High risk medication use (ICD-10 - Z79.899) [employer] Other 02-24-2023 Hospital Discharge instructions Patient Education [...] have oneof these risk factors: ?Being of -[place]an descent. ?Having a family history of prostate [...] you: Are older than age 55. Are -Chilean. Have a father, brother, or uncle who [...] 03/12/2018 Document Revised: 05/14/2018 Document Reviewed: 03/12/2018 [employer] Patient Education 2019 [employer]. Follow Up Care 08/05/2021 09:56:08 With:BARBRA BAILON, Christophe Stoddard, URL Address: [address] [place] [id number]- When: Unknown [facility] 02-23-2023 Evaluation note* Encounter Date Diagnosis Assessment Notes Treatment Notes Treatment Clinical Notes Jul, Polycythemia rubra vera (ICD-10 - D45) [facility] Other 02-23-2023 Miscellaneous Notes* Telephone Encounter - Renu Leonardo - 08/07/2022 1:20 PM EST Call placed to patient. He preferred to go on 08/18. Patient has been scheduled for lab and phleb this day. Renu Leonardo [12:22 PM] Arina Khoury just said he wants Rafa Patrick, our phlebotomy pt, to return in 1-2 weeks to attempt the phleb again. There is a telephone encounter about this...Thank you * Telephone Encounter - Arina Khoury RN - 08/07/2022 10:38 AM EST Patient was unable to give more than 100 ml blood today and after attempting again following fluids(without success) pt decided he wanted to go home. Pt/spouse question if he needs to come in sooner for his next phleb since we were unsuccessful thisvisit. Please advise. Arina Khoury RN documented in this encounterMercer [facility]02-23-[facility]23 History of Present illness Narrative* Carmen Oquendo [...] further and pillow placed under his legs. Metal Numerical Control Programmer notified Dr. Novak at this time instructed [...] again, Dr Novak notified. documented in this encounterMercer County Community Hospital02-23-2023 Instructions* Patient Instructions* Maycol Novak MD - 08/07/2022 8:37 AM EST Phlebotomy today - 500 CC Continue baby ASA. Continue Hydrea 500 mg daily. Follow up in 12 weeks labs same day. Possible phlebotomy. documented in this encounterMercer County Community Hospital02-23-2023 History of Present illness Narrative* Maycol Novak MD - 08/07/2022 8:30 AM EST Images from the original note were not included. NAME: Prudencio Patrick CLINIC NO.: [id number] DATE OF [facility]ICE: [facility] Some elements in this clinic note that are critical to medical decision making have been carefully reviewed and included from a prior clinic note dated: June 12, 2022 ([facility]) Referring Provider: Dr. 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 He follows with his PCP, Dr. Yap, who has been changing his blood pressure [...] addition. I discussed his situation with Dr. Yap today and he will clarify meds for him. 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 Maycol Novak MD, CPE Hematology and Oncology Services Provided at: [place], [place] CC: Dr. Jose Yap [facility] [place] [address] documented in this encounterMercer County Community Hospital02-09-2023 Evaluation note* Encounter Date Diagnosis Assessment [...] Stop antibiotics and monitor site for recurrence [facility] Other 01-19-2023 Evaluation note* Encounter Date Diagnosis [...] if area increases in size or tenderness. [employer] Other 01-05-2023 Evaluation note* Encounter Date Diagnosis [...] diuretic Jun, Gammopathy, monoclonal (ICD-10 - D47.2) [facility] Other 11-03-2022 History of Present illness Narrative* Sonia Aragon APRN.STOCKROOM COORDINATOR - 04/17/2022 8:43 AM EDT Images from the original note were not included. NAME: Prudencio Patrick CLINIC NO.: [id number] DATE OF SERVICE: April 17, 2022 (Mahesh) Some elements in this clinic note that are critical to medical decision making have been carefully reviewed and included from a prior clinic note dated: February 20, 2022. (Dr. Novak) Referring Provider: Dr. 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 He remains on Hydrea 500 mg once daily and is tolerating it well. He states that he is doing well. There has been no significant medical changes since his last visit. He denies shortness of breath, chest pain and leg pain. He follows with his PCP, Dr. Yap, who has been changing his blood pressure [...] addition. I discussed his situation with Dr. Yap today and he will clarify meds for him. 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 Social History Tobacco Use Smoking status: Former Types: Cigarettes Quit date: 05/31/1980 Years since quittin.9 Smokeless tobacco: Never No family history on file. Sonia Aragon APRN.STOCKROOM COORDINATOR [place], [place] CC: Dr. Jose Yap [address] [facility] [address] documented in this encounterMercer County Community Hospital09-16-2022 Miscellaneous Notes* Telephone Encounter - Neetu Avalos RN - 02/28/2022 7:50 AM EDT Pt is scheduled for labs and phlebotomy on 03/06. Please sign pended cbc to prevent delay in tx. Thank you, Neetu Avalos RN documented in this encounterMercer County Community Hospital09-15-2022 History of Present illness Narrative* Shanice Alvarez RN - 02/27/2022 8:09 AM EDT Hct 44.9 today, does not meet phleb parameters. Pt notified and verbalizes understanding, states hefeels fine. Next appt reviewed with pt. Shanice Alvarez RN documented in this encounterMercer County Community Hospital09-08-2022 Instructions* Patient Instructions* Maycol Novak MD - 02/20/2022 8:44 AM EDT 1. Phlebotomy today and weekly x 2 additional. 2. Continue B-ASA 3. Continue Hydrea 4. RTC in 8 weeks labs same day. 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 I discussed his situation with Dr. Yap today and he will clarify meds for him. 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 Social History Tobacco Use Smoking status: Former Types: Cigarettes Quit date: 05/31/1980 Years since quittin.7 Smokeless tobacco: Never No family history on file. I spent a total of 25 minutes on the date of the service which included preparing to see the patient, [id number] patient care, completing clinical documentation, performing a medically appropriate examination, counseling and educating the patient/family/caregiver and ordering medications, tests, or procedures. Maycol Novak MD, [place], [place] CC: Jose Yap, [address] [facility] [address] documented in this encounterMercer County Community Hospital07-14-2022 History of Present illness Narrative* Maycol Novak MD - 12/26/2021 8:43 AM EDT Images from the original note were not included. NAME: Prudencio Patrick [facility] NO.: [id number] DATE OF SERVICE: December 26, 2021 Some elements in this clinic note that are critical to medical decision making have been carefully reviewed and included from a prior clinic note dated: November 28, 2021 Referring Provider: Jose Yap Additional Clinicians involved in Prudencio Patrick's care: [...] relation to HCTZ - Defer to Dr. Yap CURRENT TREATMENT: 1. 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 I discussed his situation with Dr. Yap today and he will clarify meds for him. 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 [...] which included preparing to see the patient, [id number] patient care, completing clinical documentation, performing a medically appropriate examination, counseling and educating the patient/family/caregiver and ordering medications, tests, or procedures. Maycol Novak MD, CPE [place], [place] CC: Jose Yap, DO [address] [facility] [address] documented in this encounterMercer County Community Hospital06-16-2022 History of Present illness Narrative* Maycol Novak MD - 11/28/2021 8:41 AM EDT Images from the original note were not included. NAME: Prudencio Patrick [facility] NO.: [id number] DATE OF SERVICE: November 28, 2021 Some elements in this clinic note that are critical to medical decision making have been carefully reviewed and included from a prior clinic note dated: October 25, 2021 & October 18, 2020 Referring Provider: Jose Yap Additional Clinicians involved in Prudencio Patrick's care: [...] relation to HCTZ - Defer to Dr. Yap CURRENT TREATMENT: 1. 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 Will hold phlebotomy for now and reconsider once his flid status and BP meds are clarified. It's possible that he had a vagal reaction in addition. I discussed his situation with Dr. Yap today and he will clarify meds for him. 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 No pertinent surgical history. [...] which included preparing to see the patient, [id number]-[id number] patient care, completing clinical documentation, performing a medically appropriate examination, counseling and educating the patient/family/caregiver, ordering medications, tests, or p rocedures and communicating with other HCPs (not separately reported). Maycol Novak MD, CPE [facility] [place], [place] CC: Maycol Novak [address] [place] [address] [place] [address] Jose Brown Fracisco, DO [address] [facility] [place] [address] documented in this encounterMercer County Community Hospital06-02-2022 History of Present illness Narrative* Akanksha Grullon RN - 11/14/2021 9:49 AM EDT 0827 Patient [...] struggles to stay conscious. remains present. Sandra Rivera PA-C informed of changes and comes to the treatment room. IV access established in right ventral arm per Jesica Quinonez RN. 2 failed attempts in right hand and right dorsal arm per this casualty underwriter. One failed attempt per Rebeca Sheldon RN left ventral arm. Phlebotomy needle dc'd for nonfunctioning status. VS pulse 46-POx 97%-unable to read or auscultate BP. Patient is pale and diaphoretic. Peripheral pulse are also not palpable. 0910 Dr. eLvin has been notified and presents to the treatment room along with Sandra Rivera PA-C who has remained at chairside. No [...] Remains in a supine position and this casualty underwriter remains at chairside. 0927 POx 99% [...] scheduled. Akanksha Grullon RN documented in this encounterMercer County Community Hospital05-16-2022 Miscellaneous Notes* Telephone Encounter - Shaunna Meeks Sec - 10/28/2021 1:03 PM EDT Patient has been 2 phlebotomy and lab 4 week follow up lab phlebotomy. * Telephone Encounter - Renu Leonardo - 10/28/2021 11:29 AM EDT Call placed to patient, no answer. Left message on voicemail to call back to schedule. Renubaltazar Leonardo Follow-up disposition: Return in about 4 weeks (around 11/22/2021). Check out comments: 1. Phlebotomy 1 unit every 2 weeks - start next week 2. Start B-ASA 3. start Hydrea after initial phlebotomy 4. RTC in 4 weeks documented in this encounterMercer County Community Hospital05-13-2022 History of Present illness Narrative* Maycol Novak MD - 10/25/2021 3:40 PM EDT Images from the original note were not included. 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 Updated Visit, October 25, 2021: Telephone 12 mins Discussed findings of Clemente 2 Mutation - c/w Polycythemia - [id number] mut + B-asa Phlebotomy Consider hydrea for [...] Maycol Novak MD, CPE Services Provided at: [facility] [place], [place] & [facility], [place], [place] CC: Jose Yap documented in this encounterMercer County Community Hospital05-06-2022 History of Present illness Narrative* Maycol [...] Maycol Novak MD, CPE Services Provided at: [place], [place] & [place], [place] documented in this encounterMercer County Community Hospital04-28-2022 Miscellaneous Notes* Telephone Encounter - Salina Rivera PA-C - 10/10/2021 9:30 AM EDT Orders placed Salina Rivera PA-C * Telephone Encounter - Kristen Berkowitz - 10/10/2021 9:18 AM EDT Patient coming in on Thursday10/18/21 for follow up with labs. Please add lab orders. Thanks, Kristen Berkowitz MA documented in this encounterMercer County Community HospitalEvaluation + Plan note Future Appointments Appointment Date:08/10/2023 08:45:00 AM Scheduled Provider:Christophe BELLE MD Location:[facility] Appointment Type:URO Office Visit Diagnostic Tests Pending * PSA Total 06/15/23 [facility] [place] [facility] evaluation + Plan note Future Appointments Appointment Date:08/21/2025 08:45:00 AM Scheduled Provider:Christophe BELLE MD Location:[facility] Appointment Type:URO Office Visit Diagnostic Tests Pending * PSA Total 08/15/24 [facility] [place] [facility] evaluation + Plan note Future Appointments Appointment Date:08/21/2025 08:45:00 AM Scheduled Provider:Christophe BELLE MD Location:[facility] Appointment Type:URO Office Visit Diagnostic Tests Pending * Urine Cytology ([facility]) 08/15/24 [facility] Evaluation note* Diagnosis MGUS (monoclonal gammopathy of unknown significance)- Primary Monoclonal paraproteinemia documented in this encounter [facility] [place] [facility]* Diagnosis MGUS (monoclonal gammopathy of unknown significance)- Primary Monoclonal paraproteinemia Polycythemia Polycythemia vera documented in this encounter [facility] [place] [facility]* Diagnosis PRV (polycythemia rubra vera) ([facility]) Polycythemia vera documented in this encounter [facility] [place] [facility]* Diagnosis PRV (polycythemia rubra vera) ([facility])- Primary Polycythemia vera documented in this encounter [facility] [place] [facility]* Diagnosis PRV (polycythemia rubra vera) ([facility])- Primary Polycythemia vera MGUS (monoclonal gammopathy of unknown significance) Monoclonal paraproteinemia documented in this encounter [facility] [place] [facility]* Diagnosis PRV (polycythemia rubra vera) ([facility])- Primary Polycythemia vera MGUS (monoclonal gammopathy of unknown significance) Monoclonal paraproteinemia documented in this encounter [facility] [place] [facility]* Diagnosis PRV (polycythemia rubra vera) ([facility])- Primary Polycythemia vera MGUS (monoclonal gammopathy of unknown significance) Monoclonal paraproteinemia documented in this encounter [facility] [place] [facility]* Diagnosis PRV (polycythemia rubra vera) ([facility])- Primary Polycythemia vera MGUS (monoclonal gammopathy of unknown significance) Monoclonal paraproteinemia documented in this encounter [facility] [place] [facility]* Diagnosis 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 documented in this encounter [facility] [place] [facility]* Diagnosis 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 documented in this encounter [facility] [place] [facility]* Diagnosis 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 documented in this encounter [facility] [place] [facility]* Diagnosis 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 documented in this encounter [facility] note* Diagnosis 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 documented in this encounter [facility] [place] [facility]* Diagnosis 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 documented in this encounter [facility] noteNo [employer] Other Evaluation note* Diagnosis 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 MGUS (monoclonal gammopathy of unknown significance) Monoclonal paraproteinemia Stage 3a chronic kidney disease ([facility]) documented in this encounter [facility] note* Diagnosis 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 MGUS (monoclonal gammopathy of unknown significance) Monoclonal paraproteinemia Stage 3a chronic kidney disease ([facility]) documented in this encounter [facility] [place] [facility]* Diagnosis Neoplasm of uncertain behavior of skin- Primary Verruca plantaris Plantar wart Foot pain, right Pain in soft tissues of limb Onychomycosis Dermatophytosis of nail Toe pain, bilateral [facility] Diagnosis Onset Date Resolution Status Benign prostatic hyperplasia with nocturia acute Elevated cholesterol acute Hypertension acute MGUS (monoclonal gammopathy of unknown significance) acute Obesity acute Polycythemia vera acute Medicare annual wellness visit, subsequent noneactive [facility] Work Phone: Evaluation note* Diagnosis 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 MGUS (monoclonal gammopathy of unknown significance) Monoclonal paraproteinemia documented in this encounter [facility] note* Diagnosis 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 MGUS (monoclonal gammopathy of unknown significance) Monoclonal paraproteinemia Stage 3a chronic kidney disease (HCC) Morbid obesity (HCC) Morbid obesity documented in this encounter [facility]* Diagnosis MGUS (monoclonal gammopathy of unknown significance)- Primary Monoclonal paraproteinemia PRV (polycythemia rubra vera) (HCC) Polycythemia vera Stage 3a chronic kidney disease (HCC) documented in this encounter [facility] [place] [facility]* Diagnosis MGUS (monoclonal gammopathy of unknown significance)- Primary Monoclonal paraproteinemia PRV (polycythemia rubra vera) ([facility]) Polycythemia vera documented in this encounter [facility] [place] [facility]* Diagnosis MGUS (monoclonal gammopathy of unknown significance)- Primary Monoclonal paraproteinemia PRV (polycythemia rubra vera) ([facility]) Polycythemia vera Stage 3a chronic kidney disease (HCC) documented in this encounter [facility] [place] [facility]* Diagnosis Verruca plantaris- Primary Plantar wart Foot pain, right Pain in soft tissues of limb documented in this encounter [facility] Healthcare[facility]* Diagnosis Verruca plantaris- Primary Plantar wart Foot pain, right Pain in soft tissues of limb Onychomycosis Dermatophytosis of nail Toe pain, bilateral documented in this encounter [facility] HealthcareEvaluation note* Diagnosis Verruca plantaris- Primary Plantar wart Foot pain, right Pain in soft tissues of limb Pain due to onychomycosis of toenails of both feet documented in this encounter [facility] HealthcareEvaluation note* Diagnosis Onset Date Resolution Status Admit Date Benign prostatic hyperplasia with nocturia acute August 02, 9:47am Elevated cholesterol acute ua2024 9:47am Hypertension acute July 9:47am MGUS (monoclonal gammopathy of unknown significance) acute July 162024 9:47am Obesity acute August 02, 2024 9:47am Polycythemia vera acute 2024 9:47am [facility] Work Phone: Evaluation note* Diagnosis MGUS (monoclonal gammopathy of unknown significance)- Primary Monoclonal paraproteinemia PRV (polycythemia rubra vera) ([facility]) Polycythemia vera Stage 3a chronic kidney disease (HCC) documented in this encounter [facility] general Narrative - Reported* Type Description Date [...] ostomy .2014 Hospitalization History see surgical history [employer] Other History general Narrative - Reported* Type Description Date [...] History Polycythemia vera Surgical History TRUS w/biopsy 2001, 2004 Surgical History bronchoscopy .2014 Surgical History subtotal colectomy with end ile ostomy .2014 Hospitalization History see surgical history [employer] Other History general Narrative - Reported* Type Description Date [...] ostomy .2014 Hospitalization History see surgical history [employer] Other Hospital course Narrative No data available for this section [facility] Hospital Discharge instructions No data available for this section [facility] Progress note No data available for this section [facility] Medications Administered Section Inactive Administered Medications - [...] Purpose Family History No Family History Records Found Relationship Condition Age at Onset Recorded Date/T kwame family member Malignant neoplasm Unknown Advance Directives No Advanced Directives Records Found Advance Directive Response Recorded Date/ Time Advance Directives No July 06, 2023 6:27pm Advance Directive Response Recorded Date/ Time Advance Directives No July 06, 2023 5:27pm Chief Complaint and Reason for Visit Chief Complaint [facility] Wellness Reason for Visit Benign prostatic hyp erplasia with nocturia Elevated cholesterol Hypertension MGUS (monoclonal gammopathy of unknown significance) Obesity Polycythemia vera Medicare annual wellness visit, subsequent Chief Complaint Amb Documentation 6 month follow up Reason for Visit Benign prostatic hyp erplasia with nocturia Elevated cholesterol Hypertension MGUS (monoclonal gammopathy of unknown significance) Obesity Polycythemia vera Medicare annual wellness visit, subsequent Chief Complaint Admit Date 4 month f/u August 02, 2024 9:47am Reason for Visit Admit Date Benign prostatic hyperplasia with noctur ia August 02, 2024 9:47am Elevated cholesterol August 02, 2024 9:47am Hypertension August 02, 2024 9:47am MGUS (monoclonal gammopathy of unknown s ignificance) August 02, 2024 9:47am Obesity August 02, 2024 9:47am Polycythemia vera August 02, 2024 9:47am Additional Source Comments Source Comments (unrecognize d section and content) In the event this informatio n is protected by the Federal Confidentiality of Alcohol and Drug Abuse Patient Records regulations: The Federal rules restrict any use of the information to criminally investigate or prosecute any alcohol or drug abuse patient.[facility] the event this information is protected by the Federal Confidentiality of Alcohol and Drug Abuse Patient Records regulations: The Federal rules restrict any use of the information to criminally investigate or prosecute any alcohol or drug abuse patient.[facility] the event this information is protected by the Federal Confidentiality of Alcohol and Drug Abuse Patient Records regulations: The Federal rules restrict any use of the information to criminally investigate or prosecute any alcohol or drug abuse patient.[facility] the event this information is protected by the Federal Confidentiality of Alcohol and Drug Abuse Patient Records regulations: The Federal rules restrict any use of the information to criminally investigate or prosecute any alcohol or drug abuse patient.[facility] the event this information is protected by the Federal Confidentiality of Alcohol and Drug Abuse Patient Records regulations: The Federal rules restrict any use of the information to criminally investigate or prosecute any alcohol or drug abuse patient.[facility] the event this information is protected by the Federal Confidentiality of Alcohol and Drug Abuse Patient Records regulations: The Federal rules restrict any use of the information to criminally investigate or prosecute any alcohol or drug abuse patient.[facility] the event this information is protected by the Federal Confidentiality of Alcohol and Drug Abuse Patient Records regulations: The Federal rules restrict any use of the information to criminally investigate or prosecute any alcohol or drug abuse patient.[facility] the event this information is protected by the Federal Confidentiality of Alcohol and Drug Abuse Patient Records regulations: The Federal rules restrict any use of the information to criminally investigate or prosecute any alcohol or drug abuse patient.[facility] the event this information is protected by the Federal Confidentiality of Alcohol and Drug Abuse Patient Records regulations: The Federal rules restrict any use of the information to criminally investigate or prosecute any alcohol or drug abuse patient.[facility] the event this information is protected by the Federal Confidentiality of Alcohol and Drug Abuse Patient Records regulations: The Federal rules restrict any use of the information to criminally investigate or prosecute any alcohol or drug abuse patient.[facility] the event this information is protected by the Federal Confidentiality of Alcohol and Drug Abuse Patient Records regulations: The Federal rules restrict any use of the information to criminally investigate or prosecute any alcohol or drug abuse patient.[facility] the event this information is protected by the Federal Confidentiality of Alcohol and Drug Abuse Patient Records regulations: The Federal rules restrict any use of the information to criminally investigate or prosecute any alcohol or drug abuse patient.[facility] the event this information is protected by the Federal Confidentiality of Alcohol and Drug Abuse Patient Records regulations: The Federal rules restrict any use of the information to criminally investigate or prosecute any alcohol or drug abuse patient.[facility]In the event this information is protected by the Federal Confidentiality of Alcohol and Drug Abuse Patient Records regulations: The Federal rules restrict any use of the information to criminally investigate or prosecute any alcohol or drug abuse patient.[facility]In the event this information is protected by the Federal Confidentiality of Alcohol and Drug Abuse Patient Records regulations: The Federal rules restrict any use of the information to criminally investigate or prosecute any alcohol or drug abuse patient.[facility] HospitalIn the event this information is protected by the Federal Confidentiality of Alcohol and Drug Abuse Patient Records regulations: The Federal rules restrict any use of the information to criminally investigate or prosecute any alcohol or drug abuse patient.[facility] the event this information is protected by the Federal Confidentiality of Alcohol and Drug Abuse Patient Records regulations: The Federal rules restrict any use of the information to criminally investigate or prosecute any alcohol or drug abuse patient.[facility] HospitalIn the event this information is protected by the Federal Confidentiality of Alcohol and Drug Abuse Patient Records regulations: The Federal rules restrict any use of the information to criminally investigate or prosecute any alcohol or drug abuse patient.[facility] HospitalIn the event this information is protected by the Federal Confidentiality of Alcohol and Drug Abuse Patient Records regulations: The Federal rules restrict any use of the information to criminally investigate or prosecute any alcohol or drug abuse patient.[facility] HospitalIn the event this information is protected by the Federal Confidentiality of Alcohol and Drug Abuse Patient Records regulations: The Federal rules restrict any use of the information to criminally investigate or prosecute any alcohol or drug abuse patient.[facility] HospitalIn the event this information is protected by the Federal Confidentiality of Alcohol and Drug Abuse Patient Records regulations: The Federal rules restrict any use of the information to criminally investigate or prosecute any alcohol or drug abuse patient.[facility] HospitalIn the event this information is protected by the Federal Confidentiality of Alcohol and Drug Abuse Patient Records regulations: The Federal rules restrict any use of the information to criminally investigate or prosecute any alcohol or drug abuse patient.[facility] HospitalIn the event this information is protected by the Federal Confidentiality of Alcohol and Drug Abuse Patient Records regulations: The Federal rules restrict any use of the information to criminally investigate or prosecute any alcohol or drug abuse patient.[facility] HospitalIn the event this information is protected by the Federal Confidentiality of Alcohol and Drug Abuse Patient Records regulations: The Federal rules restrict any use of the information to criminally investigate or prosecute any alcohol or drug abuse patient.[facility] HospitalIn the event this information is protected by the Federal Confidentiality of Alcohol and Drug Abuse Patient Records regulations: The Federal rules restrict any use of the information to criminally investigate or prosecute any alcohol or drug abuse patient.[facility] HospitalIn the event this information is protected by the Federal Confidentiality of Alcohol and Drug Abuse Patient Records regulations: The Federal rules restrict any use of the information to criminally investigate or prosecute any alcohol or drug abuse patient.[facility] HospitalIn the event this information is protected by the Federal Confidentiality of Alcohol and Drug Abuse Patient Records regulations: The Federal rules restrict any use of the information to criminally investigate or prosecute any alcohol or drug abuse patient.[facility] HospitalIn the event this information is protected by the Federal Confidentiality of Alcohol and Drug Abuse Patient Records regulations: The Federal rules restrict any use of the information to criminally investigate or prosecute any alcohol or drug abuse patient.[facility] HospitalIn the event this information is protected by the Federal Confidentiality of Alcohol and Drug Abuse Patient Records regulations: The Federal rules restrict any use of the information to criminally investigate or prosecute any alcohol or drug abuse patient.[facility] HospitalIn the event this information is protected by the Federal Confidentiality of Alcohol and Drug Abuse Patient Records regulations: The Federal rules restrict any use of the information to criminally investigate or prosecute any alcohol or drug abuse patient.[facility] HospitalIn the event this information is protected by the Federal Confidentiality of Alcohol and Drug Abuse Patient Records regulations: The Federal rules restrict any use of the information to criminally investigate or prosecute any alcohol or drug abuse patient.[facility] Reason for Visit (unrecogniz ed section and content) Reason Comments Lab Orders Reason Comments MGUS 1 year follow up Reason Comments Established Patient Reason Comments Future Appointment Reason Comments MGUS follow up prv Reason Comments PRV Reason Onset Date Comments Refill Request 01/20/2022 Reason Comments PRV Treatment visit Reason Comments Refill Request Reason Comments Appointment Reason Comments PRV (polycythemia rubra vera) (HCC) 2 mo nth follow up Reason Comments PRV (polycythemia rubra vera) Reason Comments Toenail Care Non DM Nails Reason Comments Results Reason Comments MGUS Follow up treatment Reason Comments MGUS (monoclonal gammopathy of unknown s ignificance) Reason Comments Lesion Removal 2 wk lt lesion F/U Reason Comments Toenail Care Non dm nail care Reason Comments mgus Care Teams (unrecognized sec tion and content) Assistant Dean Relationship Specialty Start Date End Date Jose Yap DO PCP - General Internal Medicine 02/09/12 Assistant Dean Relationship Specialty Start Date End Date Jose Yap DO PCP - General Internal Medicine 02/09/12 Assistant Dean Relationship Specialty Start Date End Date Jose Yap DO PCP - General Internal Medicine 02/09/12 Assistant Dean Relationship Specialty Start Date End Date Jose Yap DO PCP - General Internal Medicine 02/09/12 Assistant Dean Relationship Specialty Start Date End Date Jose Yap DO PCP - General Internal Medicine 02/09/12 Assistant Dean Relationship Specialty Start Date End Date Jose Yap, DO PCP - General Internal Medicine 02/09/12 Assistant Dean Relationship Specialty Start Date End Date Jose Yap DO PCP - General Internal Medicine 02/09/12 Assistant Dean Relationship Specialty Start Date End Date Jose Yap DO PCP - General Internal Medicine 02/09/12 Assistant Dean Relationship Specialty Start Date End Date Jose Yap DO PCP - General Internal Medicine 02/09/12 Assistant Dean Relationship Specialty Start Date End Date Jose Yap DO PCP - General Internal Medicine 02/09/12 Assistant Dean Relationship Specialty Start Date End Date Jose Yap DO PCP - General Internal Medicine 02/09/12 Assistant Dean Relationship Specialty Start Date End Date Jose Yap DO PCP - General Internal Medicine 02/09/12 Assistant Dean Relationship Specialty Start Date End Date Jose Yap DO PCP - General Internal Medicine 02/09/12 Assistant Dean Relationship Specialty Start Date End Date Jose Yap MD [address] [place] [id number] PCP - General Internal Medicine 07/30/23 Team Status: Active Member Role Status Dates Jose Yap DO Primary Care Provider Active Team Status: Active Member Role Status Dates Jose Yap DO Primary Care Provide r, Attending Provider Active Start: August 07, 2023 Team Status: Inactive Member Role Status Dates Jose Yap DO Primary Care Provide r, Attending Provider Active Start: September 15, 2023 End: September 15, 2023 Assistant Dean Relationship Specialty Start Date End Date Jose Yap DO PCP - General Internal Medicine 02/09/12 Assistant Dean Relationship Specialty Start Date End Date Jose Yap DO PCP - General Internal Medicine 02/09/12 Assistant Dean Relationship Specialty Start Date End Date Jose Yap DO PCP - General Internal Medicine 02/09/12 Assistant Dean Relationship Specialty Start Date End Date Jose Yap DO PCP - General Internal Medicine 02/09/12 Assistant Dean Relationship Specialty Start Date End Date Jose Yap DO PCP - General Internal Medicine 02/09/12 Assistant Dean Relationship Specialty Start Date End Date Jose Yap DO PCP - General Internal Medicine 02/09/12 Team Status: Active Member Role Status Dates Jose Yap DO Primary Care Provider Active Start: February 23, 2024 Maycol Novak MD Attending Provider Active Start: February 23, 2024 Team Status: Active Member Role Status Dates Jose Yap DO Primary Care Provider Active Start: March 02, 2024 Lula Garcia CMA Attending Provider Active Start: March 02, 2024 Team Status: Inactive Member Role Status Dates Jose Yap DO Primary Care Provide r, Attending Provider Active Start: March 22, 2024 End: March 22, 2024 Assistant Dean Relationship Specialty Start Date End Date Jose Yap DO PCP - General Internal Medicine 02/09/12 Assistant Dean Relationship Specialty Start Date End Date Jose Yap MD [address] [facility] [place] [id number] PCP - General Internal Medicine 07/30/23 Assistant Dean Relationship Specialty Start Date End Date Jose Yap MD [address] [facility] [place] [id number] PCP - General Internal Medicine 07/30/23 Assistant Dean Relationship Specialty Start Date End Date Jose Yap MD [address] [facility] [place] [id number] PCP - General Internal Medicine 07/30/23 Team Status: Active Member Role Status Dates Jose Yap DO Primary Care Provider Active Start: May 18, 2024 Salina Rivera PA-C Attending Provider Active Start: May 18, 2024 Team Status: Inactive Member Role Status Dates Jose Yap DO Primary Care Provide r, Attending Provider Active Start: August 02, 2024 End: August 02, 2024 Assistant Dean Relationship Specialty Start Date End Date Jose Yap DO PCP - General Internal Medicine 02/09/12 (unrecognized sect ion and content) No Status Records FoundNo Status Records FoundNo Status Records FoundNo Status Records FoundNo Status Records Found INFORMATION SOURCE (unrecogn ized section and content) DATE CREATED AUTHOR 09/26/2022 [facility] DATE CREATED AUTHOR AUTHOR'S ORGANIZ ATION 08/13/2024 [facility] DATE CREATED AUTHOR AUTHOR'S ORGANIZ ATION 08/20/2024 [facility] DATE CREATED AUTHOR AUTHOR'S ORGANIZ ATION 08/21/2024 [facility] Goals (unrecognized section and content) Goals may be documented in a n alternate section FOR RECORDS PERTAINING TO PATIENTS WHO ARE [...] BE BASED ON THE PRIMARY CLINICAL RECORDS. [employer] [facility]. provides no warranty or guarantee of the accuracy or completeness of information in this document.
== END 2024-08-25 08:58 | disposition home or self-care (01) ==
LOC: US 08:57
PROVIDERS: PCP Internal Medicine; Visit Provider Urology
DX: R31.0 Gross hematuria (principal)
CPT/HCPCS: 74018; 76775